=== PATIENT | male | born 1985 | race American Indian/Alaskan Native ===

== ENCOUNTER 2019-02-12 04:52 | Inpatient (IN) | payer BC, OTHER ==
--- NOTE | 2019-02-12 05:02 | Consultation ---
History of Present Illness History of present illness: [facility] Consult Services Impression: Patient presenting with lightheadedness and generalized weakness. No focal deficits on exam. Low suspicion for stroke, but can rule out with MRI. Endorsed symptoms sound more like presyncope. Not a tpa candidate due to: no deficits on exam, low suspicion for stroke Not an ADE candidate due to: no deficits on exam, presentation not suggestive of LVO Differential Diagnosis: 1. Cardioembolic stroke 2. Small vessel disease/lacune 3. Thromboembolic, [id number]-lobebs mechanism 4. Hypercoagulable state-related infarct 5. Transient ischemic attack 6. Thrombotic mechanism, large artery disease 7. Presyncope Comments: Door time: 451 [facility] contacted: [phone] [facility] at bedside: 447 NIHSS assessment time: 451 Recommendations: MRI brain wo Presyncope work up per admitting team Consider inpatient neurology consult Discussed with ED MD -------- - CC: stroke alert History of Present Illness Patient is a 33 year old man with a history of HTN and stroke (no residua per patient) presenting with generalized weakness and dizziness. Last normal at 0100 prior to bed. He woke around 0400 today feelinggenerally weak and dizzy. He states the dizziness is a sense of lightheadedness like he might pass out on standing, not room-spinning or internal/external movement. No focal/lateralizing weakness, sensory change, speech/language change, vision loss, CP, ARRIAZA. He ambulated independently for EMS. 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 Diagnostic: CT head wo - nothing acute Exam: NIHSS score: 0 Medical Decision Making: - Extensive number of diagnosis or management options are considered above. - Extensive amount of complex data reviewed. - High risk of complication and/or morbidity or mortality are associated with differential diagnostic considerations above. - There may be Uncertain outcome and increased probability of prolonged functional impairment or high probability of severe prolonged functional impairment associated with some of these differential diagnosis. Medical Data Reviewed: 1.Data reviewed include clinical labs, radiology, Medical Tests; 2.Tests results discussed w/performing or interpreting physician; 3.Obtaining/reviewing old medical records; 4.Obtaining case history from another source; 5.Independent review of image, tracing or specimen. Patient was informed the Neurology Consult would happen via TeleHealth consult by way of interactive audio and video telecommunications and consented to receiving care in this manner. Medications and Allergies Allergies Allergy/AdvReac Type Severity Reaction Status Date / Time No Known Allergies Allergy Verified 08/27/14 07:40 Home Medications Medication Instructions Recorded Confirmed Last Taken Type Acetaminophen/Codeine [Tylenol #3] 1 tab PO Q6H PRN #20 tab 08/27/14 Unknown Rx Azithromycin [Zithromax TAB] 500 mg PO QDAY #7 tablet 04/19/18 Unknown Rx Benzonatate [Tessalon Perle] 100 mg PO TID #30 capsule 04/19/18 Unknown Rx Ibuprofen [Motrin 600 MG tab] 600 mg PO Q8H PRN #30 tablet 04/19/18 Unknown Rx - Level of Consciousness 1a. Level of Consciousness: alert/keenly responsive - LOC Questions 1b. LOC Questions: answers both correctly - LOC Command 1c. LOC Commands: performs tasks correctly - Best Gaze 2. Best Gaze: normal - Visual 3. Visual: no visual loss - Facial Palsy 4. Facial Palsy: normal symmetrical movement - Motor Arm 5a. Motor Arm Left: no drift 5b. Motor Arm Right: no drift - Motor Leg 6a. Motor Leg Left: no drift 6b. Motor Leg Right: no drift - Limb Ataxia 7. Limb Ataxia: absent - Sensory 8. Sensory: normal - Best Language 9. Best Language: no aphasia - Dysarthria 10. Dysarthria: normal - Extinction and Inattention 11. Extinction/Inattention: no abnormality - Scoring Total Score: 0 Stroke Severity: No Stroke Symptoms
--- NOTE | 2019-02-12 05:25 | Cat Scan Report ---
CT HEAD WITHOUT CONTRAST INDICATION / CLINICAL INFORMATION: MAIN: STROKE ALERT. DIZZINESS. TECHNIQUE: All CT scans at this location are performed using CT dose reduction for ALARA by means of automated e xposure control. COMPARISON: None available. FINDINGS: HEMORRHAGE: None. EXTRA-AXIAL SPACES: Normal in size and morphology for the patient's age. VENTRICULAR SYSTEM: Normal in size and morphology for the patient's age. CEREBRAL PARENCHYMA: Chronic left thalamic, left occipital, and posterior left parietal infarcts/ence phalomalacia have developed since the prior study 4 years ago. Lacunar infarct in the left periventri cular white matter is unchanged. No definite acute territorial infarct. MIDLINE SHIFT OR HERNIATION: None. CEREBELLUM / BRAINSTEM: No significant abnormality. ORBITS: Normal as visualized. SOFT TISSUES of HEAD: No significant abnormality. CALVARIUM: No significant abnormality. PARANASAL SINUSES / MASTOID AIR CELLS: Normal as visualized. ADDITIONAL FINDINGS: None. IMPRESSION: 1. No acute findings. 2. Old left occipital, left parietal, and left thalamic infarcts have developed since the prior CT. COMMUNICATION: Time of Communication (BRASS POURER/CDT): 4:20 AM Licensed Practitioner Receiving Report: PABLO Herrera in the ED Signer Name: Agatha Storm MD Signed: 02/12/2019 5:20 AM Workstation Name: [email or web address]
[2019-02-12 05:32] LABS: Basophils # (Auto) 0.1 K/mm3 (0.0-0.1); Basophils % (Auto) 1.1 % (0.0-1.8); Eosinophils % (Auto) 0.9 % (0.0-4.3); Hematocrit 38.8 % (35.5-45.6); Lymphocytes # (Auto) 1.4 K/mm3 (1.2-5.4); Lymphocytes % (Auto) 28.4 % (13.4-35.0); Mean Corpuscular HGB Conc 34 % (32-34); Mean Corpuscular Volume 91 fl (84-94); Monocytes # (Auto) 0.3 K/mm3 (0.0-0.8); Monocytes % (Auto) 6.2 % (0.0-7.3); Platelet Count 289 K/mm3 (140-440); Red Blood Count 4.28 M/mm3 (3.65-5.03); Red Cell Distribution Width 17.8 % (13.2-15.2)
[2019-02-12 05:42] LABS: Calcium 8.8 mg/dL (8.4-10.2); INR 2.77 (0.87-1.13)
[2019-02-12 05:43] LABS: Partial Thromboplastin Time 39.4 Sec. (24.2-36.6)
--- NOTE | 2019-02-12 07:01 | Emergency Department Report ---
ED Neuro Deficit HPI - General Chief Complaint: Neuro Symptoms/Deficit Stated Complaint: POSS STROKE Time Seen by Provider: 02/12/19 06:06 Source: patient Mode of arrival: Ambulatory Limitations: No Limitations - History of Present Illness Initial Comments: 33-year-old male with a past medical history previous CVA with residual deficit, hypertension, and on anticoagulation for "a blood clot in his heart" presents to the hospital with complaints of waking up with lightheadedness and disorientation. Patient has multiple strokes since May 2018. Patient residual numbness to left arm and right visual field deficit as a result of his previous stroke. Patient denies headache, chest pain, shortness of breath, or new neurologic deficit. Last known well time was 1 AM. Patient is somewhat slow to respond to questions stating he is tired. He is currently is on Xarelto. He does not have a primary care doctor or a bag sewer. He typically goes to [facility] and has been seen by [facility] bag sewer group in the past. - Related Data Home Medications: Previous Rx's Medication Instructions Recorded Last Taken Type Acetaminophen/Codeine [Tylenol #3] 1 tab PO Q6H PRN #20 tab 08/27/14 Unknown Rx Azithromycin [Zithromax TAB] 500 mg PO QDAY #7 tablet 04/19/18 Unknown Rx Benzonatate [Tessalon Perle] 100 mg PO TID #30 capsule 04/19/18 Unknown Rx Ibuprofen [Motrin 600 MG tab] 600 mg PO Q8H PRN #30 tablet 04/19/18 Unknown Rx Allergies/Adverse Reactions: Allergies Allergy/AdvReac Type Severity Reaction Status Date / Time No Known Allergies Allergy Verified 08/27/14 07:40 ED Review of Systems ROS: Stated complaint: POSS STROKE Other details as noted in HPI Comment: All other systems reviewed and negative ED Past Medical Hx - Past Medical History Hx Hypertension: Yes Hx CVA: Yes Hx Congestive Heart Failure: Yes - Social History Smoking Status: Never Smoker Substance Use Type: Alcohol - Medications Home Medications: Home Medications Medication Instructions Recorded Confirmed Last Taken Type Acetaminophen/Codeine [Tylenol #3] 1 tab PO Q6H PRN #20 tab 08/27/14 Unknown Rx Azithromycin [Zithromax TAB] 500 mg PO QDAY #7 tablet 04/19/18 Unknown Rx Benzonatate [Tessalon Perle] 100 mg PO TID #30 capsule 04/19/18 Unknown Rx Ibuprofen [Motrin 600 MG tab] 600 mg PO Q8H PRN #30 tablet 04/19/18 Unknown Rx ED Neuro Physical Exam - General Limitations: No Limitations Suspected Stroke: No - NIHSS Assessment Interval: Baseline 1a. Level of Consciousness: alert/keenly responsive 1b. LOC Questions: answers both correctly 1c. LOC Commands: performs tasks correctly 2. Best Gaze: normal 3. Visual: partial hemianopia 4. Facial Palsy: normal symmetrical movement 5b. Motor Arm Right: no drift 5a. Motor Arm Left: no drift 6a. Motor Leg Left: no drift 6b. Motor Leg Right: no drift 7. Limb Ataxia: absent 8. Sensory: normal 9. Best Language: no aphasia 10. Dysarthria: normal 11. Extinction/Inattention: no abnormality Total Score: 1 Stroke Severity: Minor Stroke - Other Other exam information: Gen.: No acute distress Head: Atraumatic Eyes: Normal appearance, pupils equal and reactive to light, right sided hemianopsia both eyes ENT: Moist mucous membranes Neck: Normal appearance, no posterior midline tenderness, no meningismus Chest: Clear to auscultation bilaterally Cardiovascular: Tachycardic with his of irregularity PVCs on monitor Abdomen: Normal appearance, soft, nontender, no rebound or guarding, normal bowel sounds Back: Normal appearance, nontender Extremity: Full range of motion, normal appearance Neuro: Alert and oriented 3, clear speech, no focal motor or sensory deficit (to light touch) Psychiatric: Appropriate Skin: No rash ED Course Vital Signs 02/12/19 02/12/19 02/12/19 05:00 05:27 06:50 Temperature 98.7 F Pulse Rate 114 H 107 H Respiratory 20 16 20 Rate Blood Pressure 134/109 119/82 Blood Pressure [Left] O2 Sat by Pulse 97 94 Oximetry 02/12/19 02/12/19 07:12 08:21 Temperature Pulse Rate 100 H 91 H Respiratory 12 14 Rate Blood Pressure Blood Pressure 125/79 125/91 [Left] O2 Sat by Pulse 98 96 Oximetry - Lab Data Result diagrams: 02/12/19 05:17 02/12/19 05:17 Lab Results 02/12/19 02/12/19 02/12/19 Range/Units 05:17 05:17 05:17 WBC 4.9 (4.5-11.0) K/mm3 RBC 4.28 (3.65-5.03) M/mm3 Hgb 13.0 (11.8-15.2) gm/dl Hct 38.8 (35.5-45.6) % MCV 91 (84-94) fl MCH 30 (28-32) pg MCHC 34 (32-34) % RDW 17.8 H (13.2-15.2) % Plt Count 289 (140-440) K/mm3 Lymph % (Auto) 28.4 (13.4-35.0) % [place] % (Auto) 6.2 (0.0-7.3) % Eos % (Auto) 0.9 (0.0-4.3) % Baso % (Auto) 1.1 (0.0-1.8) % Lymph # 1.4 (1.2-5.4) K/mm3 [place] # 0.3 (0.0-0.8) K/mm3 Eos # 0.0 (0.0-0.4) K/mm3 Baso # 0.1 (0.0-0.1) K/mm3 Seg Neutrophils % 63.4 (40.0-70.0) % Seg Neutrophils # 3.1 (1.8-7.7) K/mm3 PT 28.8 H (12.2-14.9) Sec. INR 2.77 H (0.87-1.13) APTT 39.4 H (24.2-36.6) Sec. Thrombin Time (15.1-19.6) Sec. Sodium 141 (137-145) mmol/L Potassium 3.9 (3.6-5.0) mmol/L Chloride 99.6 (98-107) mmol/L Carbon Dioxide 29 (22-30) mmol/L Anion Gap 16 mmol/L BUN 30 H (9-20) mg/dL Creatinine 1.6 H (0.8-1.5) mg/dL Estimated GFR 60 ml/min BUN/Creatinine Ratio 19 % Glucose 132 H (75-100) mg/dL Calcium 8.8 (8.4-10.2) mg/dL Troponin T 0.015 (0.00-0.029) ng/mL 02/12/19 Range/Units 05:17 WBC (4.5-11.0) K/mm3 RBC (3.65-5.03) M/mm3 Hgb (11.8-15.2) gm/dl Hct (35.5-45.6) % MCV (84-94) fl MCH (28-32) pg MCHC (32-34) % RDW (13.2-15.2) % Plt Count (140-440) K/mm3 Lymph % (Auto) (13.4-35.0) % [place] % (Auto) (0.0-7.3) % Eos % (Auto) (0.0-4.3) % Baso % (Auto) (0.0-1.8) % Lymph # (1.2-5.4) K/mm3 [place] # (0.0-0.8) K/mm3 Eos # (0.0-0.4) K/mm3 Baso # (0.0-0.1) K/mm3 Seg Neutrophils % (40.0-70.0) % Seg Neutrophils # (1.8-7.7) K/mm3 PT (12.2-14.9) Sec. INR (0.87-1.13) APTT (24.2-36.6) Sec. Thrombin Time 17.8 (15.1-19.6) Sec. Sodium (137-145) mmol/L Potassium (3.6-5.0) mmol/L Chloride (98-107) mmol/L Carbon Dioxide (22-30) mmol/L Anion Gap mmol/L BUN (9-20) mg/dL Creatinine (0.8-1.5) mg/dL Estimated GFR ml/min BUN/Creatinine Ratio % Glucose (75-100) mg/dL Calcium (8.4-10.2) mg/dL Troponin T (0.00-0.029) ng/mL - EKG Data -: EKG Interpreted by Sc EKG shows normal: sinus rhythm, QRS complexes (pvc's), ST-T waves (no stemi) Rate: tachycardia (115) When compared to previous EKG there are: previous EKG unavailable - Radiology Data Radiology results: report reviewed CT HEAD WITHOUT CONTRAST INDICATION / CLINICAL INFORMATION: MAIN: STROKE ALERT. DIZZINESS. TECHNIQUE: All CT scans at this location are performed using CT dose reduction for ALARA by means of automated exposure control. COMPARISON: None available. FINDINGS: HEMORRHAGE: None. EXTRA-AXIAL SPACES: Normal in size and morphology for the patient's age. VENTRICULAR SYSTEM: Normal in size and morphology for the patient's age. CEREBRAL PARENCHYMA: Chronic left thalamic, left occipital, and posterior left parietal infarcts/encephalomalacia have developed since the prior study 4 years ago. Lacunar infarct in the left periventricular white matter is unchanged. No definite acute territorial infarct. MIDLINE SHIFT OR HERNIATION: None. CEREBELLUM / BRAINSTEM: No significant abnormality. ORBITS: Normal as visualized. SOFT TISSUES of HEAD: No significant abnormality. CALVARIUM: No significant abnormality. PARANASAL SINUSES / MASTOID AIR CELLS: Normal as visualized. ADDITIONAL FINDINGS: None. IMPRESSION: 1. No acute findings. 2. Old left occipital, left parietal, and left thalamic infarcts have developed since the prior CT. - Medical Decision Making Patient was evaluated by neurologist prior to my evaluation. ED workup unremarkable. Patient will be admitted to the hospital for further evaluation per neurology recommendation. - Differential Diagnosis CVA, intracranial hemorrhage, dehydration, encephalopathy Critical Care Time: No Critical care attestation.: If time is entered above; I have spent that time in minutes in the direct care of this critically ill patient, excluding procedure time. ED Disposition Clinical Impression: Lightheadedness, Current use of assisted anticoagulation, Renal insufficiency, History of CVA with residual deficit Disposition: OP ADMIT IP TO THIS HOSP Is pt being admited?: Yes Does the pt Need Aspirin: No (inr elevated on anticoagulation) Condition: Stable Time of Disposition: 07:26 (Dr muniz/jacinto)
[2019-02-12] MEDS ORDERED: MAGNESIUM HYDROXIDE (MOM) ORAL LIQD UDC PO PRN (08:29)
[2019-02-12] MEDS ORDERED: HYDROcodone/ACETAMINOPHEN 5-325 MG TAB PO PRN (08:29)
[2019-02-12] MEDS ORDERED: ONDANSETRON 4 MG/2 ML INJ IV PRN (08:29)
[2019-02-12] MEDS ORDERED: METOCLOPRAMIDE 10 MG TAB PO PRN (08:29)
[2019-02-12] MEDS ORDERED: ACETAMINOPHEN 325 MG TAB PO PRN (08:29)
[2019-02-12] MEDS ORDERED: PROMETHAZINE 25 MG RECT SUPP PR PRN (08:29)
--- NOTE | 2019-02-12 08:29 | History and Physical Report ---
History of Present Illness Date of examination: 02/12/19 Date of admission: 02/12/19 Chief complaint: stroke like symptom History of present illness: Patient is a 33 year old man with a history of HTN, stroke and on anticoagulation for "a blood clot in his heart" presenting with generalized weakness and dizziness. Last normal at 0100 prior to bed. He woke around 0400 today feelinggenerally weak and dizzy. He states the dizziness is a sense of lightheadedness like he might pass out on standing, not room-spinning or internal/external movement. No focal/lateralizing weakness, sensory change, speech/language change, vision loss, CP, ARRIAZA. He ambulated independently for EMS. 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 Patient has multiple strokes since May 2018. Patient has residual numbness to left arm and right visual field deficit as a result of his previous stroke. He is currently is on Xarelto. He does not have a primary care doctor or a dredging inspector. He typically goes to [facility] and has been seen by [place] [facility] dredging inspector group in the past. He was evaluated by teleneurology and recommended for admission for further work up. Review of System: Constitutional: no fever, no chills, no weight loss Ears, eyes, nose, mouth and throat: no nasal congestion, no nasal discharge, no sinus pressure, no vision change, no red eye. Neck: No neck pain or rigidity. Cardiovascular: No chest pain, no orthopnea, no palpitations, no leg swelling Respiratory: No shortness of breath, no cough, no congestion, no wheezing Gastrointestinal: no abdominal pain, no nausea, no vomiting Genitourinary : no dysuria, no hematuria Musculoskeletal: no joint swelling or muscle ache Integumentary: no rash, no pruritis Neurological: no parathesias, no numbness, no tingling, + weakness and dizziness Endocrine: no cold or heat intolerance, no polyuria or polydipsia Hematologic/Lymphatic: no easy bruising, no easy bleeding, no gland swelling Allergic/Immunologic: no urticaria, no angioedema. Past History Past Medical History: heart failure, other (LV thrombus) Past Surgical History: No surgical history Social history: no significant social history Family history: hypertension Medications and Allergies Allergies Allergy/AdvReac Type Severity Reaction Status Date / Time No Known Allergies Allergy Verified 08/27/14 07:40 Home Medications Medication Instructions Recorded Confirmed Last Taken Type Furosemide [Lasix TAB] 40 mg PO QDAY 02/12/19 02/12/19 Unknown History Isosorbide Dinitrate [Isordil 10 mg PO QDAY 02/12/19 02/12/19 Unknown History Titradose] Rivaroxaban [Xarelto] 20 mg PO QDAY 02/12/19 02/12/19 Unknown History Review of Systems Constitutional: no weight loss, no anorexia Ears, nose, mouth and throat: no ear pain, no ear discharge, no bleeding gums, no vertigo, no pain front of neck, no neck fullness/pressure Cardiovascular: lightheadedness, no chest pain, no palpitations, no dyspnea on exertion Exam - Physical Exam Narrative exam: GENERAL: well-developed and well-nourished AAM lying on bed appeared to be in no discomfort. HEENT: Normocephalic. Atraumatic. No conjunctival congestion or icterus. Patient has moist mucous membranes. NECK: Supple. Trachea midline. CHEST/LUNGS: Clear to auscultated bilaterally, breathing nonlabored. No wheezes crackles or rhonchi. HEART/CARDIOVASCULAR: Regular in rate and rhythm. S1 and S2 positive. ABDOMEN: Abdomen is soft, nontender. Patient has normal bowel sounds. SKIN: There is no rash. Warm and dry. NEURO: No focal motor deficit. Follows command. MUSCULOSKELETAL: No joint effusion or tenderness. EXTRIMITY: No edema, no cyanosis or clubbing. PSYCH: Cooperative. - Constitutional Vitals: Temp Pulse Resp BP Pulse Ox 98.7 F 91 H 14 125/91 96 02/12/19 05:00 02/12/19 08:21 02/12/19 08:21 02/12/19 08:21 02/12/19 08:21 Results - Labs CBC & Chem 7: 02/12/19 05:17 02/12/19 05:17 Labs: Abnormal lab results 02/12/19 02/12/19 02/12/19 Range/Units 05:17 05:17 05:17 RDW 17.8 H (13.2-15.2) % PT 28.8 H (12.2-14.9) Sec. INR 2.77 H (0.87-1.13) APTT 39.4 H (24.2-36.6) Sec. BUN 30 H (9-20) mg/dL Creatinine 1.6 H (0.8-1.5) mg/dL Glucose 132 H (75-100) mg/dL - Imaging and Cardiology CT Scan - head: report reviewed Assessment and Plan Dizziness/Presyncope - - We will admit the patient to remote telemetry - We'll place on aspirin and statin, consulted neurology - CT scan of the head obtained in the ER and shows no new CVA - We will get MRA of the head, 2-D echocardiogram - per neuro recommendation History of cardiac thrombus - Patient currently on xarelto 20 mg daily - We will get medical records from [facility] Nonischemic cardiomyopathy - [facility] 04/2018: normal coronaries, EF 20% History of remote CVA - Continue aspirin statin and xarelto h/o seizure, takes keppra 500 BID - cont xarelto for DVT prophylaxis CT head: 1. No acute findings. 2. Old left occipital, left parietal, and left thalamic infarcts have developed since the prior CT.
[2019-02-12 09:37] LABS: Amphetamine Screen,Urine PRESUMPTIVE NEGATIVE; Benzodiazepines Screen,Urine PRESUMPTIVE NEGATIVE; Cannabinoid Screen,Urine PRESUMPTIVE NEGATIVE; Cocaine Screen,Urine PRESUMPTIVE NEGATIVE; Methadone Screen,Urine PRESUMPTIVE NEGATIVE; Opiate Screen,Urine PRESUMPTIVE NEGATIVE
--- NOTE | 2019-02-12 11:03 | Consultation ---
Medications and Allergies Allergies Allergy/AdvReac Type Severity Reaction Status Date / Time No Known Allergies Allergy Verified 08/27/14 07:40 Home Medications Medication Instructions Recorded Confirmed Last Taken Type Acetaminophen/Codeine [Tylenol #3] 1 tab PO Q6H PRN #20 tab 08/27/14 Unknown Rx Azithromycin [Zithromax TAB] 500 mg PO QDAY #7 tablet 04/19/18 Unknown Rx Benzonatate [Tessalon Perle] 100 mg PO TID #30 capsule 04/19/18 Unknown Rx Ibuprofen [Motrin 600 MG tab] 600 mg PO Q8H PRN #30 tablet 04/19/18 Unknown Rx Active Meds: Active Medications Acetaminophen (Tylenol) 650 mg PO Q4H PRN PRN Reason: Pain, Mild (1-3) Acetaminophen/Hydrocodone Bitart (Freer 5/325) 2 each PO Q6H PRN PRN Reason: Pain, Moderate (4-6) Aspirin (Aspirin) 325 mg PO QDAY JOHN Atorvastatin Calcium (Lipitor) 80 mg PO QHS JOHN Bisacodyl (Dulcolax) 10 mg MA QDAY PRN PRN Reason: Constipation Docusate Sodium (Colace) 100 mg PO BID JOHN Famotidine (Pepcid) 20 mg PO BID JOHN Magnesium Hydroxide (Milk Of Magnesia) 30 ml PO Q4H PRN PRN Reason: Constipation Metoclopramide HCl (Reglan) 10 mg PO Q6H PRN PRN Reason: Nausea And Vomiting Ondansetron HCl (Zofran) 4 mg IV Q8H PRN PRN Reason: Nausea And Vomiting Promethazine HCl (Phenergan) 25 mg MA Q6H PRN PRN Reason: Nausea And Vomiting Sodium Chloride (Sodium Chloride Flush Syringe 10 Ml) 10 ml IV PRN PRN PRN Reason: LINE FLUSH Physical Examination - Vital Signs Vital Signs: Vital Signs Temp Pulse Resp BP Pulse Ox 98.7 F 114 H 20 134/109 97 02/12/19 05:00 02/12/19 05:00 02/12/19 05:00 02/12/19 05:00 02/12/19 05:00 Results - Laboratory Findings CBC and BMP: 02/12/19 05:17 02/12/19 05:17 Abnormal Lab Findings: Abnormal Labs 02/12/19 02/12/19 02/12/19 05:17 05:17 05:17 RDW 17.8 H PT 28.8 H INR 2.77 H APTT 39.4 H BUN 30 H Creatinine 1.6 H Glucose 132 H Assessment and Plan 33 YR OLD MALE WITH HIST OF HYPERTENSION, AND MULTIPLE STROKE INVOLVING LEFT OCCIPITAL LOBE,LEFT PARIETAL LOBE, AND LEFT THALAMUS, ALL THESE THREE STROKES SINCE MAY 2018 CAME INTO THE HOSPITAL BECAUSE HE STATES HE FELT DIZZY IN THE MORNING ON WAKING UP, BY DIZZYNESS PATIENT MEANS A SENSE OF LIGHT HEADEDNESS, DENIES ANY VERTIGO, OR LOSS OF SENSATION OF PASSING OUT. PATIENT STAES THAT HE WAS ADMITTED AT [facility] WHERE WORK UP SHOWED "CLOT' IN THE HEART FOR WHICH HE WAS GIVEN APIXABAN WHICH HE TOOK FOR A SHORT WHILE AND COULD NOT CONTINUE DUE MEDICATION BEING VERY EXPENSIVE, HE WAS GIVEN A SAMPLE OF RIVORAXABAN, 'xarelto" BY THE SYSTEMS TEST ENGINEER WHICH HELPED HIM A LOT BETTER, HE STATES THAT HE FELT IF HIS BLOOD CIRCULATION IN THE CHEST BECAME BETTER AND HE WAS NOT HAVING THAT HEAVY FEELING IN THE CHEST. HE WAS ADMITTED ON CODE STROKE AND WAS NOT GIVEN TPA,, PATIENT STAES THAT HE WAS ADVISED BY [facility] DURING HIS LAST ADMISSION TO RESTRICT FLUID INTAKE, AND HE IS DRINKING ONLY I LIER FLUID EVERY DAY AND SOME TIMES LESS. HE WAS NOT SURE WHY THAT RECOMMENDATION WAS MADE. CT SCAN OF THE BRAIN DOES NOT SHOW ANY ACUTE INFARCT. PHYSICAL EXAMINATION- ALERT AND APPROPRIATE.HAS INSIGHT INTO HIS PROBLEM AND ANSWERS QUESTIONS APPR OPRIATELY SPEECH- NORMAL ,NO APHASIA HEART- NORMAL RATE AND RYTHM CAROTIDS- BOTH PALPABLE, CRANIAL NERVES- HAS RIGHT HOMONYMOUS HEMIANOPSIA, PUPILS REACT TO LIGHT,EOMI, NO FACIAL WEAKNESS OR ASYMMETRY OF SENSATION. OTHER CRANIAL NERVES ARE WITH IN NORMAL LIMIT. MOTOR- MILD RIGHT WEAKNESS FROM PREVIOUS STROKE, REFLEXES- REFLEXES ARE SLIGHTLY INCREASED ON THE RIGHT SIDE WITH UP GOING TOE ON THE RIGHT. SENSORY- GROSSLY INTACT, GAIT- NORMAL. IMPRESSION. 1. 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 1. PLEASE CHECK INTO IF PATIENT NEEDS TO BE ON WATER RESTRICTION OR NOT FOR OTHER MEDICAL CONDITION 2. PLEASE CHECK BLOOD FOR PROTEIN C, PROTEIN S, ANTI THROMBIN THREE, FACTOR FIVE LEYDEN,ANTI PHOSPHOLIPID ANTIBODY, LUPUS ANTICOAGULANT,T4,TSH, INTRACRANIAL CT ANGIOGRAM, ESR, TANVI, ANTI DNA, 3, FURTHER RECOMMENDATION TO FOLLOW AFTER THE BLOOD WORK AND INTRACRANIAL CT ANGIOGRAM IS DONE.
--- NOTE | 2019-02-12 13:18 | Magnetic Resonance Report ---
MRA HEAD WITHOUT CONTRAST HISTORY: Right-sided weakness, slurred speech COMPARISON: None. TECHNIQUE: Routine MRA of the head is performed. 3-D/MIP reformats postprocessed. CONTRAST: None. FINDINGS: Intracranial vertebral arteries: No significant abnormality. Basilar artery: No significant abnormality. Posterior cerebral arteries: The right posterior cerebral artery is normal. The left posterior cerebr al artery is atretic distally which correlates with the chronic left occipital infarct. No acute occl usion is identified. Intracranial internal carotid arteries: No significant abnormality. Anterior cerebral arteries: No significant abnormality. Middle cerebral arteries: No significant abnormality. Additional findings: None. IMPRESSION: No evidence for acute large vessel occlusion, stenosis or aneurysm. Chronic atretic appearance of the distal left [employer] which correlates with a chronic left occipital infa rct. Signer Name: Sean Mccartney Jr, MD Signed: 02/12/2019 1:13 PM Workstation Name: [id number]
[2019-02-12] MEDS: ASPIRIN 325 MG TAB PO SCH (14:30)
[2019-02-12] MEDS: FAMOTIDINE 20 MG TAB PO SCH ×2 (14:30→21:20)
[2019-02-12] MEDS: DOCUSATE SODIUM 100 MG CAP PO SCH ×3 (14:31→21:21)
[2019-02-12] MEDS: METOPROLOL TARTRATE 25 MG TAB PO SCH (21:20)
[2019-02-12] MEDS: FUROSEMIDE 40 MG TAB PO SCH (21:21)
[2019-02-12] MEDS: ISOSORBIDE DINITRATE 10 MG TAB PO SCH (21:21)
[2019-02-13 05:09] LABS: Chol/HDL Ratio 5.76 %
--- NOTE | 2019-02-13 07:56 | Event Note ---
Date: 02/12/19 RN called that patient having 7-13 run of [employer] Patient asymptomatic will get EKG, stat BB, consult cardiology
--- NOTE | 2019-02-13 08:45 | Vascular Lab Report ---
BILATERAL CAROTID DOPPLER ULTRASOUND INDICATION : stroke TECHNIQUE: Grayscale and color Doppler imaging performed through the neck. COMPARISON: None FINDINGS: Right: There is no significant atherosclerotic disease. Peak systolic velocity in the CCA is 64 cm/ s with end-diastolic velocity of 21 cm/s. Peak systolic velocity in the proximal ICA is 51 cm/s with end-diastolic velocity of 27 cm/s. ICA to CCA ratio is less than 2. There is antegrade flow in the E CA and the vertebral artery. Left: There is no significant atherosclerotic disease. Peak systolic velocity in the CCA is 84 cm/s w ith end-diastolic velocity of 28 cm/s. Peak systolic velocity in the proximal ICA is 54 cm/s with end -diastolic velocity of 29 cm/s. ICA to CCA ratio is less than 2. There is antegrade flow in the ECA and the vertebral artery. IMPRESSION: No hemodynamically significant stenosis by NASCET criteria. There is less than 50% lumina l narrowing bilaterally. Signer Name: Sean Mccartney Jr, MD Signed: 02/13/2019 8:40 AM Workstation Name: [id number]
[2019-02-13] MEDS: METOPROLOL TARTRATE 25 MG TAB PO SCH (09:17)
[2019-02-13] MEDS: ASPIRIN 325 MG TAB PO SCH (09:17)
[2019-02-13] MEDS: DOCUSATE SODIUM 100 MG CAP PO SCH ×2 (09:17→21:02)
[2019-02-13] MEDS: FAMOTIDINE 20 MG TAB PO SCH ×2 (09:17→21:02)
[2019-02-13] MEDS: RIVAROXABAN 20 MG TAB PO SCH (09:17)
[2019-02-13] MEDS: FUROSEMIDE 40 MG TAB PO SCH (09:17)
[2019-02-13] MEDS: ISOSORBIDE DINITRATE 10 MG TAB PO SCH (09:23)
--- NOTE | 2019-02-13 11:54 | Consultation ---
<JOANNE HUDDLESTON - Last Filed: 02/13/19 11:44> History of Present Illness Consult date: 02/13/19 Consult reason: other (NSVT) History of present illness: This is a 33-year old male who presented with dizziness, admitted with dehydration. A cardiac consultation has been requested for non-sustained ventricular tachycardia seen on telemetry. Patient denies chest pain, pa lpitations, and unusual shortness of breath. At this time, patient complains of fatigue. [facility] He has a history of nonischemic cardiomyopathy by cardiac cath, done less than a year ago, that reports normal coronaries but a decreased ejection fraction at 20%. Patient has been ordered to wear a lifevest but has been noncompliant over several weeks. Patient also has a history of LV thrombus and is on Xarelto oral anticoagulation. Co-morbidities includes seizures, prior CVA and hypertension. Medications and Allergies Allergies Allergy/AdvReac Type Severity Reaction Status Date / Time No Known Allergies Allergy Verified 08/27/14 07:40 Home Medications Medication Instructions Recorded Confirmed Last Taken Type Furosemide [Lasix TAB] 40 mg PO QDAY 02/12/19 02/12/19 Unknown History Isosorbide Dinitrate [Isordil 10 mg PO QDAY 02/12/19 02/12/19 Unknown History Titradose] Rivaroxaban [Xarelto] 20 mg PO QDAY 02/12/19 02/12/19 Unknown History Active Meds: Active Medications Acetaminophen (Tylenol) 650 mg PO Q4H PRN PRN Reason: Pain, Mild (1-3) Acetaminophen/Hydrocodone Bitart ([place] 5/325) 2 each PO Q6H PRN PRN Reason: Pain, Moderate (4-6) Aspirin (Aspirin) 325 mg PO QDAY [facility] Last Admin: 02/13/19 09:17 Dose: 325 mg Documented by: Atorvastatin Calcium (Lipitor) 80 mg PO QHS [facility] Last Admin: 02/12/19 21:20 Dose: 80 mg Documented by: Bisacodyl (Dulcolax) 10 mg CA QDAY PRN PRN Reason: Constipation Docusate Sodium (Colace) 100 mg PO BID [facility] Last Admin: 02/13/19 09:17 Dose: 100 mg Documented by: Famotidine (Pepcid) 20 mg PO BID [facility] Last Admin: 02/13/19 09:17 Dose: 20 mg Documented by: Furosemide (Lasix) 40 mg PO QDAY [facility] Last Admin: 02/13/19 09:17 Dose: 40 mg Documented by: Isosorbide Dinitrate (Isordil Titradose) 10 mg PO QDAY [facility] Last Admin: 02/13/19 09:23 Dose: 10 mg Documented by: Magnesium Hydroxide (Milk Of Magnesia) 30 ml PO Q4H PRN PRN Reason: Constipation Metoclopramide HCl (Reglan) 10 mg PO Q6H PRN PRN Reason: Nausea And Vomiting Metoprolol Tartrate (Lopressor) 25 mg PO BID [facility] Last Admin: 02/13/19 09:17 Dose: 25 mg Documented by: Ondansetron HCl (Zofran) 4 mg IV Q8H PRN PRN Reason: Nausea And Vomiting Promethazine HCl (Phenergan) 25 mg CA Q6H PRN PRN Reason: Nausea And Vomiting Rivaroxaban (Xarelto) 20 mg PO QDAY [facility]; Protocol Last Admin: 02/13/19 09:17 Dose: 20 mg Documented by: Sodium Chloride (Sodium Chloride Flush Syringe 10 Ml) 10 ml IV PRN PRN PRN Reason: LINE FLUSH Physical Examination Vital Signs Temp Pulse Resp BP Pulse Ox 98.7 F 114 H 20 134/109 97 02/12/19 05:00 02/12/19 05:00 02/12/19 05:00 02/12/19 05:00 02/12/19 05:00 General appearance: no acute distress HEENT: Positive: PERRL Cardiac: Positive: Tachycardia Lungs: Positive: Normal Breath Sounds Neuro: Positive: Grossly Intact Extremities: Absent: edema Results 02/12/19 05:17 02/12/19 05:17 Lipids 02/13/19 Range/Units 04:23 Triglycerides 88 (2-149) mg/dL Cholesterol 144 (50-199) mg/dL HDL Cholesterol 25 L (40-59) mg/dL Cholesterol/HDL Ratio 5.76 % Assessment and Plan Dehydration Acute renal failure NSVT, pt remained asymptomatic Hx of Nonischemic cardiomyopathy [facility] 04/2018: normal coronaries, EF 20% Hx of LV thrombus on xarelto for oral anticoagulation Hypertension Prior CVA Recommendations: Check a TSH, magnesium and potassium. Keep mag >2 and potassium >4. Discontinue metoprolol secondary to fatigue. We will instead use amiodarone and carvedilol for suppression of tachy arrhythmias. Medical therapy for nonischemic cardiomyopathy as tolerated. <SWAPNA STANLEY - Last Filed: 02/13/19 21:56> Medications and Allergies Active Meds: Active Medications Acetaminophen (Tylenol) 650 mg PO Q4H PRN PRN Reason: Pain, Mild (1-3) Acetaminophen/Hydrocodone Bitart ([place] 5/325) 2 each PO Q6H PRN PRN Reason: Pain, Moderate (4-6) Amiodarone HCl (Cordarone) 200 mg PO QDAY [facility] Last Admin: 02/13/19 15:37 Dose: 200 mg Documented by: Aspirin (Aspirin) 325 mg PO QDAY [facility] Last Admin: 02/13/19 09:17 Dose: 325 mg Documented by: Atorvastatin Calcium (Lipitor) 80 mg PO QHS [facility] Last Admin: 02/13/19 21:02 Dose: 80 mg Documented by: Bisacodyl (Dulcolax) 10 mg CA QDAY PRN PRN Reason: Constipation Bumetanide (Bumex) 1 mg PO QDAY [facility] Carvedilol (Coreg) 3.125 mg PO BID [facility] Last Admin: 02/13/19 21:02 Dose: 3.125 mg Documented by: Docusate Sodium (Colace) 100 mg PO BID [facility] Last Admin: 02/13/19 21:02 Dose: 100 mg Documented by: Famotidine (Pepcid) 20 mg PO BID [facility] Last Admin: 02/13/19 21:02 Dose: 20 mg Documented by: Levetiracetam (Keppra) 500 mg PO BID [facility] Last Admin: 02/13/19 21:02 Dose: 500 mg Documented by: Magnesium Hydroxide (Milk Of Magnesia) 30 ml PO Q4H PRN PRN Reason: Constipation Metoclopramide HCl (Reglan) 10 mg PO Q6H PRN PRN Reason: Nausea And Vomiting Ondansetron HCl (Zofran) 4 mg IV Q8H PRN PRN Reason: Nausea And Vomiting Promethazine HCl (Phenergan) 25 mg CA Q6H PRN PRN Reason: Nausea And Vomiting Rivaroxaban (Xarelto) 20 mg PO QDAY [facility]; Protocol Last Admin: 02/13/19 09:17 Dose: 20 mg Documented by: Sodium Chloride (Sodium Chloride Flush Syringe 10 Ml) 10 ml IV PRN PRN PRN Reason: LINE FLUSH Spironolactone (Aldactone) 12.5 mg PO QDAY [facility] Physical Examination Vital Signs Temp Pulse Resp BP Pulse Ox 98.7 F 114 H 20 134/109 97 02/12/19 05:00 02/12/19 05:00 02/12/19 05:00 02/12/19 05:00 02/12/19 05:00 Results 02/12/19 05:17 02/13/19 12:52 Lipids 02/13/19 Range/Units 04:23 Triglycerides 88 (2-149) mg/dL Cholesterol 144 (50-199) mg/dL HDL Cholesterol 25 L (40-59) mg/dL Cholesterol/HDL Ratio 5.76 % Comprehensive Metabolic Panel 02/13/19 Range/Units 12:52 Sodium 140 (137-145) mmol/L Potassium 3.8 (3.6-5.0) mmol/L Chloride 99.6 (98-107) mmol/L Carbon Dioxide 24 (22-30) mmol/L BUN 30 H (9-20) mg/dL Creatinine 1.5 (0.8-1.5) mg/dL Glucose 126 H (75-100) mg/dL Calcium 9.1 (8.4-10.2) mg/dL Assessment and Plan I have seen and evaluated the patient and agree with the assessment and plan. The patient has a history of no-sustained VT, nonischemic cardiomyopathy with EF 20%, history of LV thrombus, hypertension, and prior CVA. The patient presents to the hospital with dehydration. Recommend changing metoprolol to carvedilol as the patient is having fatigue with metoprolol. The patient has also been having periods of NSVT - plan to start low dose amiodarone. Keep K > 4 and Mg > 2.
--- NOTE | 2019-02-13 13:27 | Progress Note ---
Assessment and Plan Dizziness/Presyncope - acute CVA ruled out - likely from underlying NSVT or hypotension - CT scan of the head obtained in the ER and shows no new CVA - MRA head showed Chronic atretic appearance of the distal left [employer] which correlates with a chronic left occipital infarct. - will cont asp, xarelto and statin NSVT, appears acute on chronic - cardiology consulted - started on amiodderone and coreg History of cardiac thrombus - Patient currently on xarelto 20 mg daily - reviewed medical records from [facility] Nonischemic cardiomyopathy - [facility] 04/2018: normal coronaries, EF 20% - cont BB, statin, AC History of remote CVA - Continue aspirin statin and xarelto h/o seizure, takes keppra 500 BID - cont xarelto for DVT prophylaxis discharge planning: d/c home when cleared by cardiology Brief History; Patient is a 33 year old man with a history of HTN, stroke and on anticoagulation for "a blood clot in his heart" presenting with generalized weakness and dizziness. He ambulated independently for EMS. 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 Patient has multiple strokes since May 2018. Patient has residual numbness to left arm and right visual field deficit as a result of his previous stroke. He is currently is on Xarelto. He was evaluated by teleneurology and recommended for admission for further work up. CT head: 1. No acute findings. 2. Old left occipital, left parietal, and left thalamic infarcts have developed since the prior CT. MRA head: No evidence for acute large vessel occlusion, stenosis or aneurysm. Chronic atretic appearance of the distal left [employer] which correlates with a chronic left occipital infarct. Carotid doppler: No hemodynamically significant stenosis by NASCET criteria. There is less than 50%, luminal narrowing bilaterally. Subjective Date of service: 02/13/19 Interval history: Patient seen and examined no acute event o/n, denies chest pain or SOB Objective - Exam Narrative Exam: GENERAL: well-developed and well-nourished AAM lying on bed appeared to be in no discomfort. HEENT: Normocephalic. Atraumatic. No conjunctival congestion or icterus. Patient has moist mucous membranes. NECK: Supple. Trachea midline. CHEST/LUNGS: Clear to auscultated bilaterally, breathing nonlabored. No wheezes crackles or rhonchi. HEART/CARDIOVASCULAR: Regular in rate and rhythm. S1 and S2 positive. ABDOMEN: Abdomen is soft, nontender. Patient has normal bowel sounds. SKIN: There is no rash. Warm and dry. NEURO: No focal motor deficit. Follows command. MUSCULOSKELETAL: No joint effusion or tenderness. EXTRIMITY: No edema, no cyanosis or clubbing. PSYCH: Cooperative. - Constitutional Vitals: Vital Signs - 12hr 02/13/19 02/13/19 02/13/19 01:37 03:29 07:27 Temperature 97.8 F 97.5 F L Pulse Rate 117 H 97 H 99 H Pulse Rate [ Right Apical] Respiratory 18 14 Rate Blood Pressure 97/63 132/83 O2 Sat by Pulse 95 96 Oximetry 02/13/19 02/13/19 02/13/19 09:17 09:23 10:00 Temperature Pulse Rate 98 H 98 H 100 H Pulse Rate [ 100 H Right Apical] Respiratory 20 Rate Blood Pressure 132/84 132/84 O2 Sat by Pulse Oximetry 02/13/19 11:32 Temperature 97.8 F Pulse Rate 107 H Pulse Rate [ Right Apical] Respiratory 16 Rate Blood Pressure 114/85 O2 Sat by Pulse 99 Oximetry - Labs CBC & Chem 7: 02/12/19 05:17 02/13/19 12:52 Labs: Abnormal lab results 02/13/19 02/13/19 Range/Units 04:23 04:23 Hemoglobin A1c 6.4 H (4-6) % HDL Cholesterol 25 L (40-59) mg/dL
[2019-02-13 13:36] LABS: BUN/Creatinine Ratio 20; Blood Urea Nitrogen 30 mg/dL (9-20); Calcium 9.1 mg/dL (8.4-10.2); Hemolysis Index 6
--- NOTE | 2019-02-13 13:39 | Progress Note ---
Assessment and Plan PATIENT WITH RECURRENT STROKE INVOLVING LEFT HEMISPHERE, WITH THROMBUS IN THE LEFT VENTRICLE, PATIENT WAS RECENTLY STARTED ON APIXABAN WHICH HE COULD NOT CONTINUE TO TAKE DUE TO EXPENSE ISSUE, PATIENT RECENTLY GOT A SAMPLE OF XARELTO FOR ONE MONTH SUPPLY.PATIENT WAS COUNSELLED ABOUT THE NEED TO TAKE ANTI COAGULATION EVERY DAY WITHOUT ANY MISS FOR THAT COUMADIN WOULD BE A BETTER CHOICE. PATIENT HAS ALSO ATRETIC DISTAL LEFT POSTERIOR CEREBRAL ARTERY CONTRIBUTING TO LEFT OCCIPITAL INFARCT. PHYSICAL EXAMINATION- ALERT AND APPROPRIATE. OTHER PERTINENT FINDINGS INCLUDE NORMAL CRANIAL NERVES EXCEPT FOR RESIDUAL RIGHT HOMONYMOUS HEMIANOPSIA ,MILD RT SIDED WEAKNESS WITH INCRAEESD REFLEXES ON THE RT SIDE WITH UP GOING TOE ON THE RT SIDE. IMPRESSION. 1. RECURRENT STROKE INVOLVING MULTIPLE SITES OF THE LEFT HEMISPHERE WITH EVIDENCE OF LEFT VENTRICULAR THROMBUS AND COMPROMISED CARDIAC FUNCTION, MRA SHOWS ATRETIC DISTAL LEFT POSTERIOR CEREBRAL ARTERY RECOMMEND. 1. PATIENT AGREED TO TAKE COUMADIN WHICH SHOULD BE STARTED PRIOR TO DISCHARGE, 2, PLEASE CONSULT VASCULAR NEURO SURGEON TO LOOK INTO THE POSSIBILITY OF DILATING LEFT POSTERIOR CEREBRAL ARTERY Objective - Vital Sign Vital Signs - 12hr 02/13/19 02/13/19 02/13/19 01:37 03:29 07:27 Temperature 97.8 F 97.5 F L Pulse Rate 117 H 97 H 99 H Pulse Rate [ Right Apical] Respiratory 18 14 Rate Blood Pressure 97/63 132/83 O2 Sat by Pulse 95 96 Oximetry 02/13/19 02/13/19 02/13/19 09:17 09:23 10:00 Temperature Pulse Rate 98 H 98 H 100 H Pulse Rate [ 100 H Right Apical] Respiratory 20 Rate Blood Pressure 132/84 132/84 O2 Sat by Pulse Oximetry 02/13/19 11:32 Temperature 97.8 F Pulse Rate 107 H Pulse Rate [ Right Apical] Respiratory 16 Rate Blood Pressure 114/85 O2 Sat by Pulse 99 Oximetry - Laboratory Findings CBC and BMP: 02/12/19 05:17 02/12/19 05:17 Abnormal Lab Findings: Abnormal Labs 02/12/19 02/12/19 02/12/19 05:17 05:17 05:17 RDW 17.8 H PT 28.8 H INR 2.77 H APTT 39.4 H BUN 30 H Creatinine 1.6 H Glucose 132 H Hemoglobin A1c HDL Cholesterol 02/13/19 02/13/19 04:23 04:23 RDW PT INR APTT BUN Creatinine Glucose Hemoglobin A1c 6.4 H HDL Cholesterol 25 L
[2019-02-13] MEDS: AMIODARONE 200 MG TAB PO SCH (15:37)
[2019-02-13] MEDS: levETIRAcetam 500 MG TAB PO SCH ×2 (15:37→21:02)
[2019-02-13] MEDS: carvediloL 3.125 MG TAB PO SCH (21:02)
[2019-02-14] MEDS: SPIRONOLACTONE 25 MG TAB PO SCH (09:49)
[2019-02-14] MEDS: AMIODARONE 200 MG TAB PO SCH (09:49)
[2019-02-14] MEDS: carvediloL 3.125 MG TAB PO SCH (09:51)
[2019-02-14] MEDS: RIVAROXABAN 20 MG TAB PO SCH (09:52)
[2019-02-14] MEDS: DOCUSATE SODIUM 100 MG CAP PO SCH ×2 (09:52→22:16)
[2019-02-14] MEDS: levETIRAcetam 500 MG TAB PO SCH ×2 (09:52→22:16)
[2019-02-14] MEDS: FAMOTIDINE 20 MG TAB PO SCH ×2 (09:52→22:16)
[2019-02-14] MEDS: ASPIRIN 325 MG TAB PO SCH (09:52)
[2019-02-14] MEDS: BUMETANIDE 1 MG TAB PO SCH (09:53)
--- NOTE | 2019-02-14 10:11 | Progress Note ---
Assessment and Plan Recurrent CVA Neurology has recommended to discontinue xarelto and instead treat with warfarin for oral anticoagulation Dehydration Acute renal failure Paroxysmal NSVT Hx of Nonischemic cardiomyopathy [facility] 04/2018: normal coronaries, EF 20% noncompliant with lifevest Hx of LV thrombus Hypertension Recommendations: We will increase beta blockers for suppression of paroxysmal NSVT as tolerated. Patient advised compliance with his lifevest. Continue medical therapy for nonischemic cardiomyopathy. Subjective Date of service: 02/14/19 Interval history: Patient is resting in bed comfortably. NSVT seen on telemetry overnight. Objective Vital Signs Temp Pulse Resp BP Pulse Ox 02/14/19 09:51 94 H 109/81 02/14/19 09:49 94 H 109/81 02/14/19 08:09 94 02/14/19 07:57 98.0 F 49 L 18 109/81 99 02/14/19 04:15 98.1 F 98 H 18 115/88 99 02/13/19 23:37 98.2 F 98 H 18 120/97 97 02/13/19 19:41 98.5 F 102 H 18 123/92 95 02/13/19 18:00 94 H 02/13/19 15:40 97.4 F L 88 14 113/77 97 02/13/19 11:32 97.8 F 107 H 16 114/85 99 - Physical Examination General: No Apparent Distress HEENT: Positive: PERRL Neck: Positive: trachea midline Cardiac: Positive: Reg Rate and Rhythm Lungs: Positive: Decreased Breath Sounds Neuro: Positive: Grossly Intact Extremities: Absent: edema - Labs and Meds Comprehensive Metabolic Panel 02/13/19 Range/Units 12:52 Sodium 140 (137-145) mmol/L Potassium 3.8 (3.6-5.0) mmol/L Chloride 99.6 (98-107) mmol/L Carbon Dioxide 24 (22-30) mmol/L BUN 30 H (9-20) mg/dL Creatinine 1.5 (0.8-1.5) mg/dL Glucose 126 H (75-100) mg/dL Calcium 9.1 (8.4-10.2) mg/dL
[2019-02-14 12:44] LABS: INR 1.97 (0.87-1.13)
--- NOTE | 2019-02-14 16:16 | Progress Note ---
Assessment and Plan Dizziness/Presyncope - acute CVA ruled out - likely from underlying NSVT or hypotension - CT scan of the head obtained in the ER and shows no new CVA - MRA head showed Chronic atretic appearance of the distal left [employer] which correlates with a chronic left occipital infarct. - will cont asp, and statin - patient cannot afford xarelto , will start on coumadin NSVT, appears acute on chronic - cardiology consulted - started on amiodderone and coreg - cont to adjust dose History of cardiac thrombus - Patient takes xarelto 20 mg daily - has no insurance and cannot afford it - reviewed medical records from [facility], start on coumadin, need to bridge with lovenox if INR subtherapeutic - follow INR daily Hx of Nonischemic cardiomyopathy - [facility] 04/2018: normal coronaries, EF 20% - cont BB, statin, AC History of remote CVA - Continue aspirin statin and coumadin h/o seizure, takes keppra 500 BID DVT prophylaxis, on coumadin discharge planning: d/c home if INR remains stable, if subtherapeutic then need bridging with lovenox Brief History; Patient is a 33 year old man with a history of HTN, stroke and on anticoagulation for "a blood clot in his heart" presenting with generalized weakness and dizziness. He ambulated independently for EMS. 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 Patient has multiple strokes since May 2018. Patient has residual numbness to left arm and right visual field deficit as a result of his previous stroke. He is currently is on Xarelto. He was evaluated by teleneurology and recommended for admission for further work up. CT head: 1. No acute findings. 2. Old left occipital, left parietal, and left thalamic infarcts have developed since the prior CT. MRA head: No evidence for acute large vessel occlusion, stenosis or aneurysm. Chronic atretic appearance of the distal left [employer] which correlates with a chronic left occipital infarct. Carotid doppler: No hemodynamically significant stenosis by NASCET criteria. There is less than 50%, luminal narrowing bilaterally. Subjective Date of service: 02/14/19 Interval history: Patient seen and examined no acute event o/n, denies chest pain or SOB Objective - Exam Narrative Exam: GENERAL: well-developed and well-nourished AAM lying on bed appeared to be in no discomfort. HEENT: Normocephalic. Atraumatic. No conjunctival congestion or icterus. Patient has moist mucous membranes. NECK: Supple. Trachea midline. CHEST/LUNGS: Clear to auscultated bilaterally, breathing nonlabored. No wheezes crackles or rhonchi. HEART/CARDIOVASCULAR: Regular in rate and rhythm. S1 and S2 positive. ABDOMEN: Abdomen is soft, nontender. Patient has normal bowel sounds. SKIN: There is no rash. Warm and dry. NEURO: No focal motor deficit. Follows command. MUSCULOSKELETAL: No joint effusion or tenderness. EXTRIMITY: No edema, no cyanosis or clubbing. PSYCH: Cooperative. - Constitutional Vitals: Vital Signs - 12hr 02/14/19 02/14/19 02/14/19 07:57 08:09 09:49 Temperature 98.0 F Pulse Rate 49 L 94 H Respiratory 18 Rate Blood Pressure 109/81 109/81 O2 Sat by Pulse 99 94 Oximetry 02/14/19 02/14/19 02/14/19 09:51 10:00 11:57 Temperature 97.6 F Pulse Rate 94 H 96 H Respiratory 18 18 Rate Blood Pressure 109/81 113/81 O2 Sat by Pulse 99 100 Oximetry 02/14/19 16:12 Temperature 97.6 F Pulse Rate 97 H Respiratory 18 Rate Blood Pressure 107/83 O2 Sat by Pulse 98 Oximetry - Labs CBC & Chem 7: 02/12/19 05:17 02/13/19 12:52 Labs: Abnormal lab results 02/14/19 Range/Units 12:08 PT 22.0 H (12.2-14.9) Sec. INR 1.97 H (0.87-1.13)
[2019-02-14] MEDS ORDERED: WARFARIN 7.5 MG TAB PO SCH ×2 (17:00)
[2019-02-14] MEDS: WARFARIN 5 MG TAB PO SCH (17:32)
[2019-02-14] MEDS: carvediloL 6.25 MG TAB PO SCH (22:16)
[2019-02-15 06:06] LABS: INR 2.22 (0.87-1.13)
--- NOTE | 2019-02-15 09:29 | Progress Note ---
Assessment and Plan Recurrent CVA Neurology has recommended to discontinue xarelto and instead treat with warfarin for oral anticoagulation INR today is 2.22 Acute renal failure secondary to dehydration - resolved Paroxysmal NSVT Hx of Nonischemic cardiomyopathy [facility] 04/2018: normal coronaries, EF 20% noncompliant with lifevest Hx of LV thrombus Hypertension Recommendations: Resume low dose lisinopril prior to discharge Patient advised compliance with his lifevest. Continue medical therapy for nonischemic cardiomyopathy. No further cardiac work-up is needed Subjective Date of service: 02/15/19 Principal diagnosis: CVA Interval history: Patient denies chest pain or shortness of breath Tele showing NSVT Objective Vital Signs Temp Pulse Pulse Resp BP Pulse Ox 02/15/19 04:09 98.4 F 91 H 18 117/82 98 02/14/19 23:58 97.9 F 99 H 18 102/72 98 02/14/19 23:08 98 02/14/19 22:20 102 H 18 100 02/14/19 22:16 102 H 111/92 02/14/19 19:46 102 H 02/14/19 19:33 97.5 F L 102 H 18 111/92 100 02/14/19 16:12 97.6 F 97 H 18 107/83 98 02/14/19 11:57 97.6 F 96 H 18 113/81 100 02/14/19 10:00 100 H 18 99 02/14/19 09:51 94 H 109/81 02/14/19 09:49 94 H 109/81 - Physical Examination General: No Apparent Distress HEENT: Positive: PERRL Neck: Positive: trachea midline Cardiac: Positive: Reg Rate and Rhythm Lungs: Positive: Normal Exam Neuro: Positive: Grossly Intact Extremities: Absent: edema - Labs and Meds Coagulation 02/14/19 02/15/19 Range/Units 12:08 04:53 PT 22.0 H 24.2 H (12.2-14.9) Sec. INR 1.97 H 2.22 H (0.87-1.13)
[2019-02-15] MEDS: ASPIRIN 325 MG TAB PO SCH (09:45)
[2019-02-15] MEDS: BUMETANIDE 1 MG TAB PO SCH (09:45)
[2019-02-15] MEDS: DOCUSATE SODIUM 100 MG CAP PO SCH ×2 (09:45→22:20)
[2019-02-15] MEDS: levETIRAcetam 500 MG TAB PO SCH ×2 (09:45→22:18)
[2019-02-15] MEDS: SPIRONOLACTONE 25 MG TAB PO SCH (09:45)
[2019-02-15] MEDS: FAMOTIDINE 20 MG TAB PO SCH ×2 (09:46→22:19)
[2019-02-15] MEDS: AMIODARONE 200 MG TAB PO SCH (09:46)
[2019-02-15] MEDS: carvediloL 6.25 MG TAB PO SCH ×2 (09:46→22:19)
--- NOTE | 2019-02-15 13:18 | Progress Note ---
Assessment and Plan 33 YR OLD MALE WITH HISTORY OF RECURRENT STROKES INVOLVING LEFT HEMISPHERE ONLY AND LEFT VENTRICULAR THROMBUS WHO WAS ON APIXABAN AND XARELTO. COMPLIANCE WAS AN ISSUE FOE THE EXPENSES INVOLVED. 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 O/E/ALERT AND APPROPRIATE. HEART-NORMAL RATE AND RHYTHM, CAROTIDS-BOTH PALPABLE. CRANIAL NERVES -ALL CRANIAL NERVES ARE WITH IN NORMAL LIMIT, CONTINUES TO HAVE RT HOMONYMOUS NICHOLAS ANOPSIA STRENGTH IS NORML IN THE EXTREMITES, REFLEXES- REFLEXES ARE WITH IN NORMAL LIMIT. SENSORY- SENSORY EXAMINATION IS GROSSLY WITH IN NORMAL LIMIT. IMPREESION. 1.LEFT HEMISPHERIC STROKE RECURRENT STROKE ON COUMADIN INR THERAPEUTIC RECOMMEND. 1. PATIENT MAY BE DISCHARGED FROM NEURO STAND POINT, PATIENT SHOULD BE ADVISED TO LIMIT EATING GREEN LEAFY VEGETABLE, SUCH BROCCOLI,KHALIDA GREEN, SPINACH 3. WILL VASCULAR NEURO SURGERY EVALUATION FOR ATRESIA OF LEFT POSTERIOR CEREBRAL ARTERY TO SEE IF IT CAN BE STENTED OR DILATED. Subjective Principal diagnosis: CVA Objective - Vital Sign Vital Signs - 12hr 02/15/19 02/15/19 02/15/19 04:09 09:07 09:45 Temperature 98.4 F 98.0 F Pulse Rate 91 H 98 H Respiratory 18 18 Rate Blood Pressure 117/82 120/84 120/84 O2 Sat by Pulse 98 Oximetry 02/15/19 09:46 Temperature Pulse Rate 98 H Respiratory Rate Blood Pressure 120/84 O2 Sat by Pulse Oximetry - Laboratory Findings CBC and BMP: 02/12/19 05:17 02/13/19 12:52 Abnormal Lab Findings: Abnormal Labs 02/12/19 02/12/19 02/12/19 05:17 05:17 05:17 RDW 17.8 H PT 28.8 H INR 2.77 H APTT 39.4 H BUN 30 H Creatinine 1.6 H Glucose 132 H Hemoglobin A1c HDL Cholesterol 02/13/19 02/13/19 02/13/19 04:23 04:23 12:52 RDW PT INR APTT BUN 30 H Creatinine Glucose 126 H Hemoglobin A1c 6.4 H HDL Cholesterol 25 L 02/14/19 02/15/19 12:08 04:53 RDW PT 22.0 H 24.2 H INR 1.97 H 2.22 H APTT BUN Creatinine Glucose Hemoglobin A1c HDL Cholesterol
[2019-02-15] MEDS: WARFARIN 5 MG TAB PO SCH (17:06)
--- NOTE | 2019-02-15 17:14 | Progress Note ---
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 - will cont asp, and statin - patient cannot afford xarelto , will start on coumadin NSVT, appears acute on chronic - cardiology consulted - started on amiodderone and coreg - cont to adjust dose History of cardiac thrombus - Patient takes xarelto 20 mg daily - has no insurance and cannot afford it - reviewed medical records from [place], start on coumadin, need to bridge with lovenox if INR subtherapeutic - follow INR daily Hx of Nonischemic cardiomyopathy - [facility] 04/2018: normal coronaries, EF 20% - cont BB, statin, AC History of remote CVA - Continue aspirin statin and coumadin h/o seizure, takes keppra 500 BID DVT prophylaxis, on coumadin discharge planning: d/c home if INR remains stable, if subtherapeutic then need bridging with lovenox Brief History; Patient is a 33 year old man with a history of HTN, stroke and on anticoagulation for "a blood clot in his heart" presenting with generalized weakness and dizziness. He ambulated independently for EMS. 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 Patient has multiple strokes since May 2018. Patient has residual numbness to left arm and right visual field deficit as a result of his previous stroke. He is currently is on Xarelto. He was evaluated by teleneurology and recommended for admission for further work up. CT head: 1. No acute findings. 2. Old left occipital, left parietal, and left thalamic infarcts have developed since the prior CT. MRA head: No evidence for acute large vessel occlusion, stenosis or aneurysm. Chronic atretic appearance of the distal left CHILD DEVELOPMENT CONSULTANT which correlates with a chronic left occipital infarct. Carotid doppler: No hemodynamically significant stenosis by NASCET criteria. There is less than 50%, luminal narrowing bilaterally. History Interval history: Patient seen and examined,medical records reviewed c/o gen weakness and shortness of breath Denies chest pain Vitals reviewed Hospitalist Physical - Constitutional Vitals: Temp Pulse Resp BP Pulse Ox 98.0 F 98 H 18 120/84 98 02/15/19 09:07 02/15/19 09:46 02/15/19 10:00 02/15/19 09:46 02/15/19 10:00 General appearance: Present: mild distress, well-nourished, obese - EENT Eyes: Present: PERRL, EOM intact - Neck Neck: Present: supple, normal ROM - Respiratory Respiratory effort: normal Respiratory: bilateral: diminished, rales, negative: rhonchi, wheezing - Cardiovascular Rhythm: regular Heart Sounds: Present: S1 & S2 - Extremities Extremities: no ischemia Extremity abnormal: edema - Abdominal General gastrointestinal: soft, non-tender, non-distended, normal bowel sounds - Integumentary Integumentary: Present: clear, warm - Psychiatric Psychiatric: appropriate mood/affect, cooperative - Neurologic Neurologic: CNII-XII intact, moves all extremities Results - Labs CBC & Chem 7: 02/12/19 05:17 02/13/19 12:52 Labs: Laboratory Last Values WBC 4.9 K/mm3 (4.5-11.0) 02/12/19 05:17 RBC 4.28 M/mm3 (3.65-5.03) 02/12/19 05:17 Hgb 13.0 gm/dl (11.8-15.2) 02/12/19 05:17 Hct 38.8 % (35.5-45.6) 02/12/19 05:17 MCV 91 fl (84-94) 02/12/19 05:17 MCH 30 pg (28-32) 02/12/19 05:17 MCHC 34 % (32-34) 02/12/19 05:17 RDW 17.8 % (13.2-15.2) H 02/12/19 05:17 Plt Count 289 K/mm3 (140-440) 02/12/19 05:17 Lymph % (Auto) 28.4 % (13.4-35.0) 02/12/19 05:17 [place] % (Auto) 6.2 % (0.0-7.3) 02/12/19 05:17 Eos % (Auto) 0.9 % (0.0-4.3) 02/12/19 05:17 Baso % (Auto) 1.1 % (0.0-1.8) 02/12/19 05:17 Lymph # 1.4 K/mm3 (1.2-5.4) 02/12/19 05:17 [place] # 0.3 K/mm3 (0.0-0.8) 02/12/19 05:17 Eos # 0.0 K/mm3 (0.0-0.4) 02/12/19 05:17 Baso # 0.1 K/mm3 (0.0-0.1) 02/12/19 05:17 Seg Neutrophils % 63.4 % (40.0-70.0) 02/12/19 05:17 Seg Neutrophils # 3.1 K/mm3 (1.8-7.7) 02/12/19 05:17 PT 24.2 Sec. (12.2-14.9) H 02/15/19 04:53 INR 2.22 (0.87-1.13) H 02/15/19 04:53 APTT 39.4 Sec. (24.2-36.6) H 02/12/19 05:17 Thrombin Time 17.8 Sec. (15.1-19.6) 02/12/19 05:17 Sodium 140 mmol/L (137-145) 02/13/19 12:52 Potassium 3.8 mmol/L (3.6-5.0) 02/13/19 12:52 Chloride 99.6 mmol/L (98-107) 02/13/19 12:52 Carbon Dioxide 24 mmol/L (22-30) 02/13/19 12:52 Anion Gap 20 mmol/L 02/13/19 12:52 BUN 30 mg/dL (9-20) H 02/13/19 12:52 Creatinine 1.5 mg/dL (0.8-1.5) 02/13/19 12:52 Estimated GFR > 60 ml/min 02/13/19 12:52 BUN/Creatinine Ratio 20 % 02/13/19 12:52 Glucose 126 mg/dL (75-100) H 02/13/19 12:52 Hemoglobin A1c 6.4 % (4-6) H 02/13/19 04:23 Calcium 9.1 mg/dL (8.4-10.2) 02/13/19 12:52 Magnesium 2.10 mg/dL (1.7-2.3) 02/13/19 12:52 Troponin T 0.015 ng/mL (0.00-0.029) 02/12/19 05:17 Triglycerides 88 mg/dL (2-149) 02/13/19 04:23 Cholesterol 144 mg/dL (50-199) 02/13/19 04:23 LDL Cholesterol Direct 111 mg/dL (50-130) 02/13/19 04:23 HDL Cholesterol 25 mg/dL (40-59) L 02/13/19 04:23 Cholesterol/HDL Ratio 5.76 % 02/13/19 04:23 TSH 2.120 mlU/mL (0.270-4.200) 02/13/19 12:52 Urine Opiates Screen Presumptive negative 02/12/19 09:04 Urine Methadone Screen Presumptive negative 02/12/19 09:04 Ur Barbiturates Screen Presumptive negative 02/12/19 09:04 Ur Phencyclidine Scrn Presumptive negative 02/12/19 09:04 Ur Amphetamines Screen Presumptive negative 02/12/19 09:04 U Benzodiazepines Scrn Presumptive negative 02/12/19 09:04 Urine Cocaine Screen Presumptive negative 02/12/19 09:04 U Marijuana (THC) Screen Presumptive negative 02/12/19 09:04 Drugs of Abuse Note Disclamer 02/12/19 09:04 Active Medications - Current Medications Current Medications: Generic Name Dose Route Start Last Admin Trade Name Freq PRN Reason Stop Dose Admin Acetaminophen 650 mg 02/12/19 08:29 Tylenol PO Q4H PRN Pain, Mild (1-3) Acetaminophen/Hydrocodone Bitart 2 each 02/12/19 08:29 [place] 5/325 PO Q6H PRN Pain, Moderate (4-6) Amiodarone HCl 200 mg 02/13/19 13:00 02/15/19 09:46 Cordarone PO 200 mg QDAY JOHN Administration Aspirin 325 mg 02/12/19 11:00 02/15/19 09:45 Aspirin PO 325 mg QDAY JOHN Administration Atorvastatin Calcium 80 mg 02/12/19 22:00 02/14/19 22:16 Lipitor PO 80 mg QHS JOHN Administration Bisacodyl 10 mg 02/12/19 08:29 Dulcolax MT QDAY PRN Constipation Bumetanide 1 mg 02/14/19 10:00 02/15/19 09:45 Bumex PO 1 mg QDAY JOHN Administration Carvedilol 6.25 mg 02/14/19 22:00 02/15/19 09:46 Coreg PO 6.25 mg BID JOHN Administration Docusate Sodium 100 mg 02/12/19 11:00 02/15/19 09:45 Colace PO 100 mg BID JOHN Administration Famotidine 20 mg 02/12/19 11:00 02/15/19 09:46 Pepcid PO 20 mg BID JOHN Administration Levetiracetam 500 mg 02/13/19 14:00 02/15/19 09:45 Keppra PO 500 mg BID JOHN Administration Magnesium Hydroxide 30 ml 02/12/19 08:29 02/14/19 22:16 Milk Of Magnesia PO 30 ml Q4H PRN Administration Constipation Metoclopramide HCl 10 mg 02/12/19 08:29 Reglan PO Q6H PRN Nausea And Vomiting Ondansetron HCl 4 mg 02/12/19 08:29 Zofran IV Q8H PRN Nausea And Vomiting Promethazine HCl 25 mg 02/12/19 08:29 Phenergan MT Q6H PRN Nausea And Vomiting Sodium Chloride 10 ml 02/12/19 08:29 02/15/19 09:47 Sodium Chloride Flush Syringe 10 Ml IV 10 ml PRN PRN Administration LINE FLUSH Spironolactone 12.5 mg 02/14/19 10:00 02/15/19 09:45 Aldactone PO 12.5 mg QDAY JOHN Administration Warfarin Sodium 5 mg 02/14/19 17:00 02/15/19 17:06 Coumadin PO 5 mg DAILY@1700 JOHN Administration Nutrition/Malnutrition Assess - Dietary Evaluation Nutrition/Malnutrition Findings: Nutrition Notes Start: 02/12/19 12:42 Freq: Status: Active Protocol: Document 02/13/19 10:08 (Rec: 02/13/19 10:49 [email or web address]) Co-Sign 02/13/19 10:08 LINDA Nutrition Notes Initial or Follow up Brief Note Current Diagnosis Hypertension,Stroke Current Diet Consistent carb Labs/Tests Reviewed Pertinent Medications Reviewed Height 6 ft 2 in Weight 116.2 kg [place] Body Weight (kg) 86.36 BMI 32.8 Subjective/Other Information FU for diet education. Pt was not open to receive education but took handout. Pt reports good appetite and eating 100% of meals. Burn Absent Trauma Absent Nutrition Intervention Revisit per MD consult or patient Sign Off request:
[2019-02-16 03:12] LABS: INR 1.86 (0.87-1.13)
--- NOTE | 2019-02-16 11:05 | Progress Note ---
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 - will cont asp, and statin - patient cannot afford xarelto , will start on coumadin NSVT, appears acute on chronic - cardiology consulted - started on amiodderone and coreg - cont to adjust dose History of cardiac thrombus - Patient takes xarelto 20 mg daily - has no insurance and cannot afford it - reviewed medical records from [place], start on coumadin, need to bridge with lovenox if INR subtherapeutic - INR 1.8,target INR 2-3 Hx of Nonischemic cardiomyopathy - [facility] 04/2018: normal coronaries, EF 20% - cont BB, statin, AC History of remote CVA - Continue aspirin statin and coumadin h/o seizure, takes keppra 500 BID DVT prophylaxis, on coumadin discharge planning: d/c home if INR remains stable, if subtherapeutic then need bridging with lovenox Brief History; Patient is a 33 year old man with a history of HTN, stroke and on anticoagulation for "a blood clot in his heart" presenting with generalized weakness and dizziness. He ambulated independently for EMS. 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 Patient has multiple strokes since May 2018. Patient has residual numbness to left arm and right visual field deficit as a result of his previous stroke. He is currently is on Xarelto. He was evaluated by teleneurology and recommended for admission for further work up. CT head: 1. No acute findings. 2. Old left occipital, left parietal, and left thalamic infarcts have developed since the prior CT. MRA head: No evidence for acute large vessel occlusion, stenosis or aneurysm. 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 Carotid doppler: No hemodynamically significant stenosis by NASCET criteria. There is less than 50%, luminal narrowing bilaterally. History Interval history: Patientseen and examined c/o gen weakness and shortness of breath Vital signs noted Hospitalist Physical - Constitutional Vitals: Temp Pulse Resp BP Pulse Ox 98.5 F 95 H 18 113/72 100 02/16/19 08:59 02/16/19 08:59 02/16/19 08:59 02/16/19 08:59 02/16/19 08:59 General appearance: Present: mild distress, well-nourished, obese - EENT Eyes: Present: PERRL, EOM intact - Neck Neck: Present: supple, normal ROM - Respiratory Respiratory effort: normal Respiratory: bilateral: diminished, rales, negative: rhonchi, wheezing - Cardiovascular Rhythm: regular Heart Sounds: Present: S1 & S2 - Extremities Extremities: no ischemia, pulses intact Extremity abnormal: edema - Abdominal General gastrointestinal: soft, non-tender, non-distended, normal bowel sounds - Integumentary Integumentary: Present: clear, warm - Psychiatric Psychiatric: appropriate mood/affect, cooperative - Neurologic Neurologic: moves all extremities Results - Labs CBC & Chem 7: 02/12/19 05:17 02/13/19 12:52 Labs: Laboratory Last Values WBC 4.9 K/mm3 (4.5-11.0) 02/12/19 05:17 RBC 4.28 M/mm3 (3.65-5.03) 02/12/19 05:17 Hgb 13.0 gm/dl (11.8-15.2) 02/12/19 05:17 Hct 38.8 % (35.5-45.6) 02/12/19 05:17 MCV 91 fl (84-94) 02/12/19 05:17 MCH 30 pg (28-32) 02/12/19 05:17 MCHC 34 % (32-34) 02/12/19 05:17 RDW 17.8 % (13.2-15.2) H 02/12/19 05:17 Plt Count 289 K/mm3 (140-440) 02/12/19 05:17 Lymph % (Auto) 28.4 % (13.4-35.0) 02/12/19 05:17 [place] % (Auto) 6.2 % (0.0-7.3) 02/12/19 05:17 Eos % (Auto) 0.9 % (0.0-4.3) 02/12/19 05:17 Baso % (Auto) 1.1 % (0.0-1.8) 02/12/19 05:17 Lymph # 1.4 K/mm3 (1.2-5.4) 02/12/19 05:17 [place] # 0.3 K/mm3 (0.0-0.8) 02/12/19 05:17 Eos # 0.0 K/mm3 (0.0-0.4) 02/12/19 05:17 Baso # 0.1 K/mm3 (0.0-0.1) 02/12/19 05:17 Seg Neutrophils % 63.4 % (40.0-70.0) 02/12/19 05:17 Seg Neutrophils # 3.1 K/mm3 (1.8-7.7) 02/12/19 05:17 PT 21.0 Sec. (12.2-14.9) H 02/16/19 02:43 INR 1.86 (0.87-1.13) H 02/16/19 02:43 APTT 39.4 Sec. (24.2-36.6) H 02/12/19 05:17 Thrombin Time 17.8 Sec. (15.1-19.6) 02/12/19 05:17 Sodium 140 mmol/L (137-145) 02/13/19 12:52 Potassium 3.8 mmol/L (3.6-5.0) 02/13/19 12:52 Chloride 99.6 mmol/L (98-107) 02/13/19 12:52 Carbon Dioxide 24 mmol/L (22-30) 02/13/19 12:52 Anion Gap 20 mmol/L 02/13/19 12:52 BUN 30 mg/dL (9-20) H 02/13/19 12:52 Creatinine 1.5 mg/dL (0.8-1.5) 02/13/19 12:52 Estimated GFR > 60 ml/min 02/13/19 12:52 BUN/Creatinine Ratio 20 % 02/13/19 12:52 Glucose 126 mg/dL (75-100) H 02/13/19 12:52 Hemoglobin A1c 6.4 % (4-6) H 02/13/19 04:23 Calcium 9.1 mg/dL (8.4-10.2) 02/13/19 12:52 Magnesium 2.20 mg/dL (1.7-2.3) 02/16/19 02:43 Troponin T 0.015 ng/mL (0.00-0.029) 02/12/19 05:17 Triglycerides 88 mg/dL (2-149) 02/13/19 04:23 Cholesterol 144 mg/dL (50-199) 02/13/19 04:23 LDL Cholesterol Direct 111 mg/dL (50-130) 02/13/19 04:23 HDL Cholesterol 25 mg/dL (40-59) L 02/13/19 04:23 Cholesterol/HDL Ratio 5.76 % 02/13/19 04:23 TSH 2.120 mlU/mL (0.270-4.200) 02/13/19 12:52 Urine Opiates Screen Presumptive negative 02/12/19 09:04 Urine Methadone Screen Presumptive negative 02/12/19 09:04 Ur Barbiturates Screen Presumptive negative 02/12/19 09:04 Ur Phencyclidine Scrn Presumptive negative 02/12/19 09:04 Ur Amphetamines Screen Presumptive negative 02/12/19 09:04 U Benzodiazepines Scrn Presumptive negative 02/12/19 09:04 Urine Cocaine Screen Presumptive negative 02/12/19 09:04 U Marijuana (THC) Screen Presumptive negative 02/12/19 09:04 Drugs of Abuse Note Disclamer 02/12/19 09:04 Active Medications - Current Medications Current Medications: Generic Name Dose Route Start Last Admin Trade Name Freq PRN Reason Stop Dose Admin Acetaminophen 650 mg 02/12/19 08:29 Tylenol PO Q4H PRN Pain, Mild (1-3) Acetaminophen/Hydrocodone Bitart 2 each 02/12/19 08:29 [place] 5/325 PO Q6H PRN Pain, Moderate (4-6) Amiodarone HCl 200 mg 02/13/19 13:00 02/15/19 09:46 Cordarone PO 200 mg QDAY JOHN Administration Aspirin 325 mg 02/12/19 11:00 02/15/19 09:45 Aspirin PO 325 mg QDAY JOHN Administration Atorvastatin Calcium 80 mg 02/12/19 22:00 02/15/19 22:18 Lipitor PO 80 mg QHS JOHN Administration Bisacodyl 10 mg 02/12/19 08:29 Dulcolax DC QDAY PRN Constipation Bumetanide 1 mg 02/14/19 10:00 02/15/19 09:45 Bumex PO 1 mg QDAY JOHN Administration Carvedilol 6.25 mg 10/03/19 22:00 02/15/19 22:19 Coreg PO 6.25 mg BID [facility] Administration Docusate Sodium 100 mg 02/12/19 11:00 02/15/19 22:20 Colace PO Not Given BID [facility] Enoxaparin Sodium 120 mg 02/16/19 10:00 Lovenox SUB-Q Q12HR [facility] Famotidine 20 mg 02/12/19 11:00 02/15/19 22:19 Pepcid PO 20 mg BID [facility] Administration Levetiracetam 500 mg 02/13/19 14:00 02/15/19 22:18 Keppra PO 500 mg BID [facility] Administration Magnesium Hydroxide 30 ml 02/12/19 08:29 02/14/19 22:16 Milk Of Magnesia PO 30 ml Q4H PRN Administration Constipation Metoclopramide HCl 10 mg 02/12/19 08:29 Reglan PO Q6H PRN Nausea And Vomiting Ondansetron HCl 4 mg 02/12/19 08:29 Zofran IV Q8H PRN Nausea And Vomiting Promethazine HCl 25 mg 02/12/19 08:29 Phenergan DC Q6H PRN Nausea And Vomiting Sodium Chloride 10 ml 02/12/19 08:29 02/15/19 09:47 Sodium Chloride Flush Syringe 10 Ml IV 10 ml PRN PRN Administration LINE FLUSH Spironolactone 12.5 mg 02/14/19 10:00 02/15/19 09:45 Aldactone PO 12.5 mg QDAY [facility] Administration Warfarin Sodium 7.5 mg 02/16/19 17:00 Coumadin PO DAILY@1700 [facility] Nutrition/Malnutrition Assess - Dietary Evaluation Nutrition/Malnutrition Findings: Nutrition Notes Start: 02/12/19 12:42 Freq: Status: Active Protocol: Document 02/13/19 10:08 (Rec: 02/13/19 10:49 [id number]) Co-Sign 02/13/19 10:08 LINDA Nutrition Notes Initial or Follow up Brief Note Current Diagnosis Hypertension,Stroke Current Diet Consistent carb Labs/Tests Reviewed Pertinent Medications Reviewed Height 6 ft 2 in Weight 116.2 kg [place] Body Weight (kg) 86.36 BMI 32.8 Subjective/Other Information FU for diet education. Pt was not open to receive education but took handout. Pt reports good appetite and eating 100% of meals. Burn Absent Trauma Absent Nutrition Intervention Revisit per MD consult or patient Sign Off request:
[2019-02-16] MEDS: DOCUSATE SODIUM 100 MG CAP PO SCH ×2 (11:23→21:55)
[2019-02-16] MEDS: SPIRONOLACTONE 25 MG TAB PO SCH (11:23)
[2019-02-16] MEDS: ASPIRIN 325 MG TAB PO SCH (11:24)
[2019-02-16] MEDS: levETIRAcetam 500 MG TAB PO SCH ×2 (11:25→21:55)
[2019-02-16] MEDS: ENOXAPARIN 120 MG/0.8 ML INJ SUB-Q SCH ×2 (11:26→21:57)
[2019-02-16] MEDS: AMIODARONE 200 MG TAB PO SCH (11:26)
[2019-02-16] MEDS: FAMOTIDINE 20 MG TAB PO SCH ×2 (11:27→21:56)
[2019-02-16] MEDS: carvediloL 6.25 MG TAB PO SCH ×2 (11:27→21:56)
--- NOTE | 2019-02-16 11:32 | Progress Note ---
Subjective Date of service: 02/16/19 Principal diagnosis: CVA Interval history: Recurrent CVA Neurology has recommended to discontinue xarelto and instead treat with warfarin for oral anticoagulation INR today is 2.22 Acute renal failure secondary to dehydration - resolved Paroxysmal NSVT Hx of Nonischemic cardiomyopathy [facility] 04/2018: normal coronaries, EF 20% noncompliant with lifevest Hx of LV thrombus Hypertension Recommendations: Resume low dose lisinopril prior to discharge Patient advised compliance with his lifevest. Continue medical therapy for nonischemic cardiomyopathy. No further cardiac work-up is needed Objective Vital Signs Temp Pulse Resp BP Pulse Ox 02/16/19 08:59 98.5 F 95 H 18 113/72 100 02/16/19 04:27 98.0 F 89 18 110/83 100 02/15/19 23:50 98.0 F 95 H 18 120/84 98 02/15/19 22:19 95 H 118/86 02/15/19 22:00 18 100 02/15/19 19:36 95 H 02/15/19 19:25 98.4 F 95 H 18 118/86 100 02/15/19 16:59 98.1 F 18 99/64 02/15/19 12:34 98.0 F 18 115/95 - Physical Examination General: No Apparent Distress HEENT: Positive: PERRL Neck: Positive: trachea midline Cardiac: Positive: Reg Rate and Rhythm, S1/S2 Lungs: Positive: Normal Exam Neuro: Positive: Grossly Intact Abdomen: Positive: Soft Extremities: Absent: edema - Labs and Meds Coagulation 02/16/19 Range/Units 02:43 PT 21.0 H (12.2-14.9) Sec. INR 1.86 H (0.87-1.13)
[2019-02-16] MEDS ORDERED: WARFARIN 7.5 MG TAB PO SCH (17:00)
[2019-02-16] MEDS: BUMETANIDE 1 MG TAB PO SCH (17:18)
[2019-02-17 05:58] LABS: INR 1.65 (0.87-1.13)
--- NOTE | 2019-02-17 11:28 | Progress Note ---
Assessment and Plan Assessment and plan: --History of cardiac thrombus: Patient was on xarelto 20 mg daily - has no insurance and cannot afford it Patient is started on Coumadin and Lovenox bridge INR today is 1.65, target INR 2-3 Increase Coumadin to 10 mg daily at bedtime Case management for INR monitoring machine at discharge --Hx of Nonischemic cardiomyopathy [facility] 04/2018: normal coronaries, EF 20% cont BB, statin, AC --NSVT, appears acute on chronic Continue amiodarone and Coreg --Dizziness/Presyncope acute CVA ruled out likely from underlying NSVT or hypotension CT scan of the head obtained in the ER and shows no new CVA MRA head showed Chronic atretic appearance of the distal left 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 will cont asp, and statin, Continue Coumadin --History of remote CVA Continue aspirin statin and coumadin --h/o seizure, takes keppra 500 BID DVT prophylaxis, on coumadin discharge planning: d/c home when INR is therapeutic between 2 and 3, Patient has Multiple medical problems including LV thrombus, severe nonischemic cardiomyopathy NSVT, history of CVA and seizures, noncompliance with medications and diet follow-up visits Patient has a very poor prognosis Discussed in detail with the patient the importance of returning to the treatment plan complications and consequences of not adhering to the treatment plan, advised to comply with LifeVest use. Patient verbalized understanding. Critical care time 32 minutes Brief History; Patient is a 33 year old man with a history of HTN, stroke and on anticoagulation for "a blood clot in his heart" presenting with generalized weakness and dizziness. He ambulated independently for EMS. However, EMS thought his acupressurist strength was asymmetric so a stroke alert was called. Patient has multiple strokes since May 2018. Patient has residual numbness to left arm and right visual field deficit as a result of his previous stroke. He is currently is on Xarelto. He was evaluated by teleneurology and recommended for admission for further work up. CT head: 1. No acute findings. 2. Old left occipital, left parietal, and left thalamic infarcts have developed since the prior CT. MRA head: No evidence for acute large vessel occlusion, stenosis or aneurysm. 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 Carotid doppler: No hemodynamically significant stenosis by NASCET criteria. There is less than 50%, luminal narrowing bilaterally. History Interval history: Patient seen and examined medical records reviewed Patient feels slightly better, INR remains subtherapeutic Patient is on Lovenox and Coumadin Complains of mild shortness of breath Vital signs noted Hospitalist Physical - Constitutional Vitals: Temp Pulse Resp BP Pulse Ox 98.1 F 86 18 118/89 99 02/17/19 07:56 02/17/19 07:56 02/17/19 07:56 02/17/19 07:56 02/17/19 07:56 General appearance: Present: mild distress, well-nourished, obese - EENT Eyes: Present: PERRL, EOM intact - Neck Neck: Present: supple, rigidity - Respiratory Respiratory effort: normal Respiratory: bilateral: diminished, negative: rales, rhonchi, wheezing - Cardiovascular Rhythm: regular Heart Sounds: Present: S1 & S2 - Extremities Extremities: no ischemia, No edema - Abdominal General gastrointestinal: soft, non-tender, non-distended, normal bowel sounds - Integumentary Integumentary: Present: clear, warm - Psychiatric Psychiatric: appropriate mood/affect, cooperative - Neurologic Neurologic: CNII-XII intact, moves all extremities Results - Labs CBC & Chem 7: 02/12/19 05:17 02/13/19 12:52 Labs: Laboratory Last Values WBC 4.9 K/mm3 (4.5-11.0) 02/12/19 05:17 RBC 4.28 M/mm3 (3.65-5.03) 02/12/19 05:17 Hgb 13.0 gm/dl (11.8-15.2) 02/12/19 05:17 Hct 38.8 % (35.5-45.6) 02/12/19 05:17 MCV 91 fl (84-94) 02/12/19 05:17 MCH 30 pg (28-32) 02/12/19 05:17 MCHC 34 % (32-34) 02/12/19 05:17 RDW 17.8 % (13.2-15.2) H 02/12/19 05:17 Plt Count 289 K/mm3 (140-440) 02/12/19 05:17 Lymph % (Auto) 28.4 % (13.4-35.0) 02/12/19 05:17 [place] % (Auto) 6.2 % (0.0-7.3) 02/12/19 05:17 Eos % (Auto) 0.9 % (0.0-4.3) 02/12/19 05:17 Baso % (Auto) 1.1 % (0.0-1.8) 02/12/19 05:17 Lymph # 1.4 K/mm3 (1.2-5.4) 02/12/19 05:17 [place] # 0.3 K/mm3 (0.0-0.8) 02/12/19 05:17 Eos # 0.0 K/mm3 (0.0-0.4) 02/12/19 05:17 Baso # 0.1 K/mm3 (0.0-0.1) 02/12/19 05:17 Seg Neutrophils % 63.4 % (40.0-70.0) 02/12/19 05:17 Seg Neutrophils # 3.1 K/mm3 (1.8-7.7) 02/12/19 05:17 PT 19.1 Sec. (12.2-14.9) H 02/17/19 05:34 INR 1.65 (0.87-1.13) H 02/17/19 05:34 APTT 39.4 Sec. (24.2-36.6) H 02/12/19 05:17 Thrombin Time 17.8 Sec. (15.1-19.6) 02/12/19 05:17 Sodium 140 mmol/L (137-145) 02/13/19 12:52 Potassium 3.8 mmol/L (3.6-5.0) 02/13/19 12:52 Chloride 99.6 mmol/L (98-107) 02/13/19 12:52 Carbon Dioxide 24 mmol/L (22-30) 02/13/19 12:52 Anion Gap 20 mmol/L 02/13/19 12:52 BUN 30 mg/dL (9-20) H 02/13/19 12:52 Creatinine 1.5 mg/dL (0.8-1.5) 02/13/19 12:52 Estimated GFR > 60 ml/min 02/13/19 12:52 BUN/Creatinine Ratio 20 % 02/13/19 12:52 Glucose 126 mg/dL (75-100) H 02/13/19 12:52 Hemoglobin A1c 6.4 % (4-6) H 02/13/19 04:23 Calcium 9.1 mg/dL (8.4-10.2) 02/13/19 12:52 Magnesium 2.20 mg/dL (1.7-2.3) 02/16/19 02:43 Troponin T 0.015 ng/mL (0.00-0.029) 02/12/19 05:17 Triglycerides 88 mg/dL (2-149) 02/13/19 04:23 Cholesterol 144 mg/dL (50-199) 02/13/19 04:23 LDL Cholesterol Direct 111 mg/dL (50-130) 02/13/19 04:23 HDL Cholesterol 25 mg/dL (40-59) L 02/13/19 04:23 Cholesterol/HDL Ratio 5.76 % 02/13/19 04:23 TSH 2.120 mlU/mL (0.270-4.200) 02/13/19 12:52 Urine Opiates Screen Presumptive negative 02/12/19 09:04 Urine Methadone Screen Presumptive negative 02/12/19 09:04 Ur Barbiturates Screen Presumptive negative 02/12/19 09:04 Ur Phencyclidine Scrn Presumptive negative 02/12/19 09:04 Ur Amphetamines Screen Presumptive negative 02/12/19 09:04 U Benzodiazepines Scrn Presumptive negative 02/12/19 09:04 Urine Cocaine Screen Presumptive negative 02/12/19 09:04 U Marijuana (THC) Screen Presumptive negative 02/12/19 09:04 Drugs of Abuse Note Disclamer 02/12/19 09:04 Active Medications - Current Medications Current Medications: Generic Name Dose Route Start Last Admin Trade Name Freq PRN Reason Stop Dose Admin Acetaminophen 650 mg 02/12/19 08:29 Tylenol PO Q4H PRN Pain, Mild (1-3) Acetaminophen/Hydrocodone Bitart 2 each 02/12/19 08:29 [place] 5/325 PO Q6H PRN Pain, Moderate (4-6) Amiodarone HCl 200 mg 02/13/19 13:00 02/16/19 11:26 Cordarone PO 200 mg QDAY JOHN Administration Aspirin 325 mg 02/12/19 11:00 02/16/19 11:24 Aspirin PO 325 mg QDAY JOHN Administration Atorvastatin Calcium 80 mg 02/12/19 22:00 02/16/19 21:55 Lipitor PO 80 mg QHS JOHN Administration Bisacodyl 10 mg 02/12/19 08:29 Dulcolax [place] QDAY PRN Constipation Bumetanide 1 mg 02/14/19 10:00 02/16/19 17:18 Bumex PO 1 mg QDAY JOHN Administration Carvedilol 6.25 mg 02/14/19 22:00 02/16/19 21:56 Coreg PO 6.25 mg BID [facility] Administration Docusate Sodium 100 mg 02/12/19 11:00 02/16/19 21:55 Colace PO 100 mg BID JOHN Administration Enoxaparin Sodium 120 mg 02/16/19 10:00 02/16/19 21:57 Lovenox SUB-Q 120 mg Q12HR [facility] Administration Famotidine 20 mg 02/12/19 11:00 02/16/19 21:56 Pepcid PO 20 mg BID JOHN Administration Levetiracetam 500 mg 02/13/19 14:00 02/16/19 21:55 Keppra PO 500 mg BID [facility] Administration Magnesium Hydroxide 30 ml 02/12/19 08:29 02/14/19 22:16 Milk Of Magnesia PO 30 ml Q4H PRN Administration Constipation Metoclopramide HCl 10 mg 02/12/19 08:29 Reglan PO Q6H PRN Nausea And Vomiting Ondansetron HCl 4 mg 02/12/19 08:29 Zofran IV Q8H PRN Nausea And Vomiting Promethazine HCl 25 mg 02/12/19 08:29 Phenergan [place] Q6H PRN Nausea And Vomiting Sodium Chloride 10 ml 02/12/19 08:29 02/16/19 11:28 Sodium Chloride Flush Syringe 10 Ml IV 10 ml PRN PRN Administration LINE FLUSH Spironolactone 12.5 mg 02/14/19 10:00 02/16/19 11:23 Aldactone PO 12.5 mg QDAY [facility] Administration Warfarin Sodium 10 mg 02/17/19 17:00 Coumadin PO DAILY@1700 [facility] Nutrition/Malnutrition Assess - Dietary Evaluation Nutrition/Malnutrition Findings: Nutrition Notes Start: 02/12/19 12:42 Freq: Status: Active Protocol: Document 02/13/19 10:08 (Rec: 02/13/19 10:49 [email or web address]) Co-Sign 02/13/19 10:08 LINDA Nutrition Notes Initial or Follow up Brief Note Current Diagnosis Hypertension,Stroke Current Diet Consistent carb Labs/Tests Reviewed Pertinent Medications Reviewed Height 6 ft 2 in Weight 116.2 kg [place] Body Weight (kg) 86.36 BMI 32.8 Subjective/Other Information FU for diet education. Pt was not open to receive education but took handout. Pt reports good appetite and eating 100% of meals. Burn Absent Trauma Absent Nutrition Intervention Revisit per MD consult or patient Sign Off request:
[2019-02-17] MEDS: ASPIRIN 325 MG TAB PO SCH (11:51)
[2019-02-17] MEDS: levETIRAcetam 500 MG TAB PO SCH ×2 (11:51→21:29)
[2019-02-17] MEDS: DOCUSATE SODIUM 100 MG CAP PO SCH ×2 (11:51→21:29)
[2019-02-17] MEDS: FAMOTIDINE 20 MG TAB PO SCH ×2 (11:51→21:28)
[2019-02-17] MEDS: carvediloL 6.25 MG TAB PO SCH ×2 (11:51→21:29)
[2019-02-17] MEDS: AMIODARONE 200 MG TAB PO SCH (11:52)
[2019-02-17] MEDS: SPIRONOLACTONE 25 MG TAB PO SCH (11:52)
[2019-02-17] MEDS: ENOXAPARIN 120 MG/0.8 ML INJ SUB-Q SCH ×2 (11:53→21:29)
[2019-02-17] MEDS: BUMETANIDE 1 MG TAB PO SCH (12:01)
--- NOTE | 2019-02-17 15:26 | Progress Note ---
Subjective Date of service: 02/17/19 Principal diagnosis: CVA Interval history: Principal diagnosis: CVA Interval history: Recurrent CVA Neurology has recommended to discontinue xarelto and instead treat with warfarin for oral anticoagulation INR today is 2.22 Acute renal failure secondary to dehydration - resolved Paroxysmal NSVT Hx of Nonischemic cardiomyopathy [facility] 04/2018: normal coronaries, EF 20% noncompliant with lifevest Hx of LV thrombus Hypertension Recommendations: Resume low dose lisinopril prior to discharge Patient advised compliance with his lifevest. Continue medical therapy for nonischemic cardiomyopathy. No further cardiac work-up is needed Objective Vital Signs Temp Pulse Pulse Pulse Resp BP Pulse Ox 02/17/19 12:25 98.5 F 92 H 18 123/93 99 02/17/19 11:52 86 118/89 02/17/19 11:51 86 118/89 02/17/19 10:00 82 100 H 94 H 20 99 02/17/19 07:56 98.1 F 86 18 118/89 99 02/17/19 03:57 97.8 F 86 16 120/82 100 02/16/19 23:40 97.4 F L 95 H 18 128/104 100 02/16/19 21:56 94 H 115/87 02/16/19 19:39 97.8 F 94 H 18 115/87 100 02/16/19 19:34 92 H 02/16/19 17:02 98.0 F 90 18 101/73 100 - Physical Examination General: No Apparent Distress HEENT: Positive: PERRL Neck: Positive: trachea midline Cardiac: Positive: Reg Rate and Rhythm, S1/S2 Lungs: Positive: clear to auscultation Neuro: Positive: Grossly Intact Abdomen: Positive: Soft Extremities: Absent: edema - Labs and Meds Coagulation 02/17/19 Range/Units 05:34 PT 19.1 H (12.2-14.9) Sec. INR 1.65 H (0.87-1.13)
[2019-02-17] MEDS: WARFARIN 10 MG TAB PO SCH (17:38)
[2019-02-18 07:57] LABS: INR 1.76 (0.87-1.13)
[2019-02-18] MEDS: levETIRAcetam 500 MG TAB PO SCH ×2 (13:28→21:48)
[2019-02-18] MEDS: AMIODARONE 200 MG TAB PO SCH (13:29)
[2019-02-18] MEDS: ASPIRIN 325 MG TAB PO SCH (13:29)
[2019-02-18] MEDS: SPIRONOLACTONE 25 MG TAB PO SCH (13:29)
[2019-02-18] MEDS: FAMOTIDINE 20 MG TAB PO SCH ×2 (13:30→21:48)
[2019-02-18] MEDS: carvediloL 6.25 MG TAB PO SCH ×2 (13:30→21:48)
[2019-02-18] MEDS: BUMETANIDE 1 MG TAB PO SCH (13:31)
[2019-02-18] MEDS: ENOXAPARIN 120 MG/0.8 ML INJ SUB-Q SCH ×2 (13:31→21:48)
[2019-02-18] MEDS: DOCUSATE SODIUM 100 MG CAP PO SCH ×2 (13:31→21:49)
--- NOTE | 2019-02-18 17:01 | Progress Note ---
Assessment and Plan - Patient Problems (1) Nonischemic dilated cardiomyopathy Current Visit: Yes Status: Acute Plan to address problem: Guideline directed medical therapy for nonischemic cardiomyopathy and chronic systolic left ventricular failure. (2) Left ventricular apical thrombus Current Visit: Yes Status: Acute Plan to address problem: Long-term oral anticoagulation as previously outlined. Subjective Date of service: 02/18/19 Principal diagnosis: CVA Interval history: Patient is comfortable, no new cardiac complaints. Objective Vital Signs Temp Pulse Resp BP Pulse Ox 02/18/19 13:30 91 H 02/18/19 13:29 91 H 02/18/19 07:29 97.4 F L 82 18 125/88 100 02/18/19 03:36 97.7 F 78 18 123/87 100 02/17/19 23:09 98.0 F 91 H 18 103/75 97 02/17/19 20:05 96 H 02/17/19 19:30 97.9 F 96 H 16 119/93 100 - Physical Examination General: No Apparent Distress HEENT: Positive: PERRL Neck: Positive: trachea midline Cardiac: Positive: Reg Rate and Rhythm Lungs: Positive: clear to auscultation Neuro: Positive: Grossly Intact Abdomen: Positive: Soft Skin: Positive: Clear Extremities: Absent: edema - Labs and Meds Coagulation 02/18/19 Range/Units 07:13 PT 20.1 H (12.2-14.9) Sec. INR 1.76 H (0.87-1.13)
[2019-02-18] MEDS: WARFARIN 10 MG TAB PO SCH (18:20)
--- NOTE | 2019-02-18 20:25 | Progress Note ---
Assessment and Plan Assessment and plan: --History of cardiac thrombus: Patient was on xarelto 20 mg daily - has no insurance and cannot afford it Patient is started on Coumadin and Lovenox bridge INR today is 1.65, target INR 2-3 Increase Coumadin to 10 mg daily at bedtime Case management for INR monitoring machine at discharge --Hx of Nonischemic cardiomyopathy [facility] 04/2018: normal coronaries, EF 20% cont BB, statin, AC --NSVT, appears acute on chronic Continue amiodarone and Coreg --Dizziness/Presyncope acute CVA ruled out likely from underlying NSVT or hypotension CT scan of the head obtained in the ER and shows no new CVA MRA head showed Chronic 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 will cont asp, and statin, Continue Coumadin --History of remote CVA Continue aspirin statin and coumadin --h/o seizure, takes keppra 500 BID DVT prophylaxis, on coumadin discharge planning: d/c home when INR is therapeutic between 2 and 3, Patient has Multiple medical problems including LV thrombus, severe nonischemic cardiomyopathy NSVT, history of CVA and seizures, noncompliance with medications and diet follow-up visits Patient has a very poor prognosis Discussed in detail with the patient the importance of returning to the treatment plan complications and consequences of not adhering to the treatment plan, advised to comply with LifeVest use. Patient verbalized understanding. Critical care time 32 minutes History Interval history: Patient seen and examined medical records reviewed patient feels better no new complaints INR subtherapeutic Vital signs noted Hospitalist Physical - Constitutional Vitals: Temp Pulse Resp BP Pulse Ox 98.3 F 94 H 18 118/90 99 02/18/19 19:51 02/18/19 19:50 02/18/19 19:50 02/18/19 19:54 02/18/19 19:50 General appearance: Present: no acute distress, well-nourished, obese - EENT Eyes: Present: PERRL, EOM intact - Neck Neck: Present: supple, normal ROM - Respiratory Respiratory effort: normal Respiratory: bilateral: diminished, rales, negative: rhonchi, wheezing - Cardiovascular Rhythm: regular Heart Sounds: Present: S1 & S2 - Extremities Extremities: no ischemia, No edema - Abdominal General gastrointestinal: soft, non-tender, non-distended, normal bowel sounds - Integumentary Integumentary: Present: clear, warm - Psychiatric Psychiatric: appropriate mood/affect, cooperative - Neurologic Neurologic: CNII-XII intact, moves all extremities Results - Labs CBC & Chem 7: 02/12/19 05:17 02/18/19 18:03 Labs: Laboratory Last Values WBC 4.9 K/mm3 (4.5-11.0) 02/12/19 05:17 RBC 4.28 M/mm3 (3.65-5.03) 02/12/19 05:17 Hgb 13.0 gm/dl (11.8-15.2) 02/12/19 05:17 Hct 38.8 % (35.5-45.6) 02/12/19 05:17 MCV 91 fl (84-94) 02/12/19 05:17 MCH 30 pg (28-32) 02/12/19 05:17 MCHC 34 % (32-34) 02/12/19 05:17 RDW 17.8 % (13.2-15.2) H 02/12/19 05:17 Plt Count 289 K/mm3 (140-440) 02/12/19 05:17 Lymph % (Auto) 28.4 % (13.4-35.0) 02/12/19 05:17 [place] % (Auto) 6.2 % (0.0-7.3) 02/12/19 05:17 Eos % (Auto) 0.9 % (0.0-4.3) 02/12/19 05:17 Baso % (Auto) 1.1 % (0.0-1.8) 02/12/19 05:17 Lymph # 1.4 K/mm3 (1.2-5.4) 02/12/19 05:17 [place] # 0.3 K/mm3 (0.0-0.8) 02/12/19 05:17 Eos # 0.0 K/mm3 (0.0-0.4) 02/12/19 05:17 Baso # 0.1 K/mm3 (0.0-0.1) 02/12/19 05:17 Seg Neutrophils % 63.4 % (40.0-70.0) 02/12/19 05:17 Seg Neutrophils # 3.1 K/mm3 (1.8-7.7) 02/12/19 05:17 PT 20.1 Sec. (12.2-14.9) H 02/18/19 07:13 INR 1.76 (0.87-1.13) H 02/18/19 07:13 APTT 39.4 Sec. (24.2-36.6) H 02/12/19 05:17 Thrombin Time 17.8 Sec. (15.1-19.6) 02/12/19 05:17 Sodium 140 mmol/L (137-145) 02/13/19 12:52 Potassium 4.1 mmol/L (3.6-5.0) 02/18/19 18:03 Chloride 99.6 mmol/L (98-107) 02/13/19 12:52 Carbon Dioxide 24 mmol/L (22-30) 02/13/19 12:52 Anion Gap 20 mmol/L 02/13/19 12:52 BUN 30 mg/dL (9-20) H 02/13/19 12:52 Creatinine 1.5 mg/dL (0.8-1.5) 02/13/19 12:52 Estimated GFR > 60 ml/min 02/13/19 12:52 BUN/Creatinine Ratio 20 % 02/13/19 12:52 Glucose 126 mg/dL (75-100) H 02/13/19 12:52 Hemoglobin A1c 6.4 % (4-6) H 02/13/19 04:23 Calcium 9.1 mg/dL (8.4-10.2) 02/13/19 12:52 Magnesium 2.20 mg/dL (1.7-2.3) 02/18/19 18:03 Troponin T 0.015 ng/mL (0.00-0.029) 02/12/19 05:17 Triglycerides 88 mg/dL (2-149) 02/13/19 04:23 Cholesterol 144 mg/dL (50-199) 02/13/19 04:23 LDL Cholesterol Direct 111 mg/dL (50-130) 02/13/19 04:23 HDL Cholesterol 25 mg/dL (40-59) L 02/13/19 04:23 Cholesterol/HDL Ratio 5.76 % 02/13/19 04:23 TSH 2.120 mlU/mL (0.270-4.200) 02/13/19 12:52 Urine Opiates Screen Presumptive negative 02/12/19 09:04 Urine Methadone Screen Presumptive negative 02/12/19 09:04 Ur Barbiturates Screen Presumptive negative 02/12/19 09:04 Ur Phencyclidine Scrn Presumptive negative 02/12/19 09:04 Ur Amphetamines Screen Presumptive negative 02/12/19 09:04 U Benzodiazepines Scrn Presumptive negative 02/12/19 09:04 Urine Cocaine Screen Presumptive negative 02/12/19 09:04 U Marijuana (THC) Screen Presumptive negative 02/12/19 09:04 Drugs of Abuse Note Disclamer 02/12/19 09:04 Active Medications - Current Medications Current Medications: Generic Name Dose Route Start Last Admin Trade Name Freq PRN Reason Stop Dose Admin Acetaminophen 650 mg 02/12/19 08:29 Tylenol PO Q4H PRN Pain, Mild (1-3) Acetaminophen/Hydrocodone Bitart 2 each 02/12/19 08:29 [place] 5/325 PO Q6H PRN Pain, Moderate (4-6) Amiodarone HCl 200 mg 02/13/19 13:00 02/18/19 13:29 Cordarone PO 200 mg QDAY JOHN Administration Aspirin 325 mg 02/12/19 11:00 02/18/19 13:29 Aspirin PO 325 mg QDAY JOHN Administration Atorvastatin Calcium 80 mg 02/12/19 22:00 02/17/19 21:28 Lipitor PO 80 mg QHS JOHN Administration Bisacodyl 10 mg 02/12/19 08:29 Dulcolax [place] QDAY PRN Constipation Bumetanide 1 mg 02/14/19 10:00 02/18/19 13:31 Bumex PO 1 mg QDAY JOHN Administration Carvedilol 6.25 mg 02/14/19 22:00 02/18/19 13:30 Coreg PO 6.25 mg BID JOHN Administration Docusate Sodium 100 mg 02/12/19 11:00 02/18/19 13:31 Colace PO Not Given BID JOHN Enoxaparin Sodium 120 mg 02/16/19 10:00 02/18/19 13:31 Lovenox SUB-Q 120 mg Q12HR JOHN Administration Famotidine 20 mg 02/12/19 11:00 02/18/19 13:30 Pepcid PO 20 mg BID JOHN Administration Levetiracetam 500 mg 02/13/19 14:00 02/18/19 13:28 Keppra PO 500 mg BID JOHN Administration Magnesium Hydroxide 30 ml 02/12/19 08:29 02/14/19 22:16 Milk Of Magnesia PO 30 ml Q4H PRN Administration Constipation Metoclopramide HCl 10 mg 02/12/19 08:29 Reglan PO Q6H PRN Nausea And Vomiting Ondansetron HCl 4 mg 02/12/19 08:29 Zofran IV Q8H PRN Nausea And Vomiting Promethazine HCl 25 mg 02/12/19 08:29 Phenergan [place] Q6H PRN Nausea And Vomiting Sodium Chloride 10 ml 02/12/19 08:29 02/16/19 11:28 Sodium Chloride Flush Syringe 10 Ml IV 10 ml PRN PRN Administration LINE FLUSH Spironolactone 12.5 mg 02/14/19 10:00 02/18/19 13:29 Aldactone PO 12.5 mg QDAY JOHN Administration Warfarin Sodium 10 mg 02/17/19 17:00 02/18/19 18:20 Coumadin PO 10 mg DAILY@1700 JOHN Administration Nutrition/Malnutrition Assess - Dietary Evaluation Nutrition/Malnutrition Findings: Nutrition Notes Start: 02/12/19 12:42 Freq: Status: Active Protocol: Document 02/13/19 10:08 (Rec: 02/13/19 10:49 [email or web address]) Co-Sign 02/13/19 10:08 NHALL Nutrition Notes Initial or Follow up Brief Note Current Diagnosis Hypertension,Stroke Current Diet Consistent carb Labs/Tests Reviewed Pertinent Medications Reviewed Height 6 ft 2 in Weight 116.2 kg [place] Body Weight (kg) 86.36 BMI 32.8 Subjective/Other Information FU for diet education. Pt was not open to receive education but took handout. Pt reports good appetite and eating 100% of meals. Burn Absent Trauma Absent Nutrition Intervention Revisit per MD consult or patient Sign Off request:
[2019-02-19 06:06] LABS: INR 2.26 (0.87-1.13)
[2019-02-19] MEDS: ASPIRIN 325 MG TAB PO SCH (10:29)
[2019-02-19] MEDS: BUMETANIDE 1 MG TAB PO SCH (10:29)
[2019-02-19] MEDS: FAMOTIDINE 20 MG TAB PO SCH (10:29)
[2019-02-19] MEDS: levETIRAcetam 500 MG TAB PO SCH (10:29)
[2019-02-19] MEDS: carvediloL 6.25 MG TAB PO SCH (10:30)
[2019-02-19] MEDS: SPIRONOLACTONE 25 MG TAB PO SCH (10:30)
[2019-02-19] MEDS: AMIODARONE 200 MG TAB PO SCH (10:30)
[2019-02-19] MEDS: DOCUSATE SODIUM 100 MG CAP PO SCH (10:31)
[2019-02-19] MEDS: ENOXAPARIN 120 MG/0.8 ML INJ SUB-Q SCH ×2 (10:31→10:33)
[2019-02-19 11:25] VITALS: BP 111/80
--- NOTE | 2019-02-19 11:42 | Progress Note ---
Assessment and Plan Recurrent CVA Neurology has recommended to discontinue xarelto and instead treat with warfarin for oral anticoagulation Acute renal failure Paroxysmal NSVT Hx of Nonischemic cardiomyopathy [facility] 04/2018: normal coronaries, EF 20% noncompliant with lifevest Hx of LV thrombus Hypertension Recommendations: We will increase beta blockers for suppression of ectopy seen on telemetry. Patient advised compliance with his lifevest. Continue medical therapy for nonischemic cardiomyopathy. Subjective Date of service: 02/19/19 Principal diagnosis: CVA Interval history: Patient has no complaints. INR of 2.2 today. Sinus rhythm with occasional PVCs on telemetry. Objective Vital Signs Temp Pulse Resp BP Pulse Ox 02/19/19 11:21 97.7 F 85 18 111/80 100 02/19/19 07:45 98.0 F 18 108/72 02/19/19 04:54 98.2 F 02/19/19 04:51 88 18 117/91 100 02/18/19 23:39 98.3 F 02/18/19 23:38 89 18 102/69 98 02/18/19 22:00 92 H 02/18/19 21:48 89 118/90 02/18/19 19:54 118/90 02/18/19 19:51 98.3 F 02/18/19 19:50 94 H 18 90/64 99 02/18/19 17:00 92 H 18 108/84 100 02/18/19 13:30 91 H 02/18/19 13:29 91 H - Physical Examination General: No Apparent Distress HEENT: Positive: PERRL Neck: Positive: trachea midline Cardiac: Positive: Irregularly Regular Lungs: Positive: Decreased Breath Sounds Neuro: Positive: Grossly Intact Abdomen: Positive: Soft Extremities: Absent: edema - Labs and Meds Coagulation 02/19/19 Range/Units 04:45 PT 24.5 H (12.2-14.9) Sec. INR 2.26 H (0.87-1.13) Comprehensive Metabolic Panel 02/18/19 Range/Units 18:03 Potassium 4.1 (3.6-5.0) mmol/L
--- NOTE | 2019-02-19 12:58 | Discharge Summary ---
Providers - Providers Date of Admission: 02/12/19 11:28 Date of discharge: 02/19/19 Attending physician: PAOLA GRANT 02/12/19 Consult to Physician [CONS] Routine Comment: Consulting Provider: EVAN DUTTA Physician Instructions: Reason For Exam: possible CVA 02/12/19 08:29 Consult to Case Management [CONS] Routine Services Needed at Discharge: Home Health Services Notified:: CASE MANAGEMENT Consult to Dietitian/Nutrition [CONS] Routine Physician Instructions: Reason For Exam: Reason for Consult: Nutrition Recommendations Reason for Consult: Diet education Occupational Therapy Evaluate and Treat [CONS] Routine Comment: Reason For Exam: Neuro deficits Physical Therapy Evaluation and Treat [CONS] Routine Comment: Reason For Exam: Neuro deficits 02/12/19 19:33 Consult to Physician [CONS] Routine Comment: Consulting Provider: SWAPNA STANLEY Physician Instructions: Reason For Exam: NSVT Primary care physician: CHUCKING MACHINE SET UP OPERATOR TOOL Hospitalization Reason for admission: stroke like symptoms Condition: Stable Pertinent studies: CT head: 1. No acute findings. 2. Old left occipital, left parietal, and left thalamic infarcts have developed since the prior CT. MRA head: No evidence for acute large vessel occlusion, stenosis or aneurysm. Chronic atretic appearance of the distal left INTEGRATION DIRECTOR which correlates with a chronic left occipital infarct. Carotid doppler: No hemodynamically significant stenosis by NASCET criteria. There is less than 50%, luminal narrowing bilaterally. Hospital course: Patient is a 33 year old man with a history of HTN, stroke and on anticoagulation for "a blood clot in his heart" presenting with generalized weakness and dizziness. 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 Patient has multiple strokes since May 2018. Patient has residual numbness to left arm and right visual field deficit as a result of his previous stroke. He is currently is on Xarelto. He was evaluated by teleneurology and recommended for admission .Patient had extensive neuro work up as mentioned below. Patient was evaluated by cardiology and neurology,medications optimised. Advised to comply with medications,life vest,f/u visists,pt verbalised understanding. Case management assisted with DC planning Discharge Diagnosis --History of cardiac thrombus: non complant with xarelto, no insurance, cannot afford it started on Coumadin and Lovenox bridge,INR today is therapeutic --Hx of Nonischemic cardiomyopathy [facility] 04/2018: normal coronaries, EF 20% cont BB, statin, AC --NSVT, appears acute on chronic Continue amiodarone and Coreg --Dizziness/Presyncope acute CVA ruled out likely from underlying NSVT or hypotension asp, and statin, Continue Coumadin --History of remote CVA Continue aspirin statin and coumadin --h/o seizure, keppra 500 BID --Medical non compliance:Counselled DVT prophylaxis, on coumadin discharge planning: d/c home ,frequest INR checks Patient has Multiple medical problems including LV thrombus, severe nonischemic cardiomyopathy NSVT, history of CVA and seizures, noncompliance with medications and diet follow-up visits Patient has a very poor prognosis Discussed in detail with the patient the importance of complying with the treatment plan complications and consequences of not adhering to the treatment plan, advised to comply with LifeVest use. Patient verbalized understanding. Disposition: - TO HOME OR SELFCARE Time spent for discharge: 32 min Core Measure Documentation - Palliative Care Palliative Care/ Comfort Measures: Not Applicable - Core Measures Any of the following diagnoses?: heart failure, none - Heart Failure Discharge Requirements TEMO/ARB for LVSD if EF <40%: Yes Beta beto at discharge: Yes Exam - Constitutional Vitals: Temp Pulse Resp BP Pulse Ox 97.7 F 85 18 111/80 100 02/19/19 11:21 02/19/19 11:21 02/19/19 11:21 02/19/19 11:21 02/19/19 11:21 General appearance: Present: no acute distress, well-nourished - EENT Eyes: Present: PERRL, EOM intact - Neck Neck: Present: supple, normal ROM - Respiratory Respiratory effort: normal Respiratory: bilateral: diminished, negative: rales, rhonchi, wheezing - Cardiovascular Rhythm: regular Heart Sounds: Present: S1 & S2 - Extremities Extremities: no ischemia, No edema - Abdominal General gastrointestinal: Present: soft, non-tender, non-distended, normal bowel sounds - Integumentary Integumentary: Present: clear, warm - Musculoskeletal Musculoskeletal: strength equal bilaterally, generalized weakness - Psychiatric Psychiatric: appropriate mood/affect, cooperative - Neurologic Neurologic: CNII-XII intact, moves all extremities Plan Activity: no restrictions Diet: other (cardiac diet) Additional Instructions: Next INR check in 2 days at PMDs office/target level of INR is between 2 and 3. Advised to comply with medications and diet follow-up visits. Advised to comply with life vest Follow up with: PRIMARY CARE, [Primary Care Provider] - 7 Days JORDON KELSEY MD [Staff Physician] - 7 Days AGAPITO FORD MD [Staff Physician] - 7 Days Forms: Warfarin Discharge Instruction Prescriptions: Spironolactone [Aldactone] 12.5 mg PO QDAY #30 tablet Bumetanide [Bumex 1 mg tab] 1 mg PO QDAY #30 tablet Amiodarone [Cordarone 200 MG TAB] 200 mg PO QDAY #30 tablet Carvedilol [Coreg] 6.25 mg PO BID #60 tablet Warfarin [Coumadin] 7.5 mg PO DAILY@1700 #30 tablet Aspirin EC [Halfprin EC] 81 mg PO QDAY #30 tablet. levETIRAcetam [Keppra TAB] 500 mg PO BID #60 tablet AtorvaSTATin [Lipitor] 80 mg PO QHS #30 tablet Lisinopril [Zestril TAB] 2.5 mg PO QDAY #30 tab
[2019-02-19] MEDS ORDERED: WARFARIN 7.5 MG TAB PO SCH (17:00)
== END 2019-02-19 14:41 | disposition home or self-care (01) | DRG 315 ==
LOC: ED 04:52 → 4A 07:30 → OBSVTOIN 11:28
PROVIDERS: ADMIT Internal Medicine; ATTEND Internal Medicine
DX: I95.9 Hypotension, unspecified (principal); N17.9 Acute kidney failure, unspecified; I47.2 Ventricular tachycardia; I42.0 Dilated cardiomyopathy; I24.0 Acute coronary thrombosis not resulting in myocardial infarction; I11.0 Hypertensive heart disease with heart failure; E86.0 Dehydration; Z79.01 Long term (current) use of anticoagulants; Z82.49 Family history of ischemic heart disease and other diseases of the circulatory system; I50.9 Heart failure, unspecified; I69.398 Other sequelae of cerebral infarction
CPT/HCPCS: 36415; 70450; 70544; 80048; 80061; 80307; 83036; 83735; 84132; 84443; 84484; 85025; 85610; 85670; 85730; 93005; 93010; 93306; 93880; G0378; A9270-GY; J1650

== ENCOUNTER 2019-04-24 01:50 | Emergency (ER) | payer SELFPAY ==
[2019-04-24] MEDS ORDERED: ASPIRIN 325 MG TAB PO ONE (02:13)
[2019-04-24 02:35] LABS: Basophils # (Auto) 0.1 K/mm3 (0.0-0.1); Basophils % (Auto) 1.6 % (0.0-1.8); Eosinophils % (Auto) 0.8 % (0.0-4.3); Hematocrit 40.1 % (35.5-45.6); Hemoglobin 12.9 gm/dl (11.8-15.2); Lymphocytes # (Auto) 1.5 K/mm3 (1.2-5.4); Lymphocytes % (Auto) 27.4 % (13.4-35.0); Mean Corpuscular HGB Conc 32 % (32-34); Mean Corpuscular Volume 91 fl (84-94); Monocytes # (Auto) 0.3 K/mm3 (0.0-0.8); Monocytes % (Auto) 6.2 % (0.0-7.3); Platelet Count 331 K/mm3 (140-440); Red Blood Count 4.41 M/mm3 (3.65-5.03); Red Cell Distribution Width 18.4 % (13.2-15.2)
--- NOTE | 2019-04-24 02:50 | XRay Report ---
CHEST 1 VIEW 04/24/2019 2:36 AM INDICATION / CLINICAL INFORMATION: Chest Pain. CHF. COMPARISON: 2 views of the chest from 04/19/2018. FINDINGS: SUPPORT DEVICES: None. HEART / MEDIASTINUM: The heart is moderately enlarged. LUNGS / PLEURA: No significant pulmonary or pleural abnormality. No pneumothorax. ADDITIONAL FINDINGS: No significant additional findings. IMPRESSION: Moderate cardiomegaly. Signer Name: Ever Garrido MD Signed: 04/24/2019 2:45 AM Workstation Name: [id number]
[2019-04-24 03:31] LABS: BUN/Creatinine Ratio 18; Blood Urea Nitrogen 27 mg/dL (9-20); Calcium 9.7 mg/dL (8.4-10.2); Hemolysis Index 10
[2019-04-24] MEDS ORDERED: SPIRONOLACTONE 25 MG TAB PO STA (06:19)
[2019-04-24] MEDS ORDERED: BUMETANIDE 1 MG TAB PO STA (06:19)
[2019-04-24] MEDS ORDERED: levETIRAcetam 500 MG TAB PO STA (06:19)
[2019-04-24] MEDS ORDERED: NON-FORMULARY EACH (Lisinopril [Zestril Tab] 2.5 MG) PO STA (06:19)
[2019-04-24] MEDS ORDERED: carvediloL 6.25 MG TAB PO STA (06:19)
--- NOTE | 2019-04-24 06:21 | Emergency Department Report ---
ED General Adult HPI - General Chief complaint: Chest Pain Stated complaint: CHEST PAIN, DIZZNESS Time Seen by Provider: 04/24/19 06:06 Source: patient, RN notes reviewed, old records reviewed Mode of arrival: Ambulatory Limitations: No Limitations - History of Present Illness Initial comments: This is a 33-year-old gentleman. This patient does not known to this provider previously. His past medical history includes hypertension, stroke, supposed to be on chronic Coumadin therapy for reported cardiac thrombus, history of nonischemic cardiomyopathy, left heart cath April 2018 showed normal coronaries, ejection fraction 20%, nonsustained V. tach, supposed to be on LifeVest, but is noncompliant Today, the patient presents to the ER with a complaint of painless lightheadedness. It is now resolved. He denies headache and neck pain. He denies chest pain. He believes that he has unintentional weight gain. He has not lost consciousness. It is currently 7:30 in the morning. He indicates his symptoms started at 12:30 in the morning. They are now resolved. His lightheadedness. He was, did not have exacerbating or relieving factors, and does not radiate anywhere. He was seen by cardiology approximately 2 months ago for similar symptoms. Apparently, extensive discussion was had with the patient regarding necessity of compliance with medical therapy and LifeVest therapy. -: Gradual Consistency: now resolved Improves with: none Worsens with: none - Related Data Previous Rx's Medication Instructions Recorded Last Taken Type Amiodarone [Cordarone 200 MG TAB] 200 mg PO QDAY #30 tablet 04/24/19 Unknown Rx Aspirin EC [Halfprin EC] 81 mg PO QDAY #30 tablet. 04/24/19 Unknown Rx AtorvaSTATin [Lipitor] 80 mg PO QHS #30 tablet 04/24/19 Unknown Rx Bumetanide [Bumex 1 mg tab] 1 mg PO QDAY #30 tablet 04/24/19 Unknown Rx Lisinopril [Zestril TAB] 2.5 mg PO QDAY #30 tab 04/24/19 Unknown Rx Spironolactone [Aldactone] 12.5 mg PO QDAY #30 tablet 04/24/19 Unknown Rx Warfarin [Coumadin] 7.5 mg PO DAILY@1700 #35 tablet 04/24/19 Unknown Rx carvediloL [Coreg] 6.25 mg PO BID #60 tablet 04/24/19 Unknown Rx levETIRAcetam [Keppra TAB] 500 mg PO BID #60 tablet 04/24/19 Unknown Rx Allergies Allergy/AdvReac Type Severity Reaction Status Date / Time No Known Allergies Allergy Verified 08/27/14 07:40 ED Review of Systems ROS: Stated complaint: CHEST PAIN, DIZZNESS Other details as noted in HPI Constitutional: malaise, weakness Eyes: denies: eye discharge ENT: denies: congestion Respiratory: denies: wheezing Cardiovascular: denies: syncope Gastrointestinal: denies: vomiting, hematochezia Genitourinary: denies: dysuria Musculoskeletal: denies: back pain Neurological: weakness. denies: numbness, paresthesias, confusion Hematological/Lymphatic: denies: easy bleeding ED Past Medical Hx - Past Medical History Previous Medical History?: Yes Hx Hypertension: Yes Hx CVA: Yes Hx Congestive Heart Failure: Yes - Surgical History Past Surgical History?: No - Social History Smoking Status: Never Smoker - Medications Home Medications: Home Medications Medication Instructions Recorded Confirmed Last Taken Type Amiodarone [Cordarone 200 MG TAB] 200 mg PO QDAY #30 tablet 04/24/19 Unknown Rx Aspirin EC [Halfprin EC] 81 mg PO QDAY #30 tablet. 04/24/19 Unknown Rx AtorvaSTATin [Lipitor] 80 mg PO QHS #30 tablet 04/24/19 Unknown Rx Bumetanide [Bumex 1 mg tab] 1 mg PO QDAY #30 tablet 04/24/19 Unknown Rx Lisinopril [Zestril TAB] 2.5 mg PO QDAY #30 tab 04/24/19 Unknown Rx Spironolactone [Aldactone] 12.5 mg PO QDAY #30 tablet 04/24/19 Unknown Rx Warfarin [Coumadin] 7.5 mg PO DAILY@1700 #35 tablet 04/24/19 Unknown Rx carvediloL [Coreg] 6.25 mg PO BID #60 tablet 04/24/19 Unknown Rx levETIRAcetam [Keppra TAB] 500 mg PO BID #60 tablet 04/24/19 Unknown Rx ED Physical Exam - General Limitations: No Limitations General appearance: alert, in no apparent distress - Head Head exam: Present: atraumatic, normocephalic - Eye Eye exam: Present: normal appearance, EOMI. Absent: nystagmus - ENT ENT exam: Present: normal exam, normal orophraynx, mucous membranes moist, normal external ear exam - Neck Neck exam: Present: normal inspection, full ROM. Absent: tenderness, meningismus - Respiratory Respiratory exam: Present: normal lung sounds bilaterally. Absent: respiratory distress, chest wall tenderness, accessory muscle use, decreased breath sounds, prolonged expiratory - Cardiovascular Cardiovascular Exam: Present: regular rate, normal rhythm, normal heart sounds. Absent: bradycardia, tachycardia, irregular rhythm, systolic murmur, diastolic murmur, rubs, gallop - GI/Abdominal GI/Abdominal exam: Present: soft. Absent: distended, tenderness, guarding, rebound, rigid, pulsatile mass - Rectal Rectal exam: Present: deferred - Extremities Exam Extremities exam: Present: normal inspection, full ROM, other (2+ pulses noted in the bilateral upper and lower extremities. There is no palpable cord. negative Homans sign. Muscular compartments are soft. The pelvis is stable.). Absent: pedal edema, calf tenderness - Back Exam Back exam: Present: normal inspection, full ROM. Absent: tenderness, CVA tenderness (R), CVA tenderness (L), paraspinal tenderness, vertebral tenderness - Neurological Exam Neurological exam: Present: alert (there is no past-pointing. There is no pronator drift. There is normal [id number]. There is normal gait.), normal gait, other (there is no facial droop. The tongue is midline. Extraocular movements are intact bilaterally. There is 5 out of 5 strength in bilateral upper and lower extremities. Sensation is intact to light touch bilateral upper and lower extremities. There is no past-pointing. There is no pronator drift. There is normal [id number]. There is a normal gait.). Absent: motor sensory deficit - Psychiatric Psychiatric exam: Present: normal affect, normal mood - Skin Skin exam: Present: warm, dry, intact, normal color. Absent: rash ED Course Vital Signs 04/24/19 04/24/19 04/24/19 02:02 04:07 06:25 Temperature 98.5 F Pulse Rate 99 H 81 96 H Respiratory 20 16 16 Rate Blood Pressure 121/85 Blood Pressure 116/81 109/80 [Left] O2 Sat by Pulse 93 93 96 Oximetry 04/24/19 07:13 Temperature Pulse Rate 92 H Respiratory 14 Rate Blood Pressure Blood Pressure 106/71 [Left] O2 Sat by Pulse 100 Oximetry ED Medical Decision Making - Lab Data Result diagrams: 04/24/19 02:18 04/24/19 02:18 Vital Signs 04/24/19 04/24/19 04/24/19 02:02 04:07 06:25 Temperature 98.5 F Pulse Rate 99 H 81 96 H Respiratory 20 16 16 Rate Blood Pressure 121/85 Blood Pressure 116/81 109/80 [Left] O2 Sat by Pulse 93 93 96 Oximetry 04/24/19 07:13 Temperature Pulse Rate 92 H Respiratory 14 Rate Blood Pressure Blood Pressure 106/71 [Left] O2 Sat by Pulse 100 Oximetry Lab Results 04/24/19 04/24/19 04/24/19 Range/Units 02:18 02:18 02:18 WBC 5.4 (4.5-11.0) K/mm3 RBC 4.41 (3.65-5.03) M/mm3 Hgb 12.9 (11.8-15.2) gm/dl Hct 40.1 (35.5-45.6) % MCV 91 (84-94) fl MCH 29 (28-32) pg MCHC 32 (32-34) % RDW 18.4 H (13.2-15.2) % Plt Count 331 (140-440) K/mm3 Lymph % (Auto) 27.4 (13.4-35.0) % [place] % (Auto) 6.2 (0.0-7.3) % Eos % (Auto) 0.8 (0.0-4.3) % Baso % (Auto) 1.6 (0.0-1.8) % Lymph # 1.5 (1.2-5.4) K/mm3 [place] # 0.3 (0.0-0.8) K/mm3 Eos # 0.0 (0.0-0.4) K/mm3 Baso # 0.1 (0.0-0.1) K/mm3 Seg Neutrophils % 64.0 (40.0-70.0) % Seg Neutrophils # 3.4 (1.8-7.7) K/mm3 PT (12.2-14.9) Sec. INR (0.87-1.13) APTT (24.2-36.6) Sec. Sodium 142 (137-145) mmol/L Potassium 4.4 (3.6-5.0) mmol/L Chloride 97.3 L (98-107) mmol/L Carbon Dioxide 30 (22-30) mmol/L Anion Gap 19 mmol/L BUN 27 H (9-20) mg/dL Creatinine 1.5 (0.8-1.5) mg/dL Estimated GFR > 60 ml/min BUN/Creatinine Ratio 18 % Glucose 107 H (75-100) mg/dL Calcium 9.7 (8.4-10.2) mg/dL Magnesium (1.7-2.3) mg/dL Total Creatine Kinase (55-170) units/L Troponin T < 0.010 (0.00-0.029) ng/mL NT-Pro-B Natriuret Pep 1978 H (0-450) pg/mL 04/24/19 04/24/19 04/24/19 Range/Units 05:14 05:14 06:28 WBC (4.5-11.0) K/mm3 RBC (3.65-5.03) M/mm3 Hgb (11.8-15.2) gm/dl Hct (35.5-45.6) % MCV (84-94) fl MCH (28-32) pg MCHC (32-34) % RDW (13.2-15.2) % Plt Count (140-440) K/mm3 Lymph % (Auto) (13.4-35.0) % [place] % (Auto) (0.0-7.3) % Eos % (Auto) (0.0-4.3) % Baso % (Auto) (0.0-1.8) % Lymph # (1.2-5.4) K/mm3 [place] # (0.0-0.8) K/mm3 Eos # (0.0-0.4) K/mm3 Baso # (0.0-0.1) K/mm3 Seg Neutrophils % (40.0-70.0) % Seg Neutrophils # (1.8-7.7) K/mm3 PT 15.4 H (12.2-14.9) Sec. INR 1.23 H (0.87-1.13) APTT 31.3 (24.2-36.6) Sec. Sodium (137-145) mmol/L Potassium (3.6-5.0) mmol/L Chloride (98-107) mmol/L Carbon Dioxide (22-30) mmol/L Anion Gap mmol/L BUN (9-20) mg/dL Creatinine (0.8-1.5) mg/dL Estimated GFR ml/min BUN/Creatinine Ratio % Glucose (75-100) mg/dL Calcium (8.4-10.2) mg/dL Magnesium 2.20 (1.7-2.3) mg/dL Total Creatine Kinase 84 (55-170) units/L Troponin T < 0.010 (0.00-0.029) ng/mL NT-Pro-B Natriuret Pep (0-450) pg/mL - EKG Data -: EKG Interpreted by Me EKG shows normal: sinus rhythm Rate: normal - EKG Data When compared to previous EKG there are: no significant change 04/24/19 07:35 EKG #1 shows a sinus tachycardia, there is a normal axis, the QTC is 474 ms, there is atrial enlargement, premature ventricular contraction, the EKG is abnormal, and not consistent with ST elevation myocardial infarction. EKG #2 is unchanged from prior, tachycardia resolved. Both EKGs unchanged from prior EKG from February 2019 - Radiology Data Radiology results: report reviewed, image reviewed Print Report Referring Physician: JESSIKA REYNA Patient Name: YANNICK PONCE Date of : 1985 Sex: Male Report Date: 2019-04-24 Report Status: Finalized Findings [address] [address] XRay Report Signed Patient: YANNICK PONCE JR MR#: [id number] : 1985 Acct:[id number] Age/Sex: 33 / M ADM Date: 04/24/19 Loc: ED Attending Dr: Ordering Physician: JESSIKA REYNA MD Date of Service: 04/24/19 Procedure(s): XR chest 1V ap Accession Number(s): [id number] cc: JESSIKA REYNA MD Fluoro Time In Minutes: CHEST 1 VIEW 04/24/2019 2:36 AM INDICATION / CLINICAL INFORMATION: Chest Pain. CHF. COMPARISON: 2 views of the chest from 04/19/2018. FINDINGS: SUPPORT DEVICES: None. HEART / MEDIASTINUM: The heart is moderately enlarged. LUNGS / PLEURA: No significant pulmonary or pleural abnormality. No pneumothorax. ADDITIONAL FINDINGS: No significant additional findings. IMPRESSION: Moderate cardiomegaly. Signer Name: Ever Garrido MD Signed: 04/24/2019 2:45 AM Workstation Name: [id number] Transcribed By: [place] Dictated By: Ever Garrido MD Electronically Authenticated By: Ever Garrido MD Signed Date/Time: 04/24/19244 DD/ 3 - Medical Decision Making Differential diagnosis, including but not limited to: Orthostasis, vagal event, medication noncompliance, structural cardiac disease Assessment and plan: 33-year-old gentleman, admitted to this hospital in February for lightheadedness, has no structural cardiac disease without evidence of ischemic heart disease, known and documented noncompliance, presenting with a c omplaint of lightheadedness. The patient has been observed in this department for over 5.5 hours without evidence of loss of consciousness. His tachycardia has resolved. He walks with a normal gait. His neurologic examination is unremarkable. He is resting currently in his stretcher and in no acute distress. I have reiterated extensively the importance of medication compliance and LifeVest compliance. Patient was given doses of medications while here in the ER, and he was provided a one-month refill on his prescription medications. Troponin negative 2, EKG unchanged 2. Critical care attestation.: If time is entered above; I have spent that time in minutes in the direct care of this critically ill patient, excluding procedure time. ED Disposition Clinical Impression: Lightheadedness, Noncompliance Disposition: DC-01 TO HOME OR SELFCARE Is pt being admited?: No Does the pt Need Aspirin: No Condition: Stable Additional Instructions: It is very important that patient remain compliant with his outpatient prescriptions medications. In addition, the patient should make certain to wear his LifeVest at all times, unless specifically instructed not to by either his primary care doctor or his cardiology physician. Recommend patient follow up with an outpatient primary care doctor or promotions officer within the next 3-5 days. For the next 2 days, patient should increase Coumadin to 10 mg daily, and follow up in 3-5 days for repeat Coumadin/INR recheck. After 2 days, patient should resume Coumadin 7.5 mg daily, unless instructed to do so otherwise by either her primary care doctor or promotions officer. Noncompliance and not wearing LifeVest may result in life threatening arrhythmia , which may cause deaths, disability, paralysis, loss of quality of life. Noncompliance with prescription medications may cause , disability, paralysis, loss of quality of life. Please return to the emergency room right away with new, worse or different symptoms, or symptoms not present on the initial emergency room evaluation. Avoid consumption of alcohol and tobacco products. Referrals: [facility] [Provider Group] - 3-5 Days [facility] [Provider Group] - 3-5 Days [facility] [Provider Group] - 3-5 Days
[2019-04-24] MEDS ORDERED: LISINOPRIL 5 MG TAB PO STA (06:22)
[2019-04-24 06:43] LABS: INR 1.23 (0.87-1.13)
[2019-04-24 06:49] LABS: Partial Thromboplastin Time 31.3 Sec. (24.2-36.6)
[2019-04-24 07:15] VITALS: BP 106/71
[2019-04-24] MEDS ORDERED: ENOXAPARIN 100 MG/1 ML INJ SUB-Q ONE (07:36)
== END 2019-04-24 08:11 | disposition home or self-care (01) ==
LOC: ED 01:50
DX: R42 Dizziness and giddiness (principal); I11.0 Hypertensive heart disease with heart failure; I50.9 Heart failure, unspecified; Z91.14 Patient's other noncompliance with medication regimen; Z86.73 Personal history of transient ischemic attack (TIA), and cerebral infarction without residual deficits; Z79.899 Other long term (current) drug therapy
CPT/HCPCS: 36415; 71045; 80048; 82550; 83735; 83880; 84484; 85025; 85610; 85730; 93005; 93010; 96372; 99285; J1650

== ENCOUNTER 2019-04-24 16:07 | Emergency (ER) | payer SELFPAY ==
[2019-04-24] MEDS ORDERED: ONDANSETRON 4 MG/2 ML INJ IV ONE (16:40)
[2019-04-24] MEDS ORDERED: SODIUM CHLORIDE 0.9% 500 ML 500 ML IV ONE (16:40)
[2019-04-24] MEDS ORDERED: ONDANSETRON 4 MG/2 ML INJ ONE (16:43)
[2019-04-24] MEDS ORDERED: SODIUM CHLORIDE 0.9% 500 ML 500 ML ONE (16:43)
--- NOTE | 2019-04-24 16:44 | Emergency Department Report ---
ED Abdominal Pain HPI - General Chief Complaint: Nausea/Vomiting/Diarrhea Stated Complaint: N/V Time Seen by Provider: 04/24/19 16:36 Source: patient, EMS Mode of arrival: Stretcher Limitations: No Limitations - History of Present Illness Initial Comments: Patient is 33 years old male with history of stroke, congestive heart failure with ejection fraction of 20%. Patient presented to the ER complaining of lower abdominal pain mainly to the left lower quadrant area. Patient stated that he has been having vomiting since yesterday. Patient stated that he feels like he wanted to go to the bathroom for stool but nothing is coming out. Patient denie d any fever or chills. MD Complaint: abdominal pain -: Last night Location: LLQ Radiation: none Migration to: no migration Severity: moderate Severity scale (0 -10): 5 Quality: sharp Consistency: constant - Related Data Previous Rx's Medication Instructions Recorded Last Taken Type Amiodarone [Cordarone 200 MG TAB] 200 mg PO QDAY #30 tablet 04/24/19 Unknown Rx Aspirin EC [Halfprin EC] 81 mg PO QDAY #30 tablet. 04/24/19 Unknown Rx AtorvaSTATin [Lipitor] 80 mg PO QHS #30 tablet 04/24/19 Unknown Rx Bumetanide [Bumex 1 mg tab] 1 mg PO QDAY #30 tablet 04/24/19 Unknown Rx Lisinopril [Zestril TAB] 2.5 mg PO QDAY #30 tab 04/24/19 Unknown Rx Spironolactone [Aldactone] 12.5 mg PO QDAY #30 tablet 04/24/19 Unknown Rx Warfarin [Coumadin] 7.5 mg PO DAILY@1700 #35 tablet 04/24/19 Unknown Rx carvediloL [Coreg] 6.25 mg PO BID #60 tablet 04/24/19 Unknown Rx levETIRAcetam [Keppra TAB] 500 mg PO BID #60 tablet 04/24/19 Unknown Rx Allergies Allergy/AdvReac Type Severity Reaction Status Date / Time No Known Allergies Allergy Verified 08/27/14 07:40 ED Review of Systems ROS: Stated complaint: N/V Other details as noted in HPI Comment: All other systems reviewed and negative Constitutional: denies: chills, fever Respiratory: denies: cough, shortness of breath, SOB with exertion, SOB at rest, wheezing Cardiovascular: denies: chest pain, palpitations Gastrointestinal: abdominal pain, nausea, vomiting, constipation. denies: diarrhea, hematemesis, melena, hematochezia Musculoskeletal: denies: back pain Neurological: denies: headache, weakness, numbness, paresthesias, confusion ED Past Medical Hx - Past Medical History Hx Hypertension: Yes Hx CVA: Yes Hx Congestive Heart Failure: Yes - Social History Smoking Status: Never Smoker Substance Use Type: None - Medications Home Medications: Home Medications Medication Instructions Recorded Confirmed Last Taken Type Amiodarone [Cordarone 200 MG TAB] 200 mg PO QDAY #30 tablet 04/24/19 Unknown Rx Aspirin EC [Halfprin EC] 81 mg PO QDAY #30 tablet.dr 04/24/19 Unknown Rx AtorvaSTATin [Lipitor] 80 mg PO QHS #30 tablet 04/24/19 Unknown Rx Bumetanide [Bumex 1 mg tab] 1 mg PO QDAY #30 tablet 04/24/19 Unknown Rx Lisinopril [Zestril TAB] 2.5 mg PO QDAY #30 tab 04/24/19 Unknown Rx Spironolactone [Aldactone] 12.5 mg PO QDAY #30 tablet 04/24/19 Unknown Rx Warfarin [Coumadin] 7.5 mg PO DAILY@1700 #35 tablet 04/24/19 Unknown Rx carvediloL [Coreg] 6.25 mg PO BID #60 tablet 04/24/19 Unknown Rx levETIRAcetam [Keppra TAB] 500 mg PO BID #60 tablet 04/24/19 Unknown Rx ED Physical Exam - General Limitations: No Limitations General appearance: alert, in no apparent distress - Head Head exam: Present: atraumatic, normocephalic, normal inspection - Eye Eye exam: Present: normal appearance - ENT ENT exam: Present: normal exam, normal orophraynx, mucous membranes moist - Neck Neck exam: Present: normal inspection, full ROM. Absent: tenderness, meningismus, lymphadenopathy, thyromegaly - Respiratory Respiratory exam: Present: normal lung sounds bilaterally - Cardiovascular Cardiovascular Exam: Present: regular rate, normal rhythm, normal heart sounds - GI/Abdominal GI/Abdominal exam: Present: soft, tenderness (left lower quadrant tenderness), normal bowel sounds. Absent: distended, guarding, rebound, rigid, organomegaly, mass, bruit, pulsatile mass, hernia - Extremities Exam Extremities exam: Present: normal inspection, full ROM, normal capillary refill. Absent: pedal edema, calf tenderness - Back Exam Back exam: Present: normal inspection, full ROM. Absent: CVA tenderness (R), CVA tenderness (L), muscle spasm, paraspinal tenderness, vertebral tenderness - Neurological Exam Neurological exam: Present: alert, oriented X3, CN II-XII intact - Skin Skin exam: Present: warm, intact, normal color ED Course Vital Signs 04/24/19 04/24/19 16:26 19:35 Temperature 98.3 F 98.3 F Pulse Rate 100 H 99 H Respiratory 17 20 Rate Blood Pressure 111/82 Blood Pressure 98/71 [Right] O2 Sat by Pulse 99 97 Oximetry ED Medical Decision Making - Lab Data Result diagrams: 04/24/19 16:53 04/24/19 16:53 - Radiology Data Radiology results: report reviewed - Medical Decision Making Patient is 33 years old male with history of stroke, congestive heart failure with ejection fraction of 20%. Patient presented to the ER complaining of lower abdominal pain mainly to the left lower quadrant area. Patient stated that he has been having vomiting since yesterday. Patient stated that he feels like he wanted to go to the bathroom for stool but nothing is coming out. Patient denied any fever or chills. Labs reviewed and is unremarkable. CT abdomen and pelvis showed no acute finding. Patient stated the symptoms improved and is asking for medication for constipation. Patient advised to follow-up with his primary care physician in the next 2-3 days and to return to the ER if symptoms are not improved. Critical care attestation.: If time is entered above; I have spent that time in minutes in the direct care of this critically ill patient, excluding procedure time. ED Disposition Clinical Impression: Abdominal pain, Vomiting, Constipation Disposition: -01 TO HOME OR SELFCARE Is pt being admited?: No Condition: Stable Instructions: Constipation (ED), Abdominal Pain (ED) Referrals: PRIMARY CARE,MD [Primary Care Provider] - 3-5 Days
[2019-04-24 17:32] LABS: Albumin 3.5 g/dL (3.9-5); Bilirubin,Direct 0.7 mg/dL (0-0.2); Calcium 9.4 mg/dL (8.4-10.2)
[2019-04-24 17:36] LABS: Basophils # (Auto) 0.1 K/mm3 (0.0-0.1); Basophils % (Auto) 0.8 % (0.0-1.8); Eosinophils % (Auto) 0.3 % (0.0-4.3); Hematocrit 38.7 % (35.5-45.6); Hemoglobin 12.5 gm/dl (11.8-15.2); Lymphocytes # (Auto) 0.9 K/mm3 (1.2-5.4); Lymphocytes % (Auto) 14.6 % (13.4-35.0); Mean Corpuscular HGB Conc 32 % (32-34); Mean Corpuscular Volume 92 fl (84-94); Monocytes # (Auto) 0.4 K/mm3 (0.0-0.8); Monocytes % (Auto) 6.5 % (0.0-7.3); Platelet Count 308 K/mm3 (140-440); Red Cell Distribution Width 18.9 % (13.2-15.2)
[2019-04-24 17:44] LABS: INR 1.32 (0.87-1.13)
--- NOTE | 2019-04-24 19:02 | Cat Scan Report ---
CT of the abdomen and pelvis without contrast INDICATION: Abdominal pain COMPARISON: None FINDINGS: There is slight basilar atelectasis as well as moderate cardiomegaly. No effusions are seen . The liver, spleen, pancreas, adrenal glands and kidneys show no significant abnormalities. No defin ite gallbladder or biliary tree abnormality. No ascites is seen. Small lymph nodes are within normal limits in size. CT of the pelvis shows a normal appendix. Subcutaneous air over the right anterior abdominal wall is likely due to injection. There is slight sigmoid diverticulosis without diverticulitis. Prostate is n ot enlarged. No pelvic or inguinal adenopathy. No hernia or bowel obstruction. No significant skeleta l lesion. No ureteral stones are seen. No stone fragments seen in the bladder. IMPRESSION: Negative study. No kidney stones or inflammatory process seen. Automated exposure control was utilized to diminish radiation dose. Signer Name: Anatoly Metz MD Signed: 04/24/2019 6:58 PM Workstation Name: [id number]
[2019-04-24 19:37] VITALS: BP 98/71
[2019-04-24 20:41] LABS: Bilirubin,Urine NEG (Negative); Blood,Urine NEG (Negative); Color,Urine Yellow (Yellow); Hyaline Casts,Urine 7 /LPF
== END 2019-04-24 20:40 | disposition home or self-care (01) ==
LOC: ED 16:07
DX: R10.32 Left lower quadrant pain (principal); R11.2 Nausea with vomiting, unspecified; K59.00 Constipation, unspecified; I11.0 Hypertensive heart disease with heart failure; I50.9 Heart failure, unspecified; Z79.899 Other long term (current) drug therapy; I25.2 Old myocardial infarction
CPT/HCPCS: 36415; 74176; 80048; 80076; 81001; 83690; 85025; 85610; 96361; 96374; 99285; J2405; J7040

== ENCOUNTER 2019-06-02 07:15 | Emergency (ER) | payer SELFPAY ==
[2019-06-02] MEDS ORDERED: SODIUM CHLORIDE 0.9% 1000 ML 1,000 ML IV ONE (07:45)
[2019-06-02] MEDS ORDERED: SODIUM CHLORIDE 0.9% 1000 ML 1,000 ML ONE (07:59)
[2019-06-02 08:14] LABS: Hematocrit 36.3 % (35.5-45.6); Mean Corpuscular HGB Conc 33 % (32-34); Mean Corpuscular Volume 89 fl (84-94); Platelet Count 374 K/mm3 (140-440); Red Blood Count 4.07 M/mm3 (3.65-5.03)
[2019-06-02] MEDS ORDERED: levETIRAcetam 1000 MG/NS 0.75% 1,000 MG/100 ML BAG IV ONE (09:15)
[2019-06-02] MEDS ORDERED: POTASSIUM CHLORIDE ER 20 MEQ TAB PO ONE (09:20)
[2019-06-02 10:00] LABS: Bilirubin,Urine NEG (Negative); Blood,Urine SM (Negative); Color,Urine Yellow (Yellow); Sperm,Urine 1+ /HPF (NP)
[2019-06-02 10:08] LABS: Amphetamine Screen,Urine PRESUMPTIVE NEGATIVE; Cannabinoid Screen,Urine PRESUMPTIVE NEGATIVE; Cocaine Screen,Urine PRESUMPTIVE NEGATIVE; Methadone Screen,Urine PRESUMPTIVE NEGATIVE; Opiate Screen,Urine PRESUMPTIVE NEGATIVE
[2019-06-02 10:28] LABS: Benzodiazepines Screen,Urine PRESUMPTIVE POSITIVE
[2019-06-02 10:52] VITALS: BP 107/62
--- NOTE | 2019-06-02 11:53 | Cat Scan Report ---
CT HEAD WITHOUT CONTRAST INDICATION / CLINICAL INFORMATION: seizure, hx of cerebrovascular accident. Iatrogenic coagulopathy. Patient is on coumadin. TECHNIQUE: All CT scans at this location are performed using CT dose reduction for ALARA by means of automated e xposure control. COMPARISON: Head CT 02/12/2019 and 08/27/2014 FINDINGS: HEMORRHAGE: No evidence of intracranial hemorrhage or extra-axial fluid collection. EXTRA-AXIAL SPACES: Focal dilatation of cortical sulci is observed along the medial aspect of the lef t occipital and parietal lobes and along the posterior lateral aspect of the left parietal lobe secon marisol to remote posterior cerebral artery and posterior division left middle cerebral artery infarctio ns respectively. Elsewhere, the cortical sulci, sylvian fissures and basilar cisterns have an unremar kable appearance. VENTRICULAR SYSTEM: The ventricular system is of normal size and configuration. CEREBRAL PARENCHYMA: Encephalomalacia is observed in the medial aspect of the left occipital and gabriela etal lobe and along the lateral aspect of the left parietal lobe secondary to remote left posterior c erebral artery and left posterior division middle cerebral artery infarction respectively. These find ings are stable since 02/12/2019. These infarctions occurred between 08/27/2014 and 02/12/2019. Addition ally noted are areas of decreased attenuation involving left mason radiata, left putamen and posteri or thalamus on the left. The posterior thalamic lesion as part of the patient's remote left posterior cerebral artery infarction. The additional areas of decreased attenuation in the left gangliocapsula r region reflects remote small deep infarctions unchanged since prior study dated 02/12/2019.. MIDLINE SHIFT OR HERNIATION: There is no mass effect. CEREBELLUM / BRAINSTEM: Brainstem and cerebellum have an unremarkable appearance. INTRACRANIAL VESSELS:No abnormalities are identified on this noncontrast head CT. ORBITS: visualized portions of the orbits have an unremarkable appearance. SOFT TISSUES of HEAD: No significant abnormality. CALVARIUM: Evaluation of bone windows reveals no abnormalities. PARANASAL SINUSES / MASTOID AIR CELLS: Paranasal sinuses are free from inflammatory mucosal disease. Mastoid air cells are normally pneumatized. IMPRESSION: 1. Encephalomalacia secondary to remote left posterior cerebral artery infarction and remote posterio r division left MCA infarction as described above. 2. Remote small deep infarctions in left gangliocapsular distribution. 3. No acute intracranial abnormality. No significant interval change in comparison to head CT 10/1/20 19. Signer Name: Willis Wallace MD Signed: 06/02/2019 11:49 AM Workstation Name: [id number]
--- NOTE | 2019-06-02 12:45 | Emergency Department Report ---
ED Seizure HPI - General Chief Complaint: Seizure Stated Complaint: SEIZURE Time Seen by Provider: 06/02/19 09:05 Source: patient Mode of arrival: Stretcher Limitations: No Limitations - History of Present Illness Initial Comments: 33 yo male with a past medical medical history includes seizure, hypertension, stroke with residual right sided weakness, supposed to be on chronic Coumadin therapy for reported cardiac thrombus, history of nonischemic cardiomyopathy with ef of 20% presents to the hospital with complaints of seizure presents with seizure. It was witnessed by patient's girlfriend. He states that patient stopped speaking, develop right sided jerking movement and then became generalized. She reports the patient had a episode of biting his tongue but patient denies tongue injury. Patient had 2 seizures total prior to arrival and received 5 mg of Versed provided by EMS. Patient denies pain including headache. Pt has some mild confusion upon arrival. Patient is supposed to be on Keppra for seizures but patient states he has been noncompliant. States he's been compliant with his Coumadin. - Related Data Previous Rx's Medication Instructions Recorded Last Taken Type Amiodarone [Cordarone 200 MG TAB] 200 mg PO QDAY #30 tablet 04/24/19 Unknown Rx Aspirin EC [Halfprin EC] 81 mg PO QDAY #30 tablet. 04/24/19 Unknown Rx AtorvaSTATin [Lipitor] 80 mg PO QHS #30 tablet 04/24/19 Unknown Rx Bumetanide [Bumex 1 mg tab] 1 mg PO QDAY #30 tablet 04/24/19 Unknown Rx Docusate Sodium [Colace] 100 mg PO BID PRN #60 capsule 04/24/19 Unknown Rx Lisinopril [Zestril TAB] 2.5 mg PO QDAY #30 tab 04/24/19 Unknown Rx Spironolactone [Aldactone] 12.5 mg PO QDAY #30 tablet 04/24/19 Unknown Rx Warfarin [Coumadin] 7.5 mg PO DAILY@1700 #35 tablet 04/24/19 Unknown Rx carvediloL [Coreg] 6.25 mg PO BID #60 tablet 04/24/19 Unknown Rx levETIRAcetam [Keppra TAB] 500 mg PO BID #60 tablet 06/02/19 Unknown Rx Allergies Allergy/AdvReac Type Severity Reaction Status Date / Time No Known Allergies Allergy Verified 08/27/14 07:40 ED Review of Systems ROS: Stated complaint: SEIZURE Other details as noted in HPI Comment: All other systems reviewed and negative ED Past Medical Hx - Past Medical History Hx Hypertension: Yes Hx CVA: Yes Hx Congestive Heart Failure: Yes Hx Seizures: Yes (takes keppra) - Social History Smoking Status: Unknown if ever smoked Substance Use Type: None - Medications Home Medications: Home Medications Medication Instructions Recorded Confirmed Last Taken Type Amiodarone [Cordarone 200 MG TAB] 200 mg PO QDAY #30 tablet 04/24/19 Unknown Rx Aspirin EC [Halfprin EC] 81 mg PO QDAY #30 tablet. 04/24/19 Unknown Rx AtorvaSTATin [Lipitor] 80 mg PO QHS #30 tablet 04/24/19 Unknown Rx Bumetanide [Bumex 1 mg tab] 1 mg PO QDAY #30 tablet 04/24/19 Unknown Rx Docusate Sodium [Colace] 100 mg PO BID PRN #60 capsule 04/24/19 Unknown Rx Lisinopril [Zestril TAB] 2.5 mg PO QDAY #30 tab 04/24/19 Unknown Rx Spironolactone [Aldactone] 12.5 mg PO QDAY #30 tablet 04/24/19 Unknown Rx Warfarin [Coumadin] 7.5 mg PO DAILY@1700 #35 tablet 04/24/19 Unknown Rx carvediloL [Coreg] 6.25 mg PO BID #60 tablet 04/24/19 Unknown Rx levETIRAcetam [Keppra TAB] 500 mg PO BID #60 tablet 06/02/19 Unknown Rx ED Physical Exam - General Limitations: No Limitations - Other Other exam information: General: No limitations, patient is alert in no acute distress Head exam: Atraumatic, normocephali Eyes exam: Normal appearance, pupils equal reactive to light ENT: Moist mucous membrane, no tongue laceration Neck exam: Normal inspection, full range of motion, no meningismus nontender Respiratory exam: Clear to auscultation bilateral, no wheezes, rales, crackles Cardiovascular: Normal rate and rhythm Abdomen: Soft, nondistended, and nontender, with normal bowel sounds, no rebound, or guarding Extremity: Full range of motion normal inspection no deformity Back: Normal Inspection, full range of motion, no tenderness Neurologic: Pt is arousable, speech clear, oriented 3, no facial droop, patient reports residual mild right-sided deficits that is not clinically significant on exam. patient has 5/5 upper and lower extremity strength bilaterally Psychiatric: normal affect, normal mood Skin: Warm, dry, intact ED Course Vital Signs 06/02/19 06/02/19 06/02/19 07:15 07:46 08:46 Temperature 98.3 F Pulse Rate 114 H 103 H Respiratory 30 H 24 Rate Blood Pressure 110/60 Blood Pressure 90/55 98/51 [Left] O2 Sat by Pulse 95 96 99 Oximetry 06/02/19 06/02/19 06/02/19 08:56 09:31 10:51 Temperature Pulse Rate 102 H 109 H 102 H Respiratory 18 16 18 Rate Blood Pressure Blood Pressure 103/65 116/81 107/62 [Left] O2 Sat by Pulse 100 98 96 Oximetry ED Medical Decision Making - Lab Data Result diagrams: 06/02/19 07:52 06/02/19 07:52 Lab Results 06/02/19 06/02/19 06/02/19 Range/Units 07:52 07:52 07:52 WBC 7.4 (4.5-11.0) K/mm3 RBC 4.07 (3.65-5.03) M/mm3 Hgb 12.0 (11.8-15.2) gm/dl Hct 36.3 (35.5-45.6) % MCV 89 (84-94) fl MCH 29 (28-32) pg MCHC 33 (32-34) % RDW 19.0 H (13.2-15.2) % Plt Count 374 (140-440) K/mm3 Sodium 137 (137-145) mmol/L Potassium 3.2 L (3.6-5.0) mmol/L Chloride 91.7 L (98-107) mmol/L Carbon Dioxide 20 L (22-30) mmol/L Anion Gap 29 mmol/L BUN 29 H (9-20) mg/dL Creatinine 2.2 H (0.8-1.5) mg/dL Estimated GFR 41 ml/min BUN/Creatinine Ratio 13 % Glucose 179 H (75-100) mg/dL POC Glucose (70-105) Calcium 9.0 (8.4-10.2) mg/dL Magnesium 2.50 H (1.7-2.3) mg/dL Urine Color (Yellow) Urine Turbidity (Clear) Urine pH (5.0-7.0) Ur Specific [place] (1.003-1.030) Urine Protein (Negative) mg/dL Urine Glucose (UA) (Negative) mg/dL Urine Ketones (Negative) mg/dL Urine Blood (Negative) Urine Nitrite (Negative) Urine Bilirubin (Negative) Urine Urobilinogen (<2.0) mg/dL Ur Leukocyte Esterase (Negative) Urine WBC (Auto) (0.0-6.0) /HPF Urine RBC (Auto) (0.0-6.0) /HPF U Epithel Cells (Auto) (0-13.0) /HPF Urine Sperm (GRAVURE PRESS SET UP OPERATOR) /HPF Urine Opiates Screen Urine Methadone Screen Ur Barbiturates Screen Ur Phencyclidine Scrn Ur Amphetamines Screen U Benzodiazepines Scrn Urine Cocaine Screen U Marijuana (THC) Screen Drugs of Abuse Note 06/02/19 06/02/19 06/02/19 Range/Units 08:09 09:13 09:32 WBC (4.5-11.0) K/mm3 RBC (3.65-5.03) M/mm3 Hgb (11.8-15.2) gm/dl Hct (35.5-45.6) % MCV (84-94) fl MCH (28-32) pg MCHC (32-34) % RDW (13.2-15.2) % Plt Count (140-440) K/mm3 Sodium (137-145) mmol/L Potassium (3.6-5.0) mmol/L Chloride (98-107) mmol/L Carbon Dioxide (22-30) mmol/L Anion Gap mmol/L BUN (9-20) mg/dL Creatinine (0.8-1.5) mg/dL Estimated GFR ml/min BUN/Creatinine Ratio % Glucose (75-100) mg/dL POC Glucose 150 H (70-105) Calcium (8.4-10.2) mg/dL Magnesium (1.7-2.3) mg/dL Urine Color Yellow (Yellow) Urine Turbidity Clear (Clear) Urine pH 6.0 (5.0-7.0) Ur Specific [place] 1.008 (1.003-1.030) Urine Protein 100 mg/dl (Negative) mg/dL Urine Glucose (UA) Neg (Negative) mg/dL Urine Ketones Neg (Negative) mg/dL Urine Blood Sm (Negative) Urine Nitrite Neg (Negative) Urine Bilirubin Neg (Negative) Urine Urobilinogen 2.0 (<2.0) mg/dL Ur Leukocyte Esterase Neg (Negative) Urine WBC (Auto) 1.0 (0.0-6.0) /HPF Urine RBC (Auto) 5.0 (0.0-6.0) /HPF U Epithel Cells (Auto) < 1.0 (0-13.0) /HPF Urine Sperm 1+ (GRAVURE PRESS SET UP OPERATOR) /HPF Urine Opiates Screen Presumptive negative Urine Methadone Screen Presumptive negative Ur Barbiturates Screen Presumptive negative Ur Phencyclidine Scrn Presumptive negative Ur Amphetamines Screen Presumptive negative U Benzodiazepines Scrn Presumptive positive Urine Cocaine Screen Presumptive negative U Marijuana (THC) Screen Presumptive negative Drugs of Abuse Note Disclamer - Radiology Data Radiology results: report reviewed CT HEAD WITHOUT CONTRAST INDICATION / CLINICAL INFORMATION: seizure, hx of cerebrovascular accident. Iatrogenic coagulopathy. Patient is on coumadin. TECHNIQUE: All CT scans at this location are performed using CT dose reduction for ALARA by means of automated exposure control. COMPARISON: Head CT 02/12/2019 and 08/27/2014 FINDINGS: HEMORRHAGE: No evidence of intracranial hemorrhage or extra-axial fluid collection. EXTRA-AXIAL SPACES: Focal dilatation of cortical sulci is observed along the medial aspect of the left occipital and parietal lobes and along the posterior lateral aspect of the left parietal lobe secondary to remote posterior cerebral artery and posterior division left middle cerebral artery infarctions respectively. Elsewhere, the cortical sulci, sylvian fissures and basilar cisterns have an unremarkable appearance. VENTRICULAR SYSTEM: The ventricular system is of normal size and configuration. CEREBRAL PARENCHYMA: Encephalomalacia is observed in the medial aspect of the left occipital and parietal lobe and along the lateral aspect of the left parietal lobe secondary to remote left posterior cerebral artery and left posterior division middle cerebral artery infarction respectively. These findings are stable since 02/12/2019. These infarctions occurred between 08/27/2014 and 02/12/2019. Additionally noted are areas of decreased attenuation involving left mason radiata, left putamen and posterior thalamus on the left. The posterior thalamic lesion as part of the patient's remote left posterior cerebral artery infarction. The additional areas of decreased attenuation in the left gangliocapsular region reflects remote small deep infarctions unchanged since prior study dated 02/12/2019.. MIDLINE SHIFT OR HERNIATION: There is no mass effect. CEREBELLUM / BRAINSTEM: Brainstem and cerebellum have an unremarkable appearance. INTRACRANIAL VESSELS:No abnormalities are identified on this noncontrast head CT. ORBITS: visualized portions of the orbits have an unremarkable appearance. SOFT TISSUES of HEAD: No significant abnormality. CALVARIUM: Evaluation of bone windows reveals no abnormalities. PARANASAL SINUSES / MASTOID AIR CELLS: Paranasal sinuses are free from inflammatory mucosal disease. Mastoid air cells are normally pneumatized. IMPRESSION: 1. Encephalomalacia secondary to remote left posterior cerebral artery infarction and remote posterior division left MCA infarction as described above. 2. Remote small deep infarctions in left gangliocapsular distribution. 3. No acute intracranial abnormality. No significant interval change in compari son to head CT - Medical Decision Making mild dehydration (pt on diuretic), RECIEVED 1 L NS no sob or crackles after ivf Pt had a seizure likely due to seizure medication noncompliance. Patient received IV Keppra in the ED and received Versed prior to arrival. Pt observed in the ED without further seizure activity. Pt's mental status improved back to baseline patient and placed without difficulty in the ED. Patient received by mouth potassium for mild hypokalemia. - Differential Diagnosis sz med noncompliance, electrolyte abnl Critical Care Time: No Critical care attestation.: If time is entered above; I have spent that time in minutes in the direct care of this critically ill patient, excluding procedure time. ED Disposition Clinical Impression: CRI (chronic renal insufficiency), Seizure, Noncompliance with medication regimen Disposition: DC-01 TO HOME OR SELFCARE Is pt being admited?: No Does the pt Need Aspirin: No Condition: Stable Instructions: Recurrent Seizures Adult (ED) Additional Instructions: Take the medication as prescribed. Follow-up with your doctor or with the do ctor provided. Return is symptoms worsen as indicated by your discharge instructions. Prescriptions: levETIRAcetam [Keppra TAB] 500 mg PO BID #60 tablet Referrals: PRIMARY CAREMD [Primary Care Provider] - 3-5 Days LOREE SOSA MD [Staff Physician] - 3-5 Days (neurology ) Time of Disposition: 12:58
== END 2019-06-02 13:32 | disposition home or self-care (01) ==
LOC: ED 07:15
DX: I13.0 Hypertensive heart and chronic kidney disease with heart failure and stage 1 through stage 4 chronic kidney disease, or unspecified chronic kidney disease (principal); I50.9 Heart failure, unspecified; N18.9 Chronic kidney disease, unspecified; R56.9 Unspecified convulsions; E86.0 Dehydration; Z91.14 Patient's other noncompliance with medication regimen; Z79.899 Other long term (current) drug therapy
CPT/HCPCS: 36415; 70450; 80048; 80307; 81001; 82962; 83735; 85027; 96361; 96365; 99285; J1953; J7030

== ENCOUNTER 2019-06-26 07:30 | Emergency (ER) | payer SELFPAY ==
--- NOTE | 2019-06-26 07:50 | Emergency Department Report ---
HPI - General Chief Complaint: Seizure Time Seen by Provider: 06/26/19 07:37 - HPI HPI: Room 20 The patient is a 33-year-old male presenting with a chief complaint of seizure. Patient reportedly had a witnessed generalized tonic-clonic seizure approxim ately 25 minutes prior to arrival. Patient is currently postictal. Patient has a history of seizures and takes Keppra ED Past Medical Hx - Past Medical History Previous Medical History?: Yes Hx Hypertension: Yes Hx CVA: Yes Hx Congestive Heart Failure: Yes Hx Seizures: Yes (takes keppra) - Surgical History Past Surgical History?: No - Family History Family history: no significant - Social History Smoking Status: Current Every Day Smoker Substance Use Type: Alcohol - Medications Home Medications: Home Medications Medication Instructions Recorded Confirmed Last Taken Type Amiodarone [Cordarone 200 MG TAB] 200 mg PO QDAY #30 tablet 04/24/19 Unknown Rx Aspirin EC [Halfprin EC] 81 mg PO QDAY #30 tablet. 04/24/19 Unknown Rx AtorvaSTATin [Lipitor] 80 mg PO QHS #30 tablet 04/24/19 Unknown Rx Bumetanide [Bumex 1 mg tab] 1 mg PO QDAY #30 tablet 04/24/19 Unknown Rx Docusate Sodium [Colace] 100 mg PO BID PRN #60 capsule 04/24/19 Unknown Rx Lisinopril [Zestril TAB] 2.5 mg PO QDAY #30 tab 04/24/19 Unknown Rx Spironolactone [Aldactone] 12.5 mg PO QDAY #30 tablet 04/24/19 Unknown Rx Warfarin [Coumadin] 7.5 mg PO DAILY@1700 #35 tablet 04/24/19 Unknown Rx carvediloL [Coreg] 6.25 mg PO BID #60 tablet 04/24/19 Unknown Rx levETIRAcetam [Keppra TAB] 500 mg PO BID #60 tablet 06/02/19 Unknown Rx ED Review of Systems ROS: Stated complaint: SEIZURE Other details as noted in HPI Comment: Unobtainable due to pts medical conditions (Postictal) Physical Exam - Physical Exam Vital Signs: Vital Signs 06/26/19 06/26/19 07:36 07:40 Temperature 98.4 F Pulse Rate 112 H 111 H Respiratory 25 H 27 H Rate Blood Pressure 124/91 Blood Pressure 114/86 [Right] O2 Sat by Pulse 98 97 Oximetry Physical Exam: GEN: WD WN male lying on stretcher in NAD HEENT: NCAT, EOMI NECK: trachea midline PULM: CTA bilat. No resp distress noted CV: rrr no m/r/g ABD: s/nt/nd SKIN: no diaphoresis NEURO: Patient appears groggy and postictal. Answers some questions. MUSCULOSKELETAL: No evidence of acute injury ED Course Vital Signs 06/26/19 06/26/19 07:36 07:40 Temperature 98.4 F Pulse Rate 112 H 111 H Respiratory 25 H 27 H Rate Blood Pressure 124/91 Blood Pressure 114/86 [Right] O2 Sat by Pulse 98 97 Oximetry - Reevaluation(s) Reevaluation #1: 06/26/19 15:09 Patient remains postictal. ED Medical Decision Making - Lab Data Result diagrams: 06/26/19 07:50 06/26/19 07:50 Laboratory Tests 06/26/19 06/26/19 06/26/19 07:50 07:50 07:50 WBC 6.2 RBC 4.01 Hgb 11.5 L Hct 35.9 MCV 90 MCH 29 MCHC 32 RDW 19.8 H Plt Count 374 Lymph % (Auto) 15.8 [place] % (Auto) 5.5 Eos % (Auto) 0.3 Baso % (Auto) 0.9 Lymph # 1.0 L [place] # 0.3 Eos # 0.0 Baso # 0.1 Seg Neutrophils % 77.5 H Seg Neutrophils # 4.8 PT 25.2 H INR 2.24 H APTT 35.4 Sodium 140 Potassium 3.6 Chloride 94.7 L Carbon Dioxide 30 Anion Gap 19 BUN 26 H Creatinine 1.7 H Estimated GFR 56 BUN/Creatinine Ratio 15 Glucose 138 H Calcium 9.0 Magnesium 2.00 Total Creatine Kinase 143 CK-MB (CK-2) < 1.0 CK-MB (CK-2) Rel Index 0.6 Troponin T 0.018 - EKG Data -: EKG Interpreted by Me EKG shows normal: sinus rhythm Rate: normal - EKG Data When compared to previous EKG there are: previous EKG unavailable Interpretation: other (PVCs) - Radiology Data Radiology results: report reviewed (CT head), image reviewed (CT head) Findings [facility] [address] [place] [address] Cat Scan Report Signed Patient: YANNICK PONCE JR MR#: [id number] : 1985 Acct:[id number] Age/Sex: 33 / M ADM Date: 06/26/19 Loc: ED Attending Dr: Ordering Physician: KIMBERLEY DE LA CRUZ MD Date of Service: 06/26/19 Procedure(s): CT head/brain wo con Accession Number(s): [id number] cc: KIMBERLEY DE LA CRUZ MD CT head/brain wo con INDICATION / CLINICAL INFORMATION: 33 years Male; Seizure. TECHNIQUE: Routine CT head without contrast. All CT scans at this location are performed using CT dose reduction for ALARA by means of automated exposure control. COMPARISON: The study is compared to the previous CT of 06/02/2019. 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 Additionally, there are also old infarcts involving the left pa rietal lobe and left basal ganglia. The above findings correlate with previous CT. There is no clear CT evidence of acute intracranial hemorrhage or significant mass effect at. There is mild ex vacuo dilatation of the left lateral ventricle. Otherwise, the ventricular system is unremarkable. ORBITS: No significant abnormality of visualized orbits. SINUSES / MASTOIDS: No significant abnormality the visualized paranasal sinuses or mastoid air cells. CRANIOCERVICAL JUNCTION: No significant abnormality. ADDITIONAL FINDINGS: None. IMPRESSION: 1. There are persistent multiple old infarcts as detailed above. 2. There is no CT evidence of acute intracranial hemorrhage. Signer Name: Franko Maguire MD Signed: 06/26/2019 8:38 AM Workstation Name: [id number] Transcribed By: MR Dictated By: Franko Maguire MD Electronically Authenticated By: Franko Maguire MD Signed Date/Time: 06/26/19837 DD/ 1 TD/TT: - Differential Diagnosis Seizure Critical care attestation.: If time is entered above; I have spent that time in minutes in the direct care of this critically ill patient, excluding procedure time. ED Disposition Clinical Impression: Postictal state, Seizure, Frequent PVCs Disposition: 09 OP ADMIT IP TO THIS HOSP Is pt being admited?: Yes Does the pt Need Aspirin: No Condition: Fair Time of Disposition: 15:09 (Hospitalist notified (Dr Quevedo notified))
[2019-06-26] MEDS: levETIRAcetam 1000 MG/NS 0.75% 1,000 MG/100 ML BAG IV ONE (07:59)
[2019-06-26 08:11] LABS: Basophils # (Auto) 0.1 K/mm3 (0.0-0.1); Basophils % (Auto) 0.9 % (0.0-1.8); Eosinophils % (Auto) 0.3 % (0.0-4.3); Hematocrit 35.9 % (35.5-45.6); Hemoglobin 11.5 gm/dl (11.8-15.2); Lymphocytes % (Auto) 15.8 % (13.4-35.0); Mean Corpuscular HGB Conc 32 % (32-34); Mean Corpuscular Volume 90 fl (84-94); Monocytes # (Auto) 0.3 K/mm3 (0.0-0.8); Monocytes % (Auto) 5.5 % (0.0-7.3); Platelet Count 374 K/mm3 (140-440); Red Blood Count 4.01 M/mm3 (3.65-5.03); Red Cell Distribution Width 19.8 % (13.2-15.2)
[2019-06-26 08:21] LABS: INR 2.24 (0.87-1.13)
[2019-06-26 08:22] LABS: Partial Thromboplastin Time 35.4 Sec. (24.2-36.6)
[2019-06-26 08:25] LABS: BUN/Creatinine Ratio 15; Blood Urea Nitrogen 26 mg/dL (9-20); Hemolysis Index 11
[2019-06-26 08:35] LABS: Creatine Kinase MB < 1.0 ng/mL (0.0-4.0)
--- NOTE | 2019-06-26 08:43 | Cat Scan Report ---
CT head/brain wo con INDICATION / CLINICAL INFORMATION: 33 years Male; Seizure. TECHNIQUE: Routine CT head without contrast. All CT scans at this location are performed using CT dos e reduction for ALARA by means of automated exposure control. COMPARISON: The study is compared to the previous CT of 06/02/2019. 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 Additionally, there are also old infarcts involvi ng the left parietal lobe and left basal ganglia. The above findings correlate with previous CT. There is no clear CT evidence of acute intracranial hemorrhage or significant mass effect at. There i s mild ex vacuo dilatation of the left lateral ventricle. Otherwise, the ventricular system is unrema rkable. ORBITS: No significant abnormality of visualized orbits. SINUSES / MASTOIDS: No significant abnormality the visualized paranasal sinuses or mastoid air cells. CRANIOCERVICAL JUNCTION: No significant abnormality. ADDITIONAL FINDINGS: None. IMPRESSION: 1. There are persistent multiple old infarcts as detailed above. 2. There is no CT evidence of acute intracranial hemorrhage. Signer Name: Franko Maguire MD Signed: 06/26/2019 8:38 AM Workstation Name: [id number]
[2019-06-26] MEDS: SODIUM CHLORIDE 0.9% 1000 ML 1,000 ML IV ONE (11:52)
[2019-06-26] MEDS ORDERED: DOCUSATE SODIUM 100 MG CAP PO PRN (17:43)
[2019-06-26 18:33] LABS: Calcium 8.8 mg/dL (8.4-10.2)
[2019-06-26] MEDS: guaiFENesin/CODEINE 100-10MG ORAL LIQD 5 ML PO PRN (19:18)
[2019-06-26] MEDS: AMIODARONE 200 MG TAB PO SCH (20:32)
--- NOTE | 2019-06-26 20:33 | Event Note ---
Date: 06/26/19 Patient had tonic-clonic seizure Patient was postictal for 3 to 4 hours patient was responding well around 4 PM to 5 PM electrolytes were repeated which were normal. Creatinine came down from 1.7-1.6 Patient counseled about following with a PCP Keppra was increased from 500 twice daily to 750 twice daily. Follow-up with PCP Seizure disorder-undermedicated discharged on Keppra 750 p.o. twice daily also may stop spironolactone after discussing with primary care
[2019-06-26] MEDS ORDERED: ONDANSETRON 4 MG/2 ML INJ ONE (20:48)
[2019-06-26] MEDS: ONDANSETRON 4 MG/2 ML INJ IV ONE (20:52)
[2019-06-26] MEDS ORDERED: levETIRAcetam 500 MG TAB PO SCH (22:00)
[2019-06-26] MEDS ORDERED: carvediloL 6.25 MG TAB PO SCH (22:00)
[2019-06-26 22:14] VITALS: BP 100/68
[2019-06-27] MEDS ORDERED: BUMETANIDE 1 MG TAB PO SCH (10:00)
[2019-06-27] MEDS ORDERED: SPIRONOLACTONE 25 MG TAB PO SCH (10:00)
[2019-06-27] MEDS ORDERED: NON-FORMULARY EACH (Lisinopril [Zestril Tab] 2.5 MG) PO SCH (10:00)
[2019-06-27] MEDS ORDERED: ASPIRIN EC 81 MG TAB PO SCH (10:00)
[2019-06-27] MEDS ORDERED: LISINOPRIL 5 MG TAB PO SCH (10:00)
[2019-06-27] MEDS ORDERED: WARFARIN 7.5 MG TAB PO SCH ×2 (17:00)
== END 2019-06-26 22:13 | disposition admitted as inpatient to this hospital (09) ==
LOC: ED 07:30
DX: G40.909 Epilepsy, unspecified, not intractable, without status epilepticus (principal); I11.0 Hypertensive heart disease with heart failure; I50.9 Heart failure, unspecified; F17.200 Nicotine dependence, unspecified, uncomplicated; Z86.73 Personal history of transient ischemic attack (TIA), and cerebral infarction without residual deficits; Z79.899 Other long term (current) drug therapy
CPT/HCPCS: 36415; 70450; 80048; 82550; 82553; 83735; 84484; 85025; 85610; 85730; 93005; 93010; 96374; 96375; 99284; J1953; J2405

== ENCOUNTER 2020-12-20 19:21 | Inpatient (IN) | payer MEDICARE ==
--- NOTE | 2020-12-20 19:28 | Emergency Department Report ---
HPI - General Time Seen by Provider: 12/20/20 19:22 - HPI HPI: This is a 35-year-old male who presents to the emergency department from home, brought in by his , with a complaint of a generalized headache that has been going on since this morning, followed by some seizure-like activity in the waiting room. Patient presents back to room #20 with altered mental status and weakness. Patient has a history of a seizure disorder but it is unknown what medication he takes. He last had a seizure about 9 months ago. The patient also has a history of CVA with some right-sided weakness, hypertension, CHF. Patient is a poor historian given his current medical condition, as he is AAO x 1, but some collateral information has been provided by his . ED Past Medical Hx - Past Medical History Hx Hypertension: Yes Hx CVA: Yes (right sided weakness) Hx Congestive Heart Failure: Yes Hx Seizures: Yes - Social History Smoking Status: Never Smoker - Medications Home Medications: Home Medications Medication Instructions Recorded Confirmed Last Taken Type Aspirin EC [Halfprin EC] 81 mg PO QDAY #30 tablet. 04/24/19 07/15/19 Unknown Rx Warfarin [Coumadin] 7.5 mg PO DAILY@1700 tablet 06/26/19 07/15/19 Unknown Rx AtorvaSTATin [Lipitor] 40 mg PO QHS 07/15/19 07/15/19 Unknown History Metoprolol Xl [Metoprolol 25 mg PO QDAY 07/15/19 07/15/19 Unknown History SUCCINATE ER TAB] OXcarbazepine [Trileptal] 300 mg PO BID 07/15/19 07/15/19 Unknown History Amiodarone [Cordarone 200 MG TAB] 200 mg PO QDAY #30 tablet 07/19/19 Unknown Rx Bumetanide [Bumex 1 mg tab] 1 mg PO 0600,1800 #60 tablet 07/19/19 Unknown Rx ED Review of Systems ROS: Stated complaint: POSS SEIZURE Other details as noted in HPI Comment: Unobtainable due to pts medical conditions Physical Exam - Physical Exam Physical Exam: GENERAL: The patient is ill-appearing. HENT: Normocephalic. Atraumatic. Patient has moist mucous membranes. EYES: Extraocular motions are intact. Pupils equal reactive to light bilaterally. NECK: Supple. Trachea is midline. CHEST/LUNGS: Clear to auscultation. There is no respiratory distress noted. HEART/CARDIOVASCULAR: Regular. There is no tachycardia. There is no murmur. ABDOMEN: Abdomen is soft, nontender. Patient has normal bowel sounds. Obese habitus. SKIN: Skin is warm and dry. NEURO: Patient is awake but confused. AAO x1 to person, but not place or time. Patient has some stuttering, rambling speech. No facial asymmetry. No upper extremity drift. Bilateral lower extremity mild drift. MUSCULOSKELETAL: There is no tenderness or deformity. ED Medical Decision Making - Lab Data Result diagrams: 12/20/20 19:30 12/20/20 20:22 Lab Results 12/20/20 12/20/20 12/20/20 Range/Units 19:30 19:30 19:30 WBC 8.6 (4.5-11.0) K/mm3 RBC 4.56 (3.65-5.03) M/mm3 Hgb 15.0 (11.8-15.2) gm/dl Hct 41.4 (35.5-45.6) % MCV 91 (84-94) fl MCH 33 H (28-32) pg MCHC 36 H (32-34) % RDW 14.1 (13.2-15.2) % Plt Count 273 (140-440) K/mm3 Lymph % (Auto) 31.0 (13.4-35.0) % [place] % (Auto) 10.6 H (0.0-7.3) % Eos % (Auto) 2.1 (0.0-4.3) % Baso % (Auto) 1.3 (0.0-1.8) % Lymph # (Auto) 2.7 (1.2-5.4) K/mm3 [place] # (Auto) 0.9 H (0.0-0.8) K/mm3 Eos # (Auto) 0.2 (0.0-0.4) K/mm3 Baso # (Auto) 0.1 (0.0-0.1) K/mm3 Seg Neutrophils % 55.0 (40.0-70.0) % Seg Neutrophils # 4.7 (1.8-7.7) K/mm3 PT (12.2-14.9) Sec. INR (0.87-1.13) APTT (24.2-36.6) Sec. Thrombin Time (15.1-19.6) Sec. Sodium 136 L (137-145) mmol/L Potassium TNR Chloride 96.6 L (98-107) mmol/L Carbon Dioxide 29 (22-30) mmol/L Anion Gap 18 mmol/L BUN 28 H (9-20) mg/dL Creatinine 1.6 H (0.8-1.3) mg/dL Estimated GFR 59 ml/min BUN/Creatinine Ratio 18 % Glucose 115 H (75-100) mg/dL POC Glucose (70-105) mg/dL Calcium 9.4 (8.4-10.2) mg/dL Total Bilirubin 0.30 (0.1-1.2) mg/dL AST 75 H (5-40) units/L ALT 73 H (7-56) units/L Alkaline Phosphatase 97 (35-129) units/L Ammonia (25-60) umol/L Troponin T (0.00-0.029) ng/mL Total Protein 8.8 H (6.3-8.2) g/dL Albumin 4.4 (3.9-5) g/dL Albumin/Globulin Ratio 1.0 % TSH 2.190 (0.270-4.200) mlU/mL Plasma/Serum Alcohol (0-0.07) % 12/20/20 12/20/20 12/20/20 Range/Units 19:30 19:30 19:30 WBC (4.5-11.0) K/mm3 RBC (3.65-5.03) M/mm3 Hgb (11.8-15.2) gm/dl Hct (35.5-45.6) % MCV (84-94) fl MCH (28-32) pg MCHC (32-34) % RDW (13.2-15.2) % Plt Count (140-440) K/mm3 Lymph % (Auto) (13.4-35.0) % [place] % (Auto) (0.0-7.3) % Eos % (Auto) (0.0-4.3) % Baso % (Auto) (0.0-1.8) % Lymph # (Auto) (1.2-5.4) K/mm3 [place] # (Auto) (0.0-0.8) K/mm3 Eos # (Auto) (0.0-0.4) K/mm3 Baso # (Auto) (0.0-0.1) K/mm3 Seg Neutrophils % (40.0-70.0) % Seg Neutrophils # (1.8-7.7) K/mm3 PT 13.3 (12.2-14.9) Sec. INR 0.96 (0.87-1.13) APTT 25.8 (24.2-36.6) Sec. Thrombin Time 15.8 (15.1-19.6) Sec. Sodium (137-145) mmol/L Potassium Chloride (98-107) mmol/L Carbon Dioxide (22-30) mmol/L Anion Gap mmol/L BUN (9-20) mg/dL Creatinine (0.8-1.3) mg/dL Estimated GFR ml/min BUN/Creatinine Ratio % Glucose (75-100) mg/dL POC Glucose (70-105) mg/dL Calcium (8.4-10.2) mg/dL Total Bilirubin (0.1-1.2) mg/dL AST (5-40) units/L ALT (7-56) units/L Alkaline Phosphatase (35-129) units/L Ammonia (25-60) umol/L Troponin T < 0.010 (0.00-0.029) ng/mL Total Protein (6.3-8.2) g/dL Albumin (3.9-5) g/dL Albumin/Globulin Ratio % TSH (0.270-4.200) mlU/mL Plasma/Serum Alcohol < 0.01 (0-0.07) % 12/20/20 12/20/20 12/20/20 Range/Units 19:46 20:17 20:22 WBC (4.5-11.0) K/mm3 RBC (3.65-5.03) M/mm3 Hgb (11.8-15.2) gm/dl Hct (35.5-45.6) % MCV (84-94) fl MCH (28-32) pg MCHC (32-34) % RDW (13.2-15.2) % Plt Count (140-440) K/mm3 Lymph % (Auto) (13.4-35.0) % [place] % (Auto) (0.0-7.3) % Eos % (Auto) (0.0-4.3) % Baso % (Auto) (0.0-1.8) % Lymph # (Auto) (1.2-5.4) K/mm3 [place] # (Auto) (0.0-0.8) K/mm3 Eos # (Auto) (0.0-0.4) K/mm3 Baso # (Auto) (0.0-0.1) K/mm3 Seg Neutrophils % (40.0-70.0) % Seg Neutrophils # (1.8-7.7) K/mm3 PT (12.2-14.9) Sec. INR (0.87-1.13) APTT (24.2-36.6) Sec. Thrombin Time (15.1-19.6) Sec. Sodium (137-145) mmol/L Potassium 4.2 Chloride (98-107) mmol/L Carbon Dioxide (22-30) mmol/L Anion Gap mmol/L BUN (9-20) mg/dL Creatinine (0.8-1.3) mg/dL Estimated GFR ml/min BUN/Creatinine Ratio % Glucose (75-100) mg/dL POC Glucose 128 H (70-105) mg/dL Calcium (8.4-10.2) mg/dL Total Bilirubin (0.1-1.2) mg/dL AST (5-40) units/L ALT (7-56) units/L Alkaline Phosphatase (35-129) units/L Ammonia 44.0 (25-60) umol/L Troponin T (0.00-0.029) ng/mL Total Protein (6.3-8.2) g/dL Albumin (3.9-5) g/dL Albumin/Globulin Ratio % TSH (0.270-4.200) mlU/mL Plasma/Serum Alcohol (0-0.07) % - Radiology Data Radiology results: report reviewed, image reviewed interpreted by me: Chest x-ray does not show any acute process. There are no pleural effusions, obvious pneumonia and there is no pneumothorax. Moderate to severe cardiomegaly. No widened mediastinum. NONENHANCED CT SCAN OF THE HEAD: INDICATION / CLINICAL INFORMATION: 35 years Male; Altered mental status. TECHNIQUE: Routine CT head without contrast. All CT scans at this location are performed using CT dose reduction for ALARA by means of automated exposure control. COMPARISON: CT scan of the head from 06/26/2019 and 06/02/1999 FINDINGS: BRAIN / INTRACRANIAL CONTENTS: No acute hemorrhage, mass effect, midline shift, hydrocephalus, or acute, large territorial infarct. Encephalomalacia in the left posterior cerebral artery territory; chronic isc hemic changes in the left thalamus, left corpus striatum and left inferior parietal lobule No significant white matter abnormality.. Findings unchanged CRANIOCERVICAL JUNCTION: No significant abnormality. ORBITS: No significant abnormality of visualized orbits. SINUSES / MASTOIDS: No significant abnormality of the visualized paranasal sinuses or mastoid air cells. ADDITIONAL FINDINGS: None. IMPRESSION: No intracerebral hemorrhage or stroke mimics Encephalomalacia in the left posterior cerebral artery territory; chronic ischemic changes in the left thalamus, left corpus stratum and left inferior parietal lobule; no change from the previous CT images No CT findings to suggest acute/subacute territorial infarction - Medical Decision Making This patient initially was coming to the hospital secondary to a headache. Patient became altered upon arrival to the emergency department. The charge nurse came back and told me that she felt the patient had what looked to be a focal seizure. The patient does have a seizure history. During my initial examination the patient is altered, AAO x1. There are no lateralizing deficits but he does have a mild bilateral lower extremity drift. Even with his seizure history, with the acute altered mental status and the weakness seen, a code stroke was initiated. He was seen by the telemedicine neurologist, Dr. Spivey, who is full recommendations are in the chart. CT scan of the head without contrast does not show any bleed, large vessel occlusion. Patient's labs are mostly unremarkable except for some elevated LFTs. He was loaded with a gram of Keppra and given an aspirin. The patient was reevaluated multiple times and has showed some improvement of his mentation but still appears weak and altered. For this reason, as well as based on the telemedicine neurology recommendations, the patient will be admitted to the hospital for further evaluations and treatment and was accepted for admission by Dr. Ortega. Critical Care Time: No Critical care attestation.: If time is entered above; I have spent that time in minutes in the direct care of this critically ill patient, excluding procedure time. ED Disposition Clinical Impression: Seizure-like activity, Encephalopathy acute, Elevated LFTs Disposition: DC-[id number] OP ADMIT IP TO THIS HOSP Is pt being admited?: Yes Condition: Fair Time of Disposition: 22:04
[2020-12-20 19:43] LABS: Basophils # (Auto) 0.1 K/mm3 (0.0-0.1); Basophils % (Auto) 1.3 % (0.0-1.8); Eosinophils # (Auto) 0.2 K/mm3 (0.0-0.4); Eosinophils % (Auto) 2.1 % (0.0-4.3); Lymphocytes # (Auto) 2.7 K/mm3 (1.2-5.4); Mean Corpuscular HGB Conc 36 % (32-34); Mean Corpuscular Volume 91 fl (84-94); Monocytes # (Auto) 0.9 K/mm3 (0.0-0.8); Monocytes % (Auto) 10.6 % (0.0-7.3); Red Blood Count 4.56 M/mm3 (3.65-5.03); Red Cell Distribution Width 14.1 % (13.2-15.2)
[2020-12-20 19:46] LABS: Hematocrit 41.4 % (35.5-45.6); Platelet Count 273 K/mm3 (140-440)
[2020-12-20 19:57] LABS: INR 0.96 (0.87-1.13)
[2020-12-20 19:58] LABS: Partial Thromboplastin Time 25.8 Sec. (24.2-36.6); Thrombin Time 15.8 Sec. (15.1-19.6)
--- NOTE | 2020-12-20 20:00 | Cat Scan Report ---
NONENHANCED CT SCAN OF THE HEAD: INDICATION / CLINICAL INFORMATION: 35 years Male; Altered mental status. TECHNIQUE: Routine CT head without contrast. All CT scans at this location are performed using CT dos e reduction for ALARA by means of automated exposure control. COMPARISON: CT scan of the head from 06/26/2019 and 06/02/1999 FINDINGS: BRAIN / INTRACRANIAL CONTENTS: No acute hemorrhage, mass effect, midline shift, hydrocephalus, or acu te, large territorial infarct. Encephalomalacia in the left posterior cerebral artery territory; chronic ischemic changes in the lef t thalamus, left corpus striatum and left inferior parietal lobule No significant white matter abnorm ality.. Findings unchanged CRANIOCERVICAL JUNCTION: No significant abnormality. ORBITS: No significant abnormality of visualized orbits. SINUSES / MASTOIDS: No significant abnormality of the visualized paranasal sinuses or mastoid air colby ls. ADDITIONAL FINDINGS: None. IMPRESSION: No intracerebral hemorrhage or stroke mimics Encephalomalacia in the left posterior cerebral artery territory; chronic ischemic changes in the lef t thalamus, left corpus stratum and left inferior parietal lobule; no change from the previous CT elizabeth ges No CT findings to suggest acute/subacute territorial infarction CODE STROKE: Time of Communication (WORKERS' COMPENSATION MEDIATOR/CDT): 6:55 PM CDT Licensed Practitioner Receiving Report: ER physician Signer Name: Ramiro Paul MD Signed: 12/20/2020 7:56 PM Workstation Name: [id number]
[2020-12-20 20:06] LABS: Albumin 4.4 g/dL (3.9-5); BUN/Creatinine Ratio 18; Blood Urea Nitrogen 28 mg/dL (9-20); Calcium 9.4 mg/dL (8.4-10.2); Hemolysis Index 889
[2020-12-20 20:10] LABS: Alanine Aminotransferase 73 units/L (7-56)
[2020-12-20] MEDS ORDERED: levETIRAcetam 1000 MG/NS 0.75% 1,000 MG/100 ML BAG IV ONE (20:17)
--- NOTE | 2020-12-20 20:19 | XRay Report ---
CHEST 1 VIEW INDICATION: Altered mental status. COMPARISON: 07/15/2019 FINDINGS: Support devices: ICD in satisfactory position. Heart: Stable moderate cardiomegaly. Lungs/Pleura: No acute air space or interstitial disease. Additional findings: None. IMPRESSION: Stable moderate cardiomegaly. Signer Name: Tico Covington MD Signed: 12/20/2020 8:15 PM Workstation Name: [id number]
--- NOTE | 2020-12-20 21:05 | Consultation ---
History of Present Illness Consult date: 12/20/20 Medications and Allergies Allergies Allergy/AdvReac Type Severity Reaction Status Date / Time No Known Allergies Allergy Verified 08/27/14 07:40 Home Medications Medication Instructions Recorded Confirmed Last Taken Type Aspirin EC [Halfprin EC] 81 mg PO QDAY #30 tablet. 04/24/19 07/15/19 Unknown Rx Warfarin [Coumadin] 7.5 mg PO DAILY@1700 tablet 06/26/19 07/15/19 Unknown Rx AtorvaSTATin [Lipitor] 40 mg PO QHS 07/15/19 07/15/19 Unknown History Metoprolol Xl [Metoprolol 25 mg PO QDAY 07/15/19 07/15/19 Unknown History SUCCINATE ER TAB] OXcarbazepine [Trileptal] 300 mg PO BID 07/15/19 07/15/19 Unknown History Amiodarone [Cordarone 200 MG TAB] 200 mg PO QDAY #30 tablet 07/19/19 Unknown Rx Bumetanide [Bumex 1 mg tab] 1 mg PO 0600,1800 #60 tablet 07/19/19 Unknown Rx Physical Examination - Vital Signs Vital Signs: Vital Signs Pulse Ox 92 12/20/20 19:24 Results - Laboratory Findings CBC and BMP: 12/20/20 19:30 12/20/20 20:22 Abnormal Lab Findings: Abnormal Labs 12/20/20 12/20/20 12/20/20 19:30 19:30 20:17 MCH 33 H MCHC 36 H [place] % (Auto) 10.6 H [place] # (Auto) 0.9 H Sodium 136 L Chloride 96.6 L BUN 28 H Creatinine 1.6 H Glucose 115 H POC Glucose 128 H AST 75 H ALT 73 H Total Protein 8.8 H Assessment and Plan [facility] Consult Note # Demographics Consult Type: Acute Stroke Level 1 (0-4.5 hrs) Patient Location: Emergency Room First Name: Jorge Last Name: Igor Ash Date of : 1985 Age: 35 Gender: Male Time of Initial Page (Eastern Time): 12/20/2020, 19:30 Time of Return Call (Eastern Time): 12/20/2020, 19:35 # HPI History: 35 yo man with history of stroke, HTN, CHF, with residual right-sided weakness, presents with headache. In ED was found confused and thought to be post-ictal however no witnessed seizure # Scores Time of exam and NIHSS (Eastern Time): 12/20/2020, 20:00 Level of Consciousness 1a: [1] = Not alert; but arousable by minor stim LOC Questions 1b: [0] = Answers both questions correctly LOC Commands 1c: [0] = Performs both tasks correctly Best Gaze 2: [0] = Normal Visual 3: [0] = No visual loss Facial Palsy 4: [0] = Normal symmetrical movements Motor Arm Left 5a: [1] = Drift Motor Arm Right 5b: [1] = Drift Motor Leg Left 6a: [1] = Drift Motor Leg Right 6b: [1] = Drift Limb Ataxia 7: [0] = Absent Sensory 8: [0] = Normal Best Language 9: [0] = No aphasia Dysarthria 10: [1] = Ktag-[id number]-fwovqocm dysarthria Extinction and Inattention 11: [0] = No abnormality NIHSS Total: 6 # Exam Vitals: vital signs reviewed SBP: 140 DBP: 96 # Assessment Impression: Generalized weakness and decreased responsiveness, broad differential including metabolic, infectious, stroke, post-ictal. # Plan Thrombolytic/Intervention: NOT IV Thrombolysis or IA Intervention candidate Thrombolytic Exclusion: other (see below) Unclear etiology, no focal findings Intraarterial Exclusion: other Symptoms not suggestive of LVO Imaging: (urgency: routine): MRI Brain without contrast Diagnostic Test: echo without bubble study Therapy/Evaluation: NPO until swallow evaluation PT/OT evaluation speech/swallow consultation Medication: levetiracetam (Keppra) 1000 mg twice daily DVT Prophylaxis: SCD Other: telemetry monitoring I have discussed my recommendations with the referring provider Additional Recommendations: MRI brain to further evaluate for stroke Metabolic and infectious workup Keppra 1000 mg BID Disposition: admit # Logistics Telemedicine: Interactive 2 way audio and visual telecommunication technology was utilized during this visit
[2020-12-20] MEDS ORDERED: ASPIRIN 81 MG TAB CHEW PO ONE (21:22)
[2020-12-20] MEDS ORDERED: ACETAMINOPHEN 325 MG TAB PO PRN (22:10)
[2020-12-20] MEDS ORDERED: MORPHINE 4 MG/1 ML INJ IV PRN (22:10)
[2020-12-20] MEDS ORDERED: ONDANSETRON 4 MG/2 ML INJ IV PRN ×2 (22:10)
[2020-12-20] MEDS ORDERED: PROMETHAZINE 25 MG RECT SUPP PR PRN (22:10)
[2020-12-20] MEDS ORDERED: MAGNESIUM HYDROXIDE (MOM) ORAL LIQD UDC PO PRN (22:10)
[2020-12-20] MEDS ORDERED: METOCLOPRAMIDE 10 MG TAB PO PRN (22:10)
[2020-12-20] MEDS ORDERED: MORPHINE 2 MG/1 ML INJ IV PRN (22:10)
--- NOTE | 2020-12-20 22:29 | History and Physical Report ---
History of Present Illness Date of examination: 12/20/20 Date of admission: 12/20/20 22:04 Chief complaint: Headache Seizure activity History of present illness: 35-year-old male with known history of hypertension, CHF, seizure disorder, CVA with right-sided weakness was brought into the emergency room today accompanied by with a complaint of generalized headache which has been ongoing since this morning. He thereafter had seizure-like activity while in the waiting area of the emergency room. Patient was said to have had a change in mental status after a seizure-like activity. Patient's last seizure activity was about 9 months ago. There has been no history of fever or chills, no chest pain or shortness of breath, no nausea vomiting no abdominal pain. Patient denies any diarrhea, no hematuria or dysuria. Work-up in the emergency room today, chest x-ray shows stable moderate cardiomegaly. CT scan of the head shows no acute abnormality. Patient was evaluated by the tele- neurologist and recommendation is to have patient worked up for possible CVA. He has also been started on medication for seizures. Past History Past Medical History: heart failure, hypertension, seizures, stroke (With right- sided weakness) Past Surgical History: No surgical history Social history: no significant social history Family history: no significant family history Medications and Allergies Allergies Allergy/AdvReac Type Severity Reaction Status Date / Time No Known Allergies Allergy Verified 08/27/14 07:40 Home Medications Medication Instructions Recorded Confirmed Last Taken Type Aspirin EC [Halfprin EC] 81 mg PO QDAY #30 tablet. 04/24/19 12/21/20 Unknown Rx Warfarin [Coumadin] 7.5 mg PO DAILY@1700 tablet 06/26/19 12/21/20 12/18/20 Rx 7.5 AtorvaSTATin [Lipitor] 40 mg PO QHS 07/15/19 12/21/20 12/19/20 22:00 History Metoprolol Xl [Metoprolol 25 mg PO QDAY 07/15/19 12/21/20 Unknown History SUCCINATE ER TAB] OXcarbazepine [Trileptal] 300 mg PO BID 07/15/19 12/21/20 12/20/20 08:00 History Amiodarone [Cordarone 200 MG TAB] 200 mg PO QDAY #30 tablet 07/19/19 Unknown Rx Bumetanide [Bumex 1 mg tab] 100 mg PO 0600,1800 12/21/20 12/21/20 Unknown History Furosemide [Lasix TAB] 80 mg PO 12/21/20 12/19/20 06:00 History 100 mg Spironolactone [Aldactone] 25 mg PO BID 12/21/20 12/21/20 12/19/20 22:00 History hydrALAZINE [Apresoline TAB] 100 mg PO TID 12/21/20 12/21/20 12/19/20 08:00 History Review of Systems Constitutional: no fever, no chills Ears, nose, mouth and throat: no nasal congestion, no sore throat Cardiovascular: no chest pain, no palpitations Respiratory: no cough, no shortness of breath Gastrointestinal: no abdominal pain, no nausea, no vomiting, no diarrhea Genitourinary Male: no dysuria, no hematuria, no nocturia Musculoskeletal: no neck pain, no low back pain Integumentary: no rash, no pruritis Neurological: seizures, headaches, confusion Psychiatric: no anxiety, no depression Endocrine: no polyphagia, no polydipsia, no polyuria, no nocturia Exam - Constitutional Vitals: Temp Pulse Resp BP Pulse Ox 98.8 F 89 18 114/80 99 12/20/20 19:27 12/20/20 21:30 12/20/20 21:30 12/20/20 21:30 12/20/20 21:30 General appearance: Present: no acute distress, well-nourished - EENT Eyes: Present: PERRL, EOM intact. Absent: scleral icterus ENT: hearing intact, clear oral mucosa, dentition normal - Neck Neck: Present: supple, normal ROM - Respiratory Respiratory effort: normal Respiratory: bilateral: CTA - Cardiovascular Rhythm: regular Heart Sounds: Present: S1 & S2. Absent: gallop, systolic murmur, diastolic murmur, rub, click - Extremities Extremities: no ischemia, pulses intact, pulses symmetrical, No edema, normal temperature, normal color Peripheral Pulses: within normal limits - Abdominal General gastrointestinal: Present: soft, non-tender, non-distended, normal bowel sounds. Absent: mass - Integumentary Integumentary: Present: clear, warm, dry. Absent: rash - Musculoskeletal Musculoskeletal: right sided weakness - Psychiatric Psychiatric: appropriate mood/affect, intact judgment & insight, memory intact, cooperative - Neurologic Neurologic: CNII-XII intact, no focal deficits, moves all extremities HEART Score - HEART Score Troponin: Troponin T < 0.010 ng/mL (0.00-0.029) 12/20/20 19:30 Results - Labs CBC & Chem 7: 12/20/20 19:30 12/20/20 20:22 Labs: Abnormal lab results 12/20/20 12/20/20 12/20/20 Range/Units 19:30 19:30 20:17 MCH 33 H (28-32) pg MCHC 36 H (32-34) % [place] % (Auto) 10.6 H (0.0-7.3) % [place] # (Auto) 0.9 H (0.0-0.8) K/mm3 Sodium 136 L (137-145) mmol/L Chloride 96.6 L (98-107) mmol/L BUN 28 H (9-20) mg/dL Creatinine 1.6 H (0.8-1.3) mg/dL Glucose 115 H (75-100) mg/dL POC Glucose 128 H (70-105) mg/dL AST 75 H (5-40) units/L ALT 73 H (7-56) units/L Total Protein 8.8 H (6.3-8.2) g/dL Assessment and Plan - Patient Problems (1) Encephalopathy acute Current Visit: Yes Status: Acute Plan to address problem: Possibly secondary to seizure-like activity versus a CVA. Will monitor mental status. (2) Seizure-like activity Current Visit: Yes Status: Acute Plan to address problem: Patient has been started on Keppra. We will place consult to neurology for evaluation. Patient placed on seizure precautions. (3) HTN (hypertension) Current Visit: No Status: Chronic Qualifiers: Hypertension type: essential hypertension Plan to address problem: We will resume routine home medications once reconciled monitor vital signs closely. (4) DVT prophylaxis Current Visit: No Status: Chronic Plan to address problem: Patient placed on subcutaneous heparin. (5) Full code status Current Visit: Yes Status: Acute Plan to address problem: Patient is full code.
[2020-12-21 05:14] LABS: Basophils % (Auto) 0.6 % (0.0-1.8); Eosinophils # (Auto) 0.1 K/mm3 (0.0-0.4); Eosinophils % (Auto) 2.2 % (0.0-4.3); Hematocrit 42.2 % (35.5-45.6); Hemoglobin 14.3 gm/dl (11.8-15.2); Lymphocytes # (Auto) 1.6 K/mm3 (1.2-5.4); Lymphocytes % (Auto) 28.4 % (13.4-35.0); Mean Corpuscular HGB Conc 34 % (32-34); Mean Corpuscular Volume 94 fl (84-94); Monocytes # (Auto) 0.7 K/mm3 (0.0-0.8); Monocytes % (Auto) 12.4 % (0.0-7.3); Platelet Count 267 K/mm3 (140-440); Red Blood Count 4.49 M/mm3 (3.65-5.03)
[2020-12-21 05:23] LABS: INR 1.12 (0.87-1.13)
[2020-12-21 05:28] LABS: Calcium 9.4 mg/dL (8.4-10.2); Chol/HDL Ratio 4.08 %
[2020-12-21] MEDS ORDERED: BUMETANIDE 1 MG TAB ONE (06:30)
[2020-12-21] MEDS: BUMETANIDE 1 MG TAB PO SCH ×2 (06:31→17:19)
[2020-12-21] MEDS: HEPARIN 5,000 UNIT/1 ML VIAL SUB-Q SCH ×2 (06:32→13:14)
[2020-12-21] MEDS ORDERED: ASPIRIN 325 MG TAB PO SCH (10:00)
--- NOTE | 2020-12-21 10:48 | Progress Note ---
Assessment and Plan Assessment and plan: --Acute metabolic encephalopathy Current Visit: Yes Status: Acute Present on admission , probably postictal possibly secondary to seizure-like activity versus a CVA. Resolved patient is alert awake oriented x3 -- Seizure-like activity Current Visit: Yes Status: Acute Patient has been started on Keppra. We will place consult to neurology for evaluation. Patient placed on seizure precautions. Do not drive until cleared by PMD or neurology --History of LV thrombus; noncompliant with anticoagulation We will start full dose Lovenox on Coumadin therapeutic goal of INR between 2 and 3 Cardiology consult if needed -- HTN (hypertension) Current Visit: No Status: Chronic Moderate control, continue current antihypertensives As needed medications So there was a --Morbid obesity; BMI 41.5 Current Visit: No Status: Chronic Patient needs weight reduction when medically stable --Hypertension; Current Visit: No Status: Chronic Moderate control, continue current antihypertensives As needed medication continue statin --Dyslipidemia; Current Visit: No Status: Chronic --DVT prophylaxis Current Visit: No Status: Chronic Patient placed on subcutaneous heparin. -- Full code status Current Visit: Yes Status: Acute Patient is full code. We will closely monitor the patient and adjust management as needed History Interval history: I have seen and examined the patient at the bedside, patient's chart and medications reviewed Patient was admitted with seizure-like activities No new episodes of seizure Vital signs noted Hospitalist Physical - Constitutional Vitals: Temp Pulse Resp BP Pulse Ox 97.4 F L 81 20 104/59 100 12/21/20 08:18 12/21/20 08:18 12/21/20 08:18 12/21/20 08:18 12/21/20 08:18 General appearance: Present: no acute distress, well-nourished, obese (Morbidly obese) - EENT Eyes: Present: PERRL, EOM intact - Neck Neck: Present: supple, normal ROM - Respiratory Respiratory effort: normal Respiratory: bilateral: diminished, negative: rales, rhonchi, wheezing - Cardiovascular Rhythm: regular Heart Sounds: Present: S1 & S2 - Extremities Extremities: no ischemia, No edema - Abdominal General gastrointestinal: soft, non-tender, non-distended, normal bowel sounds - Integumentary Integumentary: Present: clear, warm - Psychiatric Psychiatric: appropriate mood/affect, cooperative - Neurologic Neurologic: CNII-XII intact, moves all extremities HEART Score - HEART Score Troponin: Troponin T < 0.010 ng/mL (0.00-0.029) 12/20/20 19:30 Results - Labs CBC & Chem 7: 12/21/20 04:28 12/21/20 04:28 Labs: Laboratory Last Values WBC 5.6 K/mm3 (4.5-11.0) 12/21/20 04:28 RBC 4.49 M/mm3 (3.65-5.03) 12/21/20 04:28 Hgb 14.3 gm/dl (11.8-15.2) 12/21/20 04:28 Hct 42.2 % (35.5-45.6) 12/21/20 04:28 MCV 94 fl (84-94) 12/21/20 04:28 MCH 32 pg (28-32) 12/21/20 04:28 MCHC 34 % (32-34) 12/21/20 04:28 RDW 14.0 % (13.2-15.2) 12/21/20 04:28 Plt Count 267 K/mm3 (140-440) 12/21/20 04:28 Lymph % (Auto) 28.4 % (13.4-35.0) 12/21/20 04:28 [place] % (Auto) 12.4 % (0.0-7.3) H 12/21/20 04:28 Eos % (Auto) 2.2 % (0.0-4.3) 12/21/20 04:28 Baso % (Auto) 0.6 % (0.0-1.8) 12/21/20 04:28 Lymph # (Auto) 1.6 K/mm3 (1.2-5.4) 12/21/20 04:28 [place] # (Auto) 0.7 K/mm3 (0.0-0.8) 12/21/20 04:28 Eos # (Auto) 0.1 K/mm3 (0.0-0.4) 12/21/20 04:28 Baso # (Auto) 0.0 K/mm3 (0.0-0.1) 12/21/20 04:28 Seg Neutrophils % 56.4 % (40.0-70.0) 12/21/20 04:28 Seg Neutrophils # 3.2 K/mm3 (1.8-7.7) 12/21/20 04:28 PT 14.9 Sec. (12.2-14.9) 12/21/20 04:28 INR 1.12 (0.87-1.13) 12/21/20 04:28 APTT 25.8 Sec. (24.2-36.6) 12/20/20 19:30 Thrombin Time 15.8 Sec. (15.1-19.6) 12/20/20 19:30 Sodium 140 mmol/L (137-145) 12/21/20 04:28 Potassium 4.0 mmol/L (3.6-5.0) 12/21/20 04:28 Chloride 100.3 mmol/L (98-107) 12/21/20 04:28 Carbon Dioxide 27 mmol/L (22-30) 12/21/20 04:28 Anion Gap 17 mmol/L 12/21/20 04:28 BUN 32 mg/dL (9-20) H 12/21/20 04:28 Creatinine 1.7 mg/dL (0.8-1.3) H 12/21/20 04:28 Estimated GFR 55 ml/min 12/21/20 04:28 BUN/Creatinine Ratio 19 % 12/21/20 04:28 Glucose 95 mg/dL (75-100) 12/21/20 04:28 POC Glucose 128 mg/dL (70-105) H 12/20/20 20:17 Calcium 9.4 mg/dL (8.4-10.2) 12/21/20 04:28 Total Bilirubin 0.30 mg/dL (0.1-1.2) 12/20/20 19:30 AST 75 units/L (5-40) H 12/20/20 19:30 ALT 73 units/L (7-56) H 12/20/20 19:30 Alkaline Phosphatase 97 units/L (35-129) 12/20/20 19:30 Ammonia 44.0 umol/L (25-60) 12/20/20 19:46 Troponin T < 0.010 ng/mL (0.00-0.029) 12/20/20 19:30 Total Protein 8.8 g/dL (6.3-8.2) H 12/20/20 19:30 Albumin 4.4 g/dL (3.9-5) 12/20/20 19:30 Albumin/Globulin Ratio 1.0 % 12/20/20 19:30 Triglycerides 96 mg/dL (2-149) 12/21/20 04:28 Cholesterol 147 mg/dL (50-199) 12/21/20 04:28 LDL Cholesterol Direct 98 mg/dL (50-130) 12/21/20 04:28 HDL Cholesterol 36 mg/dL (40-59) L 12/21/20 04:28 Cholesterol/HDL Ratio 4.08 % 12/21/20 04:28 TSH 2.190 mlU/mL (0.270-4.200) 12/20/20 19:30 Plasma/Serum Alcohol < 0.01 % (0-0.07) 12/20/20 19:30 Chance/IV: Voiding Method Toilet Active Medications - Current Medications Current Medications: Generic Name Dose Route Start Last Admin Trade Name Freq PRN Reason Stop Dose Admin Acetaminophen 650 mg 12/20/20 22:10 Acetaminophen 325 Mg Tab PO Q4H PRN Pain MILD(1-3)/Fever >100.5/ARRIAZA Amiodarone HCl 200 mg 12/21/20 10:00 Amiodarone 200 Mg Tab PO QDAY [facility] Aspirin 325 mg 12/21/20 10:00 Aspirin 325 Mg Tab PO QDAY [facility] Atorvastatin Calcium 40 mg 12/21/20 22:00 Atorvastatin 40 Mg Tab PO QHS JOHN Bisacodyl 10 mg 12/20/20 22:10 Bisacodyl 10 Mg Rect Supp [place] QDAY PRN Constipation Bumetanide 100 mg 12/21/20 06:00 12/21/20 06:31 Bumetanide 1 Mg Tab PO 1 mg 0600,1800 [facility] Administration Heparin Sodium (Porcine) 5,000 unit 12/21/20 06:00 12/21/20 06:32 Heparin 5,000 Unit/1 Ml Vial SUB-Q 5,000 unit Q8HR JOHN Administration Hydralazine HCl 100 mg 12/21/20 08:00 Hydralazine 100 Mg Tab PO TID [facility] Levetiracetam 500 mg/ Dextrose 105 mls @ 400 mls/hr 12/21/20 10:00 IV Q12HR JOHN Magnesium Hydroxide 30 ml 12/20/20 22:10 Magnesium Hydroxide (Mom) Oral Liqd Udc PO Q4H PRN Constipation Metoclopramide HCl 5 mg 12/20/20 22:10 Metoclopramide 10 Mg Tab PO Q6H PRN Nausea And Vomiting Metoprolol Succinate 25 mg 12/21/20 08:00 Metoprolol Succinate Xl 25 Mg Tab PO QDAY@0800 [facility] Morphine Sulfate 2 mg 12/20/20 22:10 Morphine 2 Mg/1 Ml Inj IV Q4H PRN Pain, Moderate (4-6) Morphine Sulfate 4 mg 12/20/20 22:10 Morphine 4 Mg/1 Ml Inj IV Q4H PRN Pain , Severe (7-10) Ondansetron HCl 4 mg 12/20/20 22:10 Ondansetron 4 Mg/2 Ml Inj IV Q8H PRN Nausea And Vomiting Promethazine HCl 25 mg 12/20/20 22:10 Promethazine 25 Mg Rect Supp [place] Q6H PRN Nausea And Vomiting Sodium Chloride 10 ml 12/21/20 10:00 Sodium Chloride 0.9% 10 Ml Flush Syringe IV BID [facility] Sodium Chloride 10 ml 12/20/20 22:10 Sodium Chloride 0.9% 10 Ml Flush Syringe IV PRN PRN LINE FLUSH Spironolactone 25 mg 12/21/20 10:00 Spironolactone 25 Mg Tab PO BID [facility]
[2020-12-21 10:56] LABS: Bilirubin,Urine NEG (Negative); Blood,Urine NEG (Negative); Color,Urine Yellow (Yellow); Hyaline Casts,Urine 1 /LPF; Mucus,Urine FEW /HPF; Protein,Urine <15 mg/dL mg/dL (Negative); Urobilinogen,Urine < 2.0 mg/dL (<2.0); WBC,Urine < 1.0 /HPF (0.0-6.0)
[2020-12-21 11:03] LABS: Amphetamine Screen,Urine Negative; Benzodiazepines Screen,Urine Negative; Cannabinoid Screen,Urine Negative; Cocaine Screen,Urine Negative; Methadone Screen,Urine Negative; Opiate Screen,Urine Negative
[2020-12-21] MEDS: hydrALAZINE 100 MG TAB PO SCH ×3 (11:13→21:53)
[2020-12-21] MEDS: SPIRONOLACTONE 25 MG TAB PO SCH ×2 (11:13→21:53)
[2020-12-21] MEDS: AMIODARONE 200 MG TAB PO SCH (11:13)
[2020-12-21] MEDS: levETIRAcetam 500 MG in DEXTROSE 5% IN WATER 100 ML IV SCH ×2 (11:33→21:53)
[2020-12-21] MEDS: METOPROLOL SUCCINATE XL 25 MG TAB PO SCH (11:33)
--- NOTE | 2020-12-21 16:38 | Vascular Lab Report ---
DUPLEX DOPPLER ULTRASOUND CAROTID, BILATERAL INDICATION / CLINICAL INFORMATION: stroke. COMPARISON: None available. FINDINGS: RIGHT CAROTID: - PLAQUE ESTIMATE (%): < 50% - CCA velocity: 74 cm/sec. - ICA peak systolic velocity: 62 cm/sec. - ICA/CCA PSV Ratio: 0.83 Right Vertebral Artery: Antegrade flow. LEFT CAROTID: - PLAQUE ESTIMATE: < 50% - CCA velocity: 86 cm/sec. - ICA peak systolic velocity: 70 cm/sec. - ICA/CCA PSV Ratio: 0.8 Left Vertebral Artery: Antegrade flow. IMPRESSION: 1. Right Internal Carotid Artery: Less than 50% diameter stenosis. 2. Left Internal Carotid Artery: Less than 50% diameter stenosis. Velocity criteria are extrapolated from diameter data as defined by the Society of Radiologists in Ul trasound Consensus Conference, Radiology 2003; 229;340-346. NO STENOSIS (NORMAL) * Plaque = none; ICA PSV < 125 cm/sec; ICA/CCA PSV Ratio < 2.0 <50% STENOSIS * Plaque < 50%; ICA PSV < 125 cm/sec; ICA/CCA PSV Ratio < 2.0 50-69% STENOSIS * Plaque > 50%; ICA PSV = 125-230 cm/sec; ICA/CCA PSV Ratio = 2.0-4.0 >70% BUT <100% STENOSIS * Plaque > 50%; ICA PSV > 230 cm/sec; ICA/CCA PSV Ratio > 4.0 NEAR OCCLUSION * Plaque = visible lumen; ICA PSV = high/low/none; ICA/CCA PSV Ratio = variable TOTAL OCCLUSION * Plaque = no lumen; ICA PSV = none; ICA/CCA PSV Ratio = N/A Signer Name: Brandon Farnsworth MD Signed: 12/21/2020 4:33 PM Workstation Name: [facility] [employer]
[2020-12-21] MEDS: WARFARIN 7.5 MG TAB PO SCH (17:06)
[2020-12-21] MEDS: ENOXAPARIN 150 MG/1 ML INJ SUB-Q SCH (21:53)
[2020-12-22 05:22] LABS: BUN/Creatinine Ratio 22; Blood Urea Nitrogen 31 mg/dL (9-20); Calcium 9.5 mg/dL (8.4-10.2); Hemolysis Index 23
[2020-12-22 05:31] LABS: INR 1.16 (0.87-1.13)
[2020-12-22] MEDS ORDERED: TORSEMIDE 100 MG TAB PO SCH (10:00)
--- NOTE | 2020-12-22 10:08 | Electrocardiograph Report ---
[facility] Test Date: 2020-12-21 Test Time: 07:42:37 Pat Name: YANNICK PONCE JR Department: Room: A475 1 Gender: M [employer]: RAMIREZ : [id number] Requested By: JOLLY AIKEN Order Number: [id number] Reading MD: Naresh Pham Measurements Intervals [place] Rate: 71 P: 11 IN: 194 QRS: 21 QRSD: 113 T: QT: 402 QTc: 439 Interpretive Statements Sinus rhythm nonspecific st-t No previous ECG available for comparison Electronically Signed On 12-22-2020 10:08:06 EDT by Naresh Pham
--- NOTE | 2020-12-22 10:46 | Progress Note ---
Assessment and Plan Assessment and plan: --Chronic kidney disease stage III; Closely monitor renal function, avoid nephrotoxins Consult nephrology as needed --Acute metabolic encephalopathy Current Visit: Yes Status: Acute Present on admission , probably postictal possibly secondary to seizure-like activity versus a CVA. Resolved patient is alert awake oriented x3 -- Seizure-like activity Current Visit: Yes Status: Acute Patient has been started on Keppra. We will place consult to neurology for evaluation. Patient placed on seizure precautions. Do not drive until cleared by PMD or neurology --History of LV thrombus; Patient reports that he is compliant with medication However subtherapeutic INR on presentation We will continue full dose Lovenox on Coumadin therapeutic goal of INR between 2 and 3 Cardiology consult if needed -- HTN (hypertension) Current Visit: No Status: Chronic Moderate control, continue current antihypertensives As needed medications So there was a --Morbid obesity; BMI 41.5 Current Visit: No Status: Chronic Patient needs weight reduction when medically stable --Hypertension; Current Visit: No Status: Chronic Moderate control, continue current antihypertensives As needed medication continue statin --Dyslipidemia; Current Visit: No Status: Chronic --DVT prophylaxis Current Visit: No Status: Chronic Patient placed on subcutaneous heparin. -- Full code status Current Visit: Yes Status: Acute Patient is full code. We will closely monitor the patient and adjust management as needed 12/22/2020; LV thrombus, on Lovenox and Coumadin Subtherapeutic INR, cardiology consulted History Interval history: I have seen and examined the patient at the bedside this morning Patient's chart and medications reviewed Patient feels slightly better Denies chest pain or shortness of breath Vital signs noted Hospitalist Physical - Constitutional Vitals: Temp Pulse Resp BP Pulse Ox 98.0 F 85 18 98/77 97 12/22/20 07:47 12/22/20 07:47 12/22/20 07:47 12/22/20 07:47 12/22/20 07:47 General appearance: Present: no acute distress, well-nourished, obese (Morbidly obese) - EENT Eyes: Present: PERRL, EOM intact - Neck Neck: Present: supple, normal ROM - Respiratory Respiratory effort: normal Respiratory: bilateral: diminished, rales, negative: rhonchi, wheezing - Cardiovascular Rhythm: regular Heart Sounds: Present: S1 & S2 - Extremities Extremities: no ischemia, No edema - Abdominal General gastrointestinal: soft, non-tender, non-distended, normal bowel sounds - Integumentary Integumentary: Present: clear, warm - Psychiatric Psychiatric: appropriate mood/affect, cooperative - Neurologic Neurologic: CNII-XII intact, moves all extremities HEART Score - HEART Score Troponin: Troponin T < 0.010 ng/mL (0.00-0.029) 12/20/20 19:30 Results - Labs CBC & Chem 7: 12/21/20 04:28 12/22/20 04:49 Labs: Laboratory Last Values WBC 5.6 K/mm3 (4.5-11.0) 12/21/20 04:28 RBC 4.49 M/mm3 (3.65-5.03) 12/21/20 04:28 Hgb 14.3 gm/dl (11.8-15.2) 12/21/20 04:28 Hct 42.2 % (35.5-45.6) 12/21/20 04:28 MCV 94 fl (84-94) 12/21/20 04:28 MCH 32 pg (28-32) 12/21/20 04:28 MCHC 34 % (32-34) 12/21/20 04:28 RDW 14.0 % (13.2-15.2) 12/21/20 04:28 Plt Count 267 K/mm3 (140-440) 12/21/20 04:28 Lymph % (Auto) 28.4 % (13.4-35.0) 12/21/20 04:28 [place] % (Auto) 12.4 % (0.0-7.3) H 12/21/20 04:28 Eos % (Auto) 2.2 % (0.0-4.3) 12/21/20 04:28 Baso % (Auto) 0.6 % (0.0-1.8) 12/21/20 04:28 Lymph # (Auto) 1.6 K/mm3 (1.2-5.4) 12/21/20 04:28 [place] # (Auto) 0.7 K/mm3 (0.0-0.8) 12/21/20 04:28 Eos # (Auto) 0.1 K/mm3 (0.0-0.4) 12/21/20 04:28 Baso # (Auto) 0.0 K/mm3 (0.0-0.1) 12/21/20 04:28 Seg Neutrophils % 56.4 % (40.0-70.0) 12/21/20 04:28 Seg Neutrophils # 3.2 K/mm3 (1.8-7.7) 12/21/20 04:28 PT 15.3 Sec. (12.2-14.9) H 12/22/20 04:49 INR 1.16 (0.87-1.13) H 12/22/20 04:49 APTT 25.8 Sec. (24.2-36.6) 12/20/20 19:30 Thrombin Time 15.8 Sec. (15.1-19.6) 12/20/20 19:30 Sodium 138 mmol/L (137-145) 12/22/20 04:49 Potassium 3.9 mmol/L (3.6-5.0) 12/22/20 04:49 Chloride 98.7 mmol/L (98-107) 12/22/20 04:49 Carbon Dioxide 29 mmol/L (22-30) 12/22/20 04:49 Anion Gap 14 mmol/L 12/22/20 04:49 BUN 31 mg/dL (9-20) H 12/22/20 04:49 Creatinine 1.4 mg/dL (0.8-1.3) H 12/22/20 04:49 Estimated GFR > 60 ml/min 12/22/20 04:49 BUN/Creatinine Ratio 22 % 12/22/20 04:49 Glucose 92 mg/dL (75-100) 12/22/20 04:49 POC Glucose 85 mg/dL (70-105) 12/22/20 07:46 Calcium 9.5 mg/dL (8.4-10.2) 12/22/20 04:49 Magnesium 2.40 mg/dL (1.7-2.3) H 12/22/20 04:49 Total Bilirubin 0.30 mg/dL (0.1-1.2) 12/20/20 19:30 AST 75 units/L (5-40) H 12/20/20 19:30 ALT 73 units/L (7-56) H 12/20/20 19:30 Alkaline Phosphatase 97 units/L (35-129) 12/20/20 19:30 Ammonia 44.0 umol/L (25-60) 12/20/20 19:46 Troponin T < 0.010 ng/mL (0.00-0.029) 12/20/20 19:30 Total Protein 8.8 g/dL (6.3-8.2) H 12/20/20 19:30 Albumin 4.4 g/dL (3.9-5) 12/20/20 19:30 Albumin/Globulin Ratio 1.0 % 12/20/20 19:30 Triglycerides 96 mg/dL (2-149) 12/21/20 04:28 Cholesterol 147 mg/dL (50-199) 12/21/20 04:28 LDL Cholesterol Direct 98 mg/dL (50-130) 12/21/20 04:28 HDL Cholesterol 36 mg/dL (40-59) L 12/21/20 04:28 Cholesterol/HDL Ratio 4.08 % 12/21/20 04:28 TSH 2.190 mlU/mL (0.270-4.200) 12/20/20 19:30 Urine Color Yellow (Yellow) 12/20/20 19:22 Urine Turbidity Clear (Clear) 12/20/20 19:22 Urine pH 5.0 (5.0-7.0) 12/20/20 19:22 Ur Specific [place] 1.015 (1.003-1.030) 12/20/20 19:22 Urine Protein <15 mg/dl mg/dL (Negative) 12/20/20 19:22 Urine Glucose (UA) Neg mg/dL (Negative) 12/20/20 19:22 Urine Ketones Neg mg/dL (Negative) 12/20/20 19:22 Urine Blood Neg (Negative) 12/20/20 19:22 Urine Nitrite Neg (Negative) 12/20/20 19:22 Urine Bilirubin Neg (Negative) 12/20/20 19:22 Urine Urobilinogen < 2.0 mg/dL (<2.0) 12/20/20 19:22 Ur Leukocyte Esterase Neg (Negative) 12/20/20 19:22 Urine WBC (Auto) < 1.0 /HPF (0.0-6.0) 12/20/20 19:22 Urine RBC (Auto) 1.0 /HPF (0.0-6.0) 12/20/20 19:22 U Epithel Cells (Auto) 1.0 /HPF (0-13.0) 12/20/20 19:22 Hyaline Casts 1 /LPF 12/20/20 19:22 Urine Mucus Few /HPF 12/20/20 19:22 Urine Opiates Screen Negative 12/20/20 19:23 Urine Methadone Screen Negative 12/20/20 19:23 Ur Barbiturates Screen Negative 12/20/20 19:23 Ur Phencyclidine Scrn Negative 12/20/20 19:23 Ur Amphetamines Screen Negative 12/20/20 19:23 U Benzodiazepines Scrn Negative 12/20/20 19:23 Urine Cocaine Screen Negative 12/20/20 19:23 U Marijuana (THC) Screen Negative 12/20/20 19:23 Drugs of Abuse Note Disclamer 12/20/20 19:23 Plasma/Serum Alcohol < 0.01 % (0-0.07) 12/20/20 19:30 Chance/IV: Voiding Method Urinal Active Medications - Current Medications Current Medications: Generic Name Dose Route Start Last Admin Trade Name Freq PRN Reason Stop Dose Admin Acetaminophen 650 mg 12/20/20 22:10 Acetaminophen 325 Mg Tab PO Q4H PRN Pain MILD(1-3)/Fever >100.5/ARRIAZA Amiodarone HCl 200 mg 12/21/20 10:00 12/21/20 11:13 Amiodarone 200 Mg Tab PO 200 mg QDAY JOHN Administration Aspirin 81 mg 12/22/20 10:00 Aspirin Ec 81 Mg Tab PO QDAY [facility] Atorvastatin Calcium 40 mg 12/21/20 22:00 12/21/20 21:54 Atorvastatin 40 Mg Tab PO 40 mg QHS JOHN Administration Bisacodyl 10 mg 12/20/20 22:10 Bisacodyl 10 Mg Rect Supp MT QDAY PRN Constipation Bumetanide 1 mg 12/22/20 10:00 Bumetanide 1 Mg Tab PO QDAY [facility] Enoxaparin Sodium 150 mg 12/21/20 22:00 12/21/20 21:53 Enoxaparin 150 Mg/1 Ml Inj SUB-Q 150 mg Q12HR JOHN Administration Protocol Hydralazine HCl 100 mg 12/21/20 08:00 12/21/20 21:53 Hydralazine 100 Mg Tab PO 100 mg TID JOHN Administration Levetiracetam 500 mg/ Dextrose 105 mls @ 400 mls/hr 12/21/20 10:00 12/21/20 21:53 IV 400 mls/hr Q12HR JOHN Administration Magnesium Hydroxide 30 ml 12/20/20 22:10 Magnesium Hydroxide (Mom) Oral Liqd Udc PO Q4H PRN Constipation Metoclopramide HCl 5 mg 12/20/20 22:10 Metoclopramide 10 Mg Tab PO Q6H PRN Nausea And Vomiting Metoprolol Succinate 25 mg 12/21/20 08:00 12/21/20 11:33 Metoprolol Succinate Xl 25 Mg Tab PO 25 mg QDAY@0800 JOHN Administration Morphine Sulfate 2 mg 12/20/20 22:10 Morphine 2 Mg/1 Ml Inj IV Q4H PRN Pain, Moderate (4-6) Morphine Sulfate 4 mg 12/20/20 22:10 Morphine 4 Mg/1 Ml Inj IV Q4H PRN Pain , Severe (7-10) Ondansetron HCl 4 mg 12/20/20 22:10 Ondansetron 4 Mg/2 Ml Inj IV Q8H PRN Nausea And Vomiting Promethazine HCl 25 mg 12/20/20 22:10 Promethazine 25 Mg Rect Supp MT Q6H PRN Nausea And Vomiting Sodium Chloride 10 ml 12/21/20 10:00 12/21/20 21:54 Sodium Chloride 0.9% 10 Ml Flush Syringe IV 10 ml BID JOHN Administration Sodium Chloride 10 ml 12/20/20 22:10 Sodium Chloride 0.9% 10 Ml Flush Syringe IV PRN PRN LINE FLUSH Spironolactone 25 mg 12/21/20 10:00 12/21/20 21:53 Spironolactone 25 Mg Tab PO 25 mg BID JOHN Administration Warfarin Sodium 7.5 mg 12/21/20 17:00 12/21/20 17:06 Warfarin 7.5 Mg Tab PO 7.5 mg DAILY@1700 JOHN Administration Protocol Nutrition/Malnutrition Assess - Dietary Evaluation Nutrition/Malnutrition Findings: Nutrition Notes Start: 12/21/20 14:25 Freq: Status: Active Protocol: Document 12/21/20 14:25 HERMINIO (Rec: 12/21/20 14:26 HERMINIO [id number]) Nutrition Notes Need for Assessment generated from: MD Order Initial or Follow up Brief Note Current Diagnosis Hypertension,Heart Failure, Stroke Other Pertinent Diagnosis Seizure Current Diet cardiac Labs/Tests HDL 36 Subjective/Other Information MD consult for diet education. Pt with PT at time of visit. Nutrition Intervention Follow-Up By: 12/22/20 Additional Comments F/u: diet education
[2020-12-22] MEDS: BUMETANIDE 1 MG TAB PO SCH (11:04)
[2020-12-22] MEDS: SPIRONOLACTONE 25 MG TAB PO SCH ×2 (11:04→21:10)
[2020-12-22] MEDS: AMIODARONE 200 MG TAB PO SCH (11:06)
[2020-12-22] MEDS: ENOXAPARIN 150 MG/1 ML INJ SUB-Q SCH ×2 (11:06→21:09)
[2020-12-22] MEDS: METOPROLOL SUCCINATE XL 25 MG TAB PO SCH (11:21)
[2020-12-22] MEDS: ASPIRIN EC 81 MG TAB PO SCH (11:22)
[2020-12-22] MEDS: hydrALAZINE 100 MG TAB PO SCH ×3 (11:22→21:10)
--- NOTE | 2020-12-22 11:55 | Consultation ---
History of Present Illness Consult date: 12/22/20 Consult reason: congestive heart failure, other (Anticoagulation for left ventricular apical thrombus) History of present illness: The patient is a 35-year-old man with a seizure disorder admitted to this hospital following a syncopal episode, during which he was observed with tonic clonic seizure-like motor activity. He was also reported to have appeared postictal after the syncopal episode. There was no palpitations, chest pain or shortness of breath associated with the syncopal episode. In addition to the seizure disorder, he has multiple other comorbidities. He has a longstanding dilated nonischemic cardiomyopathy, and a [employer] cardiac defibrillator in situ. His cardiac outpatient management is at [place]. There was no ICD discharge reported in association with his current syncope. Four years ago, he suffered a CVA which has left him with a residual mild right hemiparesis. 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 He is currently on warfarin therapy, but admits to poor compliance with dietary vitamin K restrictions, and has not had his INR checked in 2 months. Despite his admittedly daily ingestion of his Coumadin dose, the INR was subtherapeutic on this presentation. An echocardiogram on this admission shows a severe cardiomyopathy with left ventricular ejection fraction 20 to 25%, residual, apparently well-healed laminated left ventricular apical thrombus. The echocardiogram findings are unchanged from previous studies done in this hospital several years ago. EKG is in normal sinus rhythm, nonspecific intraventricular conduction delay, and poor R wave progression across the precordium. Past History Past Medical History: heart failure, hypertension, seizures, stroke (With right- sided weakness) Past Surgical History: No surgical history Social history: no significant social history Family history: no significant family history Medications and Allergies Allergies Allergy/AdvReac Type Severity Reaction Status Date / Time No Known Allergies Allergy Verified 08/27/14 07:40 Home Medications Medication Instructions Recorded Confirmed Last Taken Type Aspirin EC [Halfprin EC] 81 mg PO QDAY #30 tablet. 04/24/19 12/21/20 Unknown Rx Warfarin [Coumadin] 7.5 mg PO DAILY@1700 tablet 06/26/19 12/21/20 12/18/20 Rx 7.5 AtorvaSTATin [Lipitor] 40 mg PO QHS 07/15/19 12/21/20 12/19/20 22:00 History Metoprolol Xl [Metoprolol 25 mg PO QDAY 07/15/19 12/21/20 Unknown History SUCCINATE ER TAB] OXcarbazepine [Trileptal] 300 mg PO BID 07/15/19 12/21/20 12/20/20 08:00 History Amiodarone [Cordarone 200 MG TAB] 200 mg PO QDAY #30 tablet 07/19/19 12/21/20 Unknown Rx Bumetanide [Bumex 1 mg tab] 100 mg PO 0600,1800 12/21/20 12/21/20 Unknown History Potassium Chloride [K-Dur] 20 meq PO QDAY 12/21/20 12/21/20 Unknown History Spironolactone [Aldactone] 25 mg PO BID 12/21/20 12/21/20 12/19/20 22:00 History Torsemide [Demadex] 100 mg PO QDAY 12/21/20 12/21/20 Unknown History carvediloL [Coreg] 6.25 mg PO BID 12/21/20 12/21/20 Unknown History hydrALAZINE [Apresoline TAB] 100 mg PO TID 12/21/20 12/21/20 12/19/20 08:00 His tory Active Meds: Active Medications Acetaminophen (Acetaminophen 325 Mg Tab) 650 mg PO Q4H PRN PRN Reason: Pain MILD(1-3)/Fever >100.5/ARRIAZA Amiodarone HCl (Amiodarone 200 Mg Tab) 200 mg PO QDAY [facility] Last Admin: 12/22/20 11:06 Dose: 200 mg Documented by: Aspirin (Aspirin Ec 81 Mg Tab) 81 mg PO QDAY [facility] Last Admin: 12/22/20 11:22 Dose: 81 mg Documented by: Atorvastatin Calcium (Atorvastatin 40 Mg Tab) 40 mg PO QHS [facility] Last Admin: 12/21/20 21:54 Dose: 40 mg Documented by: Bisacodyl (Bisacodyl 10 Mg Rect Supp) 10 mg [place] QDAY PRN PRN Reason: Constipation Bumetanide (Bumetanide 1 Mg Tab) 1 mg PO QDAY [facility] Last Admin: 12/22/20 11:04 Dose: 1 mg Documented by: Enoxaparin Sodium (Enoxaparin 150 Mg/1 Ml Inj) 150 mg SUB-Q Q12HR [facility]; Protocol Last Admin: 12/22/20 11:06 Dose: 150 mg Documented by: Hydralazine HCl (Hydralazine 100 Mg Tab) 100 mg PO TID [facility] Last Admin: 12/22/20 11:22 Dose: 100 mg Documented by: Levetiracetam 500 mg/ Dextrose 105 mls @ 400 mls/hr IV Q12HR [facility] Last Admin: 12/21/20 21:53 Dose: 400 mls/hr Documented by: Magnesium Hydroxide (Magnesium Hydroxide (Mom) Oral Liqd Udc) 30 ml PO Q4H PRN PRN Reason: Constipation Metoclopramide HCl (Metoclopramide 10 Mg Tab) 5 mg PO Q6H PRN PRN Reason: Nausea And Vomiting Metoprolol Succinate (Metoprolol Succinate Xl 25 Mg Tab) 25 mg PO QDAY@0800 [facility] Last Admin: 12/22/20 11:21 Dose: 25 mg Documented by: Morphine Sulfate (Morphine 2 Mg/1 Ml Inj) 2 mg IV Q4H PRN PRN Reason: Pain, Moderate (4-6) Morphine Sulfate (Morphine 4 Mg/1 Ml Inj) 4 mg IV Q4H PRN PRN Reason: Pain , Severe (7-10) Ondansetron HCl (Ondansetron 4 Mg/2 Ml Inj) 4 mg IV Q8H PRN PRN Reason: Nausea And Vomiting Promethazine HCl (Promethazine 25 Mg Rect Supp) 25 mg [place] Q6H PRN PRN Reason: Nausea And Vomiting Sodium Chloride (Sodium Chloride 0.9% 10 Ml Flush Syringe) 10 ml IV BID [facility] Last Admin: 12/22/20 11:25 Dose: 10 ml Documented by: Sodium Chloride (Sodium Chloride 0.9% 10 Ml Flush Syringe) 10 ml IV PRN PRN PRN Reason: LINE FLUSH Spironolactone (Spironolactone 25 Mg Tab) 25 mg PO BID [facility] Last Admin: 12/22/20 11:04 Dose: 25 mg Documented by: Warfarin Sodium (Warfarin 7.5 Mg Tab) 7.5 mg PO DAILY@1700 [facility]; Protocol Last Admin: 12/21/20 17:06 Dose: 7.5 mg Documented by: Review of Systems Cardiovascular: no chest pain, no orthopnea, no palpitations, no rapid/irregular heart beat, no edema, no syncope, no lightheadedness, no shortness of breath Physical Examination Vital Signs Pulse Ox 92 12/20/20 19:24 General appearance: no acute distress HEENT: Positive: PERRL Neck: Positive: neck supple Cardiac: Positive: Reg Rate and Rhythm Lungs: Positive: Decreased Breath Sounds Neuro: Positive: Weakness (Mild right-sided hemiparesis from previous CVA) Abdomen: Positive: Soft Male genitourinary: Positive: deferred Skin: Positive: Clear Extremities: Absent: edema Results 12/21/20 04:28 12/22/20 04:49 Coagulation 12/22/20 Range/Units 04:49 PT 15.3 H (12.2-14.9) Sec. INR 1.16 H (0.87-1.13) Comprehensive Metabolic Panel 12/22/20 Range/Units 04:49 Sodium 138 (137-145) mmol/L Potassium 3.9 (3.6-5.0) mmol/L Chloride 98.7 (98-107) mmol/L Carbon Dioxide 29 (22-30) mmol/L BUN 31 H (9-20) mg/dL Creatinine 1.4 H (0.8-1.3) mg/dL Glucose 92 (75-100) mg/dL Calcium 9.5 (8.4-10.2) mg/dL EKG interpretations - Telemetry EKG Rhythm: Sinus Rhythm Assessment and Plan - Patient Problems (1) Left ventricular apical thrombus Current Visit: Yes Status: Acute Plan to address problem: Patient will be continued on warfarin, target INR 2.0-3.0. He has been counseled on the importance of vitamin K restriction in his diet for optimal Coumadin anticoagulation. He has also been counseled to follow-up as directed w ith his outpatient doctors for INR monitoring of his anticoagulation status. (2) Nonischemic dilated cardiomyopathy Current Visit: Yes Status: Acute Plan to address problem: We will continue guideline directed medical therapy, in addition to salt restricted diet. With regards to his current presentation we will order ICD interrogation to rule out any cardiac arrhythmia that may be associated with syncope.
[2020-12-22] MEDS: levETIRAcetam 500 MG in DEXTROSE 5% IN WATER 100 ML IV SCH ×2 (13:45→21:09)
[2020-12-22] MEDS: WARFARIN 7.5 MG TAB PO SCH (18:40)
[2020-12-23 05:14] LABS: INR 1.1 (0.87-1.13)
[2020-12-23] MEDS: ENOXAPARIN 150 MG/1 ML INJ SUB-Q SCH ×2 (09:09→21:58)
[2020-12-23] MEDS: ASPIRIN EC 81 MG TAB PO SCH (09:09)
[2020-12-23] MEDS: AMIODARONE 200 MG TAB PO SCH (09:10)
[2020-12-23] MEDS: METOPROLOL SUCCINATE XL 25 MG TAB PO SCH (09:10)
[2020-12-23] MEDS: hydrALAZINE 100 MG TAB PO SCH ×3 (09:10→21:59)
[2020-12-23] MEDS: SPIRONOLACTONE 25 MG TAB PO SCH ×2 (09:11→21:58)
[2020-12-23] MEDS: BUMETANIDE 1 MG TAB PO SCH (09:11)
[2020-12-23] MEDS: levETIRAcetam 500 MG in DEXTROSE 5% IN WATER 100 ML IV SCH ×2 (09:12→21:59)
--- NOTE | 2020-12-23 10:29 | Consultation ---
History of Present Illness Consult date: 12/23/20 Reason for Consult: AMS, Seizure Chief complaint: "I just blank out." History of present illness: 35 yo male with seizure d/o, cva, htn, heart failure, LV thrombus (on Coumadi) who presented initially with a c/o a headache and then "blanking out". He was witnessed with a possible post-seizure state. Patient was initiated on Keppra. Patient was on Oxcabamazepine at home. No new clinical seizure during this hospitalization. Notes he has had at elast 3 or 4 seizure eents since the stroke 4 years ago. Notes resudal right-sided (face/rm/leg) weakness since the last stroke. Currently, notes he is at his baseline. Past History Past Medical History: heart failure, hypertension, seizures, stroke (With right- sided weakness) Past Surgical History: No surgical history Social history: no significant social history Family history: no significant family history Medications and Allergies Allergies Allergy/AdvReac Type Severity Reaction Status Date / Time No Known Allergies Allergy Verified 08/27/14 07:40 Home Medications Medication Instructions Recorded Confirmed Last Taken Type Aspirin EC [Halfprin EC] 81 mg PO QDAY #30 tablet. 04/24/19 12/21/20 Unknown Rx Warfarin [Coumadin] 7.5 mg PO DAILY@1700 tablet 06/26/19 12/21/20 12/18/20 Rx 7.5 AtorvaSTATin [Lipitor] 40 mg PO QHS 07/15/19 12/21/20 12/19/20 22:00 History Metoprolol Xl [Metoprolol 25 mg PO QDAY 07/15/19 12/21/20 Unknown History SUCCINATE ER TAB] OXcarbazepine [Trileptal] 300 mg PO BID 07/15/19 12/21/20 12/20/20 08:00 History Amiodarone [Cordarone 200 MG TAB] 200 mg PO QDAY #30 tablet 07/19/19 12/21/20 Unknown Rx Bumetanide [Bumex 1 mg tab] 100 mg PO 0600,1800 12/21/20 12/21/20 Unknown History Potassium Chloride [K-Dur] 20 meq PO QDAY 12/21/20 12/21/20 Unknown History Spironolactone [Aldactone] 25 mg PO BID 08/02/0212/21/20 12/19/20 22:00 History Torsemide [Demadex] 100 mg PO QDAY 12/21/20 12/21/20 Unknown History carvediloL [Coreg] 6.25 mg PO BID 12/21/20 12/21/20 Unknown History hydrALAZINE [Apresoline TAB] 100 mg PO TID 12/21/20 12/21/20 12/19/20 08:00 History Active Meds: Active Medications Acetaminophen (Acetaminophen 325 Mg Tab) 650 mg PO Q4H PRN PRN Reason: Pain MILD(1-3)/Fever >100.5/ARRIAZA Amiodarone HCl (Amiodarone 200 Mg Tab) 200 mg PO QDAY [facility] Last Admin: 12/23/20 09:10 Dose: 200 mg Documented by: Aspirin (Aspirin Ec 81 Mg Tab) 81 mg PO QDAY [facility] Last Admin: 12/23/20 09:09 Dose: 81 mg Documented by: Atorvastatin Calcium (Atorvastatin 40 Mg Tab) 40 mg PO QHS [facility] Last Admin: 12/22/20 21:10 Dose: 40 mg Documented by: Bisacodyl (Bisacodyl 10 Mg Rect Supp) 10 mg [place] QDAY PRN PRN Reason: Constipation Bumetanide (Bumetanide 1 Mg Tab) 1 mg PO QDAY [facility] Last Admin: 12/23/20 09:11 Dose: 1 mg Documented by: Enoxaparin Sodium (Enoxaparin 150 Mg/1 Ml Inj) 150 mg SUB-Q Q12HR [facility]; Protocol Last Admin: 12/23/20 09:09 Dose: 150 mg Documented by: Hydralazine HCl (Hydralazine 100 Mg Tab) 100 mg PO TID [facility] Last Admin: 12/23/20 09:10 Dose: 100 mg Documented by: Levetiracetam 500 mg/ Dextrose 105 mls @ 400 mls/hr IV Q12HR [facility] Last Admin: 12/23/20 09:12 Dose: 400 mls/hr Documented by: Magnesium Hydroxide (Magnesium Hydroxide (Mom) Oral Liqd Udc) 30 ml PO Q4H PRN PRN Reason: Constipation Metoclopramide HCl (Metoclopramide 10 Mg Tab) 5 mg PO Q6H PRN PRN Reason: Nausea And Vomiting Metoprolol Succinate (Metoprolol Succinate Xl 25 Mg Tab) 25 mg PO QDAY@0800 [facility] Last Admin: 12/23/20 09:10 Dose: 25 mg Documented by: Morphine Sulfate (Morphine 2 Mg/1 Ml Inj) 2 mg IV Q4H PRN PRN Reason: Pain, Moderate (4-6) Morphine Sulfate (Morphine 4 Mg/1 Ml Inj) 4 mg IV Q4H PRN PRN Reason: Pain , Severe (7-10) Ondansetron HCl (Ondansetron 4 Mg/2 Ml Inj) 4 mg IV Q8H PRN PRN Reason: Nausea And Vomiting Promethazine HCl (Promethazine 25 Mg Rect Supp) 25 mg [place] Q6H PRN PRN Reason: Nausea And Vomiting Sodium Chloride (Sodium Chloride 0.9% 10 Ml Flush Syringe) 10 ml IV BID [facility] Last Admin: 12/23/20 09:12 Dose: 10 ml Documented by: Sodium Chloride (Sodium Chloride 0.9% 10 Ml Flush Syringe) 10 ml IV PRN PRN PRN Reason: LINE FLUSH Spironolactone (Spironolactone 25 Mg Tab) 25 mg PO BID [facility] Last Admin: 12/23/20 09:11 Dose: 25 mg Documented by: Warfarin Sodium (Warfarin 7.5 Mg Tab) 7.5 mg PO DAILY@1700 [facility]; Protocol Last Admin: 12/22/20 18:40 Dose: 7.5 mg Documented by: Review of Systems All systems: negative (as per HPI;) Physical Examination - Vital Signs Vital Signs: Vital Signs Pulse Ox 92 12/20/20 19:24 - Physical Exam Narrative exam: Gen: nad, well-nourished; Head: normocephalic; Eyes: no gaze deviation; no ptosis; ENT: normal vocalization; CVS: warm and well-perfused; Pulm: no respiratory distress; GI: appears non-distended, protuberant; Ext: no cyanosis at distal extremities; Skin: no acute rash at distal extremities; Heme: no pathologic bruising or ecchymosis at distal extremities; Neuro: alert, oriented to name, age, month, year, surroundings, no dysarthria, no aphasia, CN 2 - PERRL, visual gonzalez with partial right hemianopsia (?homonymous), CN 3, 4, 6 - EOMI, CN 5 - facial sensation symmetric to light touch, CN 7 - mild right facial droop, CN 8 - hearing grossly intact, CN 9, 10 - uvula midline, CN 11 - shrug symmetric, CN 12 - tongue midline; Motor - at least 4/5 at distal RUE; at least 4+/5 at all other extremities; Sensory - light touch symmetric, Cerebellar - fnf /hts intact, Gait - deferred secondary to seizure precautions; Results - Laboratory Findings CBC and BMP: 12/21/20 04:28 12/22/20 04:49 Abnormal Lab Findings: Abnormal Labs 12/20/20 12/20/20 12/20/20 19:30 19:30 20:17 MCH 33 H MCHC 36 H [place] % (Auto) 10.6 H [place] # (Auto) 0.9 H PT INR Sodium 136 L Chloride 96.6 L BUN 28 H Creatinine 1.6 H Glucose 115 H POC Glucose 128 H Magnesium AST 75 H ALT 73 H Total Protein 8.8 H HDL Cholesterol 12/21/20 12/21/20 12/22/20 04:28 04:28 04:49 MCH MCHC [place] % (Auto) 12.4 H [place] # (Auto) PT 15.3 H INR 1.16 H Sodium Chloride BUN 32 H Creatinine 1.7 H Glucose POC Glucose Magnesium AST ALT Total Protein HDL Cholesterol 36 L 12/22/20 12/22/20 12/22/20 04:49 18:09 20:33 MCH MCHC [place] % (Auto) [place] # (Auto) PT INR Sodium Chloride BUN 31 H Creatinine 1.4 H Glucose POC Glucose 122 H 117 H Magnesium 2.40 H AST ALT Total Protein HDL Cholesterol Assessment and Plan 35 yo male with seizure d/o, htn, chf, lv thrombus who presents with likely breakthrough seizure. 1. Seizure do - continue Keppra at 750 mg po bid; ideally prefer EEG as inpatient; followup with neurology in 4 weeks; seizure restrictions until cleared by Neurology; ideally recommend mri brain w wo contrast and mrv head w/o contrast if no contraindication. 2. Hx of Stroke - antiplatelet/anticoagulant therapy and statin therapy. 3. HTN - normotension. 4. CHF - per primary team. 5. Right Hemiapresis - residual from previous stroke 4 years ago; continue home exercises. Gilberto Maldonado MD Neurology [id number]
--- NOTE | 2020-12-23 10:34 | Progress Note ---
Assessment and Plan - Patient Problems (1) Syncope Current Visit: Yes Status: Acute Plan to address problem: Presented with syncope and bystander reported seizure activity. Neurology consultation and management is ongoing. With respect to cardiac status, an ICD interrogation has been recommended and is pending. (2) Left ventricular apical thrombus Current Visit: Yes Status: Acute Plan to address problem: Patient will be continued on warfarin, target INR 2.0-3.0. He has been counseled on the importance of vitamin K restriction in his diet for optimal Coumadin anticoagulation. He has also been counseled to follow-up as directed with his outpatient doctors for INR monitoring of his anticoagulation status. (3) Nonischemic dilated cardiomyopathy Current Visit: Yes Status: Acute Plan to address problem: We will continue guideline directed medical therapy, in addition to salt restricted diet. With regards to his current presentation we will order ICD interrogation to rule out any cardiac arrhythmia that may be associated with syncope. Subjective Date of service: 12/23/20 Interval history: Patient undergoing remote neurology consultation at the time of visit. No cardiac complaints have been reported. His ICD interrogation is pending. Objective Vital Signs Temp Pulse Pulse Resp BP BP Pulse Ox 12/23/20 09:54 78 17 98 12/23/20 09:20 97.4 F L 75 17 115/78 97 12/23/20 09:11 75 119/78 12/23/20 09:10 75 119/78 12/23/20 03:41 97.5 F L 75 14 111/75 97 12/22/20 23:17 98.1 F 81 16 101/54 100 12/22/20 22:00 98 12/22/20 19:16 97.6 F 75 16 114/79 93 12/22/20 18:10 98.2 F 89 18 109/66 97 12/22/20 11:21 75 12/22/20 11:04 75 - Physical Examination General: No Apparent Distress HEENT: Positive: PERRL Neck: Positive: neck supple Cardiac: Positive: Reg Rate and Rhythm Lungs: Positive: Decreased Breath Sounds Neuro: Positive: Weakness (Mild right-sided hemiparesis from previous CVA) Abdomen: Positive: Soft Skin: Positive: Clear Extremities: Absent: edema - Labs and Meds Coagulation 12/23/20 Range/Units 04:05 PT 14.7 (12.2-14.9) Sec. INR 1.10 (0.87-1.13)
[2020-12-23] MEDS: WARFARIN 7.5 MG TAB PO SCH (16:48)
--- NOTE | 2020-12-23 20:56 | Progress Note ---
Assessment and Plan Assessment and plan: --History of LV thrombus; Patient reports that he is compliant with medication However subtherapeutic INR 1.25 We will continue full dose Lovenox on Coumadin therapeutic goal of INR between 2 and 3 Cardiology consult if needed --chronic kidney disease stage III Closely monitor renal function, avoid nephrotoxins Consult nephrology as needed --Acute metabolic encephalopathy Current Visit: Yes Status: Acute Present on admission , probably postictal possibly secondary to seizure-like activity versus a CVA. Resolved patient is alert awake oriented x3 -- Seizure-like activity Current Visit: Yes Status: Acute Patient has been started on Keppra. We will place consult to neurology for evaluation. Patient placed on seizure precautions. Do not drive until cleared by PMD or neurology -- HTN (hypertension) Current Visit: No Status: Chronic Moderate control, continue current antihypertensives As needed medications So there was a --Morbid obesity; BMI 41.5 Current Visit: No Status: Chronic Patient needs weight reduction when medically stable --Hypertension; Current Visit: No Status: Chronic Moderate control, continue current antihypertensives As needed medication continue statin --Dyslipidemia; Current Visit: No Status: Chronic --DVT prophylaxis Current Visit: No Status: Chronic Patient placed on subcutaneous heparin. -- Full code status Current Visit: Yes Status: Acute Patient is full code. We will closely monitor the patient and adjust management as needed 12/22/2020; LV thrombus, on Lovenox and Coumadin Subtherapeutic INR, cardiology consulted 12/23/2020; patient's INR remains subtherapeutic However the INR 2-3, no new episodes of seizures No new episodes of syncope, follow PT evaluation and recommendation Discharge when INR is therapeutic between 2 and 3 History Interval history: Seen and examined the patient at the bedside patient's chart and medications reviewed Patient's INR is subtherapeutic Vital signs noted Patient has no new complaints Hospitalist Physical - Constitutional Vitals: Temp Pulse Resp BP Pulse Ox 97.8 F 78 20 111/65 89 12/23/20 19:17 12/23/20 19:17 12/23/20 19:17 12/23/20 19:17 12/23/20 19:17 General appearance: Present: no acute distress, well-nourished, obese (Morbidly obese) - EENT Eyes: Present: PERRL, EOM intact - Neck Neck: Present: supple, normal ROM - Respiratory Respiratory effort: normal Respiratory: bilateral: diminished, negative: rales, rhonchi, wheezing - Cardiovascular Rhythm: regular Heart Sounds: Present: S1 & S2 - Extremities Extremities: no ischemia, No edema - Abdominal General gastrointestinal: soft, non-tender, non-distended, normal bowel sounds - Integumentary Integumentary: Present: clear, warm - Psychiatric Psychiatric: appropriate mood/affect, cooperative - Neurologic Neurologic: CNII-XII intact, moves all extremities HEART Score - HEART Score Troponin: Troponin T < 0.010 ng/mL (0.00-0.029) 12/20/20 19:30 Results - Labs CBC & Chem 7: 12/21/20 04:28 12/25/20 05:30 Labs: Laboratory Last Values WBC 5.6 K/mm3 (4.5-11.0) 12/21/20 04:28 RBC 4.49 M/mm3 (3.65-5.03) 12/21/20 04:28 Hgb 14.3 gm/dl (11.8-15.2) 12/21/20 04:28 Hct 42.2 % (35.5-45.6) 12/21/20 04:28 MCV 94 fl (84-94) 12/21/20 04:28 MCH 32 pg (28-32) 12/21/20 04:28 MCHC 34 % (32-34) 12/21/20 04:28 RDW 14.0 % (13.2-15.2) 12/21/20 04:28 Plt Count 267 K/mm3 (140-440) 12/21/20 04:28 Lymph % (Auto) 28.4 % (13.4-35.0) 12/21/20 04:28 [place] % (Auto) 12.4 % (0.0-7.3) H 12/21/20 04:28 Eos % (Auto) 2.2 % (0.0-4.3) 12/21/20 04:28 Baso % (Auto) 0.6 % (0.0-1.8) 12/21/20 04:28 Lymph # (Auto) 1.6 K/mm3 (1.2-5.4) 12/21/20 04:28 [place] # (Auto) 0.7 K/mm3 (0.0-0.8) 12/21/20 04:28 Eos # (Auto) 0.1 K/mm3 (0.0-0.4) 12/21/20 04:28 Baso # (Auto) 0.0 K/mm3 (0.0-0.1) 12/21/20 04:28 Seg Neutrophils % 56.4 % (40.0-70.0) 12/21/20 04:28 Seg Neutrophils # 3.2 K/mm3 (1.8-7.7) 12/21/20 04:28 PT 14.7 Sec. (12.2-14.9) 12/23/20 04:05 INR 1.10 (0.87-1.13) 12/23/20 04:05 APTT 25.8 Sec. (24.2-36.6) 12/20/20 19:30 Thrombin Time 15.8 Sec. (15.1-19.6) 12/20/20 19:30 Sodium 138 mmol/L (137-145) 12/22/20 04:49 Potassium 3.9 mmol/L (3.6-5.0) 12/22/20 04:49 Chloride 98.7 mmol/L (98-107) 12/22/20 04:49 Carbon Dioxide 29 mmol/L (22-30) 12/22/20 04:49 Anion Gap 14 mmol/L 12/22/20 04:49 BUN 31 mg/dL (9-20) H 12/22/20 04:49 Creatinine 1.4 mg/dL (0.8-1.3) H 12/22/20 04:49 Estimated GFR > 60 ml/min 12/22/20 04:49 BUN/Creatinine Ratio 22 % 12/22/20 04:49 Glucose 92 mg/dL (75-100) 12/22/20 04:49 POC Glucose 106 mg/dL (70-105) H 12/23/20 16:03 Calcium 9.5 mg/dL (8.4-10.2) 12/22/20 04:49 Magnesium 2.40 mg/dL (1.7-2.3) H 12/22/20 04:49 Total Bilirubin 0.30 mg/dL (0.1-1.2) 12/20/20 19:30 AST 75 units/L (5-40) H 12/20/20 19:30 ALT 73 units/L (7-56) H 12/20/20 19:30 Alkaline Phosphatase 97 units/L (35-129) 12/20/20 19:30 Ammonia 44.0 umol/L (25-60) 12/20/20 19:46 Troponin T < 0.010 ng/mL (0.00-0.029) 12/20/20 19:30 Total Protein 8.8 g/dL (6.3-8.2) H 12/20/20 19:30 Albumin 4.4 g/dL (3.9-5) 12/20/20 19:30 Albumin/Globulin Ratio 1.0 % 12/20/20 19:30 Triglycerides 96 mg/dL (2-149) 12/21/20 04:28 Cholesterol 147 mg/dL (50-199) 12/21/20 04:28 LDL Cholesterol Direct 98 mg/dL (50-130) 12/21/20 04:28 HDL Cholesterol 36 mg/dL (40-59) L 12/21/20 04:28 Cholesterol/HDL Ratio 4.08 % 12/21/20 04:28 TSH 2.190 mlU/mL (0.270-4.200) 12/20/20 19:30 Urine Color Yellow (Yellow) 12/20/20 19:22 Urine Turbidity Clear (Clear) 12/20/20 19:22 Urine pH 5.0 (5.0-7.0) 12/20/20 19:22 Ur Specific [place] 1.015 (1.003-1.030) 12/20/20 19:22 Urine Protein <15 mg/dl mg/dL (Negative) 12/20/20 19:22 Urine Glucose (UA) Neg mg/dL (Negative) 12/20/20 19:22 Urine Ketones Neg mg/dL (Negative) 12/20/20 19:22 Urine Blood Neg (Negative) 12/20/20 19:22 Urine Nitrite Neg (Negative) 12/20/20 19:22 Urine Bilirubin Neg (Negative) 12/20/20 19:22 Urine Urobilinogen < 2.0 mg/dL (<2.0) 12/20/20 19:22 Ur Leukocyte Esterase Neg (Negative) 12/20/20 19:22 Urine WBC (Auto) < 1.0 /HPF (0.0-6.0) 12/20/20 19:22 Urine RBC (Auto) 1.0 /HPF (0.0-6.0) 12/20/20 19:22 U Epithel Cells (Auto) 1.0 /HPF (0-13.0) 12/20/20 19:22 Hyaline Casts 1 /LPF 12/20/20 19:22 Urine Mucus Few /HPF 12/20/20 19:22 Urine Opiates Screen Negative 12/20/20 19:23 Urine Methadone Screen Negative 12/20/20 19:23 Ur Barbiturates Screen Negative 12/20/20 19:23 Ur Phencyclidine Scrn Negative 12/20/20 19:23 Ur Amphetamines Screen Negative 12/20/20 19:23 U Benzodiazepines Scrn Negative 12/20/20 19:23 Urine Cocaine Screen Negative 12/20/20 19:23 U Marijuana (THC) Screen Negative 12/20/20 19:23 Drugs of Abuse Note Disclamer 12/20/20 19:23 Plasma/Serum Alcohol < 0.01 % (0-0.07) 12/20/20 19:30 Chance/IV: Voiding Method Urinal Active Medications - Current Medications Current Medications: Generic Name Dose Route Start Last Admin Trade Name Freq PRN Reason Stop Dose Admin Acetaminophen 650 mg 12/20/20 22:10 Acetaminophen 325 Mg Tab PO Q4H PRN Pain MILD(1-3)/Fever >100.5/ARRIAZA Amiodarone HCl 200 mg 12/21/20 10:00 12/23/20 09:10 Amiodarone 200 Mg Tab PO 200 mg QDAY JOHN Administration Aspirin 81 mg 12/22/20 10:00 12/23/20 09:09 Aspirin Ec 81 Mg Tab PO 81 mg QDAY JOHN Administration Atorvastatin Calcium 40 mg 12/21/20 22:00 12/22/20 21:10 Atorvastatin 40 Mg Tab PO 40 mg QHS JOHN Administration Bisacodyl 10 mg 12/20/20 22:10 Bisacodyl 10 Mg Rect Supp SC QDAY PRN Constipation Bumetanide 1 mg 12/22/20 10:00 12/23/20 09:11 Bumetanide 1 Mg Tab PO 1 mg QDAY JOHN Administration Enoxaparin Sodium 150 mg 12/21/20 22:00 12/23/20 09:09 Enoxaparin 150 Mg/1 Ml Inj SUB-Q 150 mg Q12HR JOHN Administration Protocol Hydralazine HCl 100 mg 12/21/20 08:00 12/23/20 13:55 Hydralazine 100 Mg Tab PO 100 mg TID JOHN Administration Levetiracetam 500 mg/ Dextrose 105 mls @ 400 mls/hr 12/21/20 10:00 12/23/20 09:12 IV 12/23/20 23:59 400 mls/hr Q12HR JOHN Administration Levetiracetam 500 mg 12/24/20 10:00 Levetiracetam 500 Mg/5 Ml Oral Liqd PO BID JOHN Magnesium Hydroxide 30 ml 12/20/20 22:10 Magnesium Hydroxide (Mom) Oral Liqd Udc PO Q4H PRN Constipation Metoclopramide HCl 5 mg 12/20/20 22:10 Metoclopramide 10 Mg Tab PO Q6H PRN Nausea And Vomiting Metoprolol Succinate 25 mg 12/21/20 08:00 12/23/20 09:10 Metoprolol Succinate Xl 25 Mg Tab PO 25 mg QDAY@0800 JOHN Administration Morphine Sulfate 2 mg 12/20/20 22:10 Morphine 2 Mg/1 Ml Inj IV Q4H PRN Pain, Moderate (4-6) Morphine Sulfate 4 mg 12/20/20 22:10 Morphine 4 Mg/1 Ml Inj IV Q4H PRN Pain , Severe (7-10) Ondansetron HCl 4 mg 12/20/20 22:10 Ondansetron 4 Mg/2 Ml Inj IV Q8H PRN Nausea And Vomiting Promethazine HCl 25 mg 12/20/20 22:10 Promethazine 25 Mg Rect Supp SC Q6H PRN Nausea And Vomiting Sodium Chloride 10 ml 12/21/20 10:00 12/23/20 09:12 Sodium Chloride 0.9% 10 Ml Flush Syringe IV 10 ml BID JOHN Administration Sodium Chloride 10 ml 12/20/20 22:10 Sodium Chloride 0.9% 10 Ml Flush Syringe IV PRN PRN LINE FLUSH Spironolactone 25 mg 12/21/20 10:00 12/23/20 09:11 Spironolactone 25 Mg Tab PO 25 mg BID JOHN Administration Warfarin Sodium 7.5 mg 12/21/20 17:00 12/23/20 16:48 Warfarin 7.5 Mg Tab PO 7.5 mg DAILY@1700 [facility] Administration Protocol Nutrition/Malnutrition Assess - Dietary Evaluation Nutrition/Malnutrition Findings: Nutrition Notes Start: 12/21/20 14:25 Freq: Status: Active Protocol: Document 12/22/20 11:49 MK (Rec: 12/22/20 11:52 MK [id number]) Nutrition Notes Need for Assessment generated from: Education Initial or Follow up Brief Note Current Diagnosis Hypertension,Heart Failure, Stroke Other Pertinent Diagnosis Seizure Current Diet cardiac Pertinent Medications Coumadin Subjective/Other Information Pt reports trying to eat healthier. Gave pt Coumdin education and heart healthy tips. Pt not eating carbs and states feeling very tired. Encouraged pt to eat well balanced diet. #1 Nutrition Diagnosis Food and nutrition-related knowledge deficit Etiology no prior diet education As Evidenced by Signs and Symptoms pt had questions about vitamin K interaction and heart healthy foods Nutrition Intervention Teaching Recipient Patient Learning Readiness Good Teaching Methods Discussion,Handout Response to Teaching Verbalize understanding Education Handouts Provided Vitamin K and Medications Heart Healthy Nutrition Barriers to Learning No Barriers RD phone number provided Yes Patient aware of follow up options Yes Revisit per MD consult or patient Sign Off request:
[2020-12-24 07:04] LABS: INR 1.14 (0.87-1.13)
--- NOTE | 2020-12-24 10:44 | Progress Note ---
Assessment and Plan Assessment and plan: --Chronic kidney disease stage III; Closely monitor renal function, avoid nephrotoxins Consult nephrology as needed --Acute metabolic encephalopathy Current Visit: Yes Status: Acute Present on admission , probably postictal possibly secondary to seizure-like activity versus a CVA. Resolved patient is alert awake oriented x3 -- Seizure-like activity Current Visit: Yes Status: Acute Patient has been started on Keppra. We will place consult to neurology for evaluation. Patient placed on seizure precautions. Do not drive until cleared by PMD or neurology --History of LV thrombus; Patient reports that he is compliant with medication However subtherapeutic INR on presentation We will continue full dose Lovenox on Coumadin therapeutic goal of INR between 2 and 3 Cardiology consult if needed -- HTN (hypertension) Current Visit: No Status: Chronic Moderate control, continue current antihypertensives As needed medications So there was a --Morbid obesity; BMI 41.5 Current Visit: No Status: Chronic Patient needs weight reduction when medically stable --Hypertension; Current Visit: No Status: Chronic Moderate control, continue current antihypertensives As needed medication continue statin --Dyslipidemia; Current Visit: No Status: Chronic --DVT prophylaxis Current Visit: No Status: Chronic Patient placed on subcutaneous heparin. -- Full code status Current Visit: Yes Status: Acute Patient is full code. We will closely monitor the patient and adjust management as needed 12/22/2020; LV thrombus, on Lovenox and Coumadin Subtherapeutic INR, cardiology consulted 12/23/2020; patient's INR remains subtherapeutic However the INR 2-3, no new episodes of seizures No new episodes of syncope, follow PT evaluation and recommendation Discharge when INR is therapeutic between 2 and 3 12/24/2020; INR remains subtherapeutic Pharmacy monitoring Ambulate as tolerated History Interval history: I seen and examined the patient at the bedside No new events reported by the nursing Patient has no new complaints Vital signs noted Hospitalist Physical - Constitutional Vitals: Temp Pulse Resp BP Pulse Ox 98.6 F 79 20 106/70 95 12/24/20 07:32 12/24/20 07:32 12/24/20 07:32 12/24/20 07:32 12/24/20 07:32 General appearance: Present: no acute distress, well-nourished, obese (Morbidly obese) - EENT Eyes: Present: PERRL, EOM intact - Neck Neck: Present: supple, normal ROM - Respiratory Respiratory effort: normal Respiratory: bilateral: diminished, negative: rales, rhonchi, wheezing - Cardiovascular Rhythm: regular Heart Sounds: Present: S1 & S2 - Extremities Extremities: no ischemia, No edema - Abdominal General gastrointestinal: soft, non-tender, non-distended, normal bowel sounds - Integumentary Integumentary: Present: clear, warm - Psychiatric Psychiatric: appropriate mood/affect, cooperative - Neurologic Neurologic: CNII-XII intact, moves all extremities HEART Score - HEART Score Troponin: Troponin T < 0.010 ng/mL (0.00-0.029) 12/20/20 19:30 Results - Labs CBC & Chem 7: 12/21/20 04:28 12/25/20 05:30 Labs: Laboratory Last Values WBC 5.6 K/mm3 (4.5-11.0) 12/21/20 04:28 RBC 4.49 M/mm3 (3.65-5.03) 12/21/20 04:28 Hgb 14.3 gm/dl (11.8-15.2) 12/21/20 04:28 Hct 42.2 % (35.5-45.6) 12/21/20 04:28 MCV 94 fl (84-94) 12/21/20 04:28 MCH 32 pg (28-32) 12/21/20 04:28 MCHC 34 % (32-34) 12/21/20 04:28 RDW 14.0 % (13.2-15.2) 12/21/20 04:28 Plt Count 267 K/mm3 (140-440) 12/21/20 04:28 Lymph % (Auto) 28.4 % (13.4-35.0) 12/21/20 04:28 [place] % (Auto) 12.4 % (0.0-7.3) H 12/21/20 04:28 Eos % (Auto) 2.2 % (0.0-4.3) 12/21/20 04:28 Baso % (Auto) 0.6 % (0.0-1.8) 12/21/20 04:28 Lymph # (Auto) 1.6 K/mm3 (1.2-5.4) 12/21/20 04:28 [place] # (Auto) 0.7 K/mm3 (0.0-0.8) 12/21/20 04:28 Eos # (Auto) 0.1 K/mm3 (0.0-0.4) 12/21/20 04:28 Baso # (Auto) 0.0 K/mm3 (0.0-0.1) 12/21/20 04:28 Seg Neutrophils % 56.4 % (40.0-70.0) 12/21/20 04:28 Seg Neutrophils # 3.2 K/mm3 (1.8-7.7) 12/21/20 04:28 PT 15.1 Sec. (12.2-14.9) H 12/24/20 05:15 INR 1.14 (0.87-1.13) H 12/24/20 05:15 APTT 25.8 Sec. (24.2-36.6) 12/20/20 19:30 Thrombin Time 15.8 Sec. (15.1-19.6) 12/20/20 19:30 Sodium 138 mmol/L (137-145) 12/22/20 04:49 Potassium 3.9 mmol/L (3.6-5.0) 12/22/20 04:49 Chloride 98.7 mmol/L (98-107) 12/22/20 04:49 Carbon Dioxide 29 mmol/L (22-30) 12/22/20 04:49 Anion Gap 14 mmol/L 12/22/20 04:49 BUN 31 mg/dL (9-20) H 12/22/20 04:49 Creatinine 1.4 mg/dL (0.8-1.3) H 12/22/20 04:49 Estimated GFR > 60 ml/min 12/22/20 04:49 BUN/Creatinine Ratio 22 % 12/22/20 04:49 Glucose 92 mg/dL (75-100) 12/22/20 04:49 POC Glucose 72 mg/dL (70-105) 12/24/20 07:30 Calcium 9.5 mg/dL (8.4-10.2) 12/22/20 04:49 Magnesium 2.40 mg/dL (1.7-2.3) H 12/22/20 04:49 Total Bilirubin 0.30 mg/dL (0.1-1.2) 12/20/20 19:30 AST 75 units/L (5-40) H 12/20/20 19:30 ALT 73 units/L (7-56) H 12/20/20 19:30 Alkaline Phosphatase 97 units/L (35-129) 12/20/20 19:30 Ammonia 44.0 umol/L (25-60) 12/20/20 19:46 Troponin T < 0.010 ng/mL (0.00-0.029) 12/20/20 19:30 Total Protein 8.8 g/dL (6.3-8.2) H 12/20/20 19:30 Albumin 4.4 g/dL (3.9-5) 12/20/20 19:30 Albumin/Globulin Ratio 1.0 % 12/20/20 19:30 Triglycerides 96 mg/dL (2-149) 12/21/20 04:28 Cholesterol 147 mg/dL (50-199) 12/21/20 04:28 LDL Cholesterol Direct 98 mg/dL (50-130) 12/21/20 04:28 HDL Cholesterol 36 mg/dL (40-59) L 12/21/20 04:28 Cholesterol/HDL Ratio 4.08 % 12/21/20 04:28 TSH 2.190 mlU/mL (0.270-4.200) 12/20/20 19:30 Urine Color Yellow (Yellow) 12/20/20 19:22 Urine Turbidity Clear (Clear) 12/20/20 19:22 Urine pH 5.0 (5.0-7.0) 12/20/20 19:22 Ur Specific [place] 1.015 (1.003-1.030) 12/20/20 19:22 Urine Protein <15 mg/dl mg/dL (Negative) 12/20/20 19:22 Urine Glucose (UA) Neg mg/dL (Negative) 12/20/20 19:22 Urine Ketones Neg mg/dL (Negative) 12/20/20 19:22 Urine Blood Neg (Negative) 12/20/20 19:22 Urine Nitrite Neg (Negative) 12/20/20 19:22 Urine Bilirubin Neg (Negative) 12/20/20 19:22 Urine Urobilinogen < 2.0 mg/dL (<2.0) 12/20/20 19:22 Ur Leukocyte Esterase Neg (Negative) 12/20/20 19:22 Urine WBC (Auto) < 1.0 /HPF (0.0-6.0) 12/20/20 19:22 Urine RBC (Auto) 1.0 /HPF (0.0-6.0) 12/20/20 19:22 U Epithel Cells (Auto) 1.0 /HPF (0-13.0) 12/20/20 19:22 Hyaline Casts 1 /LPF 12/20/20 19:22 Urine Mucus Few /HPF 12/20/20 19:22 Urine Opiates Screen Negative 12/20/20 19:23 Urine Methadone Screen Negative 12/20/20 19:23 Ur Barbiturates Screen Negative 12/20/20 19:23 Ur Phencyclidine Scrn Negative 12/20/20 19:23 Ur Amphetamines Screen Negative 12/20/20 19:23 U Benzodiazepines Scrn Negative 12/20/20 19:23 Urine Cocaine Screen Negative 12/20/20 19:23 U Marijuana (THC) Screen Negative 12/20/20 19:23 Drugs of Abuse Note Disclamer 12/20/20 19:23 Plasma/Serum Alcohol < 0.01 % (0-0.07) 12/20/20 19:30 Chance/IV: Voiding Method Toilet Active Medications - Current Medications Current Medications: Generic Name Dose Route Start Last Admin Trade Name Freq PRN Reason Stop Dose Admin Acetaminophen 650 mg 12/20/20 22:10 Acetaminophen 325 Mg Tab PO Q4H PRN Pain MILD(1-3)/Fever >100.5/ARRIAZA Amiodarone HCl 200 mg 12/21/20 10:00 12/23/20 09:10 Amiodarone 200 Mg Tab PO 200 mg QDAY JOHN Administration Aspirin 81 mg 12/22/20 10:00 12/23/20 09:09 Aspirin Ec 81 Mg Tab PO 81 mg QDAY JOHN Administration Atorvastatin Calcium 40 mg 12/21/20 22:00 12/23/20 21:59 Atorvastatin 40 Mg Tab PO 40 mg QHS JOHN Administration Bisacodyl 10 mg 12/20/20 22:10 Bisacodyl 10 Mg Rect Supp [place] QDAY PRN Constipation Bumetanide 1 mg 12/22/20 10:00 12/23/20 09:11 Bumetanide 1 Mg Tab PO 1 mg QDAY JOHN Administration Enoxaparin Sodium 150 mg 12/21/20 22:00 12/23/20 21:58 Enoxaparin 150 Mg/1 Ml Inj SUB-Q 150 mg Q12HR JOHN Administration Protocol Hydralazine HCl 100 mg 12/21/20 08:00 12/23/20 21:59 Hydralazine 100 Mg Tab PO 100 mg TID [facility] Administration Levetiracetam 500 mg 12/24/20 10:00 Levetiracetam 500 Mg/5 Ml Oral Liqd PO BID JOHN Magnesium Hydroxide 30 ml 12/20/20 22:10 Magnesium Hydroxide (Mom) Oral Liqd Udc PO Q4H PRN Constipation Metoclopramide HCl 5 mg 12/20/20 22:10 Metoclopramide 10 Mg Tab PO Q6H PRN Nausea And Vomiting Metoprolol Succinate 25 mg 12/21/20 08:00 12/23/20 09:10 Metoprolol Succinate Xl 25 Mg Tab PO 25 mg QDAY@0800 [facility] Administration Morphine Sulfate 2 mg 12/20/20 22:10 Morphine 2 Mg/1 Ml Inj IV Q4H PRN Pain, Moderate (4-6) Morphine Sulfate 4 mg 12/20/20 22:10 Morphine 4 Mg/1 Ml Inj IV Q4H PRN Pain , Severe (7-10) Ondansetron HCl 4 mg 12/20/20 22:10 Ondansetron 4 Mg/2 Ml Inj IV Q8H PRN Nausea And Vomiting Promethazine HCl 25 mg 12/20/20 22:10 Promethazine 25 Mg Rect Supp [place] Q6H PRN Nausea And Vomiting Sodium Chloride 10 ml 12/21/20 10:00 12/23/20 21:58 Sodium Chloride 0.9% 10 Ml Flush Syringe IV 10 ml BID JOHN Administration Sodium Chloride 10 ml 12/20/20 22:10 Sodium Chloride 0.9% 10 Ml Flush Syringe IV PRN PRN LINE FLUSH Spironolactone 25 mg 12/21/20 10:00 12/23/20 21:58 Spironolactone 25 Mg Tab PO 25 mg BID [facility] Administration Warfarin Sodium 10 mg 12/24/20 17:00 Warfarin 10 Mg Tab PO DAILY@1700 [facility] Nutrition/Malnutrition Assess - Dietary Evaluation Nutrition/Malnutrition Findings: Nutrition Notes Start: 12/21/20 14:25 Freq: Status: Active Protocol: Document 12/22/20 11:49 HERMINIO (Rec: 12/22/20 11:52 HERMINIO [id number]) Nutrition Notes Need for Assessment generated from: Education Initial or Follow up Brief Note Current Diagnosis Hypertension,Heart Failure, Stroke Other Pertinent Diagnosis Seizure Current Diet cardiac Pertinent Medications Coumadin Subjective/Other Information Pt reports trying to eat healthier. Gave pt Coumdin education and heart healthy tips. Pt not eating carbs and states feeling very tired. Encouraged pt to eat well balanced diet. #1 Nutrition Diagnosis Food and nutrition-related knowledge deficit Etiology no prior diet education As Evidenced by Signs and Symptoms pt had questions about vitamin K interaction and heart healthy foods Nutrition Intervention Teaching Recipient Patient Learning Readiness Good Teaching Methods Discussion,Handout Response to Teaching Verbalize understanding Education Handouts Provided Vitamin K and Medications Heart Healthy Nutrition Barriers to Learning No Barriers RD phone number provided Yes Patient aware of follow up options Yes Revisit per MD consult or patient Sign Off request:
[2020-12-24] MEDS: METOPROLOL SUCCINATE XL 25 MG TAB PO SCH (11:22)
[2020-12-24] MEDS: BUMETANIDE 1 MG TAB PO SCH (11:23)
[2020-12-24] MEDS: ASPIRIN EC 81 MG TAB PO SCH (11:23)
[2020-12-24] MEDS: SPIRONOLACTONE 25 MG TAB PO SCH ×2 (11:26→21:05)
[2020-12-24] MEDS: ENOXAPARIN 150 MG/1 ML INJ SUB-Q SCH ×2 (11:26→21:04)
[2020-12-24] MEDS: levETIRAcetam 500 MG/5 ML ORAL LIQD PO SCH ×2 (11:26→21:07)
[2020-12-24] MEDS: AMIODARONE 200 MG TAB PO SCH (11:28)
[2020-12-24] MEDS: hydrALAZINE 100 MG TAB PO SCH ×3 (11:28→20:55)
--- NOTE | 2020-12-24 12:50 | Progress Note ---
Assessment and Plan Syncope bystander reported seizure activity. Presence of ICD ([place]) interrogation reports no evidence of cardiac arrhythmias. Normal functioning device. Hx of Left ventricular apical thrombus INR sub-therapeutic on presentation Warfarin resumed, target INR 2.0-3.0. Hx Non-ischemic dilated cardiomyopathy Hx of Seizure disorder Prior CVA Continue warfarin with target INR 2-3.0. Advised compliance with his medications and outpatient INR monitoring. Continue guideline directed medical therapy for nonischemic cardiomyopathy. Otherwise, conservative cardiac management. Subjective Date of service: 12/24/20 Interval history: No cardiac complaints. ICD interrogation reports normal function device. No AICD discharges and no evidence of arrhythmias. Objective Vital Signs Temp Pulse Pulse Resp BP BP Pulse Ox 12/24/20 11:26 79 106/70 12/24/20 11:22 79 106/70 12/24/20 07:32 98.6 F 79 20 106/70 95 12/24/20 04:25 97.3 F L 72 18 133/78 94 12/23/20 23:09 98.3 F 84 20 130/72 94 12/23/20 22:00 78 17 98 12/23/20 21:58 78 111/65 12/23/20 19:17 97.8 F 78 20 111/65 89 12/23/20 17:58 98.1 F 89 17 124/77 98 12/23/20 14:04 97.6 F 75 17 117/75 98 - Physical Examination General: No Apparent Distress HEENT: Positive: PERRL Neck: Positive: neck supple Cardiac: Positive: Reg Rate and Rhythm Lungs: Positive: Decreased Breath Sounds Neuro: Positive: Weakness (Mild right-sided 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 INR 1.14 H (0.87-1.13)
[2020-12-24] MEDS: WARFARIN 10 MG TAB PO SCH (16:39)
[2020-12-25 06:00] LABS: INR 1.25 (0.87-1.13)
[2020-12-25] MEDS: ASPIRIN EC 81 MG TAB PO SCH (09:40)
[2020-12-25] MEDS: BUMETANIDE 1 MG TAB PO SCH (09:40)
[2020-12-25] MEDS: SPIRONOLACTONE 25 MG TAB PO SCH ×2 (09:40→22:01)
[2020-12-25] MEDS: AMIODARONE 200 MG TAB PO SCH (09:40)
[2020-12-25] MEDS: levETIRAcetam 500 MG/5 ML ORAL LIQD PO SCH ×2 (09:40→22:01)
[2020-12-25] MEDS: METOPROLOL SUCCINATE XL 25 MG TAB PO SCH (09:41)
[2020-12-25] MEDS: hydrALAZINE 100 MG TAB PO SCH ×3 (09:41→22:02)
[2020-12-25] MEDS: ENOXAPARIN 150 MG/1 ML INJ SUB-Q SCH ×2 (09:44→22:00)
--- NOTE | 2020-12-25 10:36 | Progress Note ---
Assessment and Plan - Patient Problems (1) Syncope Current Visit: Yes Status: Acute Plan to address problem: Patient is undergoing work-up for syncope due to possible seizures. Defer management to internal medicine and neurology. Cardiac evaluation with ICD interrogation found no cardiac dysrhythmias associated with his syncope. (2) Left ventricular apical thrombus Current Visit: Yes Status: Acute Plan to address problem: History of laminated left ventricular apical thrombus, on chronic warfarin therapy. (3) Nonischemic dilated cardiomyopathy Current Visit: Yes Status: Acute Plan to address problem: Medical therapy for dilated, nonischemic cardiomyopathy and chronic left ventricular systolic failure. Subjective Date of service: 12/25/20 Interval history: Patient is comfortable, alert and oriented x3, no new cardiac complaints. Objective Vital Signs Temp Pulse Resp BP BP Pulse Ox 12/25/20 09:41 72 122/76 12/25/20 09:40 72 122/76 12/25/20 09:22 97.7 F 72 20 122/76 98 12/25/20 04:06 97.6 F 82 18 117/70 95 12/24/20 23:33 97.8 F 80 18 110/68 96 12/24/20 22:00 94 12/24/20 21:05 81 115/63 12/24/20 19:21 97.5 F L 81 19 115/63 96 12/24/20 11:28 94 12/24/20 11:26 79 106/70 12/24/20 11:22 79 106/70 12/24/20 11:10 97.9 F 77 18 116/64 96 - Physical Examination General: Appears Well, No Apparent Distress HEENT: Positive: PERRL Neck: Positive: neck supple Cardiac: Positive: Reg Rate and Rhythm Lungs: Positive: clear to auscultation Neuro: Positive: Weakness (Mild right-sided hemiparesis from previous CVA) Abdomen: Positive: Soft Skin: Positive: Clear Extremities: Absent: edema - Labs and Meds Coagulation 12/25/20 Range/Units 05:03 PT 16.3 H (12.2-14.9) Sec. INR 1.25 H (0.87-1.13) Comprehensive Metabolic Panel 12/25/20 Range/Units 05:30 Potassium 4.2 (3.6-5.0) mmol/L
--- NOTE | 2020-12-25 11:10 | Progress Note ---
Assessment and Plan Assessment and plan: --Chronic kidney disease stage III; Closely monitor renal function, avoid nephrotoxins Consult nephrology as needed --Acute metabolic encephalopathy Current Visit: Yes Status: Acute Present on admission , probably postictal possibly secondary to seizure-like activity versus a CVA. Resolved patient is alert awake oriented x3 -- Seizure-like activity Current Visit: Yes Status: Acute Patient has been started on Keppra. We will place consult to neurology for evaluation. Patient placed on seizure precautions. Do not drive until cleared by PMD or neurology --History of LV thrombus; Patient reports that he is compliant with medication However subtherapeutic INR on presentation We will continue full dose Lovenox on Coumadin goal of INR between 2 and 3 Cardiology consult if needed -- HTN (hypertension) Current Visit: No Status: Chronic Moderate control, continue current antihypertensives As needed medications So there was a --Morbid obesity; BMI 41.5 Current Visit: No Status: Chronic Patient needs weight reduction when medically stable --Hypertension; Current Visit: No Status: Chronic Moderate control, continue current antihypertensives As needed medication continue statin --Dyslipidemia; Current Visit: No Status: Chronic --DVT prophylaxis Current Visit: No Status: Chronic Patient placed on subcutaneous heparin. -- Full code status Current Visit: Yes Status: Acute Patient is full code. We will closely monitor the patient and adjust management as needed 35-year-old morbidly obese male patient with history of LV thrombus on Coumadin Clinic complaints however INR was subtherapeutic admitted with syncope and headache Work-up is negative, patient is receiving full dose Lovenox and Coumadin target INR 2-3 When patient restarted Tylenol may be discharged home 12/22/2020; LV thrombus, on Lovenox and Coumadin Subtherapeutic INR, cardiology consulted 12/23/2020; patient's INR remains subtherapeutic However the INR 2-3, no new episodes of seizures No new episodes of syncope, follow PT evaluation and recommendation Discharge when INR is therapeutic between 2 and 3 12/24/2020; INR remains subtherapeutic Pharmacy monitoring Ambulate as tolerated 12/25/2020; no new episodes of seizure, no headache INR remains subtherapeutic. Target INR 2-3 Pharmacy following Follow PT OT evaluation recommendation Discharge when INR is between 2 and 3 History Interval history: I have seen and examined the patient at the bedside Patient's chart and medications reviewed No new complaints Vital signs noted Hospitalist Physical - Constitutional Vitals: Temp Pulse Resp BP Pulse Ox 97.7 F 72 20 122/76 98 12/25/20 09:22 12/25/20 09:41 12/25/20 09:22 12/25/20 09:41 12/25/20 09:22 General appearance: Present: no acute distress, well-nourished, obese (Morbidly obese) - EENT Eyes: Present: PERRL, EOM intact - Neck Neck: Present: supple, normal ROM - Respiratory Respiratory effort: normal Respiratory: bilateral: diminished, negative: rales, rhonchi, wheezing - Cardiovascular Rhythm: regular Heart Sounds: Present: S1 & S2 - Extremities Extremities: no ischemia, No edema - Abdominal General gastrointestinal: soft, non-tender, non-distended, normal bowel sounds - Integumentary Integumentary: Present: clear, warm - Psychiatric Psychiatric: appropriate mood/affect, cooperative - Neurologic Neurologic: CNII-XII intact, moves all extremities HEART Score - HEART Score Troponin: Troponin T < 0.010 ng/mL (0.00-0.029) 12/20/20 19:30 Results - Labs CBC & Chem 7: 12/21/20 04:28 12/25/20 05:30 Labs: Laboratory Last Values WBC 5.6 K/mm3 (4.5-11.0) 12/21/20 04:28 RBC 4.49 M/mm3 (3.65-5.03) 12/21/20 04:28 Hgb 14.3 gm/dl (11.8-15.2) 12/21/20 04:28 Hct 42.2 % (35.5-45.6) 12/21/20 04:28 MCV 94 fl (84-94) 12/21/20 04:28 MCH 32 pg (28-32) 12/21/20 04:28 MCHC 34 % (32-34) 12/21/20 04:28 RDW 14.0 % (13.2-15.2) 12/21/20 04:28 Plt Count 267 K/mm3 (140-440) 12/21/20 04:28 Lymph % (Auto) 28.4 % (13.4-35.0) 12/21/20 04:28 [place] % (Auto) 12.4 % (0.0-7.3) H 12/21/20 04:28 Eos % (Auto) 2.2 % (0.0-4.3) 12/21/20 04:28 Baso % (Auto) 0.6 % (0.0-1.8) 12/21/20 04:28 Lymph # (Auto) 1.6 K/mm3 (1.2-5.4) 12/21/20 04:28 [place] # (Auto) 0.7 K/mm3 (0.0-0.8) 12/21/20 04:28 Eos # (Auto) 0.1 K/mm3 (0.0-0.4) 12/21/20 04:28 Baso # (Auto) 0.0 K/mm3 (0.0-0.1) 12/21/20 04:28 Seg Neutrophils % 56.4 % (40.0-70.0) 12/21/20 04:28 Seg Neutrophils # 3.2 K/mm3 (1.8-7.7) 12/21/20 04:28 PT 16.3 Sec. (12.2-14.9) H 12/25/20 05:03 INR 1.25 (0.87-1.13) H 12/25/20 05:03 APTT 25.8 Sec. (24.2-36.6) 12/20/20 19:30 Thrombin Time 15.8 Sec. (15.1-19.6) 12/20/20 19:30 Sodium 138 mmol/L (137-145) 12/22/20 04:49 Potassium 4.2 mmol/L (3.6-5.0) 12/25/20 05:30 Chloride 98.7 mmol/L (98-107) 12/22/20 04:49 Carbon Dioxide 29 mmol/L (22-30) 12/22/20 04:49 Anion Gap 14 mmol/L 12/22/20 04:49 BUN 31 mg/dL (9-20) H 12/22/20 04:49 Creatinine 1.4 mg/dL (0.8-1.3) H 12/22/20 04:49 Estimated GFR > 60 ml/min 12/22/20 04:49 BUN/Creatinine Ratio 22 % 12/22/20 04:49 Glucose 92 mg/dL (75-100) 12/22/20 04:49 POC Glucose 97 mg/dL (70-105) 12/24/20 20:28 Calcium 9.5 mg/dL (8.4-10.2) 12/22/20 04:49 Magnesium 2.40 mg/dL (1.7-2.3) H 12/22/20 04:49 Total Bilirubin 0.30 mg/dL (0.1-1.2) 12/20/20 19:30 AST 75 units/L (5-40) H 12/20/20 19:30 ALT 73 units/L (7-56) H 12/20/20 19:30 Alkaline Phosphatase 97 units/L (35-129) 12/20/20 19:30 Ammonia 44.0 umol/L (25-60) 12/20/20 19:46 Troponin T < 0.010 ng/mL (0.00-0.029) 12/20/20 19:30 Total Protein 8.8 g/dL (6.3-8.2) H 12/20/20 19:30 Albumin 4.4 g/dL (3.9-5) 12/20/20 19:30 Albumin/Globulin Ratio 1.0 % 12/20/20 19:30 Triglycerides 96 mg/dL (2-149) 12/21/20 04:28 Cholesterol 147 mg/dL (50-199) 12/21/20 04:28 LDL Cholesterol Direct 98 mg/dL (50-130) 12/21/20 04:28 HDL Cholesterol 36 mg/dL (40-59) L 12/21/20 04:28 Cholesterol/HDL Ratio 4.08 % 12/21/20 04:28 TSH 2.190 mlU/mL (0.270-4.200) 12/20/20 19:30 Urine Color Yellow (Yellow) 12/20/20 19:22 Urine Turbidity Clear (Clear) 12/20/20 19:22 Urine pH 5.0 (5.0-7.0) 12/20/20 19:22 Ur Specific [place] 1.015 (1.003-1.030) 12/20/20 19:22 Urine Protein <15 mg/dl mg/dL (Negative) 12/20/20 19:22 Urine Glucose (UA) Neg mg/dL (Negative) 12/20/20 19:22 Urine Ketones Neg mg/dL (Negative) 12/20/20 19:22 Urine Blood Neg (Negative) 12/20/20 19:22 Urine Nitrite Neg (Negative) 12/20/20 19:22 Urine Bilirubin Neg (Negative) 12/20/20 19:22 Urine Urobilinogen < 2.0 mg/dL (<2.0) 12/20/20 19:22 Ur Leukocyte Esterase Neg (Negative) 12/20/20 19:22 Urine WBC (Auto) < 1.0 /HPF (0.0-6.0) 12/20/20 19:22 Urine RBC (Auto) 1.0 /HPF (0.0-6.0) 12/20/20 19:22 U Epithel Cells (Auto) 1.0 /HPF (0-13.0) 12/20/20 19:22 Hyaline Casts 1 /LPF 12/20/20 19:22 Urine Mucus Few /HPF 12/20/20 19:22 Urine Opiates Screen Negative 12/20/20 19:23 Urine Methadone Screen Negative 12/20/20 19:23 Ur Barbiturates Screen Negative 12/20/20 19:23 Ur Phencyclidine Scrn Negative 12/20/20 19:23 Ur Amphetamines Screen Negative 12/20/20 19:23 U Benzodiazepines Scrn Negative 12/20/20 19:23 Urine Cocaine Screen Negative 12/20/20 19:23 U Marijuana (THC) Screen Negative 12/20/20 19:23 Drugs of Abuse Note Disclamer 12/20/20 19:23 Plasma/Serum Alcohol < 0.01 % (0-0.07) 12/20/20 19:30 Chance/IV: Voiding Method Urinal Active Medications - Current Medications Current Medications: Generic Name Dose Route Start Last Admin Trade Name Freq PRN Reason Stop Dose Admin Acetaminophen 650 mg 12/20/20 22:10 Acetaminophen 325 Mg Tab PO Q4H PRN Pain MILD(1-3)/Fever >100.5/ARRIAZA Amiodarone HCl 200 mg 12/21/20 10:00 12/25/20 09:40 Amiodarone 200 Mg Tab PO 200 mg QDAY JOHN Administration Aspirin 81 mg 12/22/20 10:00 12/25/20 09:40 Aspirin Ec 81 Mg Tab PO 81 mg QDAY JOHN Administration Atorvastatin Calcium 40 mg 12/21/20 22:00 12/24/20 21:05 Atorvastatin 40 Mg Tab PO 40 mg QHS JOHN Administration Bisacodyl 10 mg 12/20/20 22:10 Bisacodyl 10 Mg Rect Supp DC QDAY PRN Constipation Bumetanide 1 mg 12/22/20 10:00 12/25/20 09:40 Bumetanide 1 Mg Tab PO 1 mg QDAY JOHN Administration Enoxaparin Sodium 150 mg 12/21/20 22:00 12/25/20 09:44 Enoxaparin 150 Mg/1 Ml Inj SUB-Q 150 mg Q12HR JOHN Administration Protocol Hydralazine HCl 100 mg 12/21/20 08:00 12/25/20 09:41 Hydralazine 100 Mg Tab PO 100 mg TID JOHN Administration Levetiracetam 500 mg 12/24/20 10:00 12/25/20 09:40 Levetiracetam 500 Mg/5 Ml Oral Liqd PO 500 mg BID JOHN Administration Magnesium Hydroxide 30 ml 12/20/20 22:10 Magnesium Hydroxide (Mom) Oral Liqd Udc PO Q4H PRN Constipation Metoclopramide HCl 5 mg 12/20/20 22:10 Metoclopramide 10 Mg Tab PO Q6H PRN Nausea And Vomiting Metoprolol Succinate 25 mg 12/21/20 08:00 12/25/20 09:41 Metoprolol Succinate Xl 25 Mg Tab PO 25 mg QDAY@0800 JOHN Administration Morphine Sulfate 2 mg 12/20/20 22:10 Morphine 2 Mg/1 Ml Inj IV Q4H PRN Pain, Moderate (4-6) Morphine Sulfate 4 mg 12/20/20 22:10 Morphine 4 Mg/1 Ml Inj IV Q4H PRN Pain , Severe (7-10) Ondansetron HCl 4 mg 12/20/20 22:10 Ondansetron 4 Mg/2 Ml Inj IV Q8H PRN Nausea And Vomiting Promethazine HCl 25 mg 12/20/20 22:10 Promethazine 25 Mg Rect Supp DC Q6H PRN Nausea And Vomiting Sodium Chloride 10 ml 12/21/20 10:00 12/24/20 21:06 Sodium Chloride 0.9% 10 Ml Flush Syringe IV 10 ml BID JOHN Administration Sodium Chloride 10 ml 12/20/20 22:10 Sodium Chloride 0.9% 10 Ml Flush Syringe IV PRN PRN LINE FLUSH Spironolactone 25 mg 12/21/20 10:00 12/25/20 09:40 Spironolactone 25 Mg Tab PO 25 mg BID JOHN Administration Warfarin Sodium 10 mg 12/24/20 17:00 12/24/20 16:39 Warfarin 10 Mg Tab PO 10 mg DAILY@1700 JOHN Administration Nutrition/Malnutrition Assess - Dietary Evaluation Nutrition/Malnutrition Findings: Nutrition Notes Start: 12/21/20 14:25 Freq: Status: Active Protocol: Document 12/22/20 11:49 (Rec: 12/22/20 11:52 [id number]) Nutrition Notes Need for Assessment generated from: Education Initial or Follow up Brief Note Current Diagnosis Hypertension,Heart Failure, Stroke Other Pertinent Diagnosis Seizure Current Diet cardiac Pertinent Medications Coumadin Subjective/Other Information Pt reports trying to eat healthier. Gave pt Coumdin education and heart healthy tips. Pt not eating carbs and states feeling very tired. Encouraged pt to eat well balanced diet. #1 Nutrition Diagnosis Food and nutrition-related knowledge deficit Etiology no prior diet education As Evidenced by Signs and Symptoms pt had questions about vitamin K interaction and heart healthy foods Nutrition Intervention Teaching Recipient Patient Learning Readiness Good Teaching Methods Discussion,Handout Response to Teaching Verbalize understanding Education Handouts Provided Vitamin K and Medications Heart Healthy Nutrition Barriers to Learning No Barriers RD phone number provided Yes Patient aware of follow up options Yes Revisit per MD consult or patient Sign Off request:
[2020-12-25] MEDS: WARFARIN 10 MG TAB PO SCH (16:54)
[2020-12-26 07:49] LABS: Hematocrit 39.5 % (35.5-45.6); Hemoglobin 13.3 gm/dl (11.8-15.2)
[2020-12-26 08:03] LABS: INR 1.26 (0.87-1.13)
--- NOTE | 2020-12-26 09:06 | Progress Note ---
Assessment and Plan Assessment and Plan Assessment and plan: --Chronic kidney disease stage III; Closely monitor renal function, avoid nephrotoxins Consult nephrology as needed-remained stable at baseline. --Acute metabolic encephalopathy Current Visit: Yes Status: Acute Present on admission , probably postictal-resolved alert oriented x3. possibly secondary to seizure-like activity versus a CVA. Resolved patient is alert awake oriented x3 -- Seizure-like activity Current Visit: Yes Status: Acute Patient has been started on Keppra. We will place consult to neurology for evaluation. Patient placed on seizure precautions. Do not drive until cleared by PMD or neurology --History of LV thrombus; Patient reports that he is compliant with medication However subtherapeutic INR on presentation We will continue full dose Lovenox on Coumadin goal of INR between 2 and 3 INR 1.37. Will discontinue large 1 greater than 2. Cardiology consult if needed -- HTN (hypertension) Current Visit: No Status: Chronic Moderate control, continue current antihypertensives Fair control blood pressure 143/73. --Morbid obesity; BMI 41.5 Current Visit: No Status: Chronic Patient needs weight reduction when medically stable --Hypertension; Current Visit: No Status: Chronic Moderate control, continue current antihypertensives As needed medication continue statin Subjective Date of service: 12/26/20 Interval history: 35-year-old morbidly obese male patient with history of LV thrombus on Coumadin Clinic complaints however INR was subtherapeutic admitted with syncope and headache Work-up is negative, patient is receiving full dose Lovenox and Coumadin target INR 2-3 When patient restarted Tylenol may be discharged home 12/22/2020; LV thrombus, on Lovenox and Coumadin Subtherapeutic INR, cardiology consulted 12/23/2020; patient's INR remains subtherapeutic However the INR 2-3, no new episodes of seizures No new episodes of syncope, follow PT evaluation and recommendation Discharge when INR is therapeutic between 2 and 3 12/24/2020; INR remains subtherapeutic Pharmacy monitoring Ambulate as tolerated 12/25/2020; no new episodes of seizure, no headache INR remains subtherapeutic. Target INR 2-3 Pharmacy following Follow PT OT evaluation recommendation Discharge when INR is between 2 and 3 Objective - Constitutional Vitals: Vital Signs - 12hr 08/13/21 08/13/21 08/13/21 21:56 22:00 22:01 Temperature 98.7 F Pulse Rate 85 85 Respiratory 20 Rate Blood Pressure 130/75 Blood Pressure 130/75 [Left] O2 Sat by Pulse 95 94 Oximetry 12/25/20 12/26/20 12/26/20 22:39 05:34 08:38 Temperature 99.4 F 99.4 F 98.8 F Pulse Rate 73 93 H 79 Respiratory 20 20 20 Rate Blood Pressure 141/93 Blood Pressure 98/52 106/61 [Left] O2 Sat by Pulse 99 99 98 Oximetry General appearance: Present: no acute distress, well-nourished - EENT Eyes: PERRL, EOM intact ENT: hearing intact, clear oral mucosa Ears: bilateral: normal - Neck Neck: supple, normal ROM - Respiratory Respiratory effort: normal Respiratory: bilateral: CTA - Breasts Breasts: normal - Cardiovascular Rhythm: regular Heart Sounds: Present: S1 & S2. Absent: gallop, rub Extremities: pulses intact, No edema, normal color, Full ROM - Gastrointestinal General gastrointestinal: Present: soft, non-tender, non-distended, normal bowel sounds - Genitourinary Male genitourinary: normal - Integumentary Integumentary: clear, warm, dry - Musculoskeletal Musculoskeletal: 1, strength equal bilaterally - Neurologic Neurologic: moves all extremities - Psychiatric Psychiatric: memory intact, appropriate mood/affect, intact judgment & insight - Labs CBC & Chem 7: 12/26/20 07:20 12/25/20 05:30 Labs: Abnormal lab results 12/25/20 12/26/20 Range/Units 12:22 07:20 PT 16.4 H (12.2-14.9) Sec. INR 1.26 H (0.87-1.13) POC Glucose 120 H (70-105) mg/dL HEART Score - HEART Score Troponin: Troponin T < 0.010 ng/mL (0.00-0.029) 12/20/20 19:30
--- NOTE | 2020-12-26 10:56 | Progress Note ---
Assessment and Plan 1. Chronic combined systolic and diastolic heart failure 2. Dilated nonischemic cardiomyopathy 3. Essential hypertension 4. Presence of AICD 5. Presence of left ventricular apical thrombus 6. Seizure disorder 7. Chronic kidney disease unspecified Plan. Cardiac guevara stable continue present cardiac conservative management. Follow PT and INR Subjective Date of service: 12/26/20 Interval history: No cardiac symptoms Objective Vital Signs Temp Pulse Resp BP BP Pulse Ox 12/26/20 08:38 98.8 F 79 20 141/93 98 12/26/20 05:34 99.4 F 93 H 20 106/61 99 12/25/20 22:39 99.4 F 73 20 98/52 99 12/25/20 22:01 85 130/75 12/25/20 22:00 94 12/25/20 21:56 98.7 F 85 20 130/75 95 12/25/20 20:45 99 12/25/20 17:39 66 12/25/20 16:51 97.6 F 74 18 115/72 99 - Physical Examination General: Appears Well, No Apparent Distress HEENT: Positive: PERRL Neck: Positive: neck supple Cardiac: Positive: Reg Rate and Rhythm, S1/S2, PMI, Laterally Displaced. 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 INR 1.26 H (0.87-1.13) CBC 12/26/20 Range/Units 07:20 Hgb 13.3 (11.8-15.2) gm/dl Hct 39.5 (35.5-45.6) %
[2020-12-26] MEDS: levETIRAcetam 500 MG/5 ML ORAL LIQD PO SCH ×2 (12:23→22:30)
[2020-12-26] MEDS: SPIRONOLACTONE 25 MG TAB PO SCH ×2 (12:23→22:27)
[2020-12-26] MEDS: BUMETANIDE 1 MG TAB PO SCH (12:23)
[2020-12-26] MEDS: hydrALAZINE 100 MG TAB PO SCH ×3 (12:23→22:26)
[2020-12-26] MEDS: ASPIRIN EC 81 MG TAB PO SCH (12:23)
[2020-12-26] MEDS: METOPROLOL SUCCINATE XL 25 MG TAB PO SCH (12:23)
[2020-12-26] MEDS: AMIODARONE 200 MG TAB PO SCH (12:23)
[2020-12-26] MEDS: ENOXAPARIN 150 MG/1 ML INJ SUB-Q SCH ×2 (17:12→22:32)
[2020-12-26] MEDS: WARFARIN 10 MG TAB PO SCH (17:29)
[2020-12-27 06:47] LABS: INR 1.25 (0.87-1.13)
[2020-12-27] MEDS: levETIRAcetam 500 MG/5 ML ORAL LIQD PO SCH ×2 (10:27→21:13)
[2020-12-27] MEDS: ENOXAPARIN 150 MG/1 ML INJ SUB-Q SCH ×2 (10:27→21:14)
[2020-12-27] MEDS: METOPROLOL SUCCINATE XL 25 MG TAB PO SCH (10:27)
[2020-12-27] MEDS: BUMETANIDE 1 MG TAB PO SCH (10:27)
[2020-12-27] MEDS: ASPIRIN EC 81 MG TAB PO SCH (10:27)
[2020-12-27] MEDS: SPIRONOLACTONE 25 MG TAB PO SCH ×2 (10:28→21:14)
[2020-12-27] MEDS: hydrALAZINE 100 MG TAB PO SCH ×3 (10:28→20:38)
[2020-12-27] MEDS: AMIODARONE 200 MG TAB PO SCH (10:28)
--- NOTE | 2020-12-27 11:05 | Progress Note ---
Assessment and Plan 1. Chronic combined systolic and diastolic heart failure 2. Dilated nonischemic cardiomyopathy 3. Essential hypertension 4. Presence of AICD 5. Presence of left ventricular apical thrombus 6. Seizure disorder 7. Chronic kidney disease unspecified Plan. Cardiac guevara stable continue present cardiac conservative management. Follow PT and INR Subjective Date of service: 12/27/20 Interval history: No cardiac symptoms Objective Vital Signs Temp Pulse Resp BP Pulse Ox 12/27/20 08:05 97.7 F 68 22 128/80 98 12/27/20 07:55 98 12/27/20 05:42 98 12/27/20 04:20 98.0 F 70 18 123/86 97 12/27/20 01:08 98.4 F 75 18 113/78 97 12/26/20 21:46 98.8 F 71 18 135/80 96 12/26/20 17:15 98.3 F 77 20 123/67 98 12/26/20 11:46 98.2 F 72 20 111/68 96 - Physical Examination General: Appears Well, No Apparent Distress HEENT: Positive: PERRL Neck: Positive: neck supple Cardiac: Positive: Regular Rate, S1/S2, PMI, Dilated, Laterally Displaced. Negative: S3, S4 Lungs: Positive: clear to auscultation, No Wheeze, Rales, Rhonchi Neuro: Positive: Grossly Intact, Weakness (Mild right-sided hemiparesis from previous CVA) Abdomen: Positive: Soft Skin: Positive: Clear Extremities: Absent: edema - Labs and Meds Coagulation 12/27/20 Range/Units 04:48 PT 16.3 H (12.2-14.9) Sec. INR 1.25 H (0.87-1.13)
--- NOTE | 2020-12-27 11:09 | Progress Note ---
Assessment and Plan Assessment and Plan Assessment and plan: --Chronic kidney disease stage III; Closely monitor renal function, avoid nephrotoxins Consult nephrology as needed-remained stable at baseline. --Acute metabolic encephalopathy Current Visit: Yes Status: Acute Present on admission , probably postictal-resolved alert oriented x3. possibly secondary to seizure-like activity versus a CVA. Resolved patient is alert awake oriented x3 -- Seizure-like activity Current Visit: Yes Status: Acute Patient has been started on Keppra. We will place consult to neurology for evaluation. Patient placed on seizure precautions. Do not drive until cleared by PMD or neurology --History of LV thrombus; Patient reports that he is compliant with medication However subtherapeutic INR on presentation We will continue full dose Lovenox on Coumadin goal of INR between 2 and 3 INR 1.37. Will discontinue large 1 greater than 2. Cardiology consult if needed -- HTN (hypertension) Current Visit: No Status: Chronic Moderate control, continue current antihypertensives Fair control blood pressure 143/73. --Morbid obesity; BMI 41.5 Current Visit: No Status: Chronic Patient needs weight reduction when medically stable --Hypertension; Current Visit: No Status: Chronic Moderate control, continue current antihypertensives As needed medication continue statin Subjective Date of service: 12/27/20 Interval history: 35-year-old morbidly obese male patient with history of LV thrombus on Coumadin Clinic complaints however INR was subtherapeutic admitted with syncope and headache Work-up is negative, patient is receiving full dose Lovenox and Coumadin target INR 2-3 When patient restarted Tylenol may be discharged home 12/22/2020; LV thrombus, on Lovenox and Coumadin Subtherapeutic INR, cardiology consulted 12/23/2020; patient's INR remains subtherapeutic However the INR 2-3, no new episodes of seizures No new episodes of syncope, follow PT evaluation and recommendation Discharge when INR is therapeutic between 2 and 3 12/24/2020; INR remains subtherapeutic Pharmacy monitoring Ambulate as tolerated 12/26/2020; no new episodes of seizure, no headache INR remains subtherapeutic. Target INR 2-3 Pharmacy following Follow PT OT evaluation recommendation Discharge when INR is between 2 and 3 12/1520. -Resting comfortably no acute distress. -INR 1.25 today. --Discharge when INR therapeutic between 2 and 3. Objective - Constitutional Vitals: Vital Signs - 12hr 12/27/20 12/27/20 12/27/20 01:08 04:20 05:42 Temperature 98.4 F 98.0 F Pulse Rate 75 70 Respiratory 18 18 Rate Blood Pressure 113/78 123/86 O2 Sat by Pulse 97 97 98 Oximetry 12/27/20 12/27/20 07:55 08:05 Temperature 97.7 F Pulse Rate 68 Respiratory 22 Rate Blood Pressure 128/80 O2 Sat by Pulse 98 98 Oximetry General appearance: Present: no acute distress, well-nourished - EENT Eyes: PERRL, EOM intact ENT: hearing intact, clear oral mucosa Ears: bilateral: normal - Neck Neck: supple, normal ROM - Respiratory Respiratory effort: normal Respiratory: bilateral: CTA - Breasts Breasts: normal - Cardiovascular Rhythm: regular Heart Sounds: Present: S1 & S2. Absent: gallop, rub Extremities: pulses intact, No edema, normal color, Full ROM - Gastrointestinal General gastrointestinal: Present: soft, non-tender, non-distended, normal bowel sounds - Genitourinary Male genitourinary: normal - Integumentary Integumentary: clear, warm, dry - Musculoskeletal Musculoskeletal: 1, strength equal bilaterally - Neurologic Neurologic: moves all extremities - Psychiatric Psychiatric: memory intact, appropriate mood/affect, intact judgment & insight - Labs CBC & Chem 7: 12/26/20 07:20 12/25/20 05:30 Labs: Abnormal lab results 12/27/20 Range/Units 04:48 PT 16.3 H (12.2-14.9) Sec. INR 1.25 H (0.87-1.13) HEART Score - HEART Score Troponin: Troponin T < 0.010 ng/mL (0.00-0.029) 12/20/20 19:30
[2020-12-27] MEDS: WARFARIN 2.5 MG TAB PO SCH (16:15)
[2020-12-27] MEDS: WARFARIN 10 MG TAB PO SCH (16:16)
[2020-12-28 05:45] LABS: INR 1.39 (0.87-1.13)
[2020-12-28] MEDS: METOPROLOL SUCCINATE XL 25 MG TAB PO SCH (09:11)
[2020-12-28] MEDS: ASPIRIN EC 81 MG TAB PO SCH (09:11)
[2020-12-28] MEDS: levETIRAcetam 500 MG/5 ML ORAL LIQD PO SCH ×2 (09:11→22:03)
[2020-12-28] MEDS: AMIODARONE 200 MG TAB PO SCH (09:11)
[2020-12-28] MEDS: ENOXAPARIN 150 MG/1 ML INJ SUB-Q SCH ×2 (09:11→22:03)
[2020-12-28] MEDS: hydrALAZINE 100 MG TAB PO SCH ×3 (09:11→22:03)
[2020-12-28] MEDS: SPIRONOLACTONE 25 MG TAB PO SCH ×2 (09:11→22:03)
[2020-12-28] MEDS: BUMETANIDE 1 MG TAB PO SCH (09:11)
--- NOTE | 2020-12-28 09:37 | Progress Note ---
Assessment and Plan Assessment and Plan Assessment and plan: --Chronic kidney disease stage III; Closely monitor renal function, avoid nephrotoxins Consult nephrology as needed-remained stable at baseline. --Acute metabolic encephalopathy Current Visit: Yes Status: Acute Present on admission , probably postictal-resolved alert oriented x3. No further evidence of encephalopathy. possibly secondary to seizure-like activity versus a CVA. Resolved patient is alert awake oriented x3 -- Seizure-like activity Current Visit: Yes Status: Acute Patient has been started on Keppra. We will place consult to neurology for evaluation. Patient placed on seizure precautions. Do not drive until cleared by PMD or neurology --History of LV thrombus; Patient reports that he is compliant with medication However subtherapeutic INR on presentation We will continue full dose Lovenox on Coumadin goal of INR between 2 and 3 INR 1.37. Will discontinue large 1 greater than 2. Cardiology consult if needed -- HTN (hypertension) Current Visit: No Status: Chronic Moderate control, continue current antihypertensives Fair control blood pressure 143/73. --Morbid obesity; BMI 41.5 Current Visit: No Status: Chronic Patient needs weight reduction when medically stable --Hypertension; Current Visit: No Status: Chronic Moderate control, continue current antihypertensives As needed medication continue statin Subjective Date of service: 12/28/20 Interval history: 35-year-old morbidly obese male patient with history of LV thrombus on Coumadin Clinic complaints however INR was subtherapeutic admitted with syncope and headache Work-up is negative, patient is receiving full dose Lovenox and Coumadin target INR 2-3 When patient restarted Tylenol may be discharged home 12/22/2020; LV thrombus, on Lovenox and Coumadin Subtherapeutic INR, cardiology consulted 12/23/2020; patient's INR remains subtherapeutic However the INR 2-3, no new episodes of seizures No new episodes of syncope, follow PT evaluation and recommendation Discharge when INR is therapeutic between 2 and 3 12/24/2020; INR remains subtherapeutic Pharmacy monitoring Ambulate as tolerated 12/26/2020; no new episodes of seizure, no headache INR remains subtherapeutic. Target INR 2-3 Pharmacy following Follow PT OT evaluation recommendation Discharge when INR is between 2 and 3 12/1520. -Resting comfortably no acute distress. -INR 1.25 today. --Discharge when INR therapeutic between 2 and 3. 12/28/2020. Remains comfortable. No acute distress. INR 1.4 today. Objective - Constitutional Vitals: Vital Signs - 12hr 12/27/20 12/27/20 12/28/20 22:00 23:18 04:47 Temperature 98.0 F 98.4 F Pulse Rate 76 69 Respiratory 18 18 Rate Blood Pressure 116/75 116/80 O2 Sat by Pulse 98 96 84 Oximetry 12/28/20 12/28/20 08:28 09:11 Temperature 98.7 F Pulse Rate 72 72 Respiratory 18 Rate Blood Pressure 128/74 128/74 O2 Sat by Pulse 96 Oximetry General appearance: Present: no acute distress, well-nourished - EENT Eyes: PERRL, EOM intact ENT: hearing intact, clear oral mucosa Ears: bilateral: normal - Neck Neck: supple, normal ROM - Respiratory Respiratory effort: normal Respiratory: bilateral: CTA - Breasts Breasts: normal - Cardiovascular Rhythm: regular Heart Sounds: Present: S1 & S2. Absent: gallop, rub Extremities: pulses intact, No edema, normal color, Full ROM - Gastrointestinal General gastrointestinal: Present: soft, non-tender, non-distended, normal bowel sounds - Genitourinary Male genitourinary: normal - Integumentary Integumentary: clear, warm, dry - Musculoskeletal Musculoskeletal: 1, strength equal bilaterally - Neurologic Neurologic: moves all extremities - Psychiatric Psychiatric: memory intact, appropriate mood/affect, intact judgment & insight - Labs CBC & Chem 7: 12/26/20 07:20 12/25/20 05:30 Labs: Abnormal lab results 12/28/20 Range/Units 04:10 PT 17.7 H (12.2-14.9) Sec. INR 1.39 H (0.87-1.13) HEART Score - HEART Score Troponin: Troponin T < 0.010 ng/mL (0.00-0.029) 12/20/20 19:30
--- NOTE | 2020-12-28 09:49 | Progress Note ---
Assessment and Plan Assessment and Plan Assessment and plan: --Chronic kidney disease stage III; Closely monitor renal function, avoid nephrotoxins Consult nephrology as needed-remained stable at baseline. #Acute metabolic encephalopathy Present on admission , probably postictal-resolved alert oriented x3. No further evidence of encephalopathy. possibly secondary to seizure-like activity versus a CVA. Resolved patient is alert awake oriented x3 Ct brain is unremarkable # Seizure-like activity/ break through seizure Patient is started on Keppra.500 mg bid in ER -- will increase to 750 mg bid due to pt. size Patient placed on seizure precautions. pt. does not drive -Hx of seizure since 5 ys old -was on trileptal with possible interaction with coumadine according to pt. he is compling with medications -EEG is unremarkable -Ct brain is unremarkable -According to pt. he is with pace maker can not have MRI brain #History of LV thrombus; Patient reports that he is compliant with medication However subtherapeutic INR on presentation-- possibly related to seizure medication interact with coumadine We will continue full dose Lovenox on Coumadin goal of INR between 2 and 3 INR 1.37. Will discontinue large 1 greater than 2. Cardiology consult if needed # Hx of CVA with right side weakness - slight give away weakness -on coumadine -LVEF#20-25% with dilated cardiomyopathy ? -Pace maker -Lipitor 40 mg -- LDL#98 # HTN (hypertension) Moderate control, continue current antihypertensives Fair control blood pressure 143/73. #Morbid obesity; BMI 41.5 Current Visit: No Status: Chronic Patient needs weight reduction when medically stable PLAN 1-Increase Keppra to 750 mg bid 2-On Coumadine and Lipitor 3-INR need to be >2-3 4- Seizure precaution 5- he does not drive with hx of seizure since was 5 ys old 6- Advance activity as tolerated 7- Neurology follow up will follow as needed Subjective Date of service: 12/28/20 Principal diagnosis: black out spell ,hx of seizure and left atrial thrombus Interval history: "I just blank out." History of present illness: 35 yo male with seizure d/o, CVA, HTN, heart failure, LV thrombus (on Coumadi) who presented initially with a c/o a headache and then "blanking out". He was witnessed with a possible post-seizure state. Patient was initiated on Keppra 500 mg bid in ER Patient was on Oxcabamazepine at home. No new clinical seizure during this hospitalization. Notes he has had at elast 3 or 4 seizure since the stroke 4 years ago. he is with slight give away weakness right side since the last stroke. Currently, notes he is at his baseline. According to pt. he is compling with seizure medications as well as tegretol , His first seizure was when he was 5 ys old , no family hx of seizure he does not drive , not smoker, denied alcohol or recreational drug intake -In ER Ct brain is unremarkable -EEG is unremarkable -He can not have MRI due to pace maker Past History Past Medical History: heart failure, hypertension, seizures, stroke (With right- sided weakness) Past Surgical History: No surgical history, pace maker Social history: no significant social history Family history: no significant family history Medications and Allergies Allergies Allergy/AdvReac Type Severity Reaction Status Date / Time No Known Allergies Allergy Verified 08/27/14 07:40 Home Medications Medication Instructions Recorded Confirmed Last Taken Type Aspirin EC [Halfprin EC] 81 mg PO QDAY #30 tablet. 04/24/19 12/21/20 Unknown Rx Warfarin [Coumadin] 7.5 mg PO DAILY@1700 tablet 06/26/19 12/21/20 12/18/20 Rx 7.5 AtorvaSTATin [Lipitor] 40 mg PO QHS 07/15/19 12/21/20 12/19/20 22:00 History Metoprolol Xl [Metoprolol 25 mg PO QDAY 07/15/19 12/21/20 Unknown History SUCCINATE ER TAB] OXcarbazepine [Trileptal] 300 mg PO BID 07/15/19 12/21/20 12/20/20 08:00 History Amiodarone [Cordarone 200 MG TAB] 200 mg PO QDAY #30 tablet 07/19/19 12/21/20 Unknown Rx Bumetanide [Bumex 1 mg tab] 100 mg PO 0600,1800 12/21/20 12/21/20 Unknown History Potassium Chloride [K-Dur] 20 meq PO QDAY 12/21/20 12/21/20 Unknown History Spironolactone [Aldactone] 25 mg PO BID 12/21/20 12/21/20 12/19/20 22:00 History Torsemide [Demadex] 100 mg PO QDAY 12/21/20 12/21/20 Unknown History carvediloL [Coreg] 6.25 mg PO BID 12/21/20 12/21/20 Unknown History hydrALAZINE [Apresoline TAB] 100 mg PO TID 12/21/20 12/21/20 12/19/20 08:00 History Active Meds: Active Medications Acetaminophen (Acetaminophen 325 Mg Tab) 650 mg PO Q4H PRN PRN Reason: Pain MILD(1-3)/Fever >100.5/ARRIAZA Amiodarone HCl (Amiodarone 200 Mg Tab) 200 mg PO QDAY [facility] Last Admin: 12/23/20 09:10 Dose: 200 mg Documented by: Aspirin (Aspirin Ec 81 Mg Tab) 81 mg PO QDAY [facility] Last Admin: 12/23/20 09:09 Dose: 81 mg Documented by: Atorvastatin Calcium (Atorvastatin 40 Mg Tab) 40 mg PO QHS [facility] Last Admin: 12/22/20 21:10 Dose: 40 mg Documented by: Bisacodyl (Bisacodyl 10 Mg Rect Supp) 10 mg [place] QDAY PRN PRN Reason: Constipation Bumetanide (Bumetanide 1 Mg Tab) 1 mg PO QDAY [facility] Last Admin: 12/23/20 09:11 Dose: 1 mg Documented by: Enoxaparin Sodium (Enoxaparin 150 Mg/1 Ml Inj) 150 mg SUB-Q Q12HR [facility]; Protocol Last Admin: 12/23/20 09:09 Dose: 150 mg Documented by: Hydralazine HCl (Hydralazine 100 Mg Tab) 100 mg PO TID [facility] Last Admin: 12/23/20 09:10 Dose: 100 mg Documented by: Levetiracetam 500 mg/ Dextrose 105 mls @ 400 mls/hr IV Q12HR [facility] Last Admin: 12/23/20 09:12 Dose: 400 mls/hr Documented by: Magnesium Hydroxide (Magnesium Hydroxide (Mom) Oral Liqd Udc) 30 ml PO Q4H PRN PRN Reason: Constipation Metoclopramide HCl (Metoclopramide 10 Mg Tab) 5 mg PO Q6H PRN PRN Reason: Nausea And Vomiting Metoprolol Succinate (Metoprolol Succinate Xl 25 Mg Tab) 25 mg PO QDAY@0800 [facility] Last Admin: 12/23/20 09:10 Dose: 25 mg Documented by: Morphine Sulfate (Morphine 2 Mg/1 Ml Inj) 2 mg IV Q4H PRN PRN Reason: Pain, Moderate (4-6) Morphine Sulfate (Morphine 4 Mg/1 Ml Inj) 4 mg IV Q4H PRN PRN Reason: Pain , Severe (7-10) Ondansetron HCl (Ondansetron 4 Mg/2 Ml Inj) 4 mg IV Q8H PRN PRN Reason: Nausea And Vomiting Promethazine HCl (Promethazine 25 Mg Rect Supp) 25 mg [place] Q6H PRN PRN Reason: Nausea And Vomiting Sodium Chloride (Sodium Chloride 0.9% 10 Ml Flush Syringe) 10 ml IV BID [facility] Last Admin: 12/23/20 09:12 Dose: 10 ml Documented by: Sodium Chloride (Sodium Chloride 0.9% 10 Ml Flush Syringe) 10 ml IV PRN PRN PRN Reason: LINE FLUSH Spironolactone (Spironolactone 25 Mg Tab) 25 mg PO BID [facility] Last Admin: 12/23/20 09:11 Dose: 25 mg Documented by: Warfarin Sodium (Warfarin 7.5 Mg Tab) 7.5 mg PO DAILY@1700 [facility]; Protocol Last Admin: 12/22/20 18:40 Dose: 7.5 mg Documented by: Review of Systems All systems: negative (as per HPI;) Objective - Vital Sign Vital Signs - 12hr 12/27/20 12/27/20 12/28/20 22:00 23:18 04:47 Temperature 98.0 F 98.4 F Pulse Rate 76 69 Respiratory 18 18 Rate Blood Pressure 116/75 116/80 O2 Sat by Pulse 98 96 84 Oximetry 12/28/20 12/28/20 08:28 09:11 Temperature 98.7 F Pulse Rate 72 72 Respiratory 18 Rate Blood Pressure 128/74 128/74 O2 Sat by Pulse 96 Oximetry - General Apperance Constitutional: comfortable - EENT EENT: PERRL, mucous membranes moist - Respiratory Respiratory: chest non-tender, lungs clear - Cardiovascular Cardiovascular: regular rate, normal S1, normal S2 Extremities: no peripheral edema bilat, no clubbing, cyanosis - Gastrointestinal Gastrointestinal: normoactive bowel sounds - Integumentary Integumentary: normal - Neurologic Cranial nerve examination: PERRL, EOMI, VFF, ptosis, anisocoria, intact Speech examination: intact Detailed motor examination: grossly full strength in Reflex and gait examination: intact - Laboratory Findings CBC and BMP: 12/26/20 07:20 12/25/20 05:30 Abnormal Lab Findings: Abnormal Labs 12/20/20 12/20/20 12/20/20 19:30 19:30 20:17 MCH 33 H MCHC 36 H [place] % (Auto) 10.6 H [place] # (Auto) 0.9 H PT INR Sodium 136 L Chloride 96.6 L BUN 28 H Creatinine 1.6 H Glucose 115 H POC Glucose 128 H Magnesium AST 75 H ALT 73 H Total Protein 8.8 H HDL Cholesterol 12/21/20 12/21/20 12/22/20 04:28 04:28 04:49 MCH MCHC [place] % (Auto) 12.4 H [place] # (Auto) PT 15.3 H INR 1.16 H Sodium Chloride BUN 32 H Creatinine 1.7 H Glucose POC Glucose Magnesium AST ALT Total Protein HDL Cholesterol 36 L 12/22/20 12/22/20 12/22/20 04:49 18:09 20:33 MCH MCHC [place] % (Auto) [place] # (Auto) PT INR Sodium Chloride BUN 31 H Creatinine 1.4 H Glucose POC Glucose 122 H 117 H Magnesium 2.40 H AST ALT Total Protein HDL Cholesterol 12/23/20 12/24/20 12/25/20 16:03 05:15 05:03 MCH MCHC [place] % (Auto) [place] # (Auto) PT 15.1 H 16.3 H INR 1.14 H 1.25 H Sodium Chloride BUN Creatinine Glucose POC Glucose 106 H Magnesium AST ALT Total Protein HDL Cholesterol 12/25/20 12/26/20 12/27/20 12:22 07:20 04:48 MCH MCHC [place] % (Auto) [place] # (Auto) PT 16.4 H 16.3 H INR 1.26 H 1.25 H Sodium Chloride BUN Creatinine Glucose POC Glucose 120 H Magnesium AST ALT Total Protein HDL Cholesterol 12/28/20 04:10 MCH MCHC [place] % (Auto) [place] # (Auto) PT 17.7 H INR 1.39 H Sodium Chloride BUN Creatinine Glucose POC Glucose Magnesium AST ALT Total Protein HDL Cholesterol
--- NOTE | 2020-12-28 13:31 | Progress Note ---
Assessment and Plan - Patient Problems (1) Syncope Current Visit: Yes Status: Acute Plan to address problem: Patient is undergoing work-up for syncope due to possible seizures. Defer management to internal medicine and neurology. Cardiac evaluation with ICD interrogation found no cardiac dysrhythmias associated with his syncope. (2) Left ventricular apical thrombus Current Visit: Yes Status: Acute Plan to address problem: History of laminated left ventricular apical thrombus, on chronic warfarin therapy. (3) Nonischemic dilated cardiomyopathy Current Visit: Yes Status: Acute Plan to address problem: Medical therapy for dilated, nonischemic cardiomyopathy and chronic left ventricular systolic failure. Subjective Date of service: 12/28/20 Principal diagnosis: black out spell ,hx of seizure and left atrial thrombus Interval history: Patient is comfortable, no new cardiac complaints. The INR is still subtherapeutic, despite high doses of warfarin administered daily. Objective Vital Signs Temp Pulse Pulse Resp BP Pulse Ox 12/28/20 12:27 97.6 F 71 18 100/66 96 12/28/20 10:00 78 16 98 12/28/20 09:11 72 128/74 12/28/20 08:28 98.7 F 72 18 128/74 96 12/28/20 04:47 98.4 F 69 18 116/80 84 12/27/20 23:18 98.0 F 76 18 116/75 96 12/27/20 22:00 98 12/27/20 21:14 102/61 12/27/20 19:56 98.6 F 75 18 102/61 98 12/27/20 15:31 98.3 F 77 20 115/72 97 - Physical Examination General: Appears Well, No Apparent Distress HEENT: Positive: PERRL Neck: Positive: neck supple Cardiac: Positive: Reg Rate and Rhythm Lungs: Positive: Decreased Breath Sounds Neuro: Positive: Grossly Intact, Weakness (Mild right-sided hemiparesis from previous CVA) Abdomen: Positive: Soft Skin: Positive: Clear Extremities: Absent: edema - Labs and Meds Coagulation 12/28/20 Range/Units 04:10 PT 17.7 H (12.2-14.9) Sec. INR 1.39 H (0.87-1.13)
[2020-12-28] MEDS: WARFARIN 10 MG TAB PO SCH (17:18)
[2020-12-28] MEDS: WARFARIN 2.5 MG TAB PO SCH (17:18)
[2020-12-29 07:02] LABS: INR 1.64 (0.87-1.13)
[2020-12-29] MEDS: hydrALAZINE 100 MG TAB PO SCH ×2 (08:10→17:28)
--- NOTE | 2020-12-29 10:10 | Progress Note ---
Assessment and Plan Assessment and plan: 35-year-old morbidly obese male patient with history of LV thrombus on Coumadin Clinic complaints however INR was subtherapeutic admitted with syncope and headache Work-up is negative, patient is receiving full dose Lovenox and Coumadin target INR 2-3 --Chronic kidney disease stage III; Closely monitor renal function, avoid nephrotoxins Consult nephrology as needed-remained stable at baseline. --Acute metabolic encephalopathy Present on admission , probably postictal-resolved alert oriented x3. No further evidence of encephalopathy. possibly secondary to seizure-like activity versus a CVA. Resolved patient is alert awake oriented x3 -- Seizure disorder Patient has been started on Keppra. We will place consult to neurology for evaluation. Patient placed on seizure precautions. Do not drive until cleared by PMD or neurology --History of LV thrombus; Patient reports that he is compliant with medication However subtherapeutic INR on presentation We will continue full dose Lovenox on Coumadin goal of INR between 2 and 3 Cardiology consulted Nonischemic dilated cardiomyopathy Medical therapy for dilated, nonischemic cardiomyopathy and chronic left ventricular systolic failure. Syncope Patient is undergoing work-up for syncope due to possible seizures. Defer management to neurology. Cardiac evaluation with ICD interrogation found no cardiac dysrhythmias associated with his syncope. -- HTN (hypertension) Moderate control, continue current antihypertensives Fair control blood pressure 143/73. --Morbid obesity; BMI 41.5 Patient needs weight reduction when medically stable --Hypertension; Moderate control, continue current antihypertensives As needed medication continue statin 12/22/2020; LV thrombus, on Lovenox and Coumadin Subtherapeutic INR, cardiology consulted 12/23/2020; patient's INR remains subtherapeutic However the INR 2-3, no new episodes of seizures No new episodes of syncope, follow PT evaluation and recommendation Discharge when INR is therapeutic between 2 and 3 12/24/2020; INR remains subtherapeutic Pharmacy monitoring Ambulate as tolerated 12/26/2020; no new episodes of seizure, no headache INR remains subtherapeutic. Target INR 2-3 Pharmacy following Follow PT OT evaluation recommendation Discharge when INR is between 2 and 3 12/1520. -Resting comfortably no acute distress. -INR 1.25 today. --Discharge when INR therapeutic between 2 and 3. 12/28/2020. Remains comfortable. No acute distress. INR 1.4 today. 12/29/20. Patient's INR has improved to 1.64 today. We will discharge when INR therapeutic between 2 and 3. History Interval history: No new issues overnight. Hospitalist Physical - Constitutional Vitals: Temp Pulse Resp BP Pulse Ox 98.6 F 77 18 111/54 96 12/29/20 08:14 12/29/20 04:38 12/29/20 08:14 12/29/20 08:14 12/29/20 04:38 General appearance: Present: no acute distress, well-nourished - EENT Eyes: Present: PERRL, EOM intact ENT: hearing intact, clear oral mucosa, dentition normal - Neck Neck: Present: supple, normal ROM - Respiratory Respiratory effort: normal Respiratory: bilateral: CTA - Cardiovascular Rhythm: regular Heart Sounds: Present: S1 & S2. Absent: gallop, rub - Extremities Extremities: no ischemia, No edema, Full ROM - Abdominal General gastrointestinal: soft, non-tender, non-distended, normal bowel sounds - Integumentary Integumentary: Present: clear, warm, dry - Neurologic Neurologic: CNII-XII intact, moves all extremities HEART Score - HEART Score Troponin: Troponin T < 0.010 ng/mL (0.00-0.029) 12/20/20 19:30 Results - Labs CBC & Chem 7: 12/26/20 07:20 12/25/20 05:30 Labs: Laboratory Last Values WBC 5.6 K/mm3 (4.5-11.0) 12/21/20 04:28 RBC 4.49 M/mm3 (3.65-5.03) 12/21/20 04:28 Hgb 13.3 gm/dl (11.8-15.2) 12/26/20 07:20 Hct 39.5 % (35.5-45.6) 12/26/20 07:20 MCV 94 fl (84-94) 12/21/20 04:28 MCH 32 pg (28-32) 12/21/20 04:28 MCHC 34 % (32-34) 12/21/20 04:28 RDW 14.0 % (13.2-15.2) 12/21/20 04:28 Plt Count 267 K/mm3 (140-440) 12/21/20 04:28 Lymph % (Auto) 28.4 % (13.4-35.0) 12/21/20 04:28 [place] % (Auto) 12.4 % (0.0-7.3) H 12/21/20 04:28 Eos % (Auto) 2.2 % (0.0-4.3) 12/21/20 04:28 Baso % (Auto) 0.6 % (0.0-1.8) 12/21/20 04:28 Lymph # (Auto) 1.6 K/mm3 (1.2-5.4) 12/21/20 04:28 [place] # (Auto) 0.7 K/mm3 (0.0-0.8) 12/21/20 04:28 Eos # (Auto) 0.1 K/mm3 (0.0-0.4) 12/21/20 04:28 Baso # (Auto) 0.0 K/mm3 (0.0-0.1) 12/21/20 04:28 Seg Neutrophils % 56.4 % (40.0-70.0) 12/21/20 04:28 Seg Neutrophils # 3.2 K/mm3 (1.8-7.7) 12/21/20 04:28 PT 20.0 Sec. (12.2-14.9) H 12/29/20 05:03 INR 1.64 (0.87-1.13) H 12/29/20 05:03 APTT 25.8 Sec. (24.2-36.6) 12/20/20 19:30 Thrombin Time 15.8 Sec. (15.1-19.6) 12/20/20 19:30 Sodium 138 mmol/L (137-145) 12/22/20 04:49 Potassium 4.2 mmol/L (3.6-5.0) 12/25/20 05:30 Chloride 98.7 mmol/L (98-107) 12/22/20 04:49 Carbon Dioxide 29 mmol/L (22-30) 12/22/20 04:49 Anion Gap 14 mmol/L 12/22/20 04:49 BUN 31 mg/dL (9-20) H 12/22/20 04:49 Creatinine 1.4 mg/dL (0.8-1.3) H 12/22/20 04:49 Estimated GFR > 60 ml/min 12/22/20 04:49 BUN/Creatinine Ratio 22 % 12/22/20 04:49 Glucose 92 mg/dL (75-100) 12/22/20 04:49 POC Glucose 100 mg/dL (70-105) 12/27/20 15:30 Calcium 9.5 mg/dL (8.4-10.2) 12/22/20 04:49 Magnesium 2.40 mg/dL (1.7-2.3) H 12/22/20 04:49 Total Bilirubin 0.30 mg/dL (0.1-1.2) 12/20/20 19:30 AST 75 units/L (5-40) H 12/20/20 19:30 ALT 73 units/L (7-56) H 12/20/20 19:30 Alkaline Phosphatase 97 units/L (35-129) 12/20/20 19:30 Ammonia 44.0 umol/L (25-60) 12/20/20 19:46 Troponin T < 0.010 ng/mL (0.00-0.029) 12/20/20 19:30 Total Protein 8.8 g/dL (6.3-8.2) H 12/20/20 19:30 Albumin 4.4 g/dL (3.9-5) 12/20/20 19:30 Albumin/Globulin Ratio 1.0 % 12/20/20 19:30 Triglycerides 96 mg/dL (2-149) 12/21/20 04:28 Cholesterol 147 mg/dL (50-199) 12/21/20 04:28 LDL Cholesterol Direct 98 mg/dL (50-130) 12/21/20 04:28 HDL Cholesterol 36 mg/dL (40-59) L 12/21/20 04:28 Cholesterol/HDL Ratio 4.08 % 12/21/20 04:28 TSH 2.190 mlU/mL (0.270-4.200) 12/20/20 19:30 Urine Color Yellow (Yellow) 12/20/20 19:22 Urine Turbidity Clear (Clear) 12/20/20 19:22 Urine pH 5.0 (5.0-7.0) 12/20/20 19:22 Ur Specific [place] 1.015 (1.003-1.030) 12/20/20 19:22 Urine Protein <15 mg/dl mg/dL (Negative) 12/20/20 19:22 Urine Glucose (UA) Neg mg/dL (Negative) 12/20/20 19:22 Urine Ketones Neg mg/dL (Negative) 12/20/20 19:22 Urine Blood Neg (Negative) 12/20/20 19:22 Urine Nitrite Neg (Negative) 12/20/20 19:22 Urine Bilirubin Neg (Negative) 12/20/20 19:22 Urine Urobilinogen < 2.0 mg/dL (<2.0) 12/20/20 19:22 Ur Leukocyte Esterase Neg (Negative) 12/20/20 19:22 Urine WBC (Auto) < 1.0 /HPF (0.0-6.0) 12/20/20 19:22 Urine RBC (Auto) 1.0 /HPF (0.0-6.0) 12/20/20 19:22 U Epithel Cells (Auto) 1.0 /HPF (0-13.0) 12/20/20 19:22 Hyaline Casts 1 /LPF 12/20/20 19:22 Urine Mucus Few /HPF 12/20/20 19:22 Urine Opiates Screen Negative 12/20/20 19:23 Urine Methadone Screen Negative 12/20/20 19:23 Ur Barbiturates Screen Negative 12/20/20 19:23 Ur Phencyclidine Scrn Negative 12/20/20 19:23 Ur Amphetamines Screen Negative 12/20/20 19:23 U Benzodiazepines Scrn Negative 12/20/20 19:23 Urine Cocaine Screen Negative 12/20/20 19:23 U Marijuana (THC) Screen Negative 12/20/20 19:23 Drugs of Abuse Note Disclamer 12/20/20 19:23 Plasma/Serum Alcohol < 0.01 % (0-0.07) 12/20/20 19:30 Chance/IV: Voiding Method Toilet Active Medications - Current Medications Current Medications: Generic Name Dose Route Start Last Admin Trade Name Freq PRN Reason Stop Dose Admin Acetaminophen 650 mg 12/20/20 22:10 Acetaminophen 325 Mg Tab PO Q4H PRN Pain MILD(1-3)/Fever >100.5/ARRIAZA Amiodarone HCl 200 mg 12/21/20 10:00 12/28/20 09:11 Amiodarone 200 Mg Tab PO 200 mg QDAY JOHN Administration Aspirin 81 mg 12/22/20 10:00 12/28/20 09:11 Aspirin Ec 81 Mg Tab PO 81 mg QDAY JOHN Administration Atorvastatin Calcium 40 mg 12/21/20 22:00 12/28/20 22:03 Atorvastatin 40 Mg Tab PO 40 mg QHS JOHN Administration Bisacodyl 10 mg 12/20/20 22:10 Bisacodyl 10 Mg Rect Supp [place] QDAY PRN Constipation Bumetanide 1 mg 12/22/20 10:00 12/28/20 09:11 Bumetanide 1 Mg Tab PO 1 mg QDAY JOHN Administration Enoxaparin Sodium 150 mg 12/21/20 22:00 12/28/20 22:03 Enoxaparin 150 Mg/1 Ml Inj SUB-Q 150 mg Q12HR JONH Administration Protocol Hydralazine HCl 100 mg 12/21/20 08:00 12/28/20 22:03 Hydralazine 100 Mg Tab PO 100 mg TID JOHN Administration Levetiracetam 750 mg 12/28/20 13:12 12/28/20 22:03 Levetiracetam 500 Mg/5 Ml Oral Liqd PO 750 mg BID JOHN Administration Magnesium Hydroxide 30 ml 12/20/20 22:10 Magnesium Hydroxide (Mom) Oral Liqd Udc PO Q4H PRN Constipation Metoclopramide HCl 5 mg 12/20/20 22:10 Metoclopramide 10 Mg Tab PO Q6H PRN Nausea And Vomiting Metoprolol Succinate 25 mg 12/21/20 08:00 12/28/20 09:11 Metoprolol Succinate Xl 25 Mg Tab PO 25 mg QDAY@0800 [facility] Administration Morphine Sulfate 2 mg 12/20/20 22:10 Morphine 2 Mg/1 Ml Inj IV Q4H PRN Pain, Moderate (4-6) Morphine Sulfate 4 mg 12/20/20 22:10 Morphine 4 Mg/1 Ml Inj IV Q4H PRN Pain , Severe (7-10) Ondansetron HCl 4 mg 12/20/20 22:10 Ondansetron 4 Mg/2 Ml Inj IV Q8H PRN Nausea And Vomiting Promethazine HCl 25 mg 12/20/20 22:10 Promethazine 25 Mg Rect Supp [place] Q6H PRN Nausea And Vomiting Sodium Chloride 10 ml 12/21/20 10:00 12/28/20 22:03 Sodium Chloride 0.9% 10 Ml Flush Syringe IV 10 ml BID JOHN Administration Sodium Chloride 10 ml 12/20/20 22:10 Sodium Chloride 0.9% 10 Ml Flush Syringe IV PRN PRN LINE FLUSH Spironolactone 25 mg 12/21/20 10:00 12/28/20 22:03 Spironolactone 25 Mg Tab PO 25 mg BID JOHN Administration Warfarin Sodium 10 mg 12/24/20 17:00 12/28/20 17:18 Warfarin 10 Mg Tab PO 10 mg DAILY@1700 JOHN Administration Warfarin Sodium 2.5 mg 12/27/20 17:00 12/28/20 17:18 Warfarin 2.5 Mg Tab PO 2.5 mg DAILY@1700 JOHN Administration Nutrition/Malnutrition Assess - Dietary Evaluation Nutrition/Malnutrition Findings: Nutrition Notes Start: 12/21/20 14:25 Freq: Status: Active Protocol: Document 12/22/20 11:49 (Rec: 12/22/20 11:52 [id number]) Nutrition Notes Need for Assessment generated from: Education Initial or Follow up Brief Note Current Diagnosis Hypertension,Heart Failure, Stroke Other Pertinent Diagnosis Seizure Current Diet cardiac Pertinent Medications Coumadin Subjective/Other Information Pt reports trying to eat healthier. Gave pt Coumdin education and heart healthy tips. Pt not eating carbs and states feeling very tired. Encouraged pt to eat well balanced diet. #1 Nutrition Diagnosis Food and nutrition-related knowledge deficit Etiology no prior diet education As Evidenced by Signs and Symptoms pt had questions about vitamin K interaction and heart healthy foods Nutrition Intervention Teaching Recipient Patient Learning Readiness Good Teaching Methods Discussion,Handout Response to Teaching Verbalize understanding Education Handouts Provided Vitamin K and Medications Heart Healthy Nutrition Barriers to Learning No Barriers RD phone number provided Yes Patient aware of follow up options Yes Revisit per MD consult or patient Sign Off request:
[2020-12-29] MEDS: levETIRAcetam 500 MG/5 ML ORAL LIQD PO SCH ×2 (10:54→23:59)
[2020-12-29] MEDS: ASPIRIN EC 81 MG TAB PO SCH (10:55)
[2020-12-29] MEDS: METOPROLOL SUCCINATE XL 25 MG TAB PO SCH (10:55)
[2020-12-29] MEDS: BUMETANIDE 1 MG TAB PO SCH (10:55)
[2020-12-29] MEDS: AMIODARONE 200 MG TAB PO SCH (10:55)
[2020-12-29] MEDS: SPIRONOLACTONE 25 MG TAB PO SCH ×2 (10:55→23:59)
--- NOTE | 2020-12-29 12:14 | Progress Note ---
Assessment and Plan Assessment and Plan Assessment and plan: --Chronic kidney disease stage III; Closely monitor renal function, avoid nephrotoxins Consult nephrology as needed-remained stable at baseline. #Acute metabolic encephalopathy Present on admission , probably postictal-resolved alert oriented x3. No further evidence of encephalopathy. possibly secondary to seizure-like activity versus a CVA. Resolved patient is alert awake oriented x3 Ct brain is unremarkable # Seizure-like activity/ break through seizure Patient is started on Keppra.500 mg bid in ER -- will increase to 750 mg bid due to pt. size Patient placed on seizure precautions. pt. does not drive -Hx of seizure since 5 ys old -was on trileptal with possible interaction with coumadine according to pt. he is compling with medications -EEG is unremarkable -Ct brain is unremarkable -According to pt. he is with pace maker can not have MRI brain #History of LV thrombus; Patient reports that he is compliant with medication However subtherapeutic INR on presentation-- possibly related to seizure medication interact with coumadine We will continue full dose Lovenox on Coumadin goal of INR between 2 and 3 INR 1.37. Will discontinue large 1 greater than 2. Cardiology consult if needed # Hx of CVA with right side weakness - slight give away weakness -on coumadine -LVEF#20-25% with dilated cardiomyopathy ? -Pace maker -Lipitor 40 mg -- LDL#98 # HTN (hypertension) Moderate control, continue current antihypertensives Fair control blood pressure 143/73. #Morbid obesity; BMI 41.5 Current Visit: No Status: Chronic Patient needs weight reduction when medically stable PLAN 1-maintain Keppra to 750 mg bid 2-On Coumadine and Lipitor 3-INR need to be >2-3 4- Seizure precaution 5- he does not drive with hx of seizure since was 5 ys old 6- Advance activity as tolerated 7- Neurology follow up will sign off Subjective Date of service: 12/29/20 Principal diagnosis: black out spell ,hx of seizure and left atrial thrombus Interval history: "I just blank out." History of present illness: 35 yo male with seizure d/o, CVA, HTN, heart failure, LV thrombus (on Coumadi) who presented initially with a c/o a headache and then "blanking out". He was witnessed with a possible post-seizure state. Patient was initiated on Keppra 500 mg bid in ER Patient was on Oxcabamazepine at home. No new clinical seizure during this hospitalization. Notes he has had at elast 3 or 4 seizure since the stroke 4 years ago. he is with slight give away weakness right side since the last stroke. Currently, notes he is at his baseline. According to pt. he is compling with seizure medications as well as tegretol , His first seizure was when he was 5 ys old , no family hx of seizure he does not drive , not smoker, denied alcohol or recreational drug intake -In ER Ct brain is unremarkable -EEG is unremarkable -He can not have MRI due to pace maker Past History Past Medical History: heart failure, hypertension, seizures, stroke (With right- sided weakness) Past Surgical History: No surgical history, pace maker Social history: no significant social history Family history: no significant family history Medications and Allergies Allergies Allergy/AdvReac Type Severity Reaction Status Date / Time No Known Allergies Allergy Verified 08/27/14 07:40 Home Medications Medication Instructions Recorded Confirmed Last Taken Type Aspirin EC [Halfprin EC] 81 mg PO QDAY #30 tablet. 04/24/19 12/21/20 Unknown Rx Warfarin [Coumadin] 7.5 mg PO DAILY@1700 tablet 06/26/19 12/21/20 12/18/20 Rx 7.5 AtorvaSTATin [Lipitor] 40 mg PO QHS 07/15/19 12/21/20 12/19/20 22:00 History Metoprolol Xl [Metoprolol 25 mg PO QDAY 07/15/19 12/21/20 Unknown History SUCCINATE ER TAB] OXcarbazepine [Trileptal] 300 mg PO BID 07/15/19 12/21/20 12/20/20 08:00 History Amiodarone [Cordarone 200 MG TAB] 200 mg PO QDAY #30 tablet 07/19/19 12/21/20 Unknown Rx Bumetanide [Bumex 1 mg tab] 100 mg PO 0600,1800 12/21/20 12/21/20 Unknown History Potassium Chloride [K-Dur] 20 meq PO QDAY 12/21/20 12/21/20 Unknown History Spironolactone [Aldactone] 25 mg PO BID 12/21/20 12/21/20 12/19/20 22:00 History Torsemide [Demadex] 100 mg PO QDAY 12/21/20 12/21/20 Unknown History carvediloL [Coreg] 6.25 mg PO BID 12/21/20 12/21/20 Unknown History hydrALAZINE [Apresoline TAB] 100 mg PO TID 12/21/20 12/21/20 12/19/20 08:00 History Active Meds: Active Medications Acetaminophen (Acetaminophen 325 Mg Tab) 650 mg PO Q4H PRN PRN Reason: Pain MILD(1-3)/Fever >100.5/ARRIAZA Amiodarone HCl (Amiodarone 200 Mg Tab) 200 mg PO QDAY [facility] Last Admin: 12/23/20 09:10 Dose: 200 mg Documented by: Aspirin (Aspirin Ec 81 Mg Tab) 81 mg PO QDAY [facility] Last Admin: 12/23/20 09:09 Dose: 81 mg Documented by: Atorvastatin Calcium (Atorvastatin 40 Mg Tab) 40 mg PO QHS [facility] Last Admin: 12/22/20 21:10 Dose: 40 mg Documented by: Bisacodyl (Bisacodyl 10 Mg Rect Supp) 10 mg VA QDAY PRN PRN Reason: Constipation Bumetanide (Bumetanide 1 Mg Tab) 1 mg PO QDAY [facility] Last Admin: 12/23/20 09:11 Dose: 1 mg Documented by: Enoxaparin Sodium (Enoxaparin 150 Mg/1 Ml Inj) 150 mg SUB-Q Q12HR [facility]; Protocol Last Admin: 12/23/20 09:09 Dose: 150 mg Documented by: Hydralazine HCl (Hydralazine 100 Mg Tab) 100 mg PO TID [facility] Last Admin: 12/23/20 09:10 Dose: 100 mg Documented by: Levetiracetam 500 mg/ Dextrose 105 mls @ 400 mls/hr IV Q12HR [facility] Last Admin: 12/23/20 09:12 Dose: 400 mls/hr Documented by: Magnesium Hydroxide (Magnesium Hydroxide (Mom) Oral Liqd Udc) 30 ml PO Q4H PRN PRN Reason: Constipation Metoclopramide HCl (Metoclopramide 10 Mg Tab) 5 mg PO Q6H PRN PRN Reason: Nausea And Vomiting Metoprolol Succinate (Metoprolol Succinate Xl 25 Mg Tab) 25 mg PO QDAY@0800 [facility] Last Admin: 12/23/20 09:10 Dose: 25 mg Documented by: Morphine Sulfate (Morphine 2 Mg/1 Ml Inj) 2 mg IV Q4H PRN PRN Reason: Pain, Moderate (4-6) Morphine Sulfate (Morphine 4 Mg/1 Ml Inj) 4 mg IV Q4H PRN PRN Reason: Pain , Severe (7-10) Ondansetron HCl (Ondansetron 4 Mg/2 Ml Inj) 4 mg IV Q8H PRN PRN Reason: Nausea And Vomiting Promethazine HCl (Promethazine 25 Mg Rect Supp) 25 mg VA Q6H PRN PRN Reason: Nausea And Vomiting Sodium Chloride (Sodium Chloride 0.9% 10 Ml Flush Syringe) 10 ml IV BID [facility] Last Admin: 12/23/20 09:12 Dose: 10 ml Documented by: Sodium Chloride (Sodium Chloride 0.9% 10 Ml Flush Syringe) 10 ml IV PRN PRN PRN Reason: LINE FLUSH Spironolactone (Spironolactone 25 Mg Tab) 25 mg PO BID [facility] Last Admin: 12/23/20 09:11 Dose: 25 mg Documented by: Warfarin Sodium (Warfarin 7.5 Mg Tab) 7.5 mg PO DAILY@1700 [facility]; Protocol Last Admin: 12/22/20 18:40 Dose: 7.5 mg Documented by: Review of Systems All systems: negative (as per HPI;) Objective - Vital Sign Vital Signs - 12hr 12/29/20 12/29/20 04:38 08:14 Temperature 98.3 F 98.6 F Pulse Rate 77 Respiratory 20 18 Rate Blood Pressure 103/51 111/54 O2 Sat by Pulse 96 Oximetry - General Apperance Constitutional: comfortable - EENT EENT: PERRL, mucous membranes moist - Respiratory Respiratory: chest non-tender, lungs clear, rhonchi - Cardiovascular Cardiovascular: regular rate, normal S1, normal S2 Extremities: no peripheral edema bilat, no clubbing, cyanosis - Gastrointestinal Gastrointestinal: normoactive bowel sounds - Integumentary Integumentary: normal - Neurologic Cranial nerve examination: PERRL, EOMI, intact Speech examination: intact Detailed motor examination: grossly full strength in - Laboratory Findings CBC and BMP: 12/26/20 07:20 12/25/20 05:30 Abnormal Lab Findings: Abnormal Labs 12/20/20 12/20/20 12/20/20 19:30 19:30 20:17 MCH 33 H MCHC 36 H [place] % (Auto) 10.6 H [place] # (Auto) 0.9 H PT INR Sodium 136 L Chloride 96.6 L BUN 28 H Creatinine 1.6 H Glucose 115 H POC Glucose 128 H Magnesium AST 75 H ALT 73 H Total Protein 8.8 H HDL Cholesterol 12/21/20 12/21/20 12/22/20 04:28 04:28 04:49 MCH MCHC [place] % (Auto) 12.4 H [place] # (Auto) PT 15.3 H INR 1.16 H Sodium Chloride BUN 32 H Creatinine 1.7 H Glucose POC Glucose Magnesium AST ALT Total Protein HDL Cholesterol 36 L 12/22/20 12/22/20 12/22/20 04:49 18:09 20:33 MCH MCHC [place] % (Auto) [place] # (Auto) PT INR Sodium Chloride BUN 31 H Creatinine 1.4 H Glucose POC Glucose 122 H 117 H Magnesium 2.40 H AST ALT Total Protein HDL Cholesterol 12/23/20 12/24/20 12/25/20 16:03 05:15 05:03 MCH MCHC [place] % (Auto) [place] # (Auto) PT 15.1 H 16.3 H INR 1.14 H 1.25 H Sodium Chloride BUN Creatinine Glucose POC Glucose 106 H Magnesium AST ALT Total Protein HDL Cholesterol 12/25/20 12/26/20 12/27/20 12:22 07:20 04:48 MCH MCHC [place] % (Auto) [place] # (Auto) PT 16.4 H 16.3 H INR 1.26 H 1.25 H Sodium Chloride BUN Creatinine Glucose POC Glucose 120 H Magnesium AST ALT Total Protein HDL Cholesterol 12/28/20 12/29/20 04:10 05:03 MCH MCHC [place] % (Auto) [place] # (Auto) PT 17.7 H 20.0 H INR 1.39 H 1.64 H Sodium Chloride BUN Creatinine Glucose POC Glucose Magnesium AST ALT Total Protein HDL Cholesterol
--- NOTE | 2020-12-29 12:43 | Progress Note ---
Assessment and Plan Syncope bystander reported seizure activity. Presence of ICD ([employer]) interrogation reports no evidence of cardiac arrhythmias. Normal functioning device. Hx of Left ventricular apical thrombus INR sub-therapeutic on presentation Warfarin resumed, target INR 2.0-3.0. Hx Non-ischemic dilated cardiomyopathy Hx of Seizure disorder Prior CVA Continue warfarin with target INR 2-3.0. Advised compliance with his medications and outpatient INR monitoring. Continue guideline directed medical therapy for nonischemic cardiomyopathy. Otherwise, conservative cardiac management. Subjective Date of service: 12/29/20 Principal diagnosis: black out spell ,hx of seizure and left atrial thrombus Interval history: No cardiac complaints. Awaits therapeutic INR, today he had an INR of 1.64. Objective Vital Signs Temp Pulse Resp BP Pulse Ox 12/29/20 08:14 98.6 F 18 111/54 12/29/20 04:38 98.3 F 77 20 103/51 96 12/28/20 22:49 98.0 F 71 20 103/60 97 12/28/20 22:00 18 98 12/28/20 19:51 98.6 F 77 18 122/72 97 12/28/20 16:55 99.0 F 77 18 143/94 96 - Physical Examination General: No Apparent Distress HEENT: Positive: PERRL Neck: Positive: neck supple Cardiac: Positive: Reg Rate and Rhythm Lungs: Positive: Decreased Breath Sounds Neuro: Positive: Grossly Intact, Weakness (Mild right-sided hemiparesis from previous CVA) Extremities: Absent: edema - Labs and Meds Coagulation 12/29/20 Range/Units 05:03 PT 20.0 H (12.2-14.9) Sec. INR 1.64 H (0.87-1.13)
[2020-12-29] MEDS: ENOXAPARIN 150 MG/1 ML INJ SUB-Q SCH ×2 (17:28→23:59)
[2020-12-29] MEDS: WARFARIN 10 MG TAB PO SCH (17:28)
[2020-12-29] MEDS: WARFARIN 2.5 MG TAB PO SCH (17:28)
[2020-12-30 05:50] LABS: INR 1.69 (0.87-1.13)
[2020-12-30] MEDS: hydrALAZINE 100 MG TAB PO SCH ×3 (08:34→23:03)
[2020-12-30] MEDS: METOPROLOL SUCCINATE XL 25 MG TAB PO SCH (08:34)
--- NOTE | 2020-12-30 08:52 | Progress Note ---
Assessment and Plan Assessment and plan: 35-year-old morbidly obese male patient with history of LV thrombus on Coumadin Clinic complaints however INR was subtherapeutic admitted with syncope and headache Work-up is negative, patient is receiving full dose Lovenox and Coumadin target INR 2-3 --Chronic kidney disease stage III; Closely monitor renal function, avoid nephrotoxins Consult nephrology as needed-remained stable at baseline. --Acute metabolic encephalopathy Present on admission , probably postictal-resolved alert oriented x3. No further evidence of encephalopathy. possibly secondary to seizure-like activity versus a CVA. Resolved patient is alert awake oriented x3 -- Seizure disorder Patient has been started on Keppra. We will place consult to neurology for evaluation. Patient placed on seizure precautions. Do not drive until cleared by PMD or neurology --History of LV thrombus; Patient reports that he is compliant with medication However subtherapeutic INR on presentation We will continue full dose Lovenox on Coumadin goal of INR between 2 and 3 Cardiology consulted Nonischemic dilated cardiomyopathy Medical therapy for dilated, nonischemic cardiomyopathy and chronic left ventricular systolic failure. Syncope Patient is undergoing work-up for syncope due to possible seizures. Defer management to neurology. Cardiac evaluation with ICD interrogation found no cardiac dysrhythmias associated with his syncope. -- HTN (hypertension) Moderate control, continue current antihypertensives Fair control blood pressure 143/73. --Morbid obesity; BMI 41.5 Patient needs weight reduction when medically stable --Hypertension; Moderate control, continue current antihypertensives As needed medication continue statin 12/22/2020; LV thrombus, on Lovenox and Coumadin Subtherapeutic INR, cardiology consulted 12/23/2020; patient's INR remains subtherapeutic However the INR 2-3, no new episodes of seizures No new episodes of syncope, follow PT evaluation and recommendation Discharge when INR is therapeutic between 2 and 3 12/24/2020; INR remains subtherapeutic Pharmacy monitoring Ambulate as tolerated 12/26/2020; no new episodes of seizure, no headache INR remains subtherapeutic. Target INR 2-3 Pharmacy following Follow PT OT evaluation recommendation Discharge when INR is between 2 and 3 12/1520. -Resting comfortably no acute distress. -INR 1.25 today. --Discharge when INR therapeutic between 2 and 3. 12/28/2020. Remains comfortable. No acute distress. INR 1.4 today. 12/29/20. Patient's INR has improved to 1.64 today. We will discharge when INR therapeutic between 2 and 3. 12/30/2020. INR has improved to 1.69 but still remains subtherapeutic. I will discuss with pharmacy increasing the Coumadin dose more aggressively. History Interval history: No new issues overnight. Hospitalist Physical - Constitutional Vitals: Temp Pulse Resp BP Pulse Ox 97.6 F 82 18 136/99 97 12/30/20 04:37 12/30/20 04:37 12/30/20 04:37 12/30/20 04:37 12/30/20 04:37 General appearance: Present: no acute distress, well-nourished - EENT Eyes: Present: PERRL, EOM intact ENT: hearing intact, clear oral mucosa, dentition normal - Neck Neck: Present: supple, normal ROM - Respiratory Respiratory effort: normal Respiratory: bilateral: CTA - Cardiovascular Rhythm: regular Heart Sounds: Present: S1 & S2. Absent: gallop, rub - Extremities Extremities: no ischemia, No edema, Full ROM - Abdominal General gastrointestinal: soft, non-tender, non-distended, normal bowel sounds - Integumentary Integumentary: Present: clear, warm, dry - Neurologic Neurologic: CNII-XII intact, moves all extremities HEART Score - HEART Score Troponin: Troponin T < 0.010 ng/mL (0.00-0.029) 12/20/20 19:30 Results - Labs CBC & Chem 7: 12/26/20 07:20 12/30/20 04:49 Labs: Laboratory Last Values WBC 5.6 K/mm3 (4.5-11.0) 12/21/20 04:28 RBC 4.49 M/mm3 (3.65-5.03) 12/21/20 04:28 Hgb 13.3 gm/dl (11.8-15.2) 12/26/20 07:20 Hct 39.5 % (35.5-45.6) 12/26/20 07:20 MCV 94 fl (84-94) 12/21/20 04:28 MCH 32 pg (28-32) 12/21/20 04:28 MCHC 34 % (32-34) 12/21/20 04:28 RDW 14.0 % (13.2-15.2) 12/21/20 04:28 Plt Count 267 K/mm3 (140-440) 12/21/20 04:28 Lymph % (Auto) 28.4 % (13.4-35.0) 12/21/20 04:28 Barnes % (Auto) 12.4 % (0.0-7.3) H 12/21/20 04:28 Eos % (Auto) 2.2 % (0.0-4.3) 12/21/20 04:28 Baso % (Auto) 0.6 % (0.0-1.8) 12/21/20 04:28 Lymph # (Auto) 1.6 K/mm3 (1.2-5.4) 12/21/20 04:28 Barnes # (Auto) 0.7 K/mm3 (0.0-0.8) 12/21/20 04:28 Eos # (Auto) 0.1 K/mm3 (0.0-0.4) 12/21/20 04:28 Baso # (Auto) 0.0 K/mm3 (0.0-0.1) 12/21/20 04:28 Seg Neutrophils % 56.4 % (40.0-70.0) 12/21/20 04:28 Seg Neutrophils # 3.2 K/mm3 (1.8-7.7) 12/21/20 04:28 PT 20.5 Sec. (12.2-14.9) H 12/30/20 04:49 INR 1.69 (0.87-1.13) H 12/30/20 04:49 APTT 25.8 Sec. (24.2-36.6) 12/20/20 19:30 Thrombin Time 15.8 Sec. (15.1-19.6) 12/20/20 19:30 Sodium 138 mmol/L (137-145) 12/22/20 04:49 Potassium 4.2 mmol/L (3.6-5.0) 12/25/20 05:30 Chloride 98.7 mmol/L (98-107) 12/22/20 04:49 Carbon Dioxide 29 mmol/L (22-30) 12/22/20 04:49 Anion Gap 14 mmol/L 12/22/20 04:49 BUN 31 mg/dL (9-20) H 12/22/20 04:49 Creatinine 1.3 mg/dL (0.8-1.3) 12/30/20 04:49 Estimated GFR > 60 ml/min 12/30/20 04:49 BUN/Creatinine Ratio 22 % 12/22/20 04:49 Glucose 92 mg/dL (75-100) 12/22/20 04:49 POC Glucose 100 mg/dL (70-105) 12/27/20 15:30 Calcium 9.5 mg/dL (8.4-10.2) 12/22/20 04:49 Magnesium 2.40 mg/dL (1.7-2.3) H 12/22/20 04:49 Total Bilirubin 0.30 mg/dL (0.1-1.2) 12/20/20 19:30 AST 75 units/L (5-40) H 12/20/20 19:30 ALT 73 units/L (7-56) H 12/20/20 19:30 Alkaline Phosphatase 97 units/L (35-129) 12/20/20 19:30 Ammonia 44.0 umol/L (25-60) 12/20/20 19:46 Troponin T < 0.010 ng/mL (0.00-0.029) 12/20/20 19:30 Total Protein 8.8 g/dL (6.3-8.2) H 12/20/20 19:30 Albumin 4.4 g/dL (3.9-5) 12/20/20 19:30 Albumin/Globulin Ratio 1.0 % 12/20/20 19:30 Triglycerides 96 mg/dL (2-149) 12/21/20 04:28 Cholesterol 147 mg/dL (50-199) 12/21/20 04:28 LDL Cholesterol Direct 98 mg/dL (50-130) 12/21/20 04:28 HDL Cholesterol 36 mg/dL (40-59) L 12/21/20 04:28 Cholesterol/HDL Ratio 4.08 % 12/21/20 04:28 TSH 2.190 mlU/mL (0.270-4.200) 12/20/20 19:30 Urine Color Yellow (Yellow) 12/20/20 19:22 Urine Turbidity Clear (Clear) 12/20/20 19:22 Urine pH 5.0 (5.0-7.0) 12/20/20 19:22 Ur Specific [place] 1.015 (1.003-1.030) 12/20/20 19:22 Urine Protein <15 mg/dl mg/dL (Negative) 12/20/20 19:22 Urine Glucose (UA) Neg mg/dL (Negative) 12/20/20 19:22 Urine Ketones Neg mg/dL (Negative) 12/20/20 19:22 Urine Blood Neg (Negative) 12/20/20 19:22 Urine Nitrite Neg (Negative) 12/20/20 19:22 Urine Bilirubin Neg (Negative) 12/20/20 19:22 Urine Urobilinogen < 2.0 mg/dL (<2.0) 12/20/20 19:22 Ur Leukocyte Esterase Neg (Negative) 12/20/20 19:22 Urine WBC (Auto) < 1.0 /HPF (0.0-6.0) 12/20/20 19:22 Urine RBC (Auto) 1.0 /HPF (0.0-6.0) 12/20/20 19:22 U Epithel Cells (Auto) 1.0 /HPF (0-13.0) 12/20/20 19:22 Hyaline Casts 1 /LPF 12/20/20 19:22 Urine Mucus Few /HPF 12/20/20 19:22 Urine Opiates Screen Negative 12/20/20 19:23 Urine Methadone Screen Negative 12/20/20 19:23 Ur Barbiturates Screen Negative 12/20/20 19:23 Ur Phencyclidine Scrn Negative 12/20/20 19:23 Ur Amphetamines Screen Negative 12/20/20 19:23 U Benzodiazepines Scrn Negative 12/20/20 19:23 Urine Cocaine Screen Negative 12/20/20 19:23 U Marijuana (THC) Screen Negative 12/20/20 19:23 Drugs of Abuse Note Disclamer 12/20/20 19:23 Plasma/Serum Alcohol < 0.01 % (0-0.07) 12/20/20 19:30 Chance/IV: Voiding Method Urinal Active Medications - Current Medications Current Medications: Generic Name Dose Route Start Last Admin Trade Name Freq PRN Reason Stop Dose Admin Acetaminophen 650 mg 12/20/20 22:10 Acetaminophen 325 Mg Tab PO Q4H PRN Pain MILD(1-3)/Fever >100.5/ARRIAZA Amiodarone HCl 200 mg 12/21/20 10:00 12/29/20 10:55 Amiodarone 200 Mg Tab PO 200 mg QDAY JOHN Administration Aspirin 81 mg 12/22/20 10:00 12/29/20 10:55 Aspirin Ec 81 Mg Tab PO 81 mg QDAY JOHN Administration Atorvastatin Calcium 40 mg 12/21/20 22:00 12/29/20 23:59 Atorvastatin 40 Mg Tab PO 40 mg QHS JOHN Administration Bisacodyl 10 mg 12/20/20 22:10 Bisacodyl 10 Mg Rect Supp WI QDAY PRN Constipation Bumetanide 1 mg 12/22/20 10:00 12/29/20 10:55 Bumetanide 1 Mg Tab PO 1 mg QDAY JOHN Administration Enoxaparin Sodium 150 mg 12/21/20 22:00 12/29/20 23:59 Enoxaparin 150 Mg/1 Ml Inj SUB-Q 150 mg Q12HR JOHN Administration Protocol Hydralazine HCl 100 mg 12/21/20 08:00 12/30/20 08:34 Hydralazine 100 Mg Tab PO 100 mg TID JOHN Administration Levetiracetam 750 mg 12/28/20 13:12 12/29/20 23:59 Levetiracetam 500 Mg/5 Ml Oral Liqd PO 750 mg BID JOHN Administration Magnesium Hydroxide 30 ml 12/20/20 22:10 Magnesium Hydroxide (Mom) Oral Liqd Udc PO Q4H PRN Constipation Metoclopramide HCl 5 mg 12/20/20 22:10 Metoclopramide 10 Mg Tab PO Q6H PRN Nausea And Vomiting Metoprolol Succinate 25 mg 12/21/20 08:00 12/30/20 08:34 Metoprolol Succinate Xl 25 Mg Tab PO 25 mg QDAY@0800 JOHN Administration Morphine Sulfate 2 mg 12/20/20 22:10 Morphine 2 Mg/1 Ml Inj IV Q4H PRN Pain, Moderate (4-6) Morphine Sulfate 4 mg 12/20/20 22:10 Morphine 4 Mg/1 Ml Inj IV Q4H PRN Pain , Severe (7-10) Ondansetron HCl 4 mg 12/20/20 22:10 Ondansetron 4 Mg/2 Ml Inj IV Q8H PRN Nausea And Vomiting Promethazine HCl 25 mg 12/20/20 22:10 Promethazine 25 Mg Rect Supp WI Q6H PRN Nausea And Vomiting Sodium Chloride 10 ml 12/21/20 10:00 12/29/20 10:56 Sodium Chloride 0.9% 10 Ml Flush Syringe IV 10 ml BID JOHN Administration Sodium Chloride 10 ml 12/20/20 22:10 Sodium Chloride 0.9% 10 Ml Flush Syringe IV PRN PRN LINE FLUSH Spironolactone 25 mg 12/21/20 10:00 12/29/20 23:59 Spironolactone 25 Mg Tab PO 25 mg BID JOHN Administration Warfarin Sodium 10 mg 12/24/20 17:00 12/29/20 17:28 Warfarin 10 Mg Tab PO 10 mg DAILY@1700 [facility] Administration Warfarin Sodium 2.5 mg 12/27/20 17:00 12/29/20 17:28 Warfarin 2.5 Mg Tab PO 2.5 mg DAILY@1700 [facility] Administration Warfarin Sodium 2.5 mg 12/30/20 17:00 Warfarin 2.5 Mg Tab PO 12/30/20 17:01 DAILY@1700 [facility] Nutrition/Malnutrition Assess - Dietary Evaluation Nutrition/Malnutrition Findings: Nutrition Notes Start: 12/21/20 14:25 Freq: Status: Active Protocol: Document 12/22/20 11:49 (Rec: 12/22/20 11:52 [id number]) Nutrition Notes Need for Assessment generated from: Education Initial or Follow up Brief Note Current Diagnosis Hypertension,Heart Failure, Stroke Other Pertinent Diagnosis Seizure Current Diet cardiac Pertinent Medications Coumadin Subjective/Other Information Pt reports trying to eat healthier. Gave pt Coumdin education and heart healthy tips. Pt not eating carbs and states feeling very tired. Encouraged pt to eat well balanced diet. #1 Nutrition Diagnosis Food and nutrition-related knowledge deficit Etiology no prior diet education As Evidenced by Signs and Symptoms pt had questions about vitamin K interaction and heart healthy foods Nutrition Intervention Teaching Recipient Patient Learning Readiness Good Teaching Methods Discussion,Handout Response to Teaching Verbalize understanding Education Handouts Provided Vitamin K and Medications Heart Healthy Nutrition Barriers to Learning No Barriers RD phone number provided Yes Patient aware of follow up options Yes Revisit per MD consult or patient Sign Off request:
--- NOTE | 2020-12-30 09:56 | Progress Note ---
Assessment and Plan Syncope bystander reported seizure activity. Presence of ICD ([employer]yl[employer]) interrogation reports no evidence of cardiac arrhythmias. Normal functioning device. Hx of Left ventricular apical thrombus INR sub-therapeutic on presentation Warfarin resumed, target INR 2.0-3.0. Hx Non-ischemic dilated cardiomyopathy Hx of Seizure disorder Prior CVA Continue warfarin with target INR 2-3.0. Advised compliance with his medications and outpatient INR monitoring. Continue guideline directed medical therapy for nonischemic cardiomyopathy. Otherwise, conservative cardiac management. Subjective Date of service: 12/30/20 Principal diagnosis: black out spell ,hx of seizure and left atrial thrombus Interval history: No cardiac complaints. Awaits therapeutic INR. Warfarin continues. Objective Vital Signs Temp Pulse Resp BP Pulse Ox 12/30/20 08:48 100 12/30/20 04:37 97.6 F 82 18 136/99 97 12/30/20 00:29 98.4 F 75 18 108/54 95 12/29/20 22:00 96 12/29/20 20:24 98.8 F 77 18 114/78 96 12/29/20 16:14 98.0 F 76 18 118/73 98 12/29/20 12:01 98.0 F 71 18 129/81 95 - Physical Examination General: No Apparent Distress HEENT: Positive: PERRL Neck: Positive: neck supple Cardiac: Positive: Reg Rate and Rhythm Lungs: Positive: Decreased Breath Sounds Neuro: Positive: Grossly Intact, Weakness (Mild right-sided hemiparesis from previous CVA) Abdomen: Positive: Soft Extremities: Absent: edema - Labs and Meds Coagulation 12/30/20 Range/Units 04:49 PT 20.5 H (12.2-14.9) Sec. INR 1.69 H (0.87-1.13) Comprehensive Metabolic Panel 12/30/20 Range/Units 04:49 Creatinine 1.3 (0.8-1.3) mg/dL
[2020-12-30] MEDS: BUMETANIDE 1 MG TAB PO SCH (10:29)
[2020-12-30] MEDS: ASPIRIN EC 81 MG TAB PO SCH (10:29)
[2020-12-30] MEDS: ENOXAPARIN 150 MG/1 ML INJ SUB-Q SCH ×2 (10:29→22:57)
[2020-12-30] MEDS: SPIRONOLACTONE 25 MG TAB PO SCH ×2 (10:29→22:58)
[2020-12-30] MEDS: AMIODARONE 200 MG TAB PO SCH (10:29)
[2020-12-30] MEDS: levETIRAcetam 500 MG/5 ML ORAL LIQD PO SCH ×2 (10:30→22:57)
[2020-12-30] MEDS ORDERED: WARFARIN 2.5 MG TAB PO SCH (17:00)
[2020-12-30] MEDS: WARFARIN 10 MG TAB PO SCH (17:54)
[2020-12-30] MEDS: WARFARIN 2.5 MG TAB PO SCH (17:55)
[2020-12-31 04:47] VITALS: BP 109/58
[2020-12-31 06:50] LABS: INR 1.93 (0.87-1.13)
[2020-12-31] MEDS: hydrALAZINE 100 MG TAB PO SCH ×2 (08:03→09:29)
--- NOTE | 2020-12-31 08:29 | Discharge Summary ---
Providers - Providers Date of Admission: 12/21/20 15:13 Date of discharge: 12/31/20 Attending physician: ADELA CHAPMAN 12/20/20 22:10 Consult to Physician [CONS] Routine Comment: Consulting Provider: TIFF ROBERTS Physician Instructions: Reason For Exam: AMS- R/O SEIZURES,R/O CVA 12/20/20 22:11 Consult to Dietitian/Nutrition [CONS] Routine Physician Instructions: Reason For Exam: Reason for Consult: Nutrition Recommendations Reason for Consult: Diet education Occupational Therapy Evaluate and Treat [CONS] Routine Comment: Reason For Exam: Neuro deficits Physical Therapy Evaluation and Treat [CONS] Routine Comment: Reason For Exam: Neuro deficits 12/22/20 10:47 Consult to Physician [CONS] Routine Comment: Consulting Provider: JORDON KELSEY Physician Instructions: Reason For Exam: LV thrombus/subtherapeutic INR Primary care physician: GRIP [employer]SEM[employer]ER Hospitalization Reason for admission: sz activity Condition: Fair Hospital course: 35-year-old morbidly obese male patient with history of LV thrombus on Coumadin Clinic complaints however INR was subtherapeutic admitted with syncope and headache Work-up was negative, patient was then started on full dose Lovenox and Coumadin target INR 2-3. Hospital intervention for diagnosis during admission below. Also, hospital course by day illustrated below --Chronic kidney disease stage III; Closely monitor renal function, avoid nephrotoxins Consult nephrology as needed-remained stable at baseline. --Acute metabolic encephalopathy Present on admission , probably postictal-resolved alert oriented x3. No further evidence of encephalopathy. possibly secondary to seizure-like activity versus a CVA. Resolved patient is alert awake oriented x3 -- Seizure disorder Patient has been started on Keppra. We will place consult to neurology for evaluation. Patient placed on seizure precautions. Do not drive until cleared by PMD or neurology --History of LV thrombus; Patient reports that he is compliant with medication However subtherapeutic INR on presentation We will continue full dose Lovenox on Coumadin goal of INR between 2 and 3 Cardiology consulted Nonischemic dilated cardiomyopathy Medical therapy for dilated, nonischemic cardiomyopathy and chronic left ventricular systolic failure. Syncope Patient is undergoing work-up for syncope due to possible seizures. Defer management to neurology. Cardiac evaluation with ICD interrogation found no cardiac dysrhythmias associated with his syncope. -- HTN (hypertension) Moderate control, continue current antihypertensives Fair control blood pressure 143/73. --Morbid obesity; BMI 41.5 Patient needs weight reduction when medically stable --Hypertension; Moderate control, continue current antihypertensives As needed medication continue statin Hospital course: 12/22/2020; LV thrombus, on Lovenox and Coumadin Subtherapeutic INR, cardiology consulted 12/23/2020; patient's INR remains subtherapeutic However the INR 2-3, no new episodes of seizures No new episodes of syncope, follow PT evaluation and recommendation Discharge when INR is therapeutic between 2 and 3 12/24/2020; INR remains subtherapeutic Pharmacy monitoring Ambulate as tolerated 12/26/2020; no new episodes of seizure, no headache INR remains subtherapeutic. Target INR 2-3 Pharmacy following Follow PT OT evaluation recommendation Discharge when INR is between 2 and 3 12/1520. -Resting comfortably no acute distress. -INR 1.25 today. --Discharge when INR therapeutic between 2 and 3. 12/28/2020. Remains comfortable. No acute distress. INR 1.4 today. 12/29/20. Patient's INR has improved to 1.64 today. We will discharge when INR therapeutic between 2 and 3. 12/30/2020. INR has improved to 1.69 but still remains subtherapeutic. I will discuss with pharmacy increasing the Coumadin dose more aggressively. 12/31/2020. INR improved to 1.93. Cardiology states that this is sufficient for discharge. Dedicated discharge time 35 minutes Disposition: 01 HOME / SELF CARE / HOMELESS Final Discharge Diagnosis (Prints w/discharge instructions): Seizure disorder, chronic kidney disease stage III, metabolic encephalopathy, history of LV thrombus, nonischemic dilated cardiomyopathy, syncope, hypertension, morbid obesity, hypertension Core Measure Documentation - Palliative Care Palliative Care/ Comfort Measures: Not Applicable - Core Measures Any of the following diagnoses?: none Exam - Constitutional Vitals: Temp Pulse Resp BP Pulse Ox 98.0 F 76 18 109/58 95 12/31/20 04:11 12/31/20 04:11 12/31/20 04:11 12/31/20 04:11 12/31/20 04:11 General appearance: Present: no acute distress, well-nourished - EENT Eyes: Present: PERRL ENT: hearing intact, clear oral mucosa - Neck Neck: Present: supple, normal ROM - Respiratory Respiratory effort: normal Respiratory: bilateral: CTA - Cardiovascular Heart Sounds: Present: S1 & S2. Absent: rub, click - Extremities Extremities: pulses symmetrical, No edema Peripheral Pulses: within normal limits - Abdominal General gastrointestinal: Present: soft, non-tender, non-distended, normal bowel sounds Male genitourinary: Present: normal - Integumentary Integumentary: Present: clear, warm, dry - Musculoskeletal Musculoskeletal: gait normal, strength equal bilaterally - Psychiatric Psychiatric: appropriate mood/affect, intact judgment & insight - Neurologic Neurologic: CNII-XII intact, moves all extremities Plan Activity: advance as tolerated Weight Bearing Status: Weight Bear as Tolerated Diet: renal Follow up with: PRIMARY MD JANELLE [Primary Care Provider] - 3-5 Days JORDON KELSEY MD [Staff Physician] - 7 Days TIFF ROBERTS MD [Staff Physician] - 7 Days Forms: Warfarin Discharge Instruction Prescriptions: Spironolactone [Aldactone] 25 mg PO BID #60 hydrALAZINE [Apresoline TAB] 100 mg PO TID #90 tab Bumetanide [Bumex 1 mg tab] 1 mg PO QDAY #30 tablet Amiodarone [Cordarone 200 MG TAB] 200 mg PO QDAY #30 tablet Warfarin [Coumadin] 10 mg PO DAILY@1700 #30 tablet Warfarin [Coumadin] 2.5 mg PO DAILY@1700 #30 tablet Aspirin EC [Halfprin EC] 81 mg PO QDAY #30 tablet levETIRAcetam [Keppra] 750 mg PO BID #60 oral.liqd AtorvaSTATin [Lipitor] 40 mg PO QHS #30 tablet Metoprolol Xl [Metoprolol SUCCINATE ER TAB] 25 mg PO QDAY #30
[2020-12-31] MEDS: SPIRONOLACTONE 25 MG TAB PO SCH (09:29)
[2020-12-31] MEDS: METOPROLOL SUCCINATE XL 25 MG TAB PO SCH (09:29)
[2020-12-31] MEDS: levETIRAcetam 500 MG/5 ML ORAL LIQD PO SCH (09:29)
[2020-12-31] MEDS: AMIODARONE 200 MG TAB PO SCH (09:29)
[2020-12-31] MEDS: ASPIRIN EC 81 MG TAB PO SCH (09:29)
[2020-12-31] MEDS: BUMETANIDE 1 MG TAB PO SCH (09:29)
--- NOTE | 2020-12-31 09:33 | Progress Note ---
Assessment and Plan Syncope bystander reported seizure activity. Presence of ICD ([employer]) interrogation reports no evidence of cardiac arrhythmias. Normal functioning device. Hx of Left ventricular apical thrombus INR sub-therapeutic on presentation Warfarin resumed, target INR 2.0-3.0. Hx Non-ischemic dilated cardiomyopathy Hx of Seizure disorder Prior CVA Continue warfarin for LV apical thrombus. Advised compliance with his medications and outpatient INR monitoring. Continue guideline directed medical therapy for nonischemic cardiomyopathy. Stable cardiac guevara. Patient instructed to follow up with his primary sales and marketing assistant for an INR check in 1 week. Subjective Date of service: 12/31/20 Principal diagnosis: black out spell ,hx of seizure and left atrial thrombus Interval history: No cardiac complaints. For planned discharge home today. Objective Vital Signs Temp Pulse Resp BP Pulse Ox 12/31/20 08:32 99 12/31/20 04:11 98.0 F 76 18 109/58 95 12/30/20 23:26 98.6 F 76 18 130/89 95 12/30/20 22:58 74 130/88 12/30/20 22:00 99 12/30/20 20:18 98.0 F 78 20 128/76 97 12/30/20 16:12 97.9 F 74 18 130/88 97 12/30/20 11:25 98.0 F 56 L 18 105/62 99 - Physical Examination General: No Apparent Distress HEENT: Positive: PERRL Neck: Positive: neck supple Cardiac: Positive: Reg Rate and Rhythm Lungs: Positive: Decreased Breath Sounds Neuro: Positive: Grossly Intact, Weakness (Mild right-sided hemiparesis from previous CVA) Extremities: Absent: edema - Labs and Meds Coagulation 12/31/20 Range/Units 05:08 PT 22.6 H (12.2-14.9) Sec. INR 1.93 H (0.87-1.13)
[2020-12-31] MEDS ORDERED: WARFARIN 7.5 MG TAB PO SCH (17:00)
== END 2020-12-31 14:01 | disposition home or self-care (01) | DRG 101 ==
LOC: ED 19:21 → 4A 22:04 → OBSVTOIN 12-21 15:13
PROVIDERS: ADMIT Internal Medicine Geriatric Medicine; ATTEND Hospitalist
PROC: 4B02XTZ Measurement of Cardiac Defibrillator, External Approach (ICD-10-PCS; principal; 2020-12-30)
DX: G40.909 Epilepsy, unspecified, not intractable, without status epilepticus (principal); Z68.41 Body mass index [BMI] 40.0-44.9, adult; I42.0 Dilated cardiomyopathy; I82.890 Acute embolism and thrombosis of other specified veins; I13.0 Hypertensive heart and chronic kidney disease with heart failure and stage 1 through stage 4 chronic kidney disease, or unspecified chronic kidney disease; I69.951 Hemiplegia and hemiparesis following unspecified cerebrovascular disease affecting right dominant side; I50.42 Chronic combined systolic (congestive) and diastolic (congestive) heart failure; E66.01 Morbid (severe) obesity due to excess calories; N18.30 Chronic kidney disease, stage 3 unspecified; E78.5 Hyperlipidemia, unspecified; Z95.810 Presence of automatic (implantable) cardiac defibrillator; Z79.899 Other long term (current) drug therapy
CPT/HCPCS: 36415; 70450; 71045; 80048; 80053; 80061; 80307; 80320; 81001; 82140; 82565; 82962; 83735; 84132; 84443; 84484; 85014; 85018; 85025; 85610; 85670; 85730; 93005; 93306; 93880; 95819; G0378; A9270-GY; G0480; J1644; J1650; J1953

== ENCOUNTER 2021-01-26 12:04 | Emergency (ER) | payer MEDICARE ==
[2021-01-26 12:32] VITALS: BP 112/64
[2021-01-26] MEDS ORDERED: NITROGLYCERIN 0.4 MG TAB SUBL SL PRN (12:44)
[2021-01-26] MEDS ORDERED: ASPIRIN 81 MG TAB CHEW PO ONE (12:44)
--- NOTE | 2021-01-26 12:49 | Emergency Department Report ---
ED Chest Pain HPI - General Chief Complaint: Chest Pain Stated Complaint: SOB/CP/ HEART FAILURE Time Seen by Provider: 01/26/21 12:33 Source: patient Mode of arrival: Ambulatory Limitations: No Limitations - History of Present Illness Initial Comments: Patient presents with a 2-day history of chest pain. He describes a substernal pain that is described as aching and sharp and pressure. It does not radiate or migrate. He notices when he lies on either his left or his right side that the pain worsens. The pain is not specifically exertional or pleuritic. He has had no cough or congestion. Has no shortness of breath. There is no diaphoresis. There is no trauma. He has no recent travel. He has not noticed pain and swelling in the legs. He states that he had similar symptoms about 1 year ago. He was told it was related to fluid buildup. He has never had a heart attack that he is aware. There is a remote family history of heart disease. Again, the pain has been present for 2 days and he decided to come here to get seen. - Related Data Home Medications Medication Instructions Recorded Confirmed Last Taken AtorvaSTATin [Lipitor] 40 mg PO QHS 07/15/19 12/21/20 12/19/20 22:00 Previous Rx's Medication Instructions Recorded Last Taken Type Aspirin EC [Halfprin EC] 81 mg PO QDAY #30 tablet. 04/24/19 Unknown Rx Amiodarone [Cordarone 200 MG TAB] 200 mg PO QDAY #30 tablet 12/31/20 Unknown Rx Aspirin EC [Halfprin EC] 81 mg PO QDAY #30 tablet 12/31/20 Unknown Rx AtorvaSTATin [Lipitor] 40 mg PO QHS #30 tablet 12/31/20 Unknown Rx Bumetanide [Bumex 1 mg tab] 1 mg PO QDAY #30 tablet 12/31/20 Unknown Rx Metoprolol Xl [Metoprolol 25 mg PO QDAY #30 12/31/20 Unknown Rx SUCCINATE ER TAB] Spironolactone [Aldactone] 25 mg PO BID #60 12/31/20 Unknown Rx Spironolactone [Aldactone] 25 mg PO BID #60 tablet 12/31/20 Unknown Rx Warfarin [Coumadin] 2.5 mg PO DAILY@1700 #30 tablet 12/31/20 Unknown Rx Warfarin [Coumadin] 10 mg PO DAILY@1700 #30 tablet 12/31/20 Unknown Rx hydrALAZINE [Apresoline TAB] 100 mg PO TID #90 tab 12/31/20 Unknown Rx levETIRAcetam [Keppra] 750 mg PO BID #60 oral.liqd 12/31/20 Unknown Rx Ibuprofen [Motrin 600 MG tab] 600 mg PO Q8H PRN #20 tablet 01/26/21 Unknown Rx Allergies Allergy/AdvReac Type Severity Reaction Status Date / Time No Known Allergies Allergy Verified 08/27/14 07:40 Heart Score - HEART Score History: Slightly suspicious EKG: Non-specific Age: < 45 Risk factors: 1-2 risk factors Troponin: < normal limit HEART Score: 2 - EKG Read Time Time EKG Completed: 12:07 EKG Read Time: 12:10 ED Review of Systems ROS: Stated complaint: SOB/CP/ HEART FAILURE Other details as noted in HPI Comment: All other systems reviewed and negative Constitutional: denies: fever Eyes: denies: eye pain ENT: denies: throat pain Respiratory: denies: cough Cardiovascular: as per HPI Endocrine: denies: unexplained weight loss Gastrointestinal: denies: abdominal pain Genitourinary: denies: dysuria Musculoskeletal: denies: back pain Skin: denies: rash Neurological: denies: headache Hematological/Lymphatic: denies: easy bruising ED Past Medical Hx - Past Medical History Previous Medical History?: Yes Hx Hypertension: Yes Hx CVA: Yes (right sided weakness) Hx Congestive Heart Failure: Yes Hx Diabetes: No Hx Arthritis: Yes Hx Seizures: Yes Hx Asthma: No Hx COPD: No Hx HIV: No - Surgical History Past Surgical History?: No - Family History Family history: CAD/NV (Remote) - Social History Smoking Status: Never Smoker - Medications Home Medications: Home Medications Medication Instructions Recorded Confirmed Last Taken Type Aspirin EC [Halfprin EC] 81 mg PO QDAY #30 tablet. 04/24/19 12/21/20 Unknown Rx AtorvaSTATin [Lipitor] 40 mg PO QHS 07/15/19 12/21/20 12/19/20 22:00 History Amiodarone [Cordarone 200 MG TAB] 200 mg PO QDAY #30 tablet 12/31/20 Unknown Rx Aspirin EC [Halfprin EC] 81 mg PO QDAY #30 tablet 12/31/20 Unknown Rx AtorvaSTATin [Lipitor] 40 mg PO QHS #30 tablet 12/31/20 Unknown Rx Bumetanide [Bumex 1 mg tab] 1 mg PO QDAY #30 tablet 12/31/20 Unknown Rx Metoprolol Xl [Metoprolol 25 mg PO QDAY #30 12/31/20 Unknown Rx SUCCINATE ER TAB] Spironolactone [Aldactone] 25 mg PO BID #60 12/31/20 Unknown Rx Spironolactone [Aldactone] 25 mg PO BID #60 tablet 12/31/20 Unknown Rx Warfarin [Coumadin] 2.5 mg PO DAILY@1700 #30 tablet 12/31/20 Unknown Rx Warfarin [Coumadin] 10 mg PO DAILY@1700 #30 tablet 12/31/20 Unknown Rx hydrALAZINE [Apresoline TAB] 100 mg PO TID #90 tab 12/31/20 Unknown Rx levETIRAcetam [Keppra] 750 mg PO BID #60 oral.liqd 12/31/20 Unknown Rx Ibuprofen [Motrin 600 MG tab] 600 mg PO Q8H PRN #20 tablet 01/26/21 Unknown Rx ED Physical Exam - General Limitations: No Limitations General appearance: alert, in no apparent distress, obese - Head Head exam: Present: atraumatic, normocephalic - Eye Eye exam: Present: normal appearance, EOMI. Absent: scleral icterus - ENT ENT exam: Present: normal exam, normal orophraynx, mucous membranes moist - Neck Neck exam: Present: normal inspection. Absent: meningismus - Respiratory Respiratory exam: Present: normal lung sounds bilaterally. Absent: respiratory distress - Cardiovascular Cardiovascular Exam: Present: regular rate, normal rhythm - GI/Abdominal GI/Abdominal exam: Present: soft. Absent: distended, tenderness, pulsatile mass - Extremities Exam Extremities exam: Present: full ROM, normal capillary refill. Absent: pedal edema - Back Exam Back exam: Absent: CVA tenderness (R), CVA tenderness (L) - Neurological Exam Neurological exam: Present: alert, oriented X3, normal gait. Absent: motor sensory deficit - Psychiatric Psychiatric exam: Present: normal affect, normal mood - Skin Skin exam: Present: warm, dry ED Course Vital Signs 01/26/21 12:29 Pulse Rate 95 H Respiratory 16 Rate Blood Pressure 112/64 [Left] O2 Sat by Pulse 93 Oximetry - Reevaluation(s) Reevaluation #1: 01/26/21 12:47 IV labs ordered. EKG was noted. Reevaluation #2: 01/26/21 14:04 Labs and x-ray have been noted. Patient was discharged. TAZ score - Taz Score Age > 65: (0) No Aspirin use within the Past 7 Days: (0) No 3 or more CAD Risk Factors: (0) No 2 or more Angina events in past 24 hrs: (0) No Known CAD with more than 50% Stenosis: (0) No Elevated Cardiac Markers: (0) No ST Deviation Greater than 0.5mm: (0) No TAZ Score: 0 ED Medical Decision Making - Lab Data Result diagrams: 01/26/21 12:49 01/26/21 12:49 - EKG Data -: EKG Interpreted by Me EKG shows normal: sinus rhythm, intervals, QRS complexes Rate: normal - EKG Data When compared to previous EKG there are: no significant change (When compared to EKG on 12/21/2020) Interpretation: no acute changes 01/26/21 12:48 Patient has a normal sinus rhythm at 97. Again intervals are normal. There are PVCs noted. Patient has good R wave progression. There are T wave inversions in V4 through V6. There is T wave flattening in the limb leads diffusely. - Radiology Data Radiology results: report reviewed - Medical Decision Making Patient presented secondary to chest pain. Etiology for the pain is not known. He has no evidence of STEMI. There is no change in EKG troponin. He has a sufficiently low heart score that would allow outpatient evaluation with stratification. He does not require admission. There is no radiographic evidence of pneumonia, pneumothorax, or congestive heart failure. He certainly does not have cardiomegaly suggestive of pericardial effusion. There is no pulse deficit or wide mediastinum to suggest aortic dissection. He has no pleuritic pain or hypoxia that would suggest pneumonia. Critical Care Time: No Critical care attestation.: If time is entered above; I have spent that time in minutes in the direct care of this critically ill patient, excluding procedure time. ED Disposition Clinical Impression: Precordial chest pain Disposition: 01 HOME / SELF CARE / HOMELESS Is pt being admited?: No Does the pt Need Aspirin: No Condition: Stable Instructions: Nonspecific Chest Pain, Adult Prescriptions: Ibuprofen [Motrin 600 MG tab] 600 mg PO Q8H PRN #20 tablet PRN Reason: Pain
[2021-01-26 13:13] LABS: Hemoglobin 13.1 gm/dl (11.8-15.2); Mean Corpuscular HGB Conc 33 % (32-34); Mean Corpuscular Volume 92 fl (84-94); Platelet Count 293 K/mm3 (140-440); Red Blood Count 4.33 M/mm3 (3.65-5.03); Red Cell Distribution Width 14.3 % (13.2-15.2)
--- NOTE | 2021-01-26 13:17 | XRay Report ---
CHEST 2 VIEWS INDICATION / CLINICAL INFORMATION: chest pain. COMPARISON: 12/20/2020 FINDINGS: SUPPORT DEVICES: Cardiac ICD appears appropriately positioned. HEART / MEDIASTINUM: No significant abnormality. LUNGS / PLEURA: No significant pulmonary or pleural abnormality. No pneumothorax. ADDITIONAL FINDINGS: No significant additional findings. IMPRESSION: 1. No acute findings. Signer Name: Milind Tran MD Signed: 01/26/2021 1:13 PM Workstation Name: [id number]
[2021-01-26 13:27] LABS: BUN/Creatinine Ratio 19; Blood Urea Nitrogen 27 mg/dL (9-20); Calcium 9.1 mg/dL (8.4-10.2); Hemolysis Index 5
--- NOTE | 2021-01-27 10:10 | Electrocardiograph Report ---
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
== END 2021-01-26 16:17 | disposition home or self-care (01) ==
LOC: ED 12:04
DX: R07.2 Precordial pain (principal); I11.0 Hypertensive heart disease with heart failure; I50.9 Heart failure, unspecified; M19.90 Unspecified osteoarthritis, unspecified site; R56.9 Unspecified convulsions; Z86.73 Personal history of transient ischemic attack (TIA), and cerebral infarction without residual deficits
CPT/HCPCS: 36415; 71046; 80048; 84484; 85027; 93005; 99284

== ENCOUNTER 2021-05-30 05:23 | Inpatient (IN) | payer MEDICARE ==
[2021-05-30] MEDS ORDERED: levETIRAcetam 1000 MG/NS 0.75% 1,000 MG/100 ML BAG IV ONE (05:47)
--- NOTE | 2021-05-30 05:53 | Emergency Department Report ---
Chief Complaint: Dizziness Stated Complaint: DIZZINESS - HPI History of Present Illness: 35-year-old -[place] male with history of seizure disorder hypertension, arrhythmias, hyperlipidemia, CHF, atrial fibrillation (on Coumadin as per previous medical record in March), and morbid obesity and also with a cerebrovascular accident in the past with right-sided weakness comes in for evaluation dizziness and forgetfulness As per EMS patient had a conversation with his via phone at 4 AM and sounded normal Patient got up after conversation to make something to eat and reported feeling dizzy like the room was spinning EMS reported that patient was forgetful and initially did not recall who the president was or how many quarters were in a dollar Upon arrival patient was answering questions appropriately although still somewhat with the delay Upon medical record review I saw patient in March for similar symptoms He presented with dizziness/room spinning sensation and concerned that he was going to have a seizure. After arrival he did have eye deviation and repetitive blinking and difficulty speaking suggestive seizure Discharge summary reviewed and patient did have a EEG, CTA head and neck showing chronic left CEMENTER HAND infarct, MRI could not be done due to pacer and outpatient neurology follow-up advised. Patient was discharged on Keppra at that time. Patient unclear about his current seizure medication but appears to state it is Oxcarbazepine. This was not started during his last admission in Mar due to possible interaction with warfarin. Has been taking half the dose of his seizure medication so that he does not run out because he needs to follow-up with a neurologist for refill. Code stroke called given patient's presentation however and history of multiple strokes however, his presentation appears similar to his March presentation when he had a seizure. Neurology input pending IV Gissel ordered Patient to be further evaluated by oncoming physician I did discuss case with neurologist, Gissel 3 g recommendation cta head and neck ordered as per neurology recommendation - Exam Vital Signs: Vital Signs 05/30/21 05:27 Temperature 98.9 F Pulse Rate 100 H Respiratory 16 Rate Blood Pressure 128/91 [Left] O2 Sat by Pulse 95 Oximetry MSE screening note: Focused history and physical exam performed. Due to findings the following was ordered: ED Disposition for MSE Condition: Stable Referrals: PRIMARY CARE, [Primary Care Provider] - 3-5 Days
--- NOTE | 2021-05-30 06:04 | Emergency Department Report ---
ED Dizziness HPI - General Chief Complaint: Dizziness Stated Complaint: DIZZINESS Time Seen by Provider: 05/30/21 06:03 Source: EMS Mode of arrival: Stretcher Limitations: No Limitations - History of Present Illness Initial Comments: Patient had presented with dizziness and some temporary problems with memory. He seems to have cleared by the time I assumed care. Patient was initially seen by Dr. Gandhi. Please note her documentation. I assumed care with a stroke work- up in progress. CT and CTA were pending. Neurology had already been consulted. Patient states that he just feels cold when I examined him and speak with him. He states that he does not have any dizziness. He has no chest pain or back pain. He did not notice any new weakness. - Related Data Home Medications Medication Instructions Recorded Confirmed Last Taken AtorvaSTATin [Lipitor] 40 mg PO QHS 03/27/21 03/29/21 03/26/21 Warfarin [Coumadin] 7.5 mg PO QDAY 03/29/21 03/29/21 03/26/21 Previous Rx's Medication Instructions Recorded Last Taken Type Amiodarone [Cordarone 200 MG TAB] 200 mg PO QDAY #30 tablet 12/31/20 03/26/21 Rx Metoprolol Xl [Metoprolol 25 mg PO QDAY #30 12/31/20 03/26/21 Rx SUCCINATE ER TAB] Spironolactone [Aldactone] 25 mg PO BID #60 tablet 12/31/20 03/26/21 Rx hydrALAZINE [Apresoline TAB] 100 mg PO TID #90 tab 12/31/20 03/26/21 Rx levETIRAcetam [Keppra] 750 mg PO BID #60 oral.liqd 03/30/21 Unknown Rx Allergies Allergy/AdvReac Type Severity Reaction Status Date / Time No Known Allergies Allergy Verified 05/30/21 05:28 ED Review of Systems ROS: Stated complaint: DIZZINESS Other details as noted in HPI Comment: All other systems reviewed and negative Constitutional: denies: fever Eyes: denies: eye pain ENT: denies: throat pain Respiratory: denies: cough Cardiovascular: denies: chest pain Endocrine: denies: unexplained weight loss Gastrointestinal: denies: abdominal pain Genitourinary: denies: dysuria Musculoskeletal: denies: back pain Skin: denies: rash Neurological: as per HPI Hematological/Lymphatic: denies: easy bruising ED Past Medical Hx - Past Medical History Hx Hypertension: Yes Hx CVA: Yes (right sided weakness) Hx Congestive Heart Failure: Yes Hx Diabetes: No Hx Arthritis: Yes Hx Seizures: Yes Hx Asthma: No Hx COPD: No Hx HIV: No - Family History Family history: hypertension - Social History Smoking Status: Never Smoker - Medications Home Medications: Home Medications Medication Instructions Recorded Confirmed Last Taken Type Amiodarone [Cordarone 200 MG TAB] 200 mg PO QDAY #30 tablet 12/31/20 03/29/21 03/26/21 Rx Metoprolol Xl [Metoprolol 25 mg PO QDAY #30 12/31/20 03/29/21 03/26/21 Rx SUCCINATE ER TAB] Spironolactone [Aldactone] 25 mg PO BID #60 tablet 12/31/20 03/29/21 03/26/21 Rx hydrALAZINE [Apresoline TAB] 100 mg PO TID #90 tab 12/31/20 03/29/21 03/26/21 Rx AtorvaSTATin [Lipitor] 40 mg PO QHS 03/27/21 03/29/21 03/26/21 History Warfarin [Coumadin] 7.5 mg PO QDAY 03/29/21 03/29/21 03/26/21 History levETIRAcetam [Keppra] 750 mg PO BID #60 oral.liqd 03/30/21 Unknown Rx ED Physical Exam - General Limitations: No Limitations, Other (Pulse ox noted and normal) General appearance: alert, in no apparent distress - Head Head exam: Present: atraumatic, normocephalic - Eye Eye exam: Present: normal appearance, EOMI - ENT ENT exam: Present: normal orophraynx, normal external ear exam - Neck Neck exam: Present: normal inspection. Absent: meningismus - Respiratory Respiratory exam: Present: normal lung sounds bilaterally. Absent: respiratory distress - Cardiovascular Cardiovascular Exam: Present: regular rate, normal rhythm - GI/Abdominal GI/Abdominal exam: Present: soft. Absent: tenderness - Extremities Exam Extremities exam: Present: normal capillary refill - Back Exam Back exam: Absent: CVA tenderness (R), CVA tenderness (L) - Neurological Exam Neurological exam: Present: alert, oriented X3, CN II-XII intact. Absent: motor sensory deficit - Psychiatric Psychiatric exam: Present: normal affect, normal mood - Skin Skin exam: Present: warm, dry ED Course Vital Signs 05/30/21 05:27 Temperature 98.9 F Pulse Rate 100 H Respiratory 16 Rate Blood Pressure 128/91 [Left] O2 Sat by Pulse 95 Oximetry - Reevaluation(s) Reevaluation #1: 05/30/21 06:04 I assumed care. Stroke evaluation is in progress. Neuro requested CTA head/neck. Old records noted. Reevaluation #2: 05/30/21 07:17 Work-up is complete. Patient was discharged. Reevaluation #3: 05/30/21 07:36 Case was discussed with Dr. Valenzuela who will admit and see the patient. ED Medical Decision Making - Lab Data Result diagrams: 05/30/21 06:32 05/30/21 06:32 - Radiology Data Radiology results: report reviewed - Medical Decision Making Patient presented with symptoms concerning for possible stroke. Patient had been seen by another provider and stroke work-up initiated. I assumed care with stroke work-up in progress. During my care of the patient, he remained h emodynamically stable. Stroke work-up was essentially normal. Case was discussed with Dr. Aleksey Mckenna. The neurologist believes that admission was appropriate. I was comfortable with discharge at the patient had a stroke work- up in March 2021 with an unremarkable plan. It was felt that the patient could have potentially had seizure at that time. Dr. Wadsworth decided to admit. Critical Care Time: No Critical care attestation.: If time is entered above; I have spent that time in minutes in the direct care of this critically ill patient, excluding procedure time. ED Disposition Clinical Impression: Transient speech disturbance Disposition: ADMITTED INPATIENT Is pt being admited?: Yes Condition: Stable Referrals: PRIMARY CARE, [Primary Care Provider] - 3-5 Days
[2021-05-30] MEDS ORDERED: LEVETIRACETAM IV ONE ×2 (06:08→08:30)
[2021-05-30] MEDS ORDERED: DEXTROSE 5% IV ONE ×2 (06:08→08:30)
[2021-05-30] MEDS ORDERED: WATER IV ONE ×2 (06:08→08:30)
--- NOTE | 2021-05-30 06:10 | Emergency Department Report ---
Blank Doc - Documentation Documentation: [facility] Consult Note # Demographics Consult Type: Acute Stroke Level 1 (0-4.5 hrs) Patient Location: Emergency Room First Name: Jorge Last Name: Igor Ash Date of : 1985 Age: 35 Gender: Male Facility: [facility] Time of Initial Page ( Time): 05/30/2021, 05:45 Time of Return Call ( Time): 05/30/2021, 05:46 # HPI History: 35 yo man hx of prior strokes, seizures and pacemaker on warfarin who woke up to make something to eat and felt dizzy and did not feel himself. noted that patient does not take all his seizure medications at appropriate times. Patient describes that he had room spinning. He notes when he has these feelings, he is about to have a seizure. Patient had very similar event in march, where he came with similar symptoms, treated for seizure # Scores Time of exam and NIHSS (): 05/30/2021, 05:55 Level of Consciousness 1a: [0] = Alert; keenly responsive LOC Questions 1b: [0] = Answers both questions correctly LOC Commands 1c: [0] = Performs both tasks correctly Best Gaze 2: [0] = Normal Visual 3: [0] = No visual loss Facial Palsy 4: [0] = Normal symmetrical movements Motor Arm Left 5a: [0] = No drift Motor Arm Right 5b: [0] = No drift Motor Leg Left 6a: [0] = No drift Motor Leg Right 6b: [0] = No drift Limb Ataxia 7: [0] = Absent Sensory 8: [1] = Yask-dn-[id number] sensory loss Best Language 9: [0] = No aphasia Dysarthria 10: [0] = Normal Extinction and Inattention 11: [0] = No abnormality NIHSS Total: 1 # Data Time Head CT personally read by me (): 05/30/2021, 05:[address]: no bleed # Assessment Impression: Altered Mental Status hx of stroke hx of seizures dizziness NIHSS 1 for existing numbness low suspicion for new stroke suspect seizure # Plan Thrombolytic/Intervention: NOT IV Thrombolysis or IA Intervention candidate Thrombolytic Exclusion (< 3 hour window): NIHSS = 0 non-disabling deficit Intraarterial Exclusion: cta pending Target Blood Pressure: SBP < 220 Labs: CBC comprehensive metabolic panel lipid panel TSH ua Medication: aspirin 325 mg daily DVT Prophylaxis: heparin 5000 units subcutaneously q 12 hours Other: consult on-site neurology service for full work-up and evaluation recommendations If patient has any neurological deterioration please call me back immediately I have discussed my recommendations with the referring provider Additional Recommendations: Admit for stroke work up load keppra 3000mg keppra now continue 1000mg bid Disposition: admit # Logistics Telemedicine: Interactive 2 way audio and visual telecommunication technology was utilized during this visit
--- NOTE | 2021-05-30 06:16 | Cat Scan Report ---
CT HEAD WITHOUT CONTRAST INDICATION / CLINICAL INFORMATION: Stroke symptoms. TECHNIQUE: All CT scans at this location are performed using CT dose reduction for ALARA by means of automated exposure control. COMPARISON: CT dated 03/27/21 FINDINGS: HEMORRHAGE: None. EXTRA-AXIAL SPACES: Normal in size and morphology for the patient's age. VENTRICULAR SYSTEM: Normal in size and morphology for the patient's age. CEREBRAL PARENCHYMA: No change in old infarcts in left occipital lobe and left posterior parietal lob e. No change in lacunar infarcts in left basal ganglia. No acute territorial infarct. MIDLINE SHIFT / HERNIATION: None. CEREBELLUM / BRAINSTEM: No significant abnormality. ORBITS: Normal as visualized. SOFT TISSUES: No significant abnormality. SKULL: No significant abnormality. PARANASAL SINUSES / MASTOID AIR CELLS: Normal as visualized. ADDITIONAL FINDINGS: None. IMPRESSION: 1. No acute intracranial abnormality. 2. Stable appearance of old left-sided infarcts. CODE STROKE Time of Communication ([employer]/CDT): 5:10 AM Licensed Practitioner Receiving Report: Dr. Gandhi in the ED Signer Name: Agatha Storm MD Signed: 05/30/2021 6:11 AM Workstation Name: [id number]
[2021-05-30 06:51] LABS: Basophils # (Auto) 0.1 K/mm3 (0.0-0.1); Basophils % (Auto) 0.9 % (0.0-1.8); Eosinophils # (Auto) 0.1 K/mm3 (0.0-0.4); Hematocrit 43.5 % (35.5-45.6); Hemoglobin 14.1 gm/dl (11.8-15.2); Lymphocytes # (Auto) 1.3 K/mm3 (1.2-5.4); Lymphocytes % (Auto) 24.5 % (13.4-35.0); Mean Corpuscular HGB Conc 33 % (32-34); Mean Corpuscular Volume 93 fl (84-94); Monocytes # (Auto) 0.5 K/mm3 (0.0-0.8); Monocytes % (Auto) 8.7 % (0.0-7.3); Platelet Count 325 K/mm3 (140-440); Red Blood Count 4.68 M/mm3 (3.65-5.03); Red Cell Distribution Width 15.1 % (13.2-15.2)
--- NOTE | 2021-05-30 07:01 | Cat Scan Report ---
CT angio head, CT angio neck HISTORY: forgetful, dizzy, hx of cva and seizure COMPARISON: 03/30/[address] head from same day. TECHNIQUE: CTA of the neck and head is performed after IV contrast. 3-D/MIP reformats were postproces sed. Percentage stenosis is determined by direct quantitative measurements of diseased internal gamboa tid artery diameter compared with normal distal internal carotid artery reference segments or by crit eria similar to NASCET where applicable. All CT scans at this location are performed using CT dose re duction for ALARA by means of automated exposure control. FINDINGS: CTA NECK: Aortic arch: No significant abnormality. Cervical vertebral arteries: No occlusion or hemodynamically significant stenosis. Common Carotid arteries: No occlusion or hemodynamically significant stenosis. Internal carotid arteries: No occlusion or hemodynamically significant stenosis. CTA HEAD: Intracranial internal carotid arteries: No occlusion or significant stenosis. Anterior cerebral arteries: No occlusion or significant stenosis. Middle cerebral arteries: No occlusion or significant stenosis. Intracranial vertebral arteries: No occlusion or significant stenosis. Basilar artery: No occlusion or significant stenosis. Posterior cerebral arteries: No occlusion or significant stenosis. No aneurysm. Additional findings: Heart is enlarged. 1 left lower pole thyroid nodule. Given patient's age, this d oes not meet criteria for dedicated thyroid ultrasound. Please see CT head dated same day. IMPRESSION: 1. CTA NECK: No occlusion or significant stenosis of the carotid or vertebral arteries. 2. CTA HEAD: No significant change. No occlusion or significant stenosis of the major intracranial va sculature. Signer Name: Cameron Crabtree MD Signed: 05/30/2021 6:57 AM Workstation Name: [id number]
[2021-05-30 07:03] LABS: Creatine Kinase MB 1.1 ng/mL (0.0-4.0)
[2021-05-30 07:04] LABS: BUN/Creatinine Ratio 13; Blood Urea Nitrogen 17 mg/dL (9-20); Hemolysis Index 6
[2021-05-30 07:09] LABS: INR 0.93 (0.87-1.13)
[2021-05-30 07:10] LABS: Partial Thromboplastin Time 32.1 Sec. (24.2-36.6); Thrombin Time 18.2 Sec. (15.1-19.6)
--- NOTE | 2021-05-30 07:46 | History and Physical Report ---
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 presented to the emergency room with dizziness Patient did not have any loss of consciousness or neurological deficit Telemetry neurologist evaluated and recommended admission and further neuro work-up Patient had extensive neuro work-up recently which was negative patient is n oncompliant initial evaluation is consistent with subtherapeutic INR CT head without contrast showed no acute intracranial abnormalities except for old infarcts Past History Past Medical History: atrial fib, CAD, hypertension, hyperlipidemia, stroke, other (LV thrombus) Social history: denies: smoking, alcohol abuse, prescription drug abuse Family history: no significant family history Medications and Allergies Allergies Allergy/AdvReac Type Severity Reaction Status Date / Time No Known Allergies Allergy Verified 05/30/21 05:28 Home Medications Medication Instructions Recorded Confirmed Last Taken Type Amiodarone [Cordarone 200 MG TAB] 200 mg PO QDAY #30 tablet 12/31/20 05/31/21 03/26/21 Rx hydrALAZINE [Apresoline TAB] 100 mg PO TID #90 tab 12/31/20 05/31/21 03/26/21 Rx AtorvaSTATin [Lipitor] 40 mg PO QHS 03/27/21 05/31/21 03/26/21 History Warfarin [Coumadin] 7.5 mg PO QDAY 03/29/21 05/31/21 03/26/21 History levETIRAcetam [Keppra] 750 mg PO BID #60 oral.liqd 03/30/21 05/31/21 Unknown Rx Bumetanide [Bumex 1 mg tab] 1 mg PO DAILY 05/31/21 05/31/21 Unknown History OXcarbazepine [Trileptal] 450 mg PO BID 05/31/21 05/31/21 Unknown History Potassium Chloride [K-Dur] 20 meq PO QDAY 05/31/21 05/31/21 Unknown History Spironolactone [Aldactone] 25 mg PO QDAY 05/31/21 05/31/21 Unknown History Torsemide [Demadex] 100 mg PO Q48HR 05/31/21 05/31/21 Unknown History carvediloL [Coreg] 6.25 mg PO BID 05/31/21 05/31/21 Unknown History Review of Systems Constitutional: fatigue, weakness, other (Numbness) Ears, nose, mouth and throat: no nasal congestion, no nasal discharge Cardiovascular: no chest pain, no orthopnea, no syncope Respiratory: no cough, no shortness of breath Gastrointestinal: no abdominal pain, no nausea, no vomiting Genitourinary Male: no dysuria, no hematuria Musculoskeletal: arm numbness/tingling, other (Dizziness) Integumentary: no rash, no lesions Neurological: numbness, no seizures, no syncope Psychiatric: no anxiety, no depression Endocrine: no cold intolerance, no heat intolerance, no polydipsia, no polyuria Hematologic/Lymphatic: no easy bruising, no easy bleeding Allergic/Immunologic: no urticaria, no allergic rhinitis Exam - Constitutional Vitals: Temp Pulse Resp BP Pulse Ox 98.9 F 100 H 16 128/91 95 05/30/21 05:27 05/30/21 05:27 05/30/21 05:27 05/30/21 05:27 05/30/21 05:27 General appearance: Present: no acute distress, well-nourished, obese (Morbidly obese) - EENT Eyes: Present: PERRL, EOM intact - Neck Neck: Present: supple, normal ROM - Respiratory Respiratory effort: normal Respiratory: bilateral: diminished, negative: rales, rhonchi, wheezing - Cardiovascular Rhythm: regular Heart Sounds: Present: S1 & S2 - Extremities Extremities: no ischemia, No edema - Abdominal General gastrointestinal: Present: soft, non-tender, non-distended, normal bowel sounds - Integumentary Integumentary: Present: clear, warm - Musculoskeletal Musculoskeletal: strength equal bilaterally, generalized weakness - Psychiatric Psychiatric: appropriate mood/affect, cooperative - Neurologic Neurologic: moves all extremities (Residual weakness) HEART Score - HEART Score Troponin: Troponin T < 0.010 ng/mL (0.00-0.029) 05/30/21 06:32 Results - Labs CBC & Chem 7: 05/31/21 15:50 05/31/21 15:50 Labs: Abnormal lab results 05/30/21 05/30/21 Range/Units 05:30 06:32 [place] % (Auto) 8.7 H (0.0-7.3) % POC Glucose 133 H (70-105) mg/dL Assessment and Plan --Neuro symptoms/CVA versus TIA Current Visit: Yes Status: Acute CT head without contrast. Old infarcts Patient is not a candidate for tPA Neurochecks, neuro work-up if needed Neurology consult [not available we cannot] --History of LV thrombus; INR 0.93 None compliant with medication INRs have been none therapeutic, target INR 2-3 At full dose Lovenox, Coumadin monitor INR --Subtherapeutic INR. 0.93 Current Visit: No Status: Chronic Patient is on Coumadin for A. fib/LV thrombus Target INR 2-3 --Medical noncompliance Current Visit: No Status: Chronic Patient counseled the importance of adhering to the treatment plan Risks and consequences of not taking anticoagulation in the setting of LV thrombus Recurrent CVA explained to the patient, verbalized understanding -- dizziness Current Visit: Yes Status: Acute Check orthostats, supportive care --History of seizureS Current Visit: Yes Status: Acute Seizure precautions, antiepileptic medications Do not drive until cleared by neurology --History of A. fib; Current Visit: No Status: Chronic Continue beta-blockers, amiodarone Coumadin, target INR 2-3 --Dilated cardiomyopathy/LVEF 20 to 25% Current Visit: No Status: Chronic Continue antifailure medications Cardiology consult if needed - HTN (hypertension) Current Visit: No Status: Chronic Resume home antihypertensives As needed blood pressure medications --Morbid obesity; BMI 38.5 Current Visit: No Status: Chronic Patient needs weight reduction when medically stable --Hypertension; Current Visit: No Status: Chronic Moderate control, continue current antihypertensives As needed medication continue statin --Dyslipidemia; Current Visit: No Status: Chronic Continue statin --DVT prophylaxis Current Visit: No Status: Chronic Patient is on therapeutic Lovenox/Coumadin -- Full code status Current Visit: Yes Status: Acute Patient is full code. We will closely monitor patient and adjust management as needed Plan of care reviewed with the patient and his nurse Disposition; admit to telemetry, will be discharged when patient is stable and when INR is therapeutic between 2 and 3
[2021-05-30] MEDS ORDERED: WARFARIN 5 MG TAB PO SCH (10:00)
[2021-05-30] MEDS: ENOXAPARIN 100 MG/1 ML INJ SUB-Q SCH (10:00)
[2021-05-30] MEDS: METOPROLOL SUCCINATE XL 25 MG TAB PO SCH (16:35)
[2021-05-30] MEDS: AMIODARONE 200 MG TAB PO SCH (16:35)
[2021-05-30] MEDS: hydrALAZINE 100 MG TAB PO SCH (17:23)
[2021-05-30] MEDS: SPIRONOLACTONE 25 MG TAB PO SCH (17:24)
[2021-05-30] MEDS ORDERED: oxyCODONE /ACETAMINOPHEN 5-325MG TAB PO PRN (19:43)
[2021-05-30] MEDS ORDERED: HYDROmorphone 1 MG/1 ML INJ IV PRN (19:43)
[2021-05-30] MEDS ORDERED: ACETAMINOPHEN 325 MG TAB PO PRN (19:43)
[2021-05-30] MEDS ORDERED: ONDANSETRON 4 MG/2 ML INJ IV PRN (19:43)
[2021-05-30] MEDS: levETIRAcetam 500 MG/5 ML ORAL LIQD PO SCH (23:00)
[2021-05-31] MEDS: hydrALAZINE 100 MG TAB PO SCH ×4 (00:12→21:03)
[2021-05-31] MEDS: SPIRONOLACTONE 25 MG TAB PO SCH ×2 (00:12→10:05)
[2021-05-31] MEDS: ENOXAPARIN 100 MG/1 ML INJ SUB-Q SCH ×2 (00:14→10:06)
[2021-05-31 05:23] LABS: Basophils # (Auto) 0.1 K/mm3 (0.0-0.1); Basophils % (Auto) 0.9 % (0.0-1.8); Eosinophils # (Auto) 0.1 K/mm3 (0.0-0.4); Eosinophils % (Auto) 1.9 % (0.0-4.3); Hematocrit 44.2 % (35.5-45.6); Hemoglobin 14.1 gm/dl (11.8-15.2); Lymphocytes # (Auto) 2.1 K/mm3 (1.2-5.4); Lymphocytes % (Auto) 33.6 % (13.4-35.0); Mean Corpuscular HGB Conc 32 % (32-34); Mean Corpuscular Volume 94 fl (84-94); Monocytes # (Auto) 0.6 K/mm3 (0.0-0.8); Monocytes % (Auto) 9.3 % (0.0-7.3); Platelet Count 326 K/mm3 (140-440); Red Blood Count 4.71 M/mm3 (3.65-5.03)
[2021-05-31 05:34] LABS: INR 1.01 (0.87-1.13)
[2021-05-31 05:37] LABS: BUN/Creatinine Ratio 13; Blood Urea Nitrogen 17 mg/dL (9-20); Calcium 8.8 mg/dL (8.4-10.2); Hemolysis Index 2
[2021-05-31] MEDS: AMIODARONE 200 MG TAB PO SCH (10:04)
[2021-05-31] MEDS: levETIRAcetam 500 MG/5 ML ORAL LIQD PO SCH (10:05)
[2021-05-31] MEDS: METOPROLOL SUCCINATE XL 25 MG TAB PO SCH (10:05)
--- NOTE | 2021-05-31 14:12 | Progress Note ---
Assessment and Plan Assessment and plan: --Neuro symptoms/CVA versus TIA Current Visit: Yes Status: Acute CT head without contrast. Old infarcts Patient is not a candidate for tPA Neurochecks, neuro work-up if needed Neurology consult [not available we cannot] --History of LV thrombus;[NO LV thrombus on echo 12/20/2020] 12/20/2020 echo; no evidence of LV thrombus, EF 20% --Subtherapeutic INR. 0.93 Current Visit: No Status: Chronic Patient is on Coumadin for A. fib/LV thrombus Target INR 2-3 --Medical noncompliance Current Visit: No Status: Chronic Patient counseled the importance of adhering to the treatment plan Risks and consequences of not taking anticoagulation in the setting of LV thrombus Recurrent CVA explained to the patient, verbalized understanding -- dizziness Current Visit: Yes Status: Acute Check orthostats, supportive care --History of seizureS Current Visit: Yes Status: Acute Seizure precautions, antiepileptic medications Do not drive until cleared by neurology --History of A. fib; Current Visit: No Status: Chronic Continue beta-blockers, amiodarone Coumadin, target INR 2-3 --Dilated cardiomyopathy/LVEF 20 to 25% Current Visit: No Status: Chronic Continue antifailure medications Cardiology consult if needed - HTN (hypertension) Current Visit: No Status: Chronic Resume home antihypertensives As needed blood pressure medications --Morbid obesity; BMI 38.5 Current Visit: No Status: Chronic Patient needs weight reduction when medically stable --Hypertension; Current Visit: No Status: Chronic Moderate control, continue current antihypertensives As needed medication continue statin --Dyslipidemia; Current Visit: No Status: Chronic Continue statin --DVT prophylaxis Current Visit: No Status: Chronic Patient is on therapeutic Lovenox/Coumadin -- Full code status Current Visit: Yes Status: Acute Patient is full code. We will closely monitor patient and adjust management as needed Plan of care reviewed with the patient and his nurse Disposition; admit to telemetry, will be discharged when patient is stable and when INR is therapeutic between 2 and 3 05/31/2021; Patient's recent echocardiogram on 12/20/2020 Did not show any LV thrombus, patient has A. fib Will DC Lovenox, Coumadin, start Eliquis per protocol Ambulate as tolerated Possible discharge tomorrow on Eliquis if stable History Interval history: I have seen and examined the patient at the bedside Patient's chart and medications reviewed Patient's weakness numbness completely resolved Vital signs noted Hospitalist Physical - Constitutional Vitals: Temp Pulse Resp BP Pulse Ox 98.1 F 75 18 115/68 95 05/31/21 10:38 05/31/21 10:38 05/31/21 10:38 05/31/21 10:30 05/31/21 10:30 General appearance: Present: no acute distress, well-nourished, obese (Morbidly obese) - EENT Eyes: Present: PERRL, EOM intact - Neck Neck: Present: supple, normal ROM - Respiratory Respiratory effort: normal Respiratory: bilateral: diminished, negative: rales, rhonchi, wheezing - Cardiovascular Rhythm: regular Heart Sounds: Present: S1 & S2 - Extremities Extremities: no ischemia, No edema - Abdominal General gastrointestinal: soft, non-tender, non-distended, normal bowel sounds - Integumentary Integumentary: Present: clear, warm - Psychiatric Psychiatric: appropriate mood/affect, cooperative - Neurologic Neurologic: moves all extremities HEART Score - HEART Score Troponin: Troponin T < 0.010 ng/mL (0.00-0.029) 05/30/21 06:32 Results - Labs CBC & Chem 7: 05/31/21 15:50 05/31/21 15:50 Labs: Laboratory Last Values WBC 6.3 K/mm3 (4.5-11.0) 05/31/21 04:16 RBC 4.71 M/mm3 (3.65-5.03) 05/31/21 04:16 Hgb 14.1 gm/dl (11.8-15.2) 05/31/21 04:16 Hct 44.2 % (35.5-45.6) 05/31/21 04:16 MCV 94 fl (84-94) 05/31/21 04:16 MCH 30 pg (28-32) 05/31/21 04:16 MCHC 32 % (32-34) 05/31/21 04:16 RDW 15.0 % (13.2-15.2) 05/31/21 04:16 Plt Count 326 K/mm3 (140-440) 05/31/21 04:16 Lymph % (Auto) 33.6 % (13.4-35.0) 05/31/21 04:16 [place] % (Auto) 9.3 % (0.0-7.3) H 05/31/21 04:16 Eos % (Auto) 1.9 % (0.0-4.3) 05/31/21 04:16 Baso % (Auto) 0.9 % (0.0-1.8) 05/31/21 04:16 Lymph # (Auto) 2.1 K/mm3 (1.2-5.4) 05/31/21 04:16 [place] # (Auto) 0.6 K/mm3 (0.0-0.8) 05/31/21 04:16 Eos # (Auto) 0.1 K/mm3 (0.0-0.4) 05/31/21 04:16 Baso # (Auto) 0.1 K/mm3 (0.0-0.1) 05/31/21 04:16 Seg Neutrophils % 54.3 % (40.0-70.0) 05/31/21 04:16 Seg Neutrophils # 3.4 K/mm3 (1.8-7.7) 05/31/21 04:16 PT 14.4 Sec. (12.2-14.9) 05/31/21 04:16 INR 1.01 (0.87-1.13) 05/31/21 04:16 APTT 32.1 Sec. (24.2-36.6) 05/30/21 06:32 Thrombin Time 18.2 Sec. (15.1-19.6) 05/30/21 06:32 Sodium 143 mmol/L (137-145) 05/31/21 04:16 Potassium 3.9 mmol/L (3.6-5.0) 05/31/21 04:16 Chloride 101.9 mmol/L (98-107) 05/31/21 04:16 Carbon Dioxide 27 mmol/L (22-30) 05/31/21 04:16 Anion Gap 18 mmol/L 05/31/21 04:16 BUN 17 mg/dL (9-20) 05/31/21 04:16 Creatinine 1.3 mg/dL (0.8-1.3) 05/31/21 04:16 Estimated GFR > 60 ml/min 05/31/21 04:16 BUN/Creatinine Ratio 13 % 05/31/21 04:16 Glucose 88 mg/dL (75-100) 05/31/21 04:16 POC Glucose 133 mg/dL (70-105) H 05/30/21 05:30 Calcium 8.8 mg/dL (8.4-10.2) 05/31/21 04:16 Magnesium 2.10 mg/dL (1.7-2.3) 05/31/21 04:16 Total Creatine Kinase 112 units/L (55-170) 05/30/21 06:32 CK-MB (CK-2) 1.1 ng/mL (0.0-4.0) 05/30/21 06:32 CK-MB (CK-2) Rel Index 0.9 (0-4) 05/30/21 06:32 Troponin T < 0.010 ng/mL (0.00-0.029) 05/30/21 06:32 Active Medications - Current Medications Current Medications: Generic Name Dose Route Start Last Admin Trade Name Freq PRN Reason Stop Dose Admin Acetaminophen 650 mg 05/30/21 19:43 Acetaminophen 325 Mg Tab PO Q4H PRN Pain MILD(1-3)/Fever >100.5/ARRIAZA Amiodarone HCl 200 mg 05/30/21 10:00 05/31/21 10:04 Amiodarone 200 Mg Tab PO 200 mg QDAY JOHN Administration Atorvastatin Calcium 40 mg 05/30/21 22:00 05/31/21 00:14 Atorvastatin 40 Mg Tab PO 40 mg QHS JOHN Administration Enoxaparin Sodium 140 mg 05/30/21 10:00 05/31/21 10:06 Enoxaparin 100 Mg/1 Ml Inj 1 mg/kg (140 mg) 140 mg SUB-Q Administration Q12HR [facility] Protocol Hydralazine HCl 100 mg 05/30/21 08:30 05/31/21 08:52 Hydralazine 100 Mg Tab PO 100 mg TID JOHN Administration Hydromorphone HCl 0.5 mg 05/30/21 19:43 Hydromorphone 1 Mg/1 Ml Inj IV Q23H PRN Pain , Severe (7-10) Levetiracetam 750 mg 05/30/21 23:00 05/31/21 10:05 Levetiracetam 500 Mg/5 Ml Oral Liqd PO 750 mg BID JOHN Administration Metoprolol Succinate 25 mg 05/30/21 10:00 05/31/21 10:05 Metoprolol Succinate Xl 25 Mg Tab PO 25 mg QDAY JOHN Administration Ondansetron HCl 4 mg 05/30/21 19:43 Ondansetron 4 Mg/2 Ml Inj IV Q8H PRN Nausea And Vomiting Oxycodone/Acetaminophen 1 tab 05/30/21 19:43 Oxycodone /Acetaminophen 5-325mg Tab PO Q16H PRN Pain, Moderate (4-6) Sodium Chloride 10 ml 05/30/21 22:00 05/31/21 10:06 Sodium Chloride 0.9% 10 Ml Flush Syringe IV 10 ml BID JOHN Administration Sodium Chloride 10 ml 05/30/21 19:43 Sodium Chloride 0.9% 10 Ml Flush Syringe IV PRN PRN LINE FLUSH Spironolactone 25 mg 05/30/21 10:00 05/31/21 10:05 Spironolactone 25 Mg Tab PO 25 mg BID JOHN Administration Warfarin Sodium 7.5 mg 05/30/21 17:00 Warfarin 7.5 Mg Tab PO DAILY@1700 [facility]
[2021-05-31 16:04] LABS: Hematocrit 44.3 % (35.5-45.6); Hemoglobin 14.5 gm/dl (11.8-15.2); Mean Corpuscular HGB Conc 33 % (32-34); Mean Corpuscular Volume 94 fl (84-94); Platelet Count 311 K/mm3 (140-440); Red Blood Count 4.74 M/mm3 (3.65-5.03); Red Cell Distribution Width 14.8 % (13.2-15.2)
[2021-05-31 16:15] LABS: INR 0.98 (0.87-1.13)
[2021-05-31 16:16] LABS: Partial Thromboplastin Time 46.3 Sec. (24.2-36.6)
[2021-05-31] MEDS: WARFARIN 7.5 MG TAB PO SCH (21:04)
[2021-06-01] MEDS: levETIRAcetam 500 MG/5 ML ORAL LIQD PO SCH ×3 (01:20→21:10)
[2021-06-01] MEDS: OXcarbazepine 150 MG TAB PO SCH ×2 (01:21→10:50)
[2021-06-01] MEDS: carvediloL 6.25 MG TAB PO SCH ×3 (01:21→21:10)
[2021-06-01] MEDS: APIXABAN 5 MG TAB PO SCH ×3 (01:22→21:09)
[2021-06-01] MEDS: WARFARIN 7.5 MG TAB PO SCH (01:39)
[2021-06-01 04:35] LABS: INR 1.02 (0.87-1.13)
[2021-06-01] MEDS: SPIRONOLACTONE 25 MG TAB PO SCH ×3 (05:47→21:09)
[2021-06-01] MEDS: hydrALAZINE 100 MG TAB PO SCH ×3 (08:19→21:10)
--- NOTE | 2021-06-01 08:28 | Discharge Summary ---
Providers - Providers Date of Admission: 05/30/21 19:43 Date of discharge: 06/01/21 Attending physician: PAOLA GRANT Primary care physician: RESIDENTIAL MORTGAGE MANAGER Hospitalization Condition: Stable Pertinent studies: CT head without contrast; no acute abnormality noted Stable appearance of old left-sided infarcts CTA head; no significant change no occlusion or significant stenosis of the major intracranial vasculature CTA neck; no occlusion or significant stenosis of the carotid or vertebral arteries Hospital course: --Neuro symptoms/CVA versus TIA Current Visit: Yes Status: Acute CT head without contrast. Old infarcts Patient is not a candidate for tPA Neurochecks, neuro work-up if needed Neurology consult [not available we cannot] -- H/o LV thrombus;[NO LV thrombus on echo 12/20/2020] 12/20/2020 echo; no evidence of LV thrombus, EF 20% --Subtherapeutic INR. 0.93 Current Visit: No Status: Chronic Patient is on Coumadin for A. fib/LV thrombus Target INR 2-3 --Medical noncompliance Current Visit: No Status: Chronic Patient counseled the importance of adhering to the treatment plan Risks and consequences of not taking anticoagulation in the setting of LV thrombus Recurrent CVA explained to the patient, verbalized understanding -- dizziness Current Visit: Yes Status: Acute Check orthostats, supportive care --History of seizureS Current Visit: Yes Status: Acute Seizure precautions, antiepileptic medications Do not drive until cleared by neurology --History of A. fib; Current Visit: No Status: Chronic Continue beta-blockers, amiodarone Coumadin, target INR 2-3 --Dilated cardiomyopathy/LVEF 20 to 25% Current Visit: No Status: Chronic Continue antifailure medications Cardiology consult if needed - HTN (hypertension) Current Visit: No Status: Chronic Resume home antihypertensives As needed blood pressure medications --Morbid obesity; BMI 38.5 Current Visit: No Status: Chronic Patient needs weight reduction when medically stable --Hypertension; Current Visit: No Status: Chronic Moderate control, continue current antihypertensives As needed medication continue statin --Dyslipidemia; Current Visit: No Status: Chronic Continue statin --DVT prophylaxis Current Visit: No Status: Chronic Patient is on therapeutic Lovenox/Coumadin -- Full code status Current Visit: Yes Status: Acute Patient is full code. We will closely monitor patient and adjust management as needed Plan of care reviewed with the patient and his nurse Disposition; admit to telemetry, will be discharged when patient is stable and when INR is therapeutic between 2 and 3 05/31/2021; Patient's recent echocardiogram on 12/20/2020 Did not show any LV thrombus, patient has A. fib Will DC Lovenox, Coumadin, start Eliquis per protocol Ambulate as tolerated Possible discharge tomorrow on Eliquis if stable Disposition: 01 HOME / SELF CARE / HOMELESS Final Discharge Diagnosis (Prints w/discharge instructions): Neuro symptoms resolved. A. fib rate controlled. Chronic anticoagulation with Eliquis. History of LV thrombus[no LV thrombus on most recent echo 12/20/2020]. Dizziness/resolved. History of seizures/stable. Dilated cardiomyopathy LVEF 20 to 25%. Hypertension. Obesity; BMI 38.5. Hypertension. Dyslipidemia. Medical noncompliance Time spent for discharge: 45 min Core Measure Documentation - Palliative Care Palliative Care/ Comfort Measures: Not Applicable - Core Measures Any of the following diagnoses?: none Exam - Constitutional Vitals: Temp Pulse Resp BP Pulse Ox 98.1 F 75 13 117/80 97 06/01/21 08:23 06/01/21 05:47 06/01/21 04:30 06/01/21 08:16 06/01/21 08:16 General appearance: Present: no acute distress, well-nourished, obese (Morbidly obese) - EENT Eyes: Present: PERRL, EOM intact - Neck Neck: Present: supple, normal ROM - Respiratory Respiratory effort: normal Respiratory: bilateral: diminished, negative: rales, rhonchi, wheezing - Cardiovascular Rhythm: regular Heart Sounds: Present: S1 & S2 - Extremities Extremities: no ischemia, No edema - Abdominal General gastrointestinal: Present: soft, non-tender, non-distended, normal bowel sounds - Integumentary Integumentary: Present: clear, warm - Musculoskeletal Musculoskeletal: strength equal bilaterally - Psychiatric Psychiatric: appropriate mood/affect, cooperative - Neurologic Neurologic: moves all extremities Plan Activity: advance as tolerated Diet: other (Cardiac diet) Additional Instructions: Strongly advised to comply with medications diet and follow-up visits if you have worsening symptoms contact MD or go to the nearest emergency room. Advised to follow-up with primary care physician, district scout executive per schedule. Advised dietary modification exercise as tolerated and weight reduction when medically stable Follow up with: PRIMARY CARE,MD [Primary Care Provider] - 3-5 Days JORDON KELSEY MD [Staff Physician] - 7 Days Prescriptions: Spironolactone [Aldactone] 25 mg PO QDAY #30 hydrALAZINE [Apresoline TAB] 100 mg PO TID #90 tab Bumetanide [Bumex 1 mg tab] 1 mg PO DAILY #30 Amiodarone [Cordarone 200 MG TAB] 200 mg PO QDAY #30 tablet carvediloL [Coreg] 6.25 mg PO BID #60 Torsemide [Demadex] 100 mg PO Q48HR #60 Apixaban [Eliquis] 5 mg PO Q12HR #60 tablet levETIRAcetam [Keppra] 750 mg PO BID #60 oral.liqd AtorvaSTATin [Lipitor] 40 mg PO QHS #30 OXcarbazepine [Trileptal] 450 mg PO BID #60
[2021-06-01] MEDS ORDERED: BUMETANIDE 1 MG TAB PO SCH (10:00)
[2021-06-01] MEDS: METOPROLOL SUCCINATE XL 25 MG TAB PO SCH (10:51)
[2021-06-01] MEDS: AMIODARONE 200 MG TAB PO SCH (10:52)
[2021-06-01 20:13] VITALS: BP 117/80
== END 2021-06-01 21:00 | disposition home or self-care (01) | DRG 149 ==
LOC: ED 05:23 → 4A 19:43
PROVIDERS: ADMIT Internal Medicine; ATTEND Internal Medicine
DX: R42 Dizziness and giddiness (principal); I42.0 Dilated cardiomyopathy; I48.91 Unspecified atrial fibrillation; M19.90 Unspecified osteoarthritis, unspecified site; I50.9 Heart failure, unspecified; I11.0 Hypertensive heart disease with heart failure; E78.5 Hyperlipidemia, unspecified; E66.01 Morbid (severe) obesity due to excess calories; I25.10 Atherosclerotic heart disease of native coronary artery without angina pectoris; Z91.14 Patient's other noncompliance with medication regimen; Z82.49 Family history of ischemic heart disease and other diseases of the circulatory system; Z91.19 Patient's noncompliance with other medical treatment and regimen; Z68.38 Body mass index [BMI] 38.0-38.9, adult
CPT/HCPCS: 36415; 70450; 70496; 70498; 80048; 82550; 82553; 82565; 82962; 83735; 84484; 85025; 85027; 85610; 85670; 85730; G0378; J7060; J1650; J1953; Q9967

== ENCOUNTER 2021-11-14 04:52 | Emergency (ER) | payer MEDICARE ==
[2021-11-14] MEDS ORDERED: levETIRAcetam 1000 MG/NS 0.75% 1,000 MG/100 ML BAG IV ONE (07:45)
--- NOTE | 2021-11-14 07:54 | Emergency Department Report ---
HPI - General Chief Complaint: Seizure Time Seen by Provider: 11/14/21 07:44 - HPI HPI: Room 18 Patient is a 28-year-old male present with a chief complaint of seizures. Patient had a generalized tonic-clonic seizure witnessed by EMS and was administered Ativan 2 mg IV prior to arrival. Patient postictal upon arrival to the ED. Patient answer some questions stating his last seizure occurred in May. Patient still seems confused when asked if he has been compliant with his Keppra 13: 49- patient more alert now. Patient states he ran out of his Keppra a while ago and never got a refill ED Past Medical Hx - Past Medical History Previous Medical History?: Yes Hx Hypertension: Yes Hx CVA: Yes (right sided weakness) Hx Congestive Heart Failure: Yes Hx Arthritis: Yes Hx Seizures: Yes - Surgical History Past Surgical History?: No - Family History Family history: no significant - Social History Smoking Status: Never Smoker Substance Use Type: None - Medications Home Medications: Home Medications Medication Instructions Recorded Confirmed Last Taken Type Amiodarone [Cordarone 200 MG TAB] 200 mg PO QDAY #30 tablet 06/01/21 Unknown Rx Apixaban [Eliquis] 5 mg PO Q12HR #60 tablet 06/01/21 Unknown Rx AtorvaSTATin [Lipitor] 40 mg PO QHS #30 06/01/21 Unknown Rx Bumetanide [Bumex 1 mg tab] 1 mg PO DAILY #30 06/01/21 Unknown Rx OXcarbazepine [Trileptal] 450 mg PO BID #60 06/01/21 Unknown Rx Spironolactone [Aldactone] 25 mg PO QDAY #30 06/01/21 Unknown Rx Torsemide [Demadex] 100 mg PO Q48HR #60 06/01/21 Unknown Rx carvediloL [Coreg] 6.25 mg PO BID #60 06/01/21 Unknown Rx hydrALAZINE [Apresoline TAB] 100 mg PO TID #90 tab 06/01/21 Unknown Rx levETIRAcetam [Keppra] 750 mg PO BID #60 oral.liqd 06/01/21 Unknown Rx Lisinopril [Zestril TAB] 2.5 mg PO QDAY #30 tab 06/05/21 Unknown Rx levETIRAcetam [Keppra TAB] 500 mg PO BID #90 tablet 11/14/21 Unknown Rx ED Review of Systems ROS: Stated complaint: SEIZURE Other details as noted in HPI Comment: Unobtainable due to pts medical conditions Physical Exam - Physical Exam Vital Signs: Vital Signs 11/14/21 11/14/21 11/14/21 04:52 05:30 05:32 Temperature 98 F Pulse Rate 109 H 109 H Respiratory 18 19 Rate Blood Pressure 109/75 Blood Pressure 91/61 [Left] O2 Sat by Pulse 100 93 99 Oximetry 11/14/21 11/14/21 11/14/21 05:46 06:00 06:16 Temperature Pulse Rate Respiratory Rate Blood Pressure 91/61 90/52 93/55 Blood Pressure [Left] O2 Sat by Pulse 89 91 98 Oximetry 11/14/21 11/14/21 11/14/21 06:17 06:18 06:30 Temperature Pulse Rate 59 L Respiratory 15 15 Rate Blood Pressure 118/76 Blood Pressure 149/43 [Left] O2 Sat by Pulse 100 100 91 Oximetry 11/14/21 11/14/21 11/14/21 06:46 07:00 07:16 Temperature Pulse Rate Respiratory Rate Blood Pressure 122/75 123/71 123/76 Blood Pressure [Left] O2 Sat by Pulse 96 95 97 Oximetry 11/14/21 11/14/21 07:30 07:46 Temperature Pulse Rate Respiratory Rate Blood Pressure 133/85 128/84 Blood Pressure [Left] O2 Sat by Pulse 97 97 Oximetry Physical Exam: GENERAL: The patient is well-developed well-nourished male lying on stretcher postictal. [] HEENT: Normocephalic. Atraumatic. Extraocular motions are intact. Patient has moist mucous membranes. NECK: Supple. Trachea midline CHEST/LUNGS: Clear to auscultation. There is no respiratory distress noted. HEART/CARDIOVASCULAR: Regular. There is no tachycardia. There is no gallop rub or murmur. ABDOMEN: Abdomen is soft, nontender. Patient has normal bowel sounds. There is no abdominal distention. SKIN: There is no rash. There is no edema. There is no diaphoresis. NEURO: The patient is currently postictal and asleep. Patient awakens to tactile stimuli but has confused speech. The patient is not cooperative with neurologic exam. MUSCULOSKELETAL: There is no evidence of acute injury. ED Course Vital Signs 11/14/21 11/14/21 11/14/21 04:52 05:30 05:32 Temperature 98 F Pulse Rate 109 H 109 H Respiratory 18 19 Rate Blood Pressure 109/75 Blood Pressure 91/61 [Left] O2 Sat by Pulse 100 93 99 Oximetry 11/14/21 11/14/21 11/14/21 05:46 06:00 06:16 Temperature Pulse Rate Respiratory Rate Blood Pressure 91/61 90/52 93/55 Blood Pressure [Left] O2 Sat by Pulse 89 91 98 Oximetry 11/14/21 11/14/21 11/14/21 06:17 06:18 06:30 Temperature Pulse Rate 59 L Respiratory 15 15 Rate Blood Pressure 118/76 Blood Pressure 149/43 [Left] O2 Sat by Pulse 100 100 91 Oximetry 11/14/21 11/14/21 11/14/21 06:46 07:00 07:16 Temperature Pulse Rate Respiratory Rate Blood Pressure 122/75 123/71 123/76 Blood Pressure [Left] O2 Sat by Pulse 96 95 97 Oximetry 11/14/21 11/14/21 07:30 07:46 Temperature Pulse Rate Respiratory Rate Blood Pressure 133/85 128/84 Blood Pressure [Left] O2 Sat by Pulse 97 97 Oximetry ED Medical Decision Making - Lab Data Result diagrams: 11/14/21 07:54 11/14/21 07:54 Laboratory Tests 11/14/21 11/14/21 07:54 07:54 WBC 8.4 RBC 4.98 Hgb 14.8 Hct 44.9 MCV 90 MCH 30 MCHC 33 RDW 15.2 Plt Count 281 Lymph % (Auto) 12.5 L [place] % (Auto) 6.8 Eos % (Auto) 0.4 Baso % (Auto) 0.6 Lymph # (Auto) 1.0 L [place] # (Auto) 0.6 Eos # (Auto) 0.0 Baso # (Auto) 0.0 Seg Neutrophils % 79.7 H Seg Neutrophils # 6.6 Sodium 140 Potassium 4.3 Chloride 101.3 Carbon Dioxide 27 Anion Gap 16 BUN 20 Creatinine 1.5 H Estimated GFR > 60 BUN/Creatinine Ratio 13 Glucose 89 Calcium 9.4 Magnesium 2.30 - Differential Diagnosis Seizure Critical care attestation.: If time is entered above; I have spent that time in minutes in the direct care of this critically ill patient, excluding procedure time. ED Disposition Clinical Impression: Seizure Disposition: HOME / SELF CARE / HOMELESS Is pt being admited?: No Does the pt Need Aspirin: No Condition: Stable Instructions: Epilepsy, [id number] Additional Instructions: Return to the emergency department should you develop worsening symptoms, inability to tolerate food or liquids, high fever or any other concerns Prescriptions: levETIRAcetam [Keppra TAB] 500 mg PO BID #90 tablet Time of Disposition: 13:50
[2021-11-14 08:28] LABS: Hematocrit 44.9 % (35.5-45.6); Hemoglobin 14.8 gm/dl (11.8-15.2); Mean Corpuscular HGB Conc 33 % (32-34); Mean Corpuscular Volume 90 fl (84-94); Platelet Count 281 K/mm3 (140-440); Red Blood Count 4.98 M/mm3 (3.65-5.03); Red Cell Distribution Width 15.2 % (13.2-15.2)
[2021-11-14 08:32] LABS: Basophils % (Auto) 0.6 % (0.0-1.8); Eosinophils % (Auto) 0.4 % (0.0-4.3); Lymphocytes % (Auto) 12.5 % (13.4-35.0); Monocytes # (Auto) 0.6 K/mm3 (0.0-0.8); Monocytes % (Auto) 6.8 % (0.0-7.3)
[2021-11-14 08:41] LABS: BUN/Creatinine Ratio 13; Blood Urea Nitrogen 20 mg/dL (9-20); Calcium 9.4 mg/dL (8.4-10.2); Hemolysis Index 8
[2021-11-14 14:22] VITALS: BP 149/43
== END 2021-11-14 14:22 | disposition home or self-care (01) ==
LOC: ED 04:52
DX: R56.9 Unspecified convulsions (principal); I10 Essential (primary) hypertension
CPT/HCPCS: 36415; 80048; 83735; 85025; 96374; 99284; J1953

== ENCOUNTER 2021-12-28 19:40 | Emergency (ER) | payer MEDICARE ==
--- NOTE | 2021-12-28 21:57 | XRay Report ---
CHEST 1 VIEW INDICATION: Chest Pain. COMPARISON: 03/27/2021 FINDINGS: Support devices: Cardiac leads project in expected position. Heart: Enlarged, unchanged. Lungs/Pleura: No acute pulmonary or pleural findings. IMPRESSION: 1. No acute findings. Signer Name: Iglesia Collins MD Signed: 12/28/2021 9:53 PM Workstation Name: [id number]
--- NOTE | 2021-12-28 22:05 | Emergency Department Report ---
ED Palpitations HPI - General Chief Complaint: Chest Pain Stated Complaint: ALTERED,CARDIAC ARRYTHMIA Time Seen by Provider: 12/28/21 21:21 Source: EMS Mode of arrival: Stretcher Limitations: No Limitations - History of Present Illness Initial Comments: Patient is a 36-year-old male with history of CVA and CHF presenting to the ED with complaint of palpitations beginning this evening. States he was outside doing yard work while smoking marijuana when he began to feel his heart racing. Complaint: "heart racing" - Related Data Previous Rx's Medication Instructions Recorded Last Taken Type Amiodarone [Cordarone 200 MG TAB] 200 mg PO QDAY #30 tablet 06/01/21 Unknown Rx Apixaban [Eliquis] 5 mg PO Q12HR #60 tablet 06/01/21 Unknown Rx AtorvaSTATin [Lipitor] 40 mg PO QHS #30 06/01/21 Unknown Rx Bumetanide [Bumex 1 mg tab] 1 mg PO DAILY #30 06/01/21 Unknown Rx OXcarbazepine [Trileptal] 450 mg PO BID #60 06/01/21 Unknown Rx Spironolactone [Aldactone] 25 mg PO QDAY #30 06/01/21 Unknown Rx Torsemide [Demadex] 100 mg PO Q48HR #60 06/01/21 Unknown Rx carvediloL [Coreg] 6.25 mg PO BID #60 06/01/21 Unknown Rx hydrALAZINE [Apresoline TAB] 100 mg PO TID #90 tab 06/01/21 Unknown Rx levETIRAcetam [Keppra] 750 mg PO BID #60 oral.liqd 06/01/21 Unknown Rx Lisinopril [Zestril TAB] 2.5 mg PO QDAY #30 tab 06/05/21 Unknown Rx levETIRAcetam [Keppra TAB] 500 mg PO BID #90 tablet 11/14/21 Unknown Rx Allergies Allergy/AdvReac Type Severity Reaction Status Date / Time No Known Allergies Allergy Verified 11/14/21 07:11 ED Review of Systems ROS: Stated complaint: ALTERED,CARDIAC ARRYTHMIA Other details as noted in HPI Constitutional: denies: chills, fever Respiratory: denies: cough, shortness of breath, wheezing Cardiovascular: palpitations Endocrine: no symptoms reported Gastrointestinal: denies: abdominal pain, nausea, diarrhea Musculoskeletal: denies: back pain, joint swelling, arthralgia Skin: denies: rash, lesions Neurological: denies: headache, weakness, paresthesias Psychiatric: denies: anxiety, depression ED Past Medical Hx - Past Medical History Previous Medical History?: Yes Hx Hypertension: Yes Hx CVA: Yes (right sided weakness) Hx Congestive Heart Failure: Yes Hx Arthritis: Yes Hx Seizures: Yes - Surgical History Past Surgical History?: Yes Hx Pacemaker: Yes - Social History Smoking Status: Never Smoker Substance Use Type: Marijuana - Medications Home Medications: Home Medications Medication Instructions Recorded Confirmed Last Taken Type Amiodarone [Cordarone 200 MG TAB] 200 mg PO QDAY #30 tablet 06/01/21 Unknown Rx Apixaban [Eliquis] 5 mg PO Q12HR #60 tablet 06/01/21 Unknown Rx AtorvaSTATin [Lipitor] 40 mg PO QHS #30 06/01/21 Unknown Rx Bumetanide [Bumex 1 mg tab] 1 mg PO DAILY #30 06/01/21 Unknown Rx OXcarbazepine [Trileptal] 450 mg PO BID #60 06/01/21 Unknown Rx Spironolactone [Aldactone] 25 mg PO QDAY #30 06/01/21 Unknown Rx Torsemide [Demadex] 100 mg PO Q48HR #60 06/01/21 Unknown Rx carvediloL [Coreg] 6.25 mg PO BID #60 06/01/21 Unknown Rx hydrALAZINE [Apresoline TAB] 100 mg PO TID #90 tab 06/01/21 Unknown Rx levETIRAcetam [Keppra] 750 mg PO BID #60 oral.liqd 06/01/21 Unknown Rx Lisinopril [Zestril TAB] 2.5 mg PO QDAY #30 tab 06/05/21 Unknown Rx levETIRAcetam [Keppra TAB] 500 mg PO BID #90 tablet 11/14/21 Unknown Rx ED Physical Exam - General Limitations: No Limitations General appearance: alert, in no apparent distress - Head Head exam: Present: atraumatic, normocephalic - Respiratory Respiratory exam: Present: normal lung sounds bilaterally. Absent: respiratory distress - Cardiovascular Cardiovascular Exam: Present: regular rate, normal rhythm, normal heart sounds - GI/Abdominal GI/Abdominal exam: Present: soft. Absent: distended, tenderness - Rectal Rectal exam: Present: deferred - Extremities Exam Extremities exam: Present: normal inspection - Neurological Exam Neurological exam: Present: alert, oriented X3 - Psychiatric Psychiatric exam: Present: normal affect, normal mood - Skin Skin exam: Present: warm, dry, intact, normal color ED Course Vital Signs 12/28/21 12/28/21 12/29/21 20:56 21:15 00:49 Temperature 98.3 F Pulse Rate 80 103 H 78 Respiratory 17 18 15 Rate Blood Pressure 118/59 Blood Pressure 118/83 138/72 [Left] O2 Sat by Pulse 98 97 98 Oximetry ED Medical Decision Making - Lab Data Result diagrams: 12/28/21 21:33 12/28/21 21:33 - EKG Data -: EKG Interpreted by Me EKG shows normal: sinus rhythm, axis, intervals Rate: normal - EKG Data 12/28/21 22:06 Frequent PVCs noted. Flattened to inverted T waves. - Radiology Data Radiology results: report reviewed No acute findings chest x-ray - Medical Decision Making Labs grossly unremarkable except for creatinine of 1.7. 2 sets of troponins are undetectable. Repeat EKG performed and shows sinus rhythm with no PVCs. On reassessment patient states his symptoms are resolved. Suspect palpitations likely related to marijuana use. He is stable for discharge home with return precautions. Critical care attestation.: If time is entered above; I have spent that time in minutes in the direct care of this critically ill patient, excluding procedure time. ED Disposition Clinical Impression: Palpitations, Adverse effect of cannabis Disposition: 01 HOME / SELF CARE / HOMELESS Is pt being admited?: No Condition: Stable Instructions: Palpitations, [id number] Additional Instructions: Please follow-up with your regular doctor within 1 to 2 weeks. You may return if your symptoms worsen. Time of Disposition: 00:58
[2021-12-28 22:09] LABS: Basophils % (Auto) 0.4 % (0.0-1.8); Eosinophils % (Auto) 0.2 % (0.0-4.3); Hematocrit 43.5 % (35.5-45.6); Hemoglobin 14.2 gm/dl (11.8-15.2); Lymphocytes # (Auto) 0.9 K/mm3 (1.2-5.4); Lymphocytes % (Auto) 11.3 % (13.4-35.0); Mean Corpuscular HGB Conc 33 % (32-34); Mean Corpuscular Volume 91 fl (84-94); Monocytes # (Auto) 0.5 K/mm3 (0.0-0.8); Platelet Count 279 K/mm3 (140-440); Red Blood Count 4.81 M/mm3 (3.65-5.03)
[2021-12-28] MEDS: ASPIRIN 81 MG TAB CHEW PO ONE ×2 (22:09→22:11)
[2021-12-28 22:29] LABS: Alanine Aminotransferase 49 units/L (7-56); Albumin 4.3 g/dL (3.9-5); BUN/Creatinine Ratio 11; Blood Urea Nitrogen 18 mg/dL (9-20); Calcium 10.1 mg/dL (8.4-10.2); Hemolysis Index 1
[2021-12-29 01:36] VITALS: BP 122/70
--- NOTE | 2021-12-31 19:23 | Electrocardiograph Report ---
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1985 Requested By: JAMES NEWMAN Order Number: [id number] Reading MD: Nirmala Urbina Measurements Intervals [place] Rate: 77 P: 17 [place]: 189 QRS: 24 QRSD: 87 T: 178 QT: 395 QTc: 448 Interpretive Statements Sinus rhythm Probable anteroseptal infarct, old Abnormal T, consider ischemia, lateral leads Compared to ECG 12/28/2021 21:05:21 Sinus tachycardia no longer present Ventricular tachycardia no longer present Atrial abnormality no longer present Myocardial infarct finding still present T-wave abnormality still present Possible ischemia still present Electronically Signed On 12-31-2021 19:23:16 EDT by Nirmala Urbina
--- NOTE | 2021-12-31 19:23 | Electrocardiograph Report ---
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1985 Requested By: JAMES NEWMAN Order Number: [id number] Reading MD: Nirmala Urbina Measurements Intervals [place] Rate: 109 P: 80 [place]: 176 QRS: 24 QRSD: 87 T: 192 QT: 337 QTc: 454 Interpretive Statements Sinus tachycardia Ventricular tachycardia, unsustained Frequent PVC's Left atrial enlargement Probable anteroseptal infarct, old Abnormal T, consider ischemia, lateral leads Compared to ECG 03/27/2021 08:57:49 NSVT now present T-wave abnormality now present Possible ischemia now present Ventricular premature complex(es) no longer present Myocardial infarct finding still present Electronically Signed On 12-31-2021 19:22:35 EDT by Nirmala Urbnia
== END 2021-12-29 01:35 | disposition home or self-care (01) ==
LOC: ED 19:40
DX: R00.2 Palpitations (principal); F12.10 Cannabis abuse, uncomplicated; I11.0 Hypertensive heart disease with heart failure; I50.9 Heart failure, unspecified; M19.90 Unspecified osteoarthritis, unspecified site; R56.9 Unspecified convulsions; Z86.73 Personal history of transient ischemic attack (TIA), and cerebral infarction without residual deficits; Z79.899 Other long term (current) drug therapy
CPT/HCPCS: 36415; 71045; 80053; 84484; 85025; 93005; 99284